=== PATIENT | female | born 1965 | race Caucasian/White ===

== ENCOUNTER 2016-11-21 15:10 | Inpatient (IN) | payer MEDICARE, OTHER ==
[2016-11-21] MEDS ORDERED: SODIUM CHLORIDE 0.9% 1,000 ML IV STA (15:35)
[2016-11-21] MEDS ORDERED: IPRATROPIUM-ALBUTEROL 3 ML NEB INHALATION STA (15:35)
[2016-11-21] MEDS ORDERED: methylPREDNISolone SOD SUCCI 125 MG/2 ML VIAL IV STA (15:35)
--- NOTE | 2016-11-21 15:48 | ED ---
SOB HPI - General Chief Complaint: Shortness of Breath Stated Complaint: SOB Time Seen by Provider: 11/21/16 15:20 Source: patient, RN notes reviewed Mode of arrival: wheelchair Limitations: no limitations - History of Present Illness Initial Comments: Is a 51-year-old female history of mental retardation who also has a history of asthma she presents with complaints of having pneumonia. She is short of breath fevers chills and sweats. She was seen by visiting physician 3 days ago x-ray was ordered which apparently did show evidence of pneumonia. Is no other complaints at this time no nausea vomiting diarrhea. Temperature got as high as 101. She is coughing but no phlegm was produced. MD Complaint: shortness of breath, cough - Related Data Home Medications Medication Instructions Recorded Confirmed Atenolol [Tenormin] 50 mg PO BID 07/23/15 11/21/16 Citalopram Hydrobromide [CeleXA] 20 mg PO QAM 07/23/15 11/21/16 Docusate Sodium [Dok] 100 mg PO HS 07/23/15 11/21/16 Hydrochlorothiazide [Hydrodiuril] 12.5 mg PO QAM 07/23/15 11/21/16 Lisinopril [Zestril] 10 mg PO W/SUPPER 07/23/15 11/21/16 Loratadine [Claritin] 10 mg PO W/SUPPER 07/23/15 11/21/16 Multivitamins, Thera [Multivitamin 1 tab PO DAILY 07/23/15 11/21/16 (formulary)] Omeprazole [PriLOSEC] 20 mg PO AC-BRKFST 07/23/15 11/21/16 Potassium Chloride [K-Tab ER] 10 meq PO QAM 07/23/15 11/21/16 Solifenacin Succinate [Vesicare] 5 mg PO W/SUPPER 07/23/15 11/21/16 Aspirin EC [Ecotrin Low Dose] 81 mg PO QAM 11/21/16 11/21/16 Cholecalciferol (Vitamin D3) 2,000 unit PO DAILY 11/21/16 11/21/16 [Vitamin D3] Fenofibrate Nanocrystallized 145 mg PO DAILY 11/21/16 11/21/16 [Fenofibrate] [place]-3 Acid Ethyl Esters [Lovaza] 2 gm PO BID 11/21/16 11/21/16 Simvastatin [Zocor] 20 mg PO HS 11/21/16 11/21/16 Sulfamethox-Tmp 800-160Mg [Bactrim 1 tab PO BID 11/21/16 11/21/16 DS 800-160 mg] cloZAPine [Clozaril] 200 mg PO HS 11/21/16 11/21/16 metFORMIN HCL ER [Glucophage Xr] 1,000 mg PO BID-W/MEALS 11/21/16 11/21/16 Previous Rx's Medication Instructions Recorded Insulin Glargine [Lantus] 30 unit SQ BID #1 vial 08/10/15 Allergies Allergy/AdvReac Type Severity Reaction Status Date / Time No Known Allergies Allergy Verified 11/21/16 15:52 Review of Systems ROS Statement: Those systems with pertinent positive or pertinent negative responses have been documented in the HPI. ROS Other: All systems not noted in ROS Statement are negative. Past Medical History Past Medical History: Diabetes Mellitus, GERD/Reflux, Hyperlipidemia, Hypertension Additional Past Medical History / Comment(s): HX ANEMIA. STRESS TEST AND ECHO DONE LAST WEEK AT [facility] - HAS SL MURMUR. MENTALLY DELAYED. URINARY URGENCY, INCONTINANCE IN SLEEP. HX ABN LFS. ABD PAIN, OCC NAUSEA/VOMITING. GALLSTONES. History of Any Multi-Drug Resistant Organisms: None Reported Past Surgical History: Orthopedic Surgery Additional Past Surgical History / Comment(s): PAST EYE SX LONG TIME AGO NOT SURE WHAT WAS DONE. RT KNEE SURG(ARTHROSCOPY).08-03-15 OPEN CHOLECYSTECTOMY Past Anesthesia/Blood Transfusion Reactions: Unable to Obtain Past Psychological History: Schizophrenia Smoking Status: Former smoker Past Alcohol Use History: None Reported Past Drug Use History: None Reported - Past Family History Mother Family Medical History: Unable to Obtain General Exam - General Exam Comments Initial Comments: This is a well up well-nourished awake alert female she is audibly wheezing Limitations: no limitations General appearance: alert, in no apparent distress Head exam: Present: atraumatic, normocephalic, normal inspection Eye exam: Present: normal appearance, PERRL, EOMI. Absent: scleral icterus, conjunctival injection, periorbital swelling ENT exam: Present: mucous membranes dry Neck exam: Present: normal inspection. Absent: tenderness, meningismus, lymphadenopathy Respiratory exam: Absent: respiratory distress, wheezes, rales, rhonchi, stridor Cardiovascular Exam: Present: regular rate, normal rhythm, normal heart sounds. Absent: systolic murmur, diastolic murmur, rubs, gallop, clicks GI/Abdominal exam: Present: soft, normal bowel sounds. Absent: distended, tenderness, guarding, rebound, rigid Extremities exam: Present: normal inspection, full ROM, normal capillary refill. Absent: tenderness, pedal edema, joint swelling, calf tenderness Back exam: Present: normal inspection Neurological exam: Present: alert, altered, CN II-XII intact Psychiatric exam: Present: normal affect, normal mood Skin exam: Present: warm, dry, intact, normal color. Absent: rash Course Vital Signs 11/21/16 11/21/16 11/21/16 15:19 16:09 16:10 Temperature 97.8 F 99.2 F Pulse Rate 81 79 80 Respiratory 20 20 Rate Blood Pressure 109/70 112/70 O2 Sat by Pulse 93 L 99 Oximetry 11/21/16 11/21/16 11/21/16 16:17 17:33 18:51 Temperature 98.4 F Pulse Rate 79 87 79 Respiratory 22 20 Rate Blood Pressure 122/71 124/67 O2 Sat by Pulse 95 94 L Oximetry 11/21/16 19:18 Temperature Pulse Rate 74 Respiratory 16 Rate Blood Pressure 122/68 O2 Sat by Pulse 95 Oximetry - Reevaluation(s) Reevaluation #1: 11/21/16 20:20 I did reevaluate this patient several occasions she still dyspneic her best pulse ox is about 93 on oxygen nasal cannula. She still demonstrated wheezing and shortness of breath. Medical Decision Making - Medical Decision Making The patient is wheezing she will be admitted. I did discuss the case Dr. Osei. Pulmonary medicine will be consulted - Lab Data Result diagrams: 11/21/16 16:20 11/21/16 16:20 Lab Results 11/21/16 11/21/16 11/21/16 Range/Units 16:20 16:20 16:20 WBC 6.3 (3.8-10.6) k/uL RBC 4.55 (3.80-5.40) m/uL Hgb 12.4 (11.4-16.0) gm/dL Hct 37.7 (34.0-46.0) % MCV 82.9 (80.0-100.0) fL MCH 27.3 (25.0-35.0) pg MCHC 32.9 (31.0-37.0) g/dL RDW 14.7 (11.5-15.5) % Plt Count 303 (150-450) k/uL Neutrophils % 45 % Lymphocytes % 40 % Monocytes % 5 % Eosinophils % 5 % Basophils % 1 % Neutrophils # 2.8 (1.3-7.7) k/uL Lymphocytes # 2.5 (1.0-4.8) k/uL Monocytes # 0.3 (0-1.0) k/uL Eosinophils # 0.3 (0-0.7) k/uL Basophils # 0.1 (0-0.2) k/uL PT (9.0-12.0) sec INR (<1.1) APTT (22.0-30.0) sec Sodium 143 (137-145) mmol/L Potassium 4.9 (3.5-5.1) mmol/L Chloride 103 (98-107) mmol/L Carbon Dioxide 25 (22-30) mmol/L Anion Gap 15 mmol/L BUN 22 H (7-17) mg/dL Creatinine 1.15 H (0.52-1.04) mg/dL Est GFR (MDRD) Af Amer 60 (>60 ml/min/1.73 sqM) Est GFR (MDRD) Non-Af 49 (>60 ml/min/1.73 sqM) Glucose 90 (74-99) mg/dL Calcium 10.2 (8.4-10.2) mg/dL Magnesium 1.7 (1.6-2.3) mg/dL Total Bilirubin 0.5 (0.2-1.3) mg/dL AST 31 (14-36) U/L ALT 155 H (9-52) U/L Alkaline Phosphatase 106 (38-126) U/L Total Creatine Kinase 54 (30-135) U/L CK-MB (CK-2) 0.7 (0.0-2.4) ng/mL CK-MB (CK-2) Rel Index 1.3 Troponin I <0.012 (0.000-0.034) ng/mL NT-Pro-B Natriuret Pep pg/mL Total Protein 7.0 (6.3-8.2) g/dL Albumin 4.1 (3.5-5.0) g/dL 11/21/16 11/21/16 Range/Units 16:20 16:26 WBC (3.8-10.6) k/uL RBC (3.80-5.40) m/uL Hgb (11.4-16.0) gm/dL Hct (34.0-46.0) % MCV (80.0-100.0) fL MCH (25.0-35.0) pg MCHC (31.0-37.0) g/dL RDW (11.5-15.5) % Plt Count (150-450) k/uL Neutrophils % % Lymphocytes % % Monocytes % % Eosinophils % % Basophils % % Neutrophils # (1.3-7.7) k/uL Lymphocytes # (1.0-4.8) k/uL Monocytes # (0-1.0) k/uL Eosinophils # (0-0.7) k/uL Basophils # (0-0.2) k/uL PT 10.8 (9.0-12.0) sec INR 1.1 (<1.1) APTT 23.2 (22.0-30.0) sec Sodium (137-145) mmol/L Potassium (3.5-5.1) mmol/L Chloride (98-107) mmol/L Carbon Dioxide (22-30) mmol/L Anion Gap mmol/L BUN (7-17) mg/dL Creatinine (0.52-1.04) mg/dL Est GFR (MDRD) Af Amer (>60 ml/min/1.73 sqM) Est GFR (MDRD) Non-Af (>60 ml/min/1.73 sqM) Glucose (74-99) mg/dL Calcium (8.4-10.2) mg/dL Magnesium (1.6-2.3) mg/dL Total Bilirubin (0.2-1.3) mg/dL AST (14-36) U/L ALT (9-52) U/L Alkaline Phosphatase (38-126) U/L Total Creatine Kinase (30-135) U/L CK-MB (CK-2) (0.0-2.4) ng/mL CK-MB (CK-2) Rel Index Troponin I (0.000-0.034) ng/mL NT-Pro-B Natriuret Pep 314 pg/mL Total Protein (6.3-8.2) g/dL Albumin (3.5-5.0) g/dL - EKG Data -: EKG Interpreted by Me EKG shows normal: sinus rhythm (Sinus rhythm rate of 79 VT interval 192 QRS duration 148 daily since QTC of 478/548 left exodeviation left bundle-branch block no acute ST-T wave changes.) - Radiology Data Radiology results: report reviewed (I did review the imaging there is some evidence of a left lower lobe pneumonia.), image reviewed Disposition Clinical Impression: Left lower lobe pneumonia, Asthma exacerbation, Adult respiratory distress syndrome Disposition: ADMITTED IP TO THIS HOSP Condition: Stable Referrals: All Ham MD [Primary Care Provider] - 1-2 days
[2016-11-21 16:26] LABS: Basophils # (A) 0.1 k/uL (0-0.2); Basophils % (A) 1 %; CH 26.9; CHCM 32.6; Eosinophils # (A) 0.3 k/uL (0-0.7); Eosinophils % (A) 5 %; HCT 37.7 % (34.0-46.0); HDW 2.98; HGB 12.4 gm/dL (11.4-16.0); Luc # (Auto) 0.25; Luc % (Auto) 4; Lymphocytes # (A) 2.5 k/uL (1.0-4.8); Lymphocytes % (A) 40 %; MCH 27.3 pg (25.0-35.0); MCHC 32.9 g/dL (31.0-37.0); MCV 82.9 fL (80.0-100.0); Mean Platelet Volume 7.6; Monocytes # (A) 0.3 k/uL (0-1.0); Monocytes % (A) 5 %; Neutrophils # (A) 2.8 k/uL (1.3-7.7); Neutrophils % (A) 45 %; RBC 4.55 m/uL (3.80-5.40); RDW 14.7 % (11.5-15.5); WBC 6.3 k/uL (3.8-10.6); WBC (Perox) 6.27
[2016-11-21 16:36] LABS: Calcium 10.2 mg/dL (8.4-10.2); Magnesium 1.7 mg/dL (1.6-2.3); Potassium 4.9 mmol/L (3.5-5.1); Total Bilirubin 0.5 mg/dL (0.2-1.3)
[2016-11-21 16:47] LABS: Creatine Kinase 54 U/L (30-135)
--- NOTE | 2016-11-21 16:55 | XR ---
EXAMINATION TYPE: XR chest 2V DATE OF EXAM: 11/21/2016 COMPARISON: 08/06/2015 HISTORY: Short of breath TECHNIQUE: Frontal and lateral views of the chest are obtained. FINDINGS: Heart and mediastinum are normal. Lungs are clear. Diaphragm is normal. Bony thorax is int act. IMPRESSION: Normal chest. There is clearing of left lower lobe pneumonia compared to old exam.
[2016-11-21 16:57] LABS: INR 1.1 (<1.1); Partial Thromboplastin Time 23.2 sec (22.0-30.0); Prothrombin Time 10.8 sec (9.0-12.0)
[2016-11-21 16:59] LABS: Creatine Kinase MB 0.7 ng/mL (0.0-2.4); Troponin I <0.012 ng/mL (0.000-0.034)
[2016-11-21] MEDS ORDERED: PNEUMONIA PROTOCOL UTILIZED 1 EACH MISC PO PRN (20:26)
[2016-11-21] MEDS ORDERED: AZITHROMYCIN 500 MG in SODIUM CHLORIDE 0.9% 250 ML IVPB STA (20:26)
[2016-11-21] MEDS ORDERED: NON-FORMULARY DRUG (Omega-3 Acid Ethyl Esters [Lovaza] 2 GM) PO SCH (21:00)
[2016-11-21] MEDS: cloZAPine 100 MG TAB PO SCH (22:27)
[2016-11-21] MEDS: ATORVASTATIN 10 MG TAB PO SCH (22:28)
[2016-11-21] MEDS: DOCUSATE 100 MG CAP PO SCH (22:28)
[2016-11-21] MEDS: ATENOLOL 50 MG TAB PO SCH (22:28)
[2016-11-21 22:46] LABS: Glucose,Whole Blood 128 mg/dL (75-99)
[2016-11-21] MEDS ORDERED: IPRATROPIUM-ALBUTEROL 3 ML NEB INHALATION PRN (23:10)
[2016-11-21] MEDS: INSULIN LISPRO (humaLOG) 300 UNIT/3 ML VIAL SQ SCH (23:29)
[2016-11-22] MEDS ORDERED: IPRATROPIUM-ALBUTEROL 3 ML NEB INHALATION SCH
[2016-11-22] MEDS: SODIUM CHLORIDE 0.9% 1,000 ML IV SCH ×3 (00:20→12:44)
[2016-11-22] MEDS: INSULIN GLARGINE 100 UNIT/ML 10 ML VIAL SQ SCH ×3 (00:27→21:09)
[2016-11-22 03:44] LABS: Hemoglobin A1C 6.2 % (4.2-6.1)
--- NOTE | 2016-11-22 07:24 | XR ---
EXAMINATION TYPE: XR chest 2V DATE OF EXAM: 11/22/2016 HISTORY: pneumonia. REFERENCE: Previous study dated 11/21/2016. FINDINGS: Tubing projects over the left hemithorax. Lungs remain clear. Pleural spaces are clear. Heart size is upper limits of normal. IMPRESSION: NO ACUTE INTRATHORACIC ABNORMALITY.
[2016-11-22 07:36] LABS: Glucose,Whole Blood 157 mg/dL (75-99)
[2016-11-22] MEDS: IPRATROPIUM-ALBUTEROL 3 ML NEB INHALATION SCH ×4 (07:45→20:04)
[2016-11-22 08:07] LABS: Basophils % (A) 0 %; CH 26.9; CHCM 32.2; Eosinophils % (A) 0 %; HDW 2.98; HGB 11.8 gm/dL (11.4-16.0); Luc # (Auto) 0.23; Luc % (Auto) 3; Lymphocytes # (A) 1.7 k/uL (1.0-4.8); Lymphocytes % (A) 19 %; MCH 26.8 pg (25.0-35.0); MCV 83.9 fL (80.0-100.0); Mean Platelet Volume 7.3; Monocytes # (A) 0.3 k/uL (0-1.0); Monocytes % (A) 3 %; Neutrophils # (A) 6.7 k/uL (1.3-7.7); Neutrophils % (A) 75 %; RBC 4.42 m/uL (3.80-5.40); RDW 14.5 % (11.5-15.5); WBC (Perox) 9.55
[2016-11-22 08:23] LABS: Anion Gap 14 mmol/L; Blood Urea Nitrogen 20 mg/dL (7-17); Carbon Dioxide 21 mmol/L (22-30); Chloride 108 mmol/L (98-107); Glucose 153 mg/dL (74-99); Non-African American GFR(MDRD) 57 (>60 ml/min/1.73 sqM); Sodium 143 mmol/L (137-145)
[2016-11-22] MEDS: HYDROCHLOROTHIAZIDE 12.5 MG CAP PO SCH (08:25)
[2016-11-22] MEDS: ATENOLOL 50 MG TAB PO SCH ×2 (08:25→20:14)
[2016-11-22] MEDS: POTASSIUM CHLORIDE ER 10 MEQ TAB.ER.PRT PO SCH (08:25)
[2016-11-22] MEDS: MULTIVITAMINS, THERA 1 EACH TAB PO SCH (08:25)
[2016-11-22] MEDS: CITALOPRAM HYDROBROMIDE 20 MG TAB PO SCH (08:25)
[2016-11-22] MEDS: ASPIRIN 81 MG CHEW PO SCH (08:26)
[2016-11-22] MEDS: AZITHROMYCIN 500 MG TAB PO SCH (08:26)
[2016-11-22] MEDS: INSULIN LISPRO (humaLOG) 300 UNIT/3 ML VIAL SQ SCH ×4 (08:26→21:11)
[2016-11-22] MEDS: metFORMIN 500 MG TAB PO SCH ×2 (08:26→17:10)
[2016-11-22] MEDS: FENOFIBRATE 160 MG TAB PO SCH (08:26)
[2016-11-22] MEDS: CHOLECALCIFEROL 1,000 UNIT TAB PO SCH (08:26)
[2016-11-22] MEDS: PANTOPRAZOLE 40 MG TABLET PO SCH (08:26)
[2016-11-22] MEDS: ENOXAPARIN 40 MG/0.4 ML SYRINGE SQ SCH (10:46)
[2016-11-22 12:10] LABS: Glucose,Whole Blood 238 mg/dL (75-99)
[2016-11-22] MEDS ORDERED: ONDANSETRON 4 MG/2 ML VIAL IVP PRN (14:39)
[2016-11-22] MEDS ORDERED: ONDANSETRON 4 MG/2 ML VIAL ONE (14:46)
[2016-11-22] MEDS: OXYBUTYNIN XL 5 MG TAB.ER.24 PO SCH (17:10)
[2016-11-22] MEDS: LORATADINE 10 MG TAB PO SCH (17:10)
[2016-11-22] MEDS: LISINOPRIL 10 MG TAB PO SCH (17:10)
[2016-11-22 17:21] LABS: Glucose,Whole Blood 158 mg/dL (75-99)
[2016-11-22] MEDS: methylPREDNISolone SOD SUCCI 40 MG/ML 1 ML VIAL IV SCH ×2 (17:37→23:48)
[2016-11-22] MEDS: ATORVASTATIN 10 MG TAB PO SCH (20:13)
[2016-11-22] MEDS: DOCUSATE 100 MG CAP PO SCH (20:14)
[2016-11-22] MEDS: cloZAPine 100 MG TAB PO SCH (20:14)
[2016-11-22 20:30] LABS: Glucose,Whole Blood 179 mg/dL (75-99)
--- NOTE | 2016-11-22 21:24 | HP ---
DATE OF ADMISSION: 11/21/2016 PRESENTING COMPLAINT: Cough, shortness of breath. HISTORY OF PRESENTING COMPLAINT: This is a 51-year-old patient of Visiting Physician Dr. Ham whose chronic stable medical conditions include diabetes, GERD, hyperlipidemia, hypertension, some mental delay, chronic urinary incontinence, schizophrenia. Patient has a congested cough but does not expectorate; going on for some time. Some shortness of breath. No fever. Has an appetite. Short of breath. Has had some loose stools off and on. Some abdominal discomfort for over 2 weeks. Patient [facility] a [facility]. Admitted for the same. Patient is able to carry on a simple conversation. REVIEW OF SYSTEMS: CONSTITUTIONAL: Tired. HEENT: None. RESPIRATORY: As above. CARDIOVASCULAR: None. GASTROINTESTINAL: As above. GENITOURINARY: Urinary incontinence. DERMATOLOGICAL: None. HEMATOLOGICAL: None. LYMPHATICS: None. PSYCHIATRY: None. NEUROLOGICAL: None. PAST HISTORY: 1. Diabetes. 2. GERD. 3. Hyperlipidemia. 4. Hypertension. 5. Mental delay. 6. Chronic urine incontinence. 7. Gallstones. 8. Schizophrenia. PAST SURGICAL HISTORY: 1. Right knee surgery with arthroscopy. 2. Open cholecystectomy. SOCIAL HISTORY: Patient is mentally challenged. Schizophrenia. Lives at a penitentiary. Does not smoke. May use a walker. FAMILY HISTORY: Patient does not remember. HOME MEDICATIONS: 1. Metformin (Glucophage XR) 1000 mg p.o. b.i.d. 2. Clozapine 200 mg at bedtime. 3. Bactrim DS 1 tablet b.i.d. 4. Vesicare 5 mg with supper. 5. Zocor 20 mg at bedtime. 6. Potassium 10 mEq a day. 7. Prilosec 20 mg with breakfast. 8. Lovaza 2 grams p.o. b.i.d. 9. Multivitamin 1 tablet p.o. daily. 10. Claritin 10 mg with supper. 11. Zestril 10 mg with supper. 12. Lantus 30 units subcutaneously b.i.d. 13. Hydrochlorothiazide 12.5 p.o. daily. 14. TriCor 145 mg p.o. daily. 15. Colace 100 mg at bedtime. 16. Celexa 20 mg p.o. daily. 17. Vitamin D3 2000 units p.o. daily. 18. Tenormin 50 mg p.o. b.i.d. 19. Aspirin 81 mg daily. ALLERGIES: NONE. On examination, temperature 97.7, pulse 73, respiration 16, blood pressure 123/64, pulse ox 99% on 2 L. GENERAL APPEARANCE: Average build. Lying in bed. Tired-appearing. EYES: Pupils equal. Conjunctivae normal. HEENT: Oral cavity normal. NECK: JVD not raised. Mass not palpable. RESPIRATORY: Effort increased. LUNGS: Decreased breath sounds from wheezing. Expiratory crackles. CARDIOVASCULAR: First and second sounds normal. No edema. ABDOMEN: Soft, nontender. Liver and spleen not palpable. LYMPHATIC: No lymph node palpable in neck or axillae. PSYCHIATRY: Able to answer questions. Mood and affect normal. NEUROLOGICAL: Pupils equal. Cranial nerves grossly intact. Power and sensation grossly intact. INVESTIGATIONS: White count 9, hemoglobin 11.8. BUN 22, creatinine 1.15. Troponin less than 0.12. ProBNP 314. Chest x-ray reviewed; shows diffuse pattern. ASSESSMENT: 1. This patient appears to have acute pneumonitis. This well could be a viral component, given no raging fever or white count, but patient sounds rather congested. A bacterial component cannot be ruled out, as this is also associated with some diarrhea. 2. Acute diarrhea; could be viral, too. 3. Diabetes mellitus, type 2, on oral hypoglycemics. 4. Gastroesophageal reflux disease. 5. Hyperlipidemia. 6. Hypertension. 7. Mental developmental delay. 8. Chronic urinary stress incontinence. 9. Gallstones, asymptomatic. 10. Schizophrenia. PLAN: Patient was put on bronchodilators, antibiotics. Home medications will be resumed. Accu-Cheks will be followed. Pulmonary is consulted. Patient may need a bronchoscopy with lavage if the symptoms persist. Care was discussed with the patient.
[2016-11-23] MEDS: SODIUM CHLORIDE 0.9% 1,000 ML IV SCH ×2 (05:23→11:19)
[2016-11-23] MEDS: methylPREDNISolone SOD SUCCI 40 MG/ML 1 ML VIAL IV SCH ×2 (07:15→17:09)
[2016-11-23] MEDS: metFORMIN 500 MG TAB PO SCH ×2 (07:15→17:10)
[2016-11-23] MEDS: PANTOPRAZOLE 40 MG TABLET PO SCH (07:15)
[2016-11-23] MEDS: POTASSIUM CHLORIDE ER 10 MEQ TAB.ER.PRT PO SCH (07:16)
[2016-11-23] MEDS: ENOXAPARIN 40 MG/0.4 ML SYRINGE SQ SCH (07:16)
[2016-11-23] MEDS: AZITHROMYCIN 500 MG TAB PO SCH (07:16)
[2016-11-23] MEDS: FENOFIBRATE 160 MG TAB PO SCH (07:16)
[2016-11-23] MEDS: CITALOPRAM HYDROBROMIDE 20 MG TAB PO SCH (07:16)
[2016-11-23] MEDS: HYDROCHLOROTHIAZIDE 12.5 MG CAP PO SCH (07:16)
[2016-11-23] MEDS: CHOLECALCIFEROL 1,000 UNIT TAB PO SCH (07:16)
[2016-11-23] MEDS: ATENOLOL 50 MG TAB PO SCH ×2 (07:17→20:48)
[2016-11-23] MEDS: ASPIRIN 81 MG CHEW PO SCH (07:17)
[2016-11-23 07:18] LABS: Glucose,Whole Blood 171 mg/dL (75-99)
[2016-11-23] MEDS: IPRATROPIUM-ALBUTEROL 3 ML NEB INHALATION SCH ×4 (07:38→19:27)
[2016-11-23] MEDS: INSULIN LISPRO (humaLOG) 300 UNIT/3 ML VIAL SQ SCH ×4 (07:39→20:43)
[2016-11-23] MEDS: INSULIN GLARGINE 100 UNIT/ML 10 ML VIAL SQ SCH ×2 (07:40→20:41)
[2016-11-23 07:43] LABS: Basophils % (A) 0 %; CH 26.9; CHCM 31.7; Eosinophils % (A) 0 %; HCT 34.5 % (34.0-46.0); HDW 2.87; HGB 10.9 gm/dL (11.4-16.0); Hypochromasia Slight; Luc # (Auto) 0.14; Luc % (Auto) 2; Lymphocytes # (A) 1.6 k/uL (1.0-4.8); Lymphocytes % (A) 17 %; MCHC 31.6 g/dL (31.0-37.0); MCV 85.3 fL (80.0-100.0); Mean Platelet Volume 7.4; Monocytes # (A) 0.3 k/uL (0-1.0); Monocytes % (A) 3 %; Neutrophils # (A) 7.3 k/uL (1.3-7.7); Neutrophils % (A) 78 %; RBC 4.05 m/uL (3.80-5.40); RDW 15.1 % (11.5-15.5); WBC 9.3 k/uL (3.8-10.6); WBC (Perox) 9.56
[2016-11-23 07:58] LABS: Anion Gap 10 mmol/L; Blood Urea Nitrogen 21 mg/dL (7-17); Calcium 9.4 mg/dL (8.4-10.2); Carbon Dioxide 22 mmol/L (22-30); Chloride 111 mmol/L (98-107); Glucose 170 mg/dL (74-99); Non-African American GFR(MDRD) >60 (>60 ml/min/1.73 sqM); Potassium 5.2 mmol/L (3.5-5.1); Sodium 143 mmol/L (137-145)
--- NOTE | 2016-11-23 10:24 | P.CNPUL ---
History of Present Illness Consult date: 11/23/16 Requesting physician: Ranjeet Osei Reason for consult: asthma, pneumonia Chief complaint: shortness of breath History of present illness: This is a 51-year-old female patient being seen, examined and evaluated on the fifth floor. This patient came into the emergency room yesterday with shortness of breath, fever max of 101, chills and sweats. Per the medical charts the patient was evaluated by a visiting physician 3 days ago which did show pneumonia. Patient does live in a senior living and does have a history of mental delays. The patient was found to be hypoxic in the emergency room and did require supplemental oxygen via nasal cannula. Patient also complained of some intermittent loose stools over the last week. Labs were reviewed patient' s WBC 6.3, hemoglobin 12.4, sodium 143, potassium 4.9, magnesium 1.7, BUN 22 and creatinine 1.15. EKG shows normal sinus rhythm. Chest x-ray was reviewed and did show evidence of a left lower lobe pneumonia. Patient was ultimately admitted with our services on consults. On examination patient is resting up in bed on 2 L of supplemental oxygen. Patient is in no acute distress at this time. Patient continues to complain of a cough that is congested however she is unable to bring up secretions due to tenacious secretions. Currently the patient is afebrile and tolerated diet well. Review of Systems 14 point review of systems was completed and is negative other than what is noted in the HPI. Past Medical History Past Medical History: Diabetes Mellitus, GERD/Reflux, Hyperlipidemia, Hypertension Additional Past Medical History / Comment(s): HX ANEMIA. STRESS TEST AND ECHO DONE LAST WEEK AT [facility] - HAS SL MURMUR. MENTALLY DELAYED. URINARY URGENCY, INCONTINANCE IN SLEEP. HX ABN LFS. ABD PAIN, OCC NAUSEA/VOMITING. GALLSTONES. History of Any Multi-Drug Resistant Organisms: None Reported Past Surgical History: Orthopedic Surgery Additional Past Surgical History / Comment(s): PAST EYE SX LONG TIME AGO NOT SURE WHAT WAS DONE. RT KNEE SURG(ARTHROSCOPY).08-03-15 OPEN CHOLECYSTECTOMY Past Anesthesia/Blood Transfusion Reactions: Unable to Obtain Past Psychological History: Schizophrenia Additional Psychological History / Comment(s): "MENTALLY CHALLENGED, WAS AN UNEXPECTED TWIN." MOOD DISORDER. Smoking Status: Unknown if ever smoked - Past Family History Mother Family Medical History: Unable to Obtain Medications and Allergies Home Medications Medication Instructions Recorded Confirmed Type Atenolol [Tenormin] 50 mg PO BID 07/23/15 11/21/16 History Citalopram Hydrobromide [CeleXA] 20 mg PO QAM 07/23/15 11/21/16 History Docusate Sodium [Dok] 100 mg PO HS 07/23/15 11/21/16 History Hydrochlorothiazide [Hydrodiuril] 12.5 mg PO QAM 07/23/15 11/21/16 History Lisinopril [Zestril] 10 mg PO W/SUPPER 07/23/15 11/21/16 History Loratadine [Claritin] 10 mg PO W/SUPPER 07/23/15 11/21/16 History Multivitamins, Thera [Multivitamin 1 tab PO DAILY 07/23/15 11/21/16 History (formulary)] Omeprazole [PriLOSEC] 20 mg PO AC-BRKFST 07/23/15 11/21/16 History Potassium Chloride [K-Tab ER] 10 meq PO QAM 07/23/15 11/21/16 History Solifenacin Succinate [Vesicare] 5 mg PO W/SUPPER 07/23/15 11/21/16 History Aspirin EC [Ecotrin Low Dose] 81 mg PO QAM 11/21/16 11/21/16 History Cholecalciferol (Vitamin D3) 2,000 unit PO DAILY 11/21/16 11/21/16 History [Vitamin D3] Fenofibrate Nanocrystallized 145 mg PO DAILY 11/21/16 11/21/16 History [Fenofibrate] [place]-3 Acid Ethyl Esters [Lovaza] 2 gm PO BID 11/21/16 11/21/16 History Simvastatin [Zocor] 20 mg PO HS 11/21/16 11/21/16 History Sulfamethox-Tmp 800-160Mg [Bactrim 1 tab PO BID 11/21/16 11/21/16 History DS 800-160 mg] cloZAPine [Clozaril] 200 mg PO HS 11/21/16 11/21/16 History metFORMIN HCL ER [Glucophage Xr] 1,000 mg PO BID-W/MEALS 11/21/16 11/21/16 History Allergies Allergy/AdvReac Type Severity Reaction Status Date / Time No Known Allergies Allergy Verified 11/21/16 15:52 Physical Exam Vitals: Vital Signs Temp Pulse Pulse Pulse Resp BP Pulse Ox 11/23/16 08:00 80 18 11/23/16 07:54 76 11/23/16 07:39 76 11/23/16 07:00 97.7 F 80 18 119/66 91 L 11/23/16 00:00 76 78 16 11/22/16 23:00 97.4 F L 83 16 109/62 92 L 11/22/16 20:30 84 11/22/16 20:04 84 11/22/16 15:46 73 83 16 11/22/16 15:43 84 11/22/16 15:32 83 94 L 11/22/16 15:00 97.6 F 83 16 115/65 97 11/22/16 13:30 78 11/22/16 13:23 74 Intake and Output 11/22/16 11/23/16 11/23/16 22:59 06:59 14:59 Intake Total 650 240 Balance 650 240 Intake: Intake, IV Titration 650 Amount Sodium Chloride 0.9% 1, 650 000 ml @ 100 mls/hr IV . Q10H JOSEP Rx#:[id number] Oral 240 Other: Voiding Method Toilet Toilet Toilet # Voids 2 2 1 Weight 61 kg 61 kg Patient Weight 11/24/16 06:59 Weight 61 kg GENERAL EXAM: Alert, comfortable in no apparent distress. HEAD: Normocephalic. EYES: Normal reaction of pupils, equal size. NOSE: Clear with pink turbinates. THROAT: No erythema or exudates. NECK: No masses, no JVD. CHEST: No chest wall deformity. LUNGS: Diminished air entry with expiratory wheezing noted throughout, bases diminished CVS: S1 and S2 normal with no audible mumurs, regular rhythm. ABDOMEN: No hepatosplenomegaly, normal bowel sounds, no guarding or rigidity. EXTREMITIES: No edema noted, pedal pulses palpable. SKIN: No rashes CENTRAL NERVOUS SYSTEM: No focal deficits, tone is normal in all 4 extremities. Results - Laboratory Findings CBC and BMP: 11/23/16 07:06 11/23/16 07:06 PT/INR, D-dimer PT 10.8 sec (9.0-12.0) 11/21/16 16:26 INR 1.1 (<1.1) 11/21/16 16:26 Abnormal lab findings: Abnormal Labs 11/21/16 11/21/16 11/21/16 16:20 16:20 22:34 Hgb Potassium Chloride Carbon Dioxide BUN 22 H Creatinine 1.15 H Glucose POC Glucose (mg/dL) 128 H Hemoglobin A1c 6.2 H ALT 155 H 11/22/16 11/22/16 11/22/16 07:20 07:22 11:53 Hgb Potassium Chloride 108 H Carbon Dioxide 21 L BUN 20 H Creatinine Glucose 153 H POC Glucose (mg/dL) 157 H 238 H Hemoglobin A1c ALT 11/22/16 11/22/16 11/23/16 17:10 20:28 07:06 Hgb 10.9 L Potassium Chloride Carbon Dioxide BUN Creatinine Glucose POC Glucose (mg/dL) 158 H 179 H Hemoglobin A1c ALT 11/23/16 11/23/16 07:06 07:12 Hgb Potassium 5.2 H Chloride 111 H Carbon Dioxide BUN 21 H Creatinine Glucose 170 H POC Glucose (mg/dL) 171 H Hemoglobin A1c ALT - Diagnostic Findings Chest x-ray: report reviewed, image reviewed Assessment and Plan Plan: Assessment Left lower lobe pneumonia, viral or bacterial cannot be excluded Acute hypoxic respiratory failure Acute diarrhea Diabetes mellitus type 2 Hypertension Mental/developmental delay Schizophrenia Hyperlipidemia GERD Plan Medications have been reviewed and will be continued as ordered. Continue antibiotics and steroids. We will add Mucinex to help with secretions as well as inhaled steroids. Initiate and encourage incentive spirometer. Continue with pulmonary hygiene, coughing and deep breathing exercises, and supportive care. Supplemental oxygen to maintain oxygen saturations of 92% or better. Continue nebulizer treatments. Obtain sputum culture. Bronchoscopy could be considered in the future depending on how patient responds to current treatment. GI and DVT prophylaxis. We will continue to monitor labs/results and adjust treatment as necessary. Further recommendations pending. I performed an examination of the patient and discussed their management with the nurse practitioner. I have reviewed the nurse practitioner's note and agree with the documented findings and plan of care.
[2016-11-23 11:13] LABS: Glucose,Whole Blood 226 mg/dL (75-99)
[2016-11-23] MEDS: guaiFENesin 600 MG TABLET.ER PO SCH ×2 (11:18→20:41)
[2016-11-23] MEDS: MULTIVITAMINS, THERA 1 EACH TAB PO SCH (12:58)
[2016-11-23] MEDS: OXYBUTYNIN XL 5 MG TAB.ER.24 PO SCH (17:09)
[2016-11-23] MEDS: LISINOPRIL 10 MG TAB PO SCH (17:10)
[2016-11-23] MEDS: LORATADINE 10 MG TAB PO SCH (17:10)
[2016-11-23 17:22] LABS: Glucose,Whole Blood 172 mg/dL (75-99)
[2016-11-23] MEDS: BUDESONIDE 0.5 MG/2 ML NEBU INHALATION SCH (19:27)
[2016-11-23 20:42] LABS: Glucose,Whole Blood 153 mg/dL (75-99)
[2016-11-23] MEDS: DOCUSATE 100 MG CAP PO SCH (20:43)
[2016-11-23] MEDS: ATORVASTATIN 10 MG TAB PO SCH (20:43)
[2016-11-23] MEDS: cloZAPine 100 MG TAB PO SCH (20:43)
[2016-11-24] MEDS: methylPREDNISolone SOD SUCCI 40 MG/ML 1 ML VIAL IV SCH ×3 (01:01→16:19)
[2016-11-24] MEDS: SODIUM CHLORIDE 0.9% 1,000 ML IV SCH ×3 (01:38→12:10)
[2016-11-24] MEDS: IPRATROPIUM-ALBUTEROL 3 ML NEB INHALATION SCH ×4 (06:52→19:02)
[2016-11-24] MEDS: BUDESONIDE 0.5 MG/2 ML NEBU INHALATION SCH ×2 (06:52→19:02)
[2016-11-24 07:05] LABS: Glucose,Whole Blood 91 mg/dL (75-99)
[2016-11-24] MEDS: INSULIN LISPRO (humaLOG) 300 UNIT/3 ML VIAL SQ SCH ×4 (07:07→21:16)
[2016-11-24] MEDS: PANTOPRAZOLE 40 MG TABLET PO SCH (07:29)
[2016-11-24] MEDS: metFORMIN 500 MG TAB PO SCH ×2 (07:29→17:43)
--- NOTE | 2016-11-24 08:38 | PN ---
This 51-year-old woman was admitted with acute left lower lobe pneumonia is being closely monitored. The patient has complaints of cough and sputum. The patient is on IV antibiotics. The patient also had acute hypoxic respiratory failure on presentation as well. The patient is being closely monitored. Past medical history reviewed. REVIEW OF SYSTEMS: CARDIOVASCULAR: No angina or palpitations. RESPIRATORY: As mentioned earlier. GI: As mentioned earlier. : No dysuria. CENTRAL NERVOUS SYSTEM: No focal deficits. MEDICATIONS: 1. DuoNeb q.i.d. and p.r.n. 2. Aspirin 81 mg daily. 3. Tenormin. 4. Lipitor 20 mg b.i.d. daily. 5. Zithromax 500 mg b.i.d. 6. Pulmicort 0.5 mg daily. 7. Rocephin 1 gram daily. 8. Vitamin D3. 9. Celexa. 10. Clozaril. 11. Colace. 12. Lovenox. 14. Mucinex. 16. Lantus. 18. Claritin. 19. Glucovance. 20. Solu-Medrol. 21. Multivitamins. 22. Zofran. 23. Ditropan. 24. Protonix. 25. K-Dur. PHYSICAL EXAMINATION: The patient is alert and oriented times two. Pulse is 76, blood pressure 109/69. Respiratory rate 18. Temperature 97.1. Pulse ox 92% on room air. HEENT: Conjunctivae normal. NECK: No jugular venous distention. CARDIOVASCULAR: S1, S2 muffled. RESPIRATORY: Breath sounds diminished at the bases. Bilateral scattered rhonchi and crackles. ABDOMEN: Soft, nontender. LEGS: No edema. No swelling. Nervous system: No focal deficits. LABS: Glucose 171. Influenza negative. ASSESSMENT: 1. Acute left lower lobe pneumonia with acute bronchial asthma, acute exacerbation. 2. Acute diarrhea, possibly viral. 3. Diabetes mellitus type 2. 4. History of gastroesophageal reflux disease. 5. Hypertension. 6. Hyperlipidemia. 7. Mental developmental delay. 8. Chronic urinary stress incontinence. 9. Schizophrenia. 10. History of cholecystectomy. 11. History of degenerative joint disease. 12. Remote history of nicotine dependence. 13. FULL CODE. RECOMMENDATIONS AND DISCUSSION: Recommend to continue current medications. Continue symptomatic treatment. Otherwise, continue to monitor. Continue the bronchodilators. Pulmonary consultation. Prognosis guarded. Further recommendations to follow. MTDD
[2016-11-24] MEDS: ASPIRIN 81 MG CHEW PO SCH (08:58)
[2016-11-24] MEDS: CHOLECALCIFEROL 1,000 UNIT TAB PO SCH (08:59)
[2016-11-24] MEDS: ATENOLOL 50 MG TAB PO SCH ×2 (08:59→20:33)
[2016-11-24] MEDS: AZITHROMYCIN 500 MG TAB PO SCH (08:59)
[2016-11-24] MEDS: ENOXAPARIN 40 MG/0.4 ML SYRINGE SQ SCH (09:00)
[2016-11-24] MEDS: CITALOPRAM HYDROBROMIDE 20 MG TAB PO SCH (09:00)
[2016-11-24] MEDS: guaiFENesin 600 MG TABLET.ER PO SCH ×2 (09:00→20:33)
[2016-11-24] MEDS: FENOFIBRATE 160 MG TAB PO SCH (09:00)
[2016-11-24] MEDS: POTASSIUM CHLORIDE ER 10 MEQ TAB.ER.PRT PO SCH (09:01)
[2016-11-24] MEDS: HYDROCHLOROTHIAZIDE 12.5 MG CAP PO SCH (09:01)
[2016-11-24] MEDS: INSULIN GLARGINE 100 UNIT/ML 10 ML VIAL SQ SCH ×2 (09:08→21:15)
--- NOTE | 2016-11-24 10:17 | P.PN ---
Subjective This is a 51-year-old female patient being seen, examined and evaluated on the fifth floor. This patient came into the emergency room yesterday with shortness of breath, fever max of 101, chills and sweats. Per the medical charts the patient was evaluated by a visiting physician 3 days ago which did show pneumonia. Patient does live in a snf and does have a history of mental delays. The patient was found to be hypoxic in the emergency room and did require supplemental oxygen via nasal cannula. Patient also complained of some intermittent loose stools over the last week. Labs were reviewed patient' s WBC 6.3, hemoglobin 12.4, sodium 143, potassium 4.9, magnesium 1.7, BUN 22 and creatinine 1.15. EKG shows normal sinus rhythm. Chest x-ray was reviewed and did show evidence of a left lower lobe pneumonia. Patient was ultimately admitted with our services on consults. On examination patient is resting up in bed on 2 L of supplemental oxygen. Patient is in no acute distress at this time. Patient continues to complain of a cough that is congested however she is unable to bring up secretions due to tenacious secretions. Currently the patient is afebrile and tolerated diet well. 11/24/16- upon examination the patient's resting up in bedside chair. She still is continuing supplemental oxygen 2 L via nasal cannula. Patient continues to have a congested cough and difficulty bringing up secretions. Influenza swab negative. Blood cultures pending. Patient has not been able to obtain a sputum culture by spontaneous expectorant. Patient has been scheduled for a bronchoscopy tomorrow. We will obtain consent from the legal guardian. Patient has been educated on the risk and benefits of the procedure, questions have been answered. Objective - Vital Signs Vital signs: Vital Signs Temp 97.3 F L 11/24/16 07:00 Pulse 76 11/24/16 07:34 Resp 16 11/24/16 07:34 BP 139/78 11/24/16 07:00 Pulse Ox 95 11/24/16 07:00 Intake & Output 11/23/16 11/24/16 11/24/16 18:59 06:59 18:59 Intake Total 1330 1200 Balance 1330 1200 Weight 61 kg 61 kg Intake: IV 800 Sodium Chloride 0.9% 1, 800 000 ml @ 100 mls/hr IV . Q10H [facility] Rx#:[id number] Intake, IV Titration 850 Amount Sodium Chloride 0.9% 1, 750 000 ml @ 100 mls/hr IV . Q10H [facility] Rx#:[id number] cefTRIAXone 1,000 mg In 100 Sodium Chloride 0.9% 50 ml @ 100 mls/hr IVPB Q24HR [facility] Rx#:[id number] Oral 480 400 Other: Voiding Method Toilet Toilet Toilet # Voids 6 1 - Exam GENERAL EXAM: Alert, comfortable in no apparent distress. HEAD: Normocephalic. EYES: Normal reaction of pupils, equal size. NOSE: Clear with pink turbinates. THROAT: No erythema or exudates. NECK: No masses, no JVD. CHEST: No chest wall deformity. LUNGS: Diminished air entry with expiratory wheezing noted throughout, bases diminished CVS: S1 and S2 normal with no audible mumurs, regular rhythm. ABDOMEN: No hepatosplenomegaly, normal bowel sounds, no guarding or rigidity. EXTREMITIES: No edema noted, pedal pulses palpable. SKIN: No rashes CENTRAL NERVOUS SYSTEM: No focal deficits, tone is normal in all 4 extremities. - Labs CBC & Chem 7: 11/23/16 07:06 11/23/16 07:06 Labs: Abnormal Lab Results - Last 24 Hours (Table) 11/23/16 11/23/16 11/23/16 Range/Units 11:12 17:10 20:40 POC Glucose (mg/dL) 226 H 172 H 153 H (75-99) mg/dL Microbiology - Last 24 Hours (Table) 11/21/16 16:20 Blood Culture - Preliminary Blood No Growth after 48 hours Assessment and Plan Plan: Assessment Left lower lobe pneumonia, viral or bacterial cannot be excluded Acute hypoxic respiratory failure Acute exacerbation of chronic persistent asthma Acute diarrhea Diabetes mellitus type 2 Hypertension Mental/developmental delay Schizophrenia Hyperlipidemia GERD Plan Medications have been reviewed and will be continued as ordered. Continue antibiotics and steroids. We will add Mucinex to help with secretions as well as inhaled steroids. Initiate and encourage incentive spirometer. Continue with pulmonary hygiene, coughing and deep breathing exercises, and supportive care. Supplemental oxygen to maintain oxygen saturations of 92% or better. Continue nebulizer treatments. Obtain sputum culture. Bronchoscopy note for tomorrow morning we will obtain consent. Procedure, risk and benefits have been discussed with the patient at length all questions have been answered. Nothing by mouth after midnight. GI and DVT prophylaxis. We will continue to monitor labs/results and adjust treatment as necessary. Further recommendations pending. I performed an examination of the patient and discussed their management with the nurse practitioner. I have reviewed the nurse practitioner's note and agree with the documented findings and plan of care.
[2016-11-24 11:28] LABS: Glucose,Whole Blood 227 mg/dL (75-99)
[2016-11-24] MEDS: MULTIVITAMINS, THERA 1 EACH TAB PO SCH (12:12)
[2016-11-24 17:24] LABS: Glucose,Whole Blood 194 mg/dL (75-99)
[2016-11-24] MEDS: LISINOPRIL 10 MG TAB PO SCH (17:43)
[2016-11-24] MEDS: LORATADINE 10 MG TAB PO SCH (17:43)
[2016-11-24] MEDS: OXYBUTYNIN XL 5 MG TAB.ER.24 PO SCH (17:44)
[2016-11-24] MEDS: cloZAPine 100 MG TAB PO SCH (20:33)
[2016-11-24] MEDS: DOCUSATE 100 MG CAP PO SCH (20:33)
[2016-11-24] MEDS: ATORVASTATIN 10 MG TAB PO SCH (20:33)
[2016-11-24] MEDS: predniSONE 10 MG TAB PO SCH (20:33)
[2016-11-24 21:16] LABS: Glucose,Whole Blood 185 mg/dL (75-99)
[2016-11-25 07:38] LABS: Glucose,Whole Blood 121 mg/dL (75-99)
[2016-11-25] MEDS: SODIUM CHLORIDE 0.9% 1,000 ML IV SCH ×2 (07:58→15:46)
[2016-11-25] MEDS: INSULIN LISPRO (humaLOG) 300 UNIT/3 ML VIAL SQ SCH ×4 (08:01→21:24)
[2016-11-25] MEDS: LACTATED RINGERS 1,000 ML IV SCH (08:01)
[2016-11-25] MEDS: metFORMIN 500 MG TAB PO SCH ×2 (08:02→17:41)
[2016-11-25] MEDS: PANTOPRAZOLE 40 MG TABLET PO SCH (08:03)
[2016-11-25] MEDS: ASPIRIN 81 MG CHEW PO SCH (08:03)
[2016-11-25] MEDS: ATENOLOL 50 MG TAB PO SCH ×2 (08:04→21:24)
[2016-11-25] MEDS: INSULIN GLARGINE 100 UNIT/ML 10 ML VIAL SQ SCH ×2 (08:05→21:24)
[2016-11-25] MEDS: predniSONE 10 MG TAB PO SCH (08:05)
[2016-11-25] MEDS: POTASSIUM CHLORIDE ER 10 MEQ TAB.ER.PRT PO SCH (08:05)
[2016-11-25] MEDS: HYDROCHLOROTHIAZIDE 12.5 MG CAP PO SCH (08:06)
[2016-11-25] MEDS: BUDESONIDE 0.5 MG/2 ML NEBU INHALATION SCH ×2 (08:20→19:00)
[2016-11-25] MEDS: IPRATROPIUM-ALBUTEROL 3 ML NEB INHALATION SCH ×4 (08:20→18:59)
--- NOTE | 2016-11-25 08:40 | PN ---
DATE OF SERVICE: 11/24/2016 This 51-year-old woman who was admitted with acute left lower lobe pneumonia, bronchial asthma, acute exacerbation closely monitored. The patient is feeling much better. Pulmonary is following the patient closely. No chest pain, no palpitations. No fever. On exam, alert, oriented x3. Pulse 75, blood pressure 128/72, respirations 18, temperature 98 degrees. Pulse ox 94% on 2-L. HEENT: Conjunctivae normal. NECK: No jugular venous distention. CARDIOVASCULAR: S1 and S2, muffled. RESPIRATORY: Breath sounds diminished at the bases. Bilateral scattered rhonchi and crackles. Expiratory wheeze. ABDOMEN: Soft, nontender. LEGS: No edema, no swelling. NERVOUS SYSTEM: No focal deficits. LABS: Hemoglobin 10.9, glucose 153. ASSESSMENT: 1. Acute left lower lobe pneumonia with possibly gram-negative. 2. Acute bronchial asthma, acute exacerbation. 3. Acute diarrhea, possibly viral. 4. Diabetes mellitus type 2. 5. History of gastroesophageal reflux disease. 6. Hypertension, essential. 7. Hyperlipidemia. 8. Developmental delay. 9. Chronic urinary incontinence. 10. Schizophrenia, history. 11. History of cholecystectomy. 12. History of degenerative joint disease. 13. Remote history of nicotine dependence. 14. FULL CODE. RECOMMENDATIONS AND DISCUSSION: I recommend to continue the current medications, continue monitoring and symptomatic treatment. Continue with bronchodilators, continue empiric antibiotics. Otherwise, continue to monitor. The patient notes the patient is feeling better. We will change the steroids to p.o. Once the patient is feeling better we will consider ECF rehab at that time. Otherwise, continue to monitor. Guarded prognosis. Further recommendations to follow.
[2016-11-25 08:44] LABS: Basophils % (A) 0 %; CH 26.5; CHCM 31.9; Eosinophils % (A) 0 %; HCT 32.8 % (34.0-46.0); HGB 10.7 gm/dL (11.4-16.0); Hypochromasia Slight; Luc # (Auto) 0.23; Luc % (Auto) 2; Lymphocytes # (A) 2.1 k/uL (1.0-4.8); Lymphocytes % (A) 17 %; MCH 27.5 pg (25.0-35.0); MCHC 32.8 g/dL (31.0-37.0); MCV 83.8 fL (80.0-100.0); Monocytes # (A) 0.3 k/uL (0-1.0); Monocytes % (A) 3 %; Neutrophils # (A) 9.1 k/uL (1.3-7.7); Neutrophils % (A) 78 %; RBC 3.91 m/uL (3.80-5.40); RDW 15.1 % (11.5-15.5); WBC 11.8 k/uL (3.8-10.6); WBC (Perox) 12.25
[2016-11-25 08:55] LABS: INR 1.1 (<1.1); Prothrombin Time 11.4 sec (9.0-12.0)
[2016-11-25 08:56] LABS: Partial Thromboplastin Time 22.3 sec (22.0-30.0)
[2016-11-25] MEDS: CHOLECALCIFEROL 1,000 UNIT TAB PO SCH (09:06)
[2016-11-25] MEDS: ENOXAPARIN 40 MG/0.4 ML SYRINGE SQ SCH (09:07)
[2016-11-25 09:26] LABS: ALT 66 U/L (9-52); AST 9 U/L (14-36); Alkaline Phosphatase 71 U/L (38-126); Anion Gap 10 mmol/L; Blood Urea Nitrogen 21 mg/dL (7-17); Calcium 9.5 mg/dL (8.4-10.2); Carbon Dioxide 25 mmol/L (22-30); Chloride 111 mmol/L (98-107); Glucose 131 mg/dL (74-99); Magnesium 1.6 mg/dL (1.6-2.3); Non-African American GFR(MDRD) >60 (>60 ml/min/1.73 sqM); Potassium 4.7 mmol/L (3.5-5.1); Sodium 146 mmol/L (137-145); Total Bilirubin 0.3 mg/dL (0.2-1.3); Total Protein 5.5 g/dL (6.3-8.2)
[2016-11-25] MEDS ORDERED: IV FLUID CONTINUATION 900 ML IV ONE (09:57)
[2016-11-25] MEDS ORDERED: PROPOFOL 10 MG/ML 20 ML VIAL IV ONE (10:13)
[2016-11-25] MEDS ORDERED: LIDOCAINE 2% INJ 20 MG/ML INTRATRACH ONE (10:18)
[2016-11-25] MEDS: FENOFIBRATE 160 MG TAB PO SCH (11:13)
[2016-11-25] MEDS: guaiFENesin 600 MG TABLET.ER PO SCH ×2 (11:13→21:24)
[2016-11-25] MEDS: AZITHROMYCIN 500 MG TAB PO SCH (11:13)
[2016-11-25] MEDS: CITALOPRAM HYDROBROMIDE 20 MG TAB PO SCH (11:13)
[2016-11-25 11:49] LABS: Glucose,Whole Blood 113 mg/dL (75-99)
[2016-11-25] MEDS: MULTIVITAMINS, THERA 1 EACH TAB PO SCH (13:01)
--- NOTE | 2016-11-25 13:41 | CDI ---
In responding to this query, please exercise your independent professional judgment. The [facility] Coding Staff and Clinical Documentation Specialists appreciate your assistance in clarifying documentation, maintaining compliance with coding guidelines, accurately documenting patients condition and capturing severity of illness. The fact that a question is asked does not imply that any particular answer is desired or expected. Communication forms are a method of clarifying documentation and are not made part of the Legal Health Record. Thank you in advance for your clarification. Last Revision, August 2015 Hilda Zhao [address] [place] [address] Documentation Clarification Form Date: 11/25/2016 1:33:00 PM From: Bhargavi Cash CCS, CCDS Admit Date: 11/21/2016 8:34:00 PM Patient Name: Naye Santos Visit Number: [id number] Discharge Date: Dr. Bj Stock: Asthma is documented in the H/P, the pulmonary consult and the subsequent progress notes. Also documented in the 11/24 pulmonary progress note as acute exacerbation of chronic persistent asthma. Patient history/risk factors: DM, GERD, Hyperlipidemia, Hypertension, mental delay. Clinical Indicators: Admission VS: R 20 (shallow), PO 93 ra Radiology: CXR: normal chest, clearing of left lower lobe pneumonia in comparison. Treatment: IV Steroids, Bronchodilator txs, O2, IV antibiotics Consults: Pulmonary In your professional opinion, can you please further specify the following, if known? Asthma Severity Mild intermittent Mild persistent Moderate persistent Severe persistent Other, please specify Unable to determine Please document in your progress notes and discharge summary in order to capture severity of illness and risk of mortality. Include clinical findings that support your diagnosis. FYI: Press F11 to launch patient chart. Place X here if this finding has no clinical significance, is not applicable or if you are not able to provide any additional documentation. Thank You. LANE
--- NOTE | 2016-11-25 14:50 | PN ---
DATE OF SERVICE: 11/25/2016 Patient seen, evaluated, examined. Clinically patient till has congestion and cough, shortness of breath, unable to produce significant amount of phlegm but does feel and appear congested. Her hemodynamic status is marginal, but stable. Last set of vitals shows blood pressure 140/70, respiratory rate 18, pulse 70, temperature 97, saturation 91% on 3 L oxygen. HEENT EXAMINATION: Otherwise atraumatic, normocephalic. Pharynx clear. Narrow pharyngeal opening is present. NECK: Supple. Neck veins are prominent. No bruits present. LUNGS: Bilateral coarse breath sounds with fine expiratory rhonchi. A few crackles at the left base. HEART: Regular rate and rhythm S1 and S2 audible. ABDOMEN: Soft, no rebound or rigidity. EXTREMITIES : +1 peripheral pulses. NEUROLOGICAL: Awake and alert, follows simple commands. Labs are reviewed. White cell count 11,800, hemoglobin 10, hematocrit 32, platelet count 432,000. PT, INR, and PTT within normal limits. Sodium 146, potassium 4.7. BUN 21 and creatinine 0.8. LFTs are within normal limits except the ALT 66. Her last chest x-ray performed reviewed and compared with the prior x-ray. IMPRESSION: 1. Left lower lobe pneumonia. 2. Purulent tracheobronchitis suspect mixed bacterial gram-negative pneumonia. 3. Component of chronic obstructive pulmonary disease, the patient has bronchospastic component. This is suggestive of chronic bronchitis ongoing; however, exact details are not available. 4. Hypoxic respiratory failure, acute. 5. Diabetes mellitus. 6. Morbid obesity. 7. Hypertension. 8. Schizophrenia. 9. Dyslipidemia. Plan is to continue antibiotics. Continue supportive care. Patient will undergo bronchoscopy for pulmonary toilet. Airway clearance. Further recommendations pending. Continue antibiotics for now along with breathing treatments.
--- NOTE | 2016-11-25 17:30 | PN ---
DATE OF SERVICE: 11/25/2016 This 51-year-old woman who was admitted with acute left lung pneumonia with possible sepsis has been closely monitored. No chest pain. No palpitation. No fever. Pulmonary is following the patient closely. On exam, alert and oriented x3. Pulse 70, blood pressure 140/77, respiration 20, temperature 98.4, pulse ox 94% on 2 L. HEENT: Conjunctivae normal. NECK: No jugular venous distention. CARDIOVASCULAR SYSTEM: S1, S2 muffled. RESPIRATORY SYSTEM: Breath sounds diminished at the bases. Bilateral scattered rhonchi and crackles. ABDOMEN: Soft, non-tender. LEGS: No edema. No swelling. NERVOUS SYSTEM: No focal deficit. LABS: WBC 11.3, hemoglobin 10.7. Sodium 146. ASSESSMENT: 1. Acute left lower lobe pneumonia, possibly Gram-negative. 2. Acute bronchial asthma, acute exacerbation. 3. Acute diarrhea, possibly viral, improving. 4. Diabetes mellitus, type 2. 5. History of gastroesophageal reflux disease. 6. Hypertension, essential. 7. Hyperlipidemia. 8. Developmental delay. 9. Chronic urinary incontinence. 10. Schizophrenia history. 11. History of cholecystectomy. 12. History of degenerative joint disease. 13. Remote history of nicotine dependence. 14. FULL CODE. RECOMMENDATIONS AND DISCUSSION: I recommend to continue with the current medications, continue with the monitoring, symptomatic treatment. Continue with the bronchodilators. Continue with antibiotics. Otherwise, closely follow with Pulmonary. Guarded prognosis. Further recommendations to follow. Oral steroids. We will cut down the IV fluids.
[2016-11-25 17:32] LABS: Glucose,Whole Blood 193 mg/dL (75-99)
[2016-11-25] MEDS: LORATADINE 10 MG TAB PO SCH (17:41)
[2016-11-25] MEDS: LISINOPRIL 10 MG TAB PO SCH (17:41)
[2016-11-25] MEDS: OXYBUTYNIN XL 5 MG TAB.ER.24 PO SCH (17:42)
--- NOTE | 2016-11-25 19:02 | PCN ---
DATE OF PROCEDURE: 11/25/2016 PROCEDURE: 1. Bronchoscopy. 2. Bronchoalveolar large. INDICATIONS: 1. Left lower lobe pneumonia. 2. Mucous impaction and mucous plugging. 3. Acute hypoxic respiratory failure. 4. Severe chronic obstructive pulmonary disease. OPERATIVE DETAIL: Patient was prepared and draped in the usual fashion. The bronchoscope could not be passed through the both nasal passages as they were narrow in size. Bite block was utilized and the scope was passed through the mouth. The vocal cords were normal in structure and function. Tip of the scope was passed from the vocal cords into the trachea. There is mucous impaction and purulent mucous plugs were present bilaterally, more so on the left side compared to right side. Pulmonary toilet and clearing suctions were performed. Tip of the scope was wedged in the left lower lobe. BAL was performed followed by BAL on the right lower lobe as well. The right upper lobe, middle lobe and lower lobe subsegment inspected. Followed by inspection of the left upper lobe, lingular lobe and left lower lobe subsegment. The significant finding was diffuse mucosal edema thickening and some erythema, bilaterally was present. Of note that the airways were very collapsible suggestive of bronchomalacia, even the major airways including the right and left main stem were also collapsible with partial collapsibility of the trachea as well. These findings are indicative of tracheomalacia and obviously be contributing to her respiratory issues as well. The patient otherwise tolerated the procedure very well, some intermittent desaturation was noted.
[2016-11-25 20:58] LABS: Glucose,Whole Blood 148 mg/dL (75-99)
[2016-11-25] MEDS: cloZAPine 100 MG TAB PO SCH (21:24)
[2016-11-25] MEDS: DOCUSATE 100 MG CAP PO SCH (21:24)
[2016-11-25] MEDS: ATORVASTATIN 10 MG TAB PO SCH (21:24)
[2016-11-26] MEDS: LACTATED RINGERS 1,000 ML IV SCH (06:51)
[2016-11-26 07:04] LABS: Glucose,Whole Blood 88 mg/dL (75-99)
[2016-11-26] MEDS: INSULIN LISPRO (humaLOG) 300 UNIT/3 ML VIAL SQ SCH (07:12)
[2016-11-26] MEDS: BUDESONIDE 0.5 MG/2 ML NEBU INHALATION SCH (07:34)
[2016-11-26] MEDS: IPRATROPIUM-ALBUTEROL 3 ML NEB INHALATION SCH ×2 (07:34→11:23)
[2016-11-26 07:54] VITALS: BP 149/70; RESP 18; TEMP 97.6
[2016-11-26] MEDS: ATENOLOL 50 MG TAB PO SCH (08:00)
[2016-11-26] MEDS: CHOLECALCIFEROL 1,000 UNIT TAB PO SCH (08:00)
[2016-11-26] MEDS: ASPIRIN 81 MG CHEW PO SCH (08:00)
[2016-11-26] MEDS: FENOFIBRATE 160 MG TAB PO SCH (08:00)
[2016-11-26] MEDS: AZITHROMYCIN 500 MG TAB PO SCH (08:00)
[2016-11-26] MEDS: PANTOPRAZOLE 40 MG TABLET PO SCH (08:00)
[2016-11-26] MEDS: predniSONE 10 MG TAB PO SCH (08:00)
[2016-11-26] MEDS: CITALOPRAM HYDROBROMIDE 20 MG TAB PO SCH (08:00)
[2016-11-26] MEDS: POTASSIUM CHLORIDE ER 10 MEQ TAB.ER.PRT PO SCH (08:00)
[2016-11-26] MEDS: HYDROCHLOROTHIAZIDE 12.5 MG CAP PO SCH (08:01)
[2016-11-26] MEDS: ENOXAPARIN 40 MG/0.4 ML SYRINGE SQ SCH (08:01)
[2016-11-26] MEDS: metFORMIN 500 MG TAB PO SCH (08:01)
[2016-11-26] MEDS: guaiFENesin 600 MG TABLET.ER PO SCH (08:01)
[2016-11-26 08:43] LABS: Basophils % (A) 0 %; CH 26.7; CHCM 31.3; Eosinophils # (A) 0.1 k/uL (0-0.7); Eosinophils % (A) 0 %; HCT 35.6 % (34.0-46.0); HDW 2.93; HGB 11.2 gm/dL (11.4-16.0); Hypochromasia Slight; Luc # (Auto) 0.29; Luc % (Auto) 2; Lymphocytes # (A) 4.4 k/uL (1.0-4.8); Lymphocytes % (A) 34 %; MCHC 31.4 g/dL (31.0-37.0); MCV 85.8 fL (80.0-100.0); Mean Platelet Volume 7.5; Monocytes # (A) 0.8 k/uL (0-1.0); Monocytes % (A) 6 %; Neutrophils # (A) 7.3 k/uL (1.3-7.7); Neutrophils % (A) 57 %; RBC 4.15 m/uL (3.80-5.40); RDW 15.3 % (11.5-15.5); WBC 12.8 k/uL (3.8-10.6); WBC (Perox) 12.84
[2016-11-26 08:50] LABS: ALT 56 U/L (9-52); AST 9 U/L (14-36); Alkaline Phosphatase 66 U/L (38-126); Anion Gap 10 mmol/L; Blood Urea Nitrogen 20 mg/dL (7-17); Calcium 9.8 mg/dL (8.4-10.2); Carbon Dioxide 30 mmol/L (22-30); Chloride 106 mmol/L (98-107); Glucose 73 mg/dL (74-99); Magnesium 1.7 mg/dL (1.6-2.3); Non-African American GFR(MDRD) >60 (>60 ml/min/1.73 sqM); Potassium 3.9 mmol/L (3.5-5.1); Sodium 146 mmol/L (137-145); Total Bilirubin 0.4 mg/dL (0.2-1.3); Total Protein 6.1 g/dL (6.3-8.2)
[2016-11-26] MEDS: MULTIVITAMINS, THERA 1 EACH TAB PO SCH (11:15)
[2016-11-26 11:21] LABS: Glucose,Whole Blood 156 mg/dL (75-99)
[2016-11-26] MEDS: INSULIN GLARGINE 100 UNIT/ML 10 ML VIAL SQ SCH (11:22)
[2016-11-26 11:26] VITALS: PULSE 84
[2016-11-26] MEDS ORDERED: DOCUSATE 100 MG CAP PO SCH (11:45)
--- NOTE | 2016-11-26 13:47 | PN ---
DATE OF SERVICE: 11/26/2016 This is a 51-year-old female who is seen, evaluated, examined on the fifth floor. Patient has left-sided pneumonia with significant purulent secretions which were cleared with bronchoscopy and pulmonary toilet. She is breathing relatively comfortably. Her hemodynamic status is stable. Last set of vitals include blood pressure is 150/70, 13, pulse 69, temperature 97, sating 96% on 2 liters oxygen. HEENT: Unremarkable. NECK: Supple. LUNGS: Good air entry with fine expiratory rhonchi. HEART: Regular rate and rhythm. S1 and S2 audible. ABDOMEN: Soft. No rebound or rigidity. EXTREMITIES: +1 peripheral pulses. NEUROLOGICAL EXAMINATION: Otherwise awake and alert. Gram stain is positive for 1 gram-positive cocci pair in chains on Gram stain, final culture results are pending. Current medications are reviewed and include unit dose DuoNeb 4 times a day, aspirin, Tenormin, Lipitor, Zithromax, Lovenox, Fenofibrate, hydrochlorothiazide, Zestril, Ditropan, Protonix and prednisone. IMPRESSION: 1. Left-sided pneumonia, clinically and radiographically improving. Patient appears to be responding with antibiotics. For now we will continue the ZPAK as well as oral prednisone. Monitor clinical course closely. 2. Bronchomalacia. 3. Mood disorder. 4. Chronic obstructive pulmonary disease. Plan and recommendation: As above. Continue supportive care. Continue antibiotics. Follow clinical course closely. Further recommendations pending. Plan of care as per clinical response of the patient. Recommend follow-up in outpatient setting.
--- NOTE | 2016-11-27 12:28 | DS ---
DATE OF ADMISSION: 11/21/2016 DATE OF DISCHARGE: 11/26/2016 FINAL DIAGNOSES: 1. Acute left lower lobe pneumonia, possibly gram-negative, present on admission. 2. Acute bronchial asthma, acute exacerbation. 3. Acute diarrhea, possibly viral, improving. 4. Diabetes mellitus type 2. 5. Change in mental status, metabolic encephalopathy present on admission. 6. History of gastroesophageal reflux disease. 7. Hypertension, essential. 8. Hyperlipidemia. 9. Developmental delay. 10. Chronic urinary incontinence history. 11. History of cholecystectomy. 12. History of degenerative joint disease. 13. Remote history of nicotine dependence. 14. FULL CODE. DISCHARGE DISPOSITION: The patient will be discharged in stable condition with guarded prognosis. Total time taken is 35 minutes. HISTORY OF PRESENT ILLNESS: This is a 51-year-old woman with a past medical history of multiple medical problems, followed by Dr. Goldsmith as an outpatient. The patient was admitted with left lower lobe pneumonia, possibly gram-negative. The patient was treated with antibiotics and bronchodilators. Dr. Stock saw the patient from pulmonary point of view. The patient improved significantly. PHYSICAL EXAMINATION: VITAL SIGNS: Stable. CARDIOVASCULAR SYSTEM: S1, S2 muffled. Few rhonchi. ABDOMEN: Soft, nontender. NERVOUS SYSTEM: No focal deficits. DISCHARGE INSTRUCTIONS: 1. Diet is cardiac. 2. Activity limited. 3. Follow-up with Dr. Goldsmith in 2 to 3 days. 4. Follow up with Dr. Stock in one week. MEDICATIONS: 1. Ecotrin 81 mg p.o. b.i.d. 2. Tenormin 50 mg p.o. b.i.d. 3. Zithromax 500 mg p.o. daily for 5 days. 4. Symbicort 4.5, 2 puffs b.i.d. 5. Ceftin 500 mg p.o. b.i.d. for 5 days. 6. Vitamin D3, 2000 daily. 7. Celexa 20 mg p.o. daily. 8. Clozaril 20 mg at bedtime. 10. Fenofibrate 145 mg p.o. daily. 11. HydroDIURIL 12.5 grams p.o. daily. 12. Lantus 30 units subcu b.i.d. 13. Albuterol and Atrovent updrafts q.i.d. and p.r.n. 14. Zestril 10 mg with supper. 15. Claritin 10 mg daily. 16. Glucophage XL 1000 mg p.o. b.i.d. with meals. 17. Multivitamin 1 p.o. daily. 18. Lovaza 2 grams p.o. b.i.d. 19. Prilosec 20 mg daily. 20. K-Dur 10 mg p.o. 21. Prednisone taper 30 mg for 3 days 20 for 3 days, 10 for 3 days and then discontinue. 22. Zocor 20 mg at bedtime. 23. Vessicare 5 mg daily. 24. Hold Lantus if her Accu-Cheks are less than 100 and. Accu-Cheks with meals and at bedtime. Continued follow-up in the outpatient setting. MTDD
[2016-11-28 09:57] LABS: Mis test requested (Non-blood) PNEJ
--- NOTE | 2016-11-28 15:03 | P.PN ---
Progress Note - Text Addendum to discharge summary for Dr. Gray. Patient will be discharged home with new nebulizer and supplies.
== END 2016-11-26 13:35 | disposition home health service (06) | DRG 166 ==
LOC: EC 15:10 → 5MS5E 20:34 → EEVIPCON 20:34
PROVIDERS: ADMIT Hospitalist; ATTEND Hospitalist
PROC: 0B9J8ZX Drainage of Left Lower Lung Lobe, Via Natural or Artificial Opening Endoscopic, Diagnostic (ICD-10-PCS; principal; 2016-11-25 10:05)
PROC: 0B9F8ZX Drainage of Right Lower Lung Lobe, Via Natural or Artificial Opening Endoscopic, Diagnostic (ICD-10-PCS; principal; 2016-11-25 10:05)
DX: J44.0 Chronic obstructive pulmonary disease with (acute) lower respiratory infection (principal); G93.41 Metabolic encephalopathy; J96.01 Acute respiratory failure with hypoxia; J12.9 Viral pneumonia, unspecified; E66.01 Morbid (severe) obesity due to excess calories; F20.9 Schizophrenia, unspecified; J45.41 Moderate persistent asthma with (acute) exacerbation; J98.09 Other diseases of bronchus, not elsewhere classified; E11.9 Type 2 diabetes mellitus without complications; E78.5 Hyperlipidemia, unspecified; F39 Unspecified mood [affective] disorder; I10 Essential (primary) hypertension; K21.9 Gastro-esophageal reflux disease without esophagitis; K80.20 Calculus of gallbladder without cholecystitis without obstruction; N39.3 Stress incontinence (female) (male); T17.990A Other foreign object in respiratory tract, part unspecified in causing asphyxiation, initial encounter; Z79.4 Long term (current) use of insulin; Z79.82 Long term (current) use of aspirin; Z79.84 Long term (current) use of oral hypoglycemic drugs; Z79.899 Other long term (current) drug therapy; Z87.891 Personal history of nicotine dependence; R19.7 Diarrhea, unspecified
CPT/HCPCS: 31624; 36415; 71020; 80048; 80053; 81025; 82550; 82553; 83036; 83735; 83880; 84484; 85025; 85610; 85730; 87040; 87070; 87102; 87116; 87205; 87206; 87252; 87299; 87496; 87498; 87502; 87529; 87541; 87798; 88108; 88305; 93005; 94640; 94760; 96361; 96365; 96375; 99285

== ENCOUNTER 2017-02-24 13:33 | Inpatient (IN) | payer MEDICARE, OTHER ==
[2017-02-24] MEDS ORDERED: methylPREDNISolone SOD SUCCI 125 MG/2 ML VIAL IV STA (14:16)
[2017-02-24] MEDS ORDERED: IPRATROPIUM-ALBUTEROL 3 ML NEB INHALATION STA ×2 (14:16→14:17)
[2017-02-24] MEDS ORDERED: ASPIRIN 81 MG PO STA (14:16)
[2017-02-24] MEDS ORDERED: ALBUTEROL NEBULIZED 2.5 MG/3 ML INHALATION STA ×2 (14:17→16:07)
--- NOTE | 2017-02-24 14:32 | ED ---
SOB HPI - General Chief Complaint: Shortness of Breath Stated Complaint: SOB Time Seen by Provider: 02/24/17 14:05 Source: patient Mode of arrival: wheelchair Limitations: no limitations - History of Present Illness Initial Comments: Patient is a 51-year-old female who presents with a chief complaint of shortness of breath and cough. this has been going on for a couple days, and she was recently seen by Dr. Montrell rod who sent her to the emergency department. In his office, she was found to have a low oxygen saturation, saturating 88% on room air on arrival to the emergency department. Patient has a known history of asthma, she states that she has recently been going to the [facility] to swim and feels that the chlorine is irritating her lungs. She describes pain with cough, states that she is bringing up some clear yellow sputum. There are no other aggravating or alleviating factors at this time. Patient does admit to being more out of breath when she exerts herself. Patient does not have nebulizer treatments at home and has been using a rescue inhaler patient was hospitalized in November for pneumonia and was discharged with home oxygen to use at night. MD Complaint: shortness of breath, cough Onset/Timin -: days(s) Quality: dull Consistency: intermittent Improves With: nothing Worsens With: coughing Known History Of: asthma Context: smoke/fume exposure Associated Symptoms: cough, sputum production Treatments Prior to Arrival: none - Related Data Home Oxygen Therapy: No Home Medications Medication Instructions Recorded Confirmed Atenolol [Tenormin] 50 mg PO BID 07/23/15 02/24/17 Citalopram Hydrobromide [CeleXA] 20 mg PO QAM 07/23/15 02/24/17 Docusate Sodium [Dok] 200 mg PO HS 07/23/15 02/24/17 Hydrochlorothiazide [Hydrodiuril] 12.5 mg PO QAM 07/23/15 02/24/17 Lisinopril [Zestril] 10 mg PO W/SUPPER 07/23/15 02/24/17 Loratadine [Claritin] 10 mg PO W/SUPPER 07/23/15 02/24/17 Multivitamins, Thera [Multivitamin 1 tab PO DAILY 07/23/15 02/24/17 (formulary)] Omeprazole [PriLOSEC] 20 mg PO AC-BRKFST 07/23/15 02/24/17 Potassium Chloride [K-Tab ER] 10 meq PO QAM 07/23/15 02/24/17 Solifenacin Succinate [Vesicare] 5 mg PO W/SUPPER 07/23/15 02/24/17 Aspirin EC [Ecotrin Low Dose] 81 mg PO QAM 11/21/16 02/24/17 Cholecalciferol (Vitamin D3) 2,000 unit PO DAILY 11/21/16 02/24/17 [Vitamin D3] Fenofibrate Nanocrystallized 145 mg PO DAILY 11/21/16 02/24/17 [Fenofibrate] Mathews-3 Acid Ethyl Esters [Lovaza] 2 gm PO BID 11/21/16 02/24/17 Simvastatin [Zocor] 20 mg PO HS 11/21/16 02/24/17 cloZAPine [Clozaril] 200 mg PO HS 11/21/16 02/24/17 metFORMIN HCL ER [Glucophage Xr] 1,000 mg PO BID-W/MEALS 11/21/16 02/24/17 Allergies Allergy/AdvReac Type Severity Reaction Status Date / Time No Known Allergies Allergy Verified 02/24/17 15:20 Review of Systems ROS Statement: Those systems with pertinent positive or pertinent negative responses have been documented in the HPI. ROS Other: All systems not noted in ROS Statement are negative. Constitutional: Denies: fever, chills, weakness Eyes: Denies: vision change ENT: Denies: ear pain, throat pain Respiratory: Reports: cough, dyspnea Cardiovascular: Reports: dyspnea on exertion. Denies: chest pain, palpitations Endocrine: Denies: fatigue Gastrointestinal: Denies: abdominal pain, nausea, vomiting Genitourinary: Denies: dysuria Musculoskeletal: Denies: back pain Skin: Denies: rash, lesions Neurological: Denies: headache Past Medical History Past Medical History: Diabetes Mellitus, GERD/Reflux, Hyperlipidemia, Hypertension Additional Past Medical History / Comment(s): HX ANEMIA. STRESS TEST AND E[facility] DONE [facility] - HAS SL MURMUR. MENTALLY DELAYED. URINARY URGENCY, INCONTINANCE IN SLEEP. HX ABN LFS. ABD PAIN, OCC NAUSEA/VOMITING. GALLSTONES. History of Any Multi-Drug Resistant Organisms: None Reported Past Surgical History: Orthopedic Surgery Additional Past Surgical History / Comment(s): PAST EYE SX LONG TIME AGO NOT SURE WHAT WAS DONE. RT KNEE SURG(ARTHROSCOPY).08-03-15 OPEN CHOLECYSTECTOMY Past Anesthesia/Blood Transfusion Reactions: Unable to Obtain Past Psychological History: Schizophrenia Smoking Status: Never smoker Past Alcohol Use History: None Reported Past Drug Use History: None Reported - Past Family History Mother Family Medical History: Unable to Obtain General Exam Limitations: no limitations General appearance: alert, in no apparent distress Head exam: Present: atraumatic, normocephalic Eye exam: Present: normal appearance, PERRL ENT exam: Present: mucous membranes moist Neck exam: Present: normal inspection Respiratory exam: Present: wheezes, decreased breath sounds Cardiovascular Exam: Present: regular rate, normal rhythm GI/Abdominal exam: Present: soft. Absent: distended, tenderness Rectal exam: Present: deferred Extremities exam: Present: normal inspection Back exam: Present: normal inspection Neurological exam: Present: alert, oriented X3 Psychiatric exam: Present: normal affect, normal mood Skin exam: Present: warm, dry, intact Course Vital Signs 02/24/17 02/24/17 02/24/17 13:58 14:34 15:05 Temperature 98.4 F Pulse Rate 100 98 94 Respiratory 20 18 Rate Blood Pressure 122/67 135/70 O2 Sat by Pulse 88 L 92 L Oximetry 02/24/17 02/24/17 02/24/17 15:27 15:47 16:46 Temperature Pulse Rate 90 107 H 100 Respiratory 24 20 Rate Blood Pressure 136/71 162/71 O2 Sat by Pulse 89 L 90 L Oximetry 02/24/17 02/24/17 02/24/17 16:52 17:01 17:06 Temperature Pulse Rate 88 90 Respiratory Rate Blood Pressure O2 Sat by Pulse 95 Oximetry 02/24/17 02/24/17 17:16 17:17 Temperature Pulse Rate 100 Respiratory 20 Rate Blood Pressure 118/75 O2 Sat by Pulse 88 L 96 Oximetry Medical Decision Making - Medical Decision Making Patient presents with a chief complaint of shortness of breath, she was sent in by Dr. Stock after being seen in the office. On arrival, patient is mildly tachycardic at 100 bpm with an oxygen saturation of 88% on room air. Patient was immediately ordered 3 breathing treatments, and Solu-Medrol. We'll send patient for chest x-ray, and obtain basic cardiac workup including chest x-ray. At this time, patient does not meet SIRS criteria though early sepsis is not excluded given the patient was recently discharged from the hospital 3 months ago. Patient is a well's score of 1.5, we'll send a d-dimer to rule out PE as etiology. EKG performed at 1535 shows sinus tachycardia with rate of 106 bpm with left axis deviation. Segments appear to be within normal limits. There are no ST segment elevations or depressions. 3:52 PM W evaluation of this patient shows a normal white count however d-dimer is elevated at 0.63. On reexamination, patient is still hypoxic and was placed on 4 L nasal cannula. She was satting 89% on 2 L. Currently tachycardic at 108, this is likely secondary to albuterol. Patient will be sent for CT angiogram of the chest to evaluate for PE. Patient will be admitted to the hospital for acute asthma exacerbation, pending CT chest. 5:[address] evaluation of the chest is negative for PE however does show evidence of bronchitis. On reevaluation, patient is still wheezing. She was satting around 90% on 4 L nasal cannula, she was transitioned to a nonrebreather mask as the patient is thought to be breathing through her mouth is that of her nose. Currently, I have a page out to Dr. Stock to discuss the need for continuous albuterol. Dr. Osei agrees to admit this patient for asthma exacerbation with consults to Dr. Stock. Patient is agreeable with the current care plan. She is stable for transfer to the floor. - Lab Data Result diagrams: 02/24/17 14:23 02/24/17 14:23 Lab Results 02/24/17 02/24/17 02/24/17 Range/Units 14:23 14:23 14:23 WBC 8.0 (3.8-10.6) k/uL RBC 4.50 (3.80-5.40) m/uL Hgb 12.5 (11.4-16.0) gm/dL Hct 38.5 (34.0-46.0) % MCV 85.6 (80.0-100.0) fL MCH 27.7 (25.0-35.0) pg MCHC 32.4 (31.0-37.0) g/dL RDW 16.2 H (11.5-15.5) % Plt Count 201 (150-450) k/uL Neutrophils % 57 % Lymphocytes % 29 % Monocytes % 7 % Eosinophils % 4 % Basophils % 0 % Neutrophils # 4.6 (1.3-7.7) k/uL Lymphocytes # 2.4 (1.0-4.8) k/uL Monocytes # 0.6 (0-1.0) k/uL Eosinophils # 0.3 (0-0.7) k/uL Basophils # 0.0 (0-0.2) k/uL Anisocytosis Slight D-Dimer 0.63 H (<0.60) mg/L FEU Sodium 140 (137-145) mmol/L Potassium 3.8 (3.5-5.1) mmol/L Chloride 103 (98-107) mmol/L Carbon Dioxide 26 (22-30) mmol/L Anion Gap 11 mmol/L BUN 15 (7-17) mg/dL Creatinine 0.77 (0.52-1.04) mg/dL Est GFR (MDRD) Af Amer >60 (>60 ml/min/1.73 sqM) Est GFR (MDRD) Non-Af >60 (>60 ml/min/1.73 sqM) Glucose 169 H (74-99) mg/dL Calcium 9.4 (8.4-10.2) mg/dL Troponin I (0.000-0.034) ng/mL NT-Pro-B Natriuret Pep pg/mL 02/24/02/24/17 Range/Units 14:23 14:23 WBC (3.8-10.6) k/uL RBC (3.80-5.40) m/uL Hgb (11.4-16.0) gm/dL Hct (34.0-46.0) % MCV (80.0-100.0) fL MCH (25.0-35.0) pg MCHC (31.0-37.0) g/dL RDW (11.5-15.5) % Plt Count (150-450) k/uL Neutrophils % % Lymphocytes % % Monocytes % % Eosinophils % % Basophils % % Neutrophils # (1.3-7.7) k/uL Lymphocytes # (1.0-4.8) k/uL Monocytes # (0-1.0) k/uL Eosinophils # (0-0.7) k/uL Basophils # (0-0.2) k/uL Anisocytosis D-Dimer (<0.60) mg/L FEU Sodium (137-145) mmol/L Potassium (3.5-5.1) mmol/L Chloride (98-107) mmol/L Carbon Dioxide (22-30) mmol/L Anion Gap mmol/L BUN (7-17) mg/dL Creatinine (0.52-1.04) mg/dL Est GFR (MDRD) Af Amer (>60 ml/min/1.73 sqM) Est GFR (MDRD) Non-Af (>60 ml/min/1.73 sqM) Glucose (74-99) mg/dL Calcium (8.4-10.2) mg/dL Troponin I <0.012 (0.000-0.034) ng/mL NT-Pro-B Natriuret Pep 233 pg/mL Disposition Clinical Impression: Shortness of breath, Status asthmaticus Disposition: ADMITTED IP TO THIS HOSP Condition: Fair Referrals: All Ham MD [Primary Care Provider] - 1-2 days Decision to Admit Reason: Admit from EC - Out of Hospital Transfer - Req. Specs Out of Hospital Transfer - Requested Specifics: Telemetry Unit
[2017-02-24 14:42] LABS: Anisocytosis Slight; Basophils % (A) 0 %; CH 28.1; CHCM 33.1; Eosinophils # (A) 0.3 k/uL (0-0.7); Eosinophils % (A) 4 %; HCT 38.5 % (34.0-46.0); HDW 3.05; HGB 12.5 gm/dL (11.4-16.0); Luc % (Auto) 3; Lymphocytes # (A) 2.4 k/uL (1.0-4.8); Lymphocytes % (A) 29 %; MCH 27.7 pg (25.0-35.0); MCHC 32.4 g/dL (31.0-37.0); MCV 85.6 fL (80.0-100.0); Mean Platelet Volume 7.3; Monocytes # (A) 0.6 k/uL (0-1.0); Monocytes % (A) 7 %; Neutrophils # (A) 4.6 k/uL (1.3-7.7); Neutrophils % (A) 57 %; RDW 16.2 % (11.5-15.5); WBC (Perox) 8.14
[2017-02-24 14:50] LABS: Anion Gap 11 mmol/L; Blood Urea Nitrogen 15 mg/dL (7-17); Calcium 9.4 mg/dL (8.4-10.2); Carbon Dioxide 26 mmol/L (22-30); Chloride 103 mmol/L (98-107); Glucose 169 mg/dL (74-99); Non-African American GFR(MDRD) >60 (>60 ml/min/1.73 sqM); Potassium 3.8 mmol/L (3.5-5.1); Sodium 140 mmol/L (137-145)
--- NOTE | 2017-02-24 15:00 | XR ---
EXAMINATION TYPE: XR chest 2V DATE OF EXAM: 02/24/2017 COMPARISON: Prior chest x-ray 11/22/2016 HISTORY: Fever, difficulty breathing, pain TECHNIQUE: Frontal and lateral views of the chest are obtained. FINDINGS: Exam is stable. Some prominence of the left pulmonary artery is unchanged. No evident airs pace disease, pneumothorax, or pleural effusion. Heart size is stable. IMPRESSION: No acute cardiopulmonary process.
[2017-02-24] MEDS ORDERED: RX INFO: IV CONTRAST WAS GIVEN 1 EACH MISC MISCELLANE PRN (15:48)
--- NOTE | 2017-02-24 16:37 | CT ---
EXAMINATION TYPE: CT angio chest DATE OF EXAM: 02/24/2017 4:22 PM COMPARISON: NONE HISTORY: Chest pain and congestion. CT DLP: 416.00 mGycm Automated exposure control for dose reduction was used. CONTRAST: CTA scan of the thorax is performed with IV Contrast, patient injected with 72 mL of Omnipaque 350, p ulmonary embolism protocol. . FINDINGS: LUNGS: The lungs are grossly clear, there is no concerning parenchymal mass or nodule identified. T here is no pleural effusion or pneumothorax seen. The tracheobronchial tree is patent. MEDIASTINUM: There is satisfactory enhancement of the pulmonary artery and its branches, there is no CT evidence for pulmonary embolism. There are no greater than 1 cm hilar or mediastinal lymph nodes. No pericardial effusion is seen. OTHER: Hypertrophic and degenerative change of the spine noted. Small hiatal hernia noted. IMPRESSION: 1. NO DIAGNOSTIC EVIDENCE OF PULMONARY EMBOLISM. 2. THERE IS PERIBRONCHIAL WALL THICKENING CORRELATE FOR BRONCHITIS. IF THERE SYMPTOMS PERSIST BRONCHO SCOPY COULD BE OBTAINED.
[2017-02-24] MEDS ORDERED: NALOXONE 0.4 MG/ML 1 ML VIAL IV PRN (17:25)
[2017-02-24] MEDS ORDERED: [UNRECOGNIZED DRUG - OTHER] INHALATION ONE ×3 (17:35)
[2017-02-24] MEDS ORDERED: POTASSIUM CHLORIDE ER 20 MEQ TAB.ER PO STA (17:37)
[2017-02-24] MEDS: MAGNESIUM SULFATE-D5W PMX 1 GM in DEXTROSE/WATER 1 100ML.BAG IVPB SCH ×2 (17:55→19:44)
[2017-02-24 20:52] LABS: Anion Gap 17 mmol/L; Blood Urea Nitrogen 16 mg/dL (7-17); Calcium 9.7 mg/dL (8.4-10.2); Carbon Dioxide 20 mmol/L (22-30); Chloride 102 mmol/L (98-107); Glucose 319 mg/dL (74-99); Non-African American GFR(MDRD) >60 (>60 ml/min/1.73 sqM); Potassium 3.9 mmol/L (3.5-5.1); Sodium 139 mmol/L (137-145)
[2017-02-24 21:13] LABS: Glucose,Whole Blood 342 mg/dL (75-99)
[2017-02-24] MEDS ORDERED: INSULIN LISPRO (humaLOG) 300 UNIT/3 ML VIAL SQ SCH (21:58)
[2017-02-24] MEDS ORDERED: INSULIN LISPRO (humaLOG) 300 UNIT/3 ML VIAL SQ ONE (22:07)
[2017-02-24] MEDS: INSULIN LISPRO (humaLOG) 300 UNIT/3 ML VIAL SQ SCH (22:33)
[2017-02-25 07:30] LABS: Glucose,Whole Blood 230 mg/dL (75-99)
[2017-02-25] MEDS: POTASSIUM CHLORIDE ER 10 MEQ TAB.ER.PRT PO SCH (08:04)
[2017-02-25] MEDS: ENOXAPARIN 40 MG/0.4 ML SYRINGE SQ SCH (08:04)
[2017-02-25] MEDS: FENOFIBRATE 160 MG TAB PO SCH (08:04)
[2017-02-25] MEDS: CHOLECALCIFEROL 1,000 UNIT TAB PO SCH (08:05)
[2017-02-25] MEDS: ASPIRIN 81 MG PO SCH (08:05)
[2017-02-25] MEDS: HYDROCHLOROTHIAZIDE 12.5 MG CAP PO SCH (08:05)
[2017-02-25] MEDS: MULTIVITAMINS, THERA 1 EACH TAB PO SCH (08:05)
[2017-02-25] MEDS: ATENOLOL 50 MG TAB PO SCH ×2 (08:05→20:08)
[2017-02-25] MEDS: PANTOPRAZOLE 40 MG TABLET PO SCH (08:05)
[2017-02-25] MEDS: CITALOPRAM HYDROBROMIDE 20 MG TAB PO SCH (08:05)
[2017-02-25] MEDS: INSULIN LISPRO (humaLOG) 300 UNIT/3 ML VIAL SQ SCH ×4 (08:05→21:50)
[2017-02-25 09:20] LABS: Basophils % (A) 0 %; CH 26.8; CHCM 31.2; Eosinophils % (A) 0 %; HCT 39.4 % (34.0-46.0); HGB 12.6 gm/dL (11.4-16.0); Hypochromasia Slight; Luc # (Auto) 0.13; Luc % (Auto) 1; Lymphocytes # (A) 1.7 k/uL (1.0-4.8); Lymphocytes % (A) 15 %; MCH 27.7 pg (25.0-35.0); MCV 86.5 fL (80.0-100.0); Mean Platelet Volume 7.7; Monocytes # (A) 0.5 k/uL (0-1.0); Monocytes % (A) 4 %; Neutrophils # (A) 8.9 k/uL (1.3-7.7); Neutrophils % (A) 80 %; RBC 4.56 m/uL (3.80-5.40); RDW 15.3 % (11.5-15.5); WBC 11.2 k/uL (3.8-10.6); WBC (Perox) 11.84
[2017-02-25 09:24] LABS: VBG PH 7.48 (7.31-7.41)
--- NOTE | 2017-02-25 11:01 | P.CNPUL ---
History of Present Illness Consult date: 02/25/17 Reason for consult: dyspnea, cough, chest pain, asthma, COPD, hypoxemia, pneumonia Chief complaint: Cough shortness of breath and wheezing and poor oxygen saturation started 2 History of present illness: 51-year-old female who was seen and evaluated examined and the hospital patient presented into the office with increasing cough congestion found to have a very low oxygen saturation was sent to the emergency department for further evaluation and possible IV therapy due to acute hypoxic respirator failure. Patient attributes her symptoms progression to exposure to 2 chlorine in the swimming pole left to ashen of shortness of breath about 3-4 days ago and the episode was progressive and eventually led to development of cough chest tightness and. Sputum production patient sats were into low mid to low 80s and eventually has been admitted into the hospital for therapy she had audible wheezing, now she is slightly feels better but still feels very tired and worn out Review of Systems ROS Statement: Those systems with pertinent positive or pertinent negative responses have been documented in the HPI. ROS Other: All systems not noted in ROS Statement are negative. Constitutional: Denies: fever, chills, weakness Eyes: Denies: vision change ENT: Denies: ear pain, throat pain Respiratory: Reports: cough, dyspnea Cardiovascular: Reports: dyspnea on exertion. Denies: chest pain, palpitations Endocrine: Denies: fatigue Gastrointestinal: Denies: abdominal pain, nausea, vomiting Genitourinary: Denies: dysuria Musculoskeletal: Denies: back pain Skin: Denies: rash, lesions Neurological: Denies: headache Past Medical History Past Medical History: Diabetes Mellitus, GERD/Reflux, Hyperlipidemia, Hypertension, Pneumonia Additional Past Medical History / Comment(s): HX ANEMIA. STRESS TEST AND ECHO - HAS SL MURMUR. MENTALLY DELAYED. URINARY URGENCY/WEARS BRIEF, INCONTINANCE IN SLEEP. HX ABN LFS. ABD PAIN, GALLSTONES. History of Any Multi-Drug Resistant Organisms: None Reported Past Surgical History: Orthopedic Surgery Additional Past Surgical History / Comment(s): PAST EYE SX LONG TIME AGO NOT SURE WHAT WAS DONE. RT KNEE SURG(ARTHROSCOPY).08-03-15 OPEN CHOLECYSTECTOMY Past Anesthesia/Blood Transfusion Reactions: Unable to Obtain Smoking Status: Never smoker - Past Family History Mother Family Medical History: Unable to Obtain Father Family Medical History: No Reported History Medications and Allergies Home Medications Medication Instructions Recorded Confirmed Type Atenolol [Tenormin] 50 mg PO BID 07/23/15 02/24/17 History Citalopram Hydrobromide [CeleXA] 20 mg PO QAM 07/23/15 02/24/17 History Docusate Sodium [Dok] 200 mg PO HS 07/23/15 02/24/17 History Hydrochlorothiazide [Hydrodiuril] 12.5 mg PO QAM 07/23/15 02/24/17 History Lisinopril [Zestril] 10 mg PO W/SUPPER 07/23/15 02/24/17 History Loratadine [Claritin] 10 mg PO W/SUPPER 07/23/15 02/24/17 History Multivitamins, Thera [Multivitamin 1 tab PO DAILY 07/23/15 02/24/17 History (formulary)] Omeprazole [PriLOSEC] 20 mg PO AC-BRKFST 07/23/15 02/24/17 History Potassium Chloride [K-Tab ER] 10 meq PO QAM 07/23/15 02/24/17 History Solifenacin Succinate [Vesicare] 5 mg PO W/SUPPER 07/23/15 02/24/17 History Aspirin EC [Ecotrin Low Dose] 81 mg PO QAM 11/21/16 02/24/17 History Cholecalciferol (Vitamin D3) 2,000 unit PO DAILY 11/21/16 02/24/17 History [Vitamin D3] Fenofibrate Nanocrystallized 145 mg PO DAILY 11/21/16 02/24/17 History [Fenofibrate] Tinnie-3 Acid Ethyl Esters [Lovaza] 2 gm PO BID 11/21/16 02/24/17 History Simvastatin [Zocor] 20 mg PO HS 11/21/16 02/24/17 History cloZAPine [Clozaril] 200 mg PO HS 11/21/16 02/24/17 History metFORMIN HCL ER [Glucophage Xr] 1,000 mg PO BID-W/MEALS 11/21/16 02/24/17 History Allergies Allergy/AdvReac Type Severity Reaction Status Date / Time No Known Allergies Allergy Verified 02/24/17 15:20 Physical Exam Vitals: Vital Signs Temp Pulse Pulse Resp BP BP Pulse Ox 02/25/17 08:16 92 L 02/25/17 08:00 84 18 09/23/17 07:00 97.3 F L 84 18 128/69 100 02/24/17 23:00 93 20 101/60 100 02/24/17 20:04 97 02/24/17 18:55 100 02/24/17 18:34 98.8 F 94 18 108/56 97 02/24/17 18:31 99 18 105/61 97 02/24/17 18:16 94 02/24/17 18:08 94 02/24/17 18:02 98.8 F 97 20 108/56 98 02/24/17 17:17 96 02/24/17 17:16 100 20 118/75 88 L 02/24/17 17:06 90 02/24/17 17:01 95 02/24/17 16:52 88 02/24/17 16:46 100 20 162/71 90 L 02/24/17 15:47 107 H 24 136/71 89 L 02/24/17 15:27 90 02/24/17 15:05 94 02/24/17 14:34 98 18 135/70 92 L 02/24/17 13:58 98.4 F 100 20 122/67 88 L Intake and Output 02/24/17 02/25/17 02/25/17 22:59 06:59 14:59 Intake Total 0 120 Balance 0 120 Intake: Oral 0 120 Other: Voiding Method Bedside Commode Bedside Commode Incontinent # Voids 1 1 Weight 57.5 kg Limitations: no limitations General appearance: alert, in no apparent distress Head exam: Present: atraumatic, normocephalic Eye exam: Present: normal appearance, PERRL ENT exam: Present: mucous membranes moist Neck exam: Present: normal inspection Respiratory exam: Present: wheezes, decreased breath sounds, patient went into coughing episodes while taking deep breath Cardiovascular Exam: Present: regular rate, normal rhythm GI/Abdominal exam: Present: soft. Absent: distended, tenderness Rectal exam: Present: deferred Extremities exam: Present: normal inspection Back exam: Present: normal inspection Neurological exam: Present: alert, oriented X3 Psychiatric exam: Present: normal affect, normal mood Skin exam: Present: warm, dry, intact Results - Laboratory Findings CBC and BMP: 02/25/17 08:33 02/24/17 19:54 PT/INR, D-dimer D-Dimer 0.63 mg/L FEU (<0.60) H 02/24/17 14:23 Abnormal lab findings: Abnormal Labs 02/24/17 02/24/17 02/24/17 14:23 14:23 14:23 WBC RDW 16.2 H Neutrophils # D-Dimer 0.63 H VBG pH VBG pCO2 VBG HCO3 Carbon Dioxide Glucose 169 H POC Glucose (mg/dL) 02/24/17 02/24/17 02/25/17 19:54 20:46 07:11 WBC RDW Neutrophils # D-Dimer VBG pH VBG pCO2 VBG HCO3 Carbon Dioxide 20 L Glucose 319 H POC Glucose (mg/dL) 342 H 230 H 02/25/17 02/25/17 08:33 08:33 WBC 11.2 H RDW Neutrophils # 8.9 H D-Dimer VBG pH 7.48 H VBG pCO2 31 L VBG HCO3 22 L Carbon Dioxide Glucose POC Glucose (mg/dL) - Diagnostic Findings Chest x-ray: report reviewed, image reviewed CT scan - chest: report reviewed, image reviewed (Peribronchial thickening was seen on the CAT scan along with a small hiatal hernia) Assessment and Plan Plan: Acute Hypoxic respiratory failure due to acute asthma exacerbation Acute bronchitis versus pneumonia 3 of her dyslipidemia hypertension hypertensive cardiovascular disease GERD Would recommend to maintain patient on broad-spectrum antibiotics breathing treatment and steroids continue to supplemental oxygen follow clinical course closely maintain patient on DVT and peptic ulcer disease prophylaxis will follow clinical course closely further recommendations pending would recommend repeating a chest x-ray next 24-48 hours to monitor observation pneumonia. Time with Patient: Greater than 30
[2017-02-25 11:18] LABS: Anion Gap 13 mmol/L; Blood Urea Nitrogen 17 mg/dL (7-17); Calcium 9.5 mg/dL (8.4-10.2); Carbon Dioxide 23 mmol/L (22-30); Chloride 104 mmol/L (98-107); Glucose 221 mg/dL (74-99); Non-African American GFR(MDRD) >60 (>60 ml/min/1.73 sqM); Sodium 140 mmol/L (137-145)
[2017-02-25 11:23] LABS: Potassium 5.2 mmol/L (3.5-5.1)
[2017-02-25 11:30] LABS: Hemoglobin A1C 6.4 % (4.2-6.1)
[2017-02-25 12:34] LABS: Glucose,Whole Blood 260 mg/dL (75-99)
[2017-02-25 17:27] LABS: Glucose,Whole Blood 173 mg/dL (75-99)
[2017-02-25] MEDS: LORATADINE 10 MG TAB PO SCH (17:47)
[2017-02-25] MEDS: LISINOPRIL 10 MG TAB PO SCH (17:47)
[2017-02-25] MEDS: OXYBUTYNIN 10 MG TAB.ER.24 PO SCH (17:47)
[2017-02-25] MEDS: methylPREDNISolone SOD SUCCI 40 MG/ML 1 ML VIAL IV SCH ×2 (18:21→21:50)
[2017-02-25] MEDS: ALBUTEROL NEBULIZED 2.5 MG/3 ML INHALATION SCH ×2 (19:55→20:00)
[2017-02-25] MEDS: BUDESONIDE 0.5 MG/2 ML NEBU INHALATION SCH (20:00)
[2017-02-25] MEDS: ATORVASTATIN 10 MG TAB PO SCH (20:08)
[2017-02-25] MEDS: cloZAPine 100 MG TAB PO SCH (20:08)
[2017-02-25 20:58] LABS: Glucose,Whole Blood 260 mg/dL (75-99)
--- NOTE | 2017-02-25 21:18 | HP ---
HISTORY AND PHYSICAL DATE OF ADMISSION: 02/24/2017. PRESENTING COMPLAINT: Short of breath, cough. HISTORY OF PRESENTING COMPLAINT: This is a 51-year-old patient of visiting physician Dr. Ham. Chronic stable medical conditions include diabetes, GERD, hyperlipidemia, hypertension, urinary incontinence, some schizophrenia. The patient is a resident of a fdc, [facility]. Apparently the patient was in a swimming pool and swallowed some chlorine and presented to Dr. Stock's office short of breath, cough, hypoxic. Patient was sent down to the ER. The patient was 88% on room air and had to be put on BiPAP earlier in the night. The patient has a rather harsh cough, maybe slightly yellow sputum, is able to tolerate her diet. Some wheezing is present. The patient is a nonsmoker. REVIEW OF SYSTEMS: CONSTITUTIONAL: Tired. HEENT: None. RESPIRATORY: As above. CARDIOVASCULAR: None. GASTROINTESTINAL: None. GENITOURINARY: Urinary incontinence. DERMATOLOGICAL: None. HEMATOLOGIC: None. LYMPHATIC: None. PSYCHIATRY: History schizophrenia, slightly slow at things. NEUROLOGICAL: None. PAST HISTORY: Diabetes, GERD, hypertension, hyperlipidemia, urinary incontinence, schizophrenia with mentally challenged per history. PAST SURGICAL HISTORY: Eye surgery, right knee surgery, open cholecystectomy. SOCIAL HISTORY: Lives at [facility] home, has a animal care technician, . No smoking. No alcohol. FAMILY HISTORY: Patient cannot tell. HOME MEDICATIONS: 1. Vitamin D3 2000 units p.o. daily. 2. Tenormin 50 mg p.o. b.i.d. 3. Aspirin 81 mg p.o. daily. 4. Hydrochlorothiazide 12.5 p.o. daily. 5. TriCor 145 mg p.o. daily. 6. Colace 200 mg q.h.s. 7. Celexa 20 mg p.o. daily. 8. VESIcare 5 mg p.o. with supper. 9. Zocor 20 mg q.h.s. 10.Potassium 10 mEq p.o. daily. 11.Prilosec 20 mg with breakfast. 12.Lovaza 2 g p.o. b.i.d. 13.Multivitamin 1 tablet p.o. daily. 14.Claritin 10 mg with supper. 15.Zestril 10 mg with supper. 16.Glucophage XR 1000 mg p.o. b.i.d. 17.Clozaril 200 mg q.h.s. ALLERGIES: None. PHYSICAL EXAMINATION: VITAL SIGNS: On presentation, temperature 98.4, pulse 100, respirations 20, blood pressure 122/67, pulse ox 88% room air. GENERAL APPEARANCE: Sitting up, coughing while talking. EYES: Pupils equal. Conjunctivae normal. HEENT: Oral cavity normal. NECK: JVD not raised. Mass not palpable. RESPIRATORY: Effort increased. LUNGS: Sounds a little bit congested with some crackles and some wheezing. CARDIOVASCULAR: 1st and 2nd sounds. No edema. ABDOMEN: Soft, nontender. Liver and spleen not palpable. LYMPHATIC: No lymph nodes palpable in neck or axillae. PSYCHIATRY: Awake, answering simple questions. Mood and affect normal. NEUROLOGICAL: Pupils, cranial nerves grossly intact. Power and sensation grossly intact. INVESTIGATIONS: White count 11.2, hemoglobin 12.6. Venous blood culture did show pH of 7.48. BUN creatinine are normal. Accu-Cheks are noted. Chest x-ray showed some fleeting infiltrates. CT scan of the chest shows some peribronchial wall thickening. ASSESSMENT: 1. Possible acute chemical pneumonitis from inhalation of chlorine in a swimming pool with reactive bronchospasm. 2. Diabetes mellitus type 2, on oral hypoglycemic. 3. Gastroesophageal reflux disease. 4. Acute hypoxic respiratory failure from above. 5. Hyperlipidemia. 6. Hypertension. 7. Chronic urinary stress incontinence. 8. Schizophrenia. PLAN: Patient is put on nebulized bronchodilators. Will include nebulized steroids, IV steroids. Home medications are resumed. Patient admitted from the office of Dr. Stock. Will have him follow the patient. MMODL / IJN: [id number] /
[2017-02-26] MEDS: ALBUTEROL NEBULIZED 2.5 MG/3 ML INHALATION SCH ×4 (07:20→19:49)
[2017-02-26] MEDS: BUDESONIDE 0.5 MG/2 ML NEBU INHALATION SCH ×2 (07:20→19:49)
[2017-02-26 07:41] LABS: Glucose,Whole Blood 224 mg/dL (75-99)
[2017-02-26] MEDS: INSULIN LISPRO (humaLOG) 300 UNIT/3 ML VIAL SQ SCH ×4 (07:50→21:12)
[2017-02-26] MEDS: ASPIRIN 81 MG PO SCH (07:52)
[2017-02-26] MEDS: ATENOLOL 50 MG TAB PO SCH ×2 (07:52→20:29)
[2017-02-26] MEDS: PANTOPRAZOLE 40 MG TABLET PO SCH (07:52)
[2017-02-26] MEDS: CHOLECALCIFEROL 1,000 UNIT TAB PO SCH (07:53)
[2017-02-26] MEDS: CITALOPRAM HYDROBROMIDE 20 MG TAB PO SCH (07:53)
[2017-02-26] MEDS: FENOFIBRATE 160 MG TAB PO SCH (07:54)
[2017-02-26] MEDS: POTASSIUM CHLORIDE ER 10 MEQ TAB.ER.PRT PO SCH (07:55)
[2017-02-26] MEDS: MULTIVITAMINS, THERA 1 EACH TAB PO SCH (07:55)
[2017-02-26] MEDS: HYDROCHLOROTHIAZIDE 12.5 MG CAP PO SCH (07:55)
[2017-02-26] MEDS: methylPREDNISolone SOD SUCCI 40 MG/ML 1 ML VIAL IV SCH ×2 (07:55→20:30)
[2017-02-26] MEDS: ENOXAPARIN 40 MG/0.4 ML SYRINGE SQ SCH (07:59)
--- NOTE | 2017-02-26 09:58 | P.PN ---
Subjective Principal diagnosis: Pneumonia inhalation related to chlorine fumes, acute asthma exacerbation Acute hypoxic respiratory failure, hypertension and hypertensive cardiovascular disease, obstructive sleep apnea Tumor 2016, patient seen and evaluated examined during the round she still feel congested Stalevo for a cough she has shortness of breath or activity and exertion however it rests fairly stable, computed tomography scan of the chest finding has been reviewed a developing pneumonia likely peribronchial related to inhalational injury cannot be excluded noted patient has not been on antibiotics we will initiate patient on IV Rocephin and oral Zithromax and repeat follow-up chest x-ray tomorrow, we'll continue continue breathing treatments and steroids and follow clinical course closely, note is made of the need for bronchoscopy however monitor observe with further recommendations pending as per clinical response finding on tomorrow's chest x-ray 51-year-old female who was seen and evaluated examined and the hospital patient presented into the office with increasing cough congestion found to have a very low oxygen saturation was sent to the emergency department for further evaluation and possible IV therapy due to acute hypoxic respirator failure. Patient attributes her symptoms progression to exposure to 2 chlorine in the swimming pole left to ashen of shortness of breath about 3-4 days ago and the episode was progressive and eventually led to development of cough chest tightness and. Sputum production patient sats were into low mid to low 80s and eventually has been admitted into the hospital for therapy she had audible wheezing, now she is slightly feels better but still feels very tired and worn out Objective - Vital Signs Vital signs: Vital Signs Temp 97.2 F L 02/26/17 07:00 Pulse 88 02/26/17 07:30 Resp 20 02/26/17 07:00 BP 121/79 02/26/17 07:00 Pulse Ox 92 L 02/26/17 07:20 Intake & Output 02/25/17 02/26/17 02/26/17 18:59 06:59 18:59 Intake Total 990 240 Balance 990 240 Weight 57.5 kg Intake: Oral 990 240 Other: Voiding Method Bedside Commode Incontinent # Voids 3 2 - Exam Limitations: no limitations General appearance: alert, in no apparent distress Head exam: Present: atraumatic, normocephalic Eye exam: Present: normal appearance, PERRL ENT exam: Present: mucous membranes moist Neck exam: Present: normal inspection Respiratory exam: Present: wheezes, decreased breath sounds, patient went into coughing episodes while taking deep breath, overall however appears slightly better than Cardiovascular Exam: Present: regular rate, normal rhythm GI/Abdominal exam: Present: soft. Absent: distended, tenderness Rectal exam: Present: deferred Extremities exam: Present: normal inspection Back exam: Present: normal inspection Neurological exam: Present: alert, oriented X3 Psychiatric exam: Present: normal affect, normal mood Skin exam: Present: warm, dry, intact - Labs CBC & Chem 7: 02/25/17 08:33 02/25/17 08:33 Labs: Abnormal Lab Results - Last 24 Hours (Table) 02/24/17 02/25/17 02/25/17 Range/Units 14:23 08:33 12:09 Potassium 5.2 H (3.5-5.1) mmol/L Glucose 221 H (74-99) mg/dL POC Glucose (mg/dL) 260 H (75-99) mg/dL Hemoglobin A1c 6.4 H (4.2-6.1) % 02/25/17 02/25/17 02/26/17 Range/Units 17:06 20:52 07:36 Potassium (3.5-5.1) mmol/L Glucose (74-99) mg/dL POC Glucose (mg/dL) 173 H 260 H 224 H (75-99) mg/dL Hemoglobin A1c (4.2-6.1) % Assessment and Plan Plan: Acute Hypoxic respiratory failure due to acute asthma exacerbation Acute bronchitis versus pneumonia, inhalational injury related 3 of her dyslipidemia hypertension hypertensive cardiovascular disease GERD Would recommend to maintain patient on broad-spectrum antibiotics breathing treatment and steroids continue to supplemental oxygen follow clinical course closely maintain patient on DVT and peptic ulcer disease prophylaxis will follow clinical course closely further recommendations pending would recommend repeating a chest x-ray next 24-48 hours to monitor observation pneumonia. We will start antibiotics and repeat x-ray as dictated above Time with Patient: Greater than 30
[2017-02-26 12:19] LABS: Glucose,Whole Blood 251 mg/dL (75-99)
[2017-02-26 17:31] LABS: Glucose,Whole Blood 251 mg/dL (75-99)
[2017-02-26] MEDS: LISINOPRIL 10 MG TAB PO SCH (17:31)
[2017-02-26] MEDS: LORATADINE 10 MG TAB PO SCH (17:31)
[2017-02-26] MEDS: OXYBUTYNIN 10 MG TAB.ER.24 PO SCH (17:31)
--- NOTE | 2017-02-26 17:51 | P.PN ---
Progress Note - Text DATE OF SERVICE: 02/26/2017 PRESENTING COMPLAINT: Short of breath with cough HISTORY OF PRESENT ILLNESS: 51-year-old female resident at a assisted, was swimming in a swimming pool accidentally swallowed some chlorine and presented to Dr. Stock office short of breath with a cough and hypoxic. Was subsequently sent to the emergency room for further evaluation. Oxygen saturation was 88% on room air and required BiPAP. INTERVAL HISTORY: 02/26/2017: Lying in bed completely covered with the blankets, sweaty on exam, patient says she feels fine, likely due to just being covered, afebrile. Breathing is better , continues to have some coarse breath sounds, coarse cough noted. No sputum production. Tolerating her diet eating 100% of her meals, ambulatory with some assistance. Last BM prior to admission. REVIEW OF SYSTEMS: Done for constitutional ,cardiovascular, GI, pulmonary with relevant findings as above. CURRENT MEDICATIONS Solu-Medrol IV, aspirin, Lipitor, Celexa 20 mg by mouth every morning, Clozaril 200 mg by mouth at bedtime, Lovenox, low fiber, Zestril, Claritin PHYSICAL EXAM VITAL SIGNS: Temperature 97.5, pulse 75, respiratory rate 20, blood pressure 111/70, oxygen saturation 92% on 5 L GENERAL APPEARANCE: Lying in bed, not in distress. EYES: Pupils equal. Conjunctiva normal. NECK: JVD not raised. Mass not palpable. RESPIRATORY: Respiratory effort increased. Lungs coarse to auscultation. CARDIOVASCULAR: First and second sounds normal. No edema. ABDOMEN: Soft. Liver and spleen not palpable. No tenderness. No mass palpable. PSYCHIATRY: Alert and able to answer simple questions . Mood and affect normal. INVESTIGATIONS: White blood cell count 11.2, potassium 5.2, Accu-Cheks noted. ASSESSMENT: -Acute chemical pneumonitis from inhalation of chlorine in a swimming pool with reactive bronchospasm, slow to respond. -Diabetes mellitus type 2 on oral hypoglycemics. -Gastroesophageal reflux disease. -Acute hypoxic respiratory failure from above. -Hyperlipidemia. -Essential Hypertension. -Chronic urine or stress incontinence. -Schizophrenia. PLAN: Continue nebulized bronchodilators and steroids per pulmonology. We will continue to monitor patient closely plan of care discussed at the bedside. HOUSEKEEPER AND LAUNDRY ASSISTANT statement: Patient was seen and examined by nurse practitioner Diana Saleh and all elements of the case discussed with attending Dr. Osei
[2017-02-26] MEDS: cloZAPine 100 MG TAB PO SCH (20:29)
[2017-02-26] MEDS: ATORVASTATIN 10 MG TAB PO SCH (20:29)
[2017-02-26 20:58] LABS: Glucose,Whole Blood 233 mg/dL (75-99)
[2017-02-26 22:03] LABS: Anion Gap 10 mmol/L; Blood Urea Nitrogen 21 mg/dL (7-17); Calcium 9.4 mg/dL (8.4-10.2); Carbon Dioxide 27 mmol/L (22-30); Chloride 101 mmol/L (98-107); Glucose 260 mg/dL (74-99); Non-African American GFR(MDRD) >60 (>60 ml/min/1.73 sqM); Potassium 3.9 mmol/L (3.5-5.1); Sodium 138 mmol/L (137-145)
--- NOTE | 2017-02-26 22:17 | PN ---
PROGRESS NOTE DATE OF SERVICE: 02/26/2017. ATTENDING NOTE: This patient was seen and examined by me. I discussed with my nurse practitioner, Ms. Saleh. Patient's breathing is slightly better. Slight cough. Tolerating some diet. PHYSICAL EXAMINATION: LUNGS: Decreased breath sounds. Some wheezing, slightly improved from before. PSYCH: Awake, answering questions. INVESTIGATIONS: Accu-Cheks are noted. Accu-Cheks are noted. A ASSESSMENT: 1. Acute chemical pneumonitis from inhalation of chlorine with bronchospasm. 2. Diabetes mellitus type 2, uncontrolled from steroids. 3. Acute hypoxic respiratory failure from chemical pneumonitis. PLAN: The patient remains on about 5 L of oxygen. At this point, continue with Solu-Medrol. The patient is already on inhaled steroids. Will increase the dose of the same. MMODL / IJN: [id number] /
[2017-02-27] MEDS: ALBUTEROL NEBULIZED 2.5 MG/3 ML INHALATION SCH ×4 (06:51→20:52)
[2017-02-27] MEDS: BUDESONIDE 1 MG/2 ML NEBU INHALATION SCH ×3 (06:51→20:52)
[2017-02-27 07:23] LABS: Glucose,Whole Blood 227 mg/dL (75-99)
[2017-02-27] MEDS: INSULIN LISPRO (humaLOG) 300 UNIT/3 ML VIAL SQ SCH ×4 (08:06→21:19)
[2017-02-27] MEDS: ASPIRIN 81 MG PO SCH (08:06)
[2017-02-27] MEDS: ATENOLOL 50 MG TAB PO SCH ×2 (08:06→21:19)
[2017-02-27] MEDS: PANTOPRAZOLE 40 MG TABLET PO SCH (08:06)
[2017-02-27] MEDS: MULTIVITAMINS, THERA 1 EACH TAB PO SCH (08:06)
[2017-02-27] MEDS: CITALOPRAM HYDROBROMIDE 20 MG TAB PO SCH (08:06)
[2017-02-27] MEDS: CHOLECALCIFEROL 1,000 UNIT TAB PO SCH (08:06)
[2017-02-27] MEDS: POTASSIUM CHLORIDE ER 10 MEQ TAB.ER.PRT PO SCH (08:06)
[2017-02-27] MEDS: HYDROCHLOROTHIAZIDE 12.5 MG CAP PO SCH (08:06)
[2017-02-27] MEDS: FENOFIBRATE 160 MG TAB PO SCH (08:06)
[2017-02-27] MEDS: ENOXAPARIN 40 MG/0.4 ML SYRINGE SQ SCH (08:07)
[2017-02-27] MEDS: methylPREDNISolone SOD SUCCI 40 MG/ML 1 ML VIAL IV SCH ×2 (08:07→21:19)
--- NOTE | 2017-02-27 08:17 | XR ---
EXAMINATION TYPE: XR chest 2V DATE OF EXAM: 02/27/2017 COMPARISON: 02/24/2017 HISTORY: 51-year-old female follow-up pneumonia TECHNIQUE: Frontal and lateral views FINDINGS: Somewhat low lung volumes with crowded vascular markings. Heart is upper limits of normal in size. Ao rta and pulmonary vasculature within normal limits. Minimal patchy posterior basilar opacity on the l ateral view. Mild peribronchial cuffing is also noted. IMPRESSION: 1. Hypoventilatory changes. Patchy posterior basilar opacity could represent atelectasis or minimal i nfiltrate. 2. Peribronchial cuffing could represent bronchitis or chronic asthma.
[2017-02-27 08:51] LABS: Basophils % (A) 0 %; CH 27.7; CHCM 32.2; Eosinophils % (A) 0 %; HCT 39.2 % (34.0-46.0); HGB 12.2 gm/dL (11.4-16.0); Luc # (Auto) 0.15; Luc % (Auto) 1; Lymphocytes % (A) 19 %; MCHC 31.2 g/dL (31.0-37.0); MCV 86.6 fL (80.0-100.0); Mean Platelet Volume 7.7; Monocytes # (A) 0.4 k/uL (0-1.0); Monocytes % (A) 4 %; Neutrophils # (A) 8.1 k/uL (1.3-7.7); Neutrophils % (A) 76 %; RBC 4.53 m/uL (3.80-5.40); RDW 15.8 % (11.5-15.5); WBC 10.8 k/uL (3.8-10.6); WBC (Perox) 11.43
[2017-02-27 09:14] LABS: Anion Gap 9 mmol/L; Blood Urea Nitrogen 24 mg/dL (7-17); Calcium 9.7 mg/dL (8.4-10.2); Carbon Dioxide 29 mmol/L (22-30); Chloride 103 mmol/L (98-107); Glucose 239 mg/dL (74-99); Non-African American GFR(MDRD) >60 (>60 ml/min/1.73 sqM); Potassium 4.6 mmol/L (3.5-5.1); Sodium 141 mmol/L (137-145)
[2017-02-27 11:46] LABS: Hemoglobin A1C 6.3 % (4.2-6.1)
--- NOTE | 2017-02-27 11:48 | P.PN ---
Subjective 02/27/17-patient is being seen, examined and evaluated today on rounds. Patient has continued to feel short of breath with exertion and/or activity. She has a dry cough. The patient still continues on 5 L of supplemental oxygen via nasal cannula. Patient does not use oxygen during the day at home. She does utilize supplemental oxygen 2 L at night at home. She is afebrile, no overnight events no further complaints. All labs are been reviewed. 02/26/17-Acute hypoxic respiratory failure, hypertension and hypertensive cardiovascular disease, obstructive sleep apnea Tumor 2016, patient seen and evaluated examined during the round she still feel congested Stalevo for a cough she has shortness of breath or activity and exertion however it rests fairly stable, computed tomography scan of the chest finding has been reviewed a developing pneumonia likely peribronchial related to inhalational injury cannot be excluded noted patient has not been on antibiotics we will initiate patient on IV Rocephin and oral Zithromax and repeat follow-up chest x-ray tomorrow, we'll continue continue breathing treatments and steroids and follow clinical course closely, note is made of the need for bronchoscopy however monitor observe with further recommendations pending as per clinical response finding on tomorrow's chest x-ray 02/25/17- 51-year-old female who was seen and evaluated examined and the hospital patient presented into the office with increasing cough congestion found to have a very low oxygen saturation was sent to the emergency department for further evaluation and possible IV therapy due to acute hypoxic respirator failure. Patient attributes her symptoms progression to exposure to 2 chlorine in the swimming pole left to ashen of shortness of breath about 3-4 days ago and the episode was progressive and eventually led to development of cough chest tightness and. Sputum production patient sats were into low mid to low 80s and eventually has been admitted into the hospital for therapy she had audible wheezing, now she is slightly feels better but still feels very tired and worn out Objective - Vital Signs Vital signs: Vital Signs Temp 97.8 F 02/27/17 07:00 Pulse 80 02/27/17 11:16 Resp 18 02/27/17 07:00 BP 124/70 02/27/17 07:00 Pulse Ox 90 L 02/27/17 07:00 Intake & Output 02/26/17 02/27/17 02/27/17 18:59 06:59 18:59 Intake Total 720 240 Balance 720 240 Weight 57.5 kg Intake: Oral 720 240 Other: Voiding Method Bedside Commode Incontinent # Voids 2 2 # Bowel Movements 0 0 - Exam GENERAL EXAM: Alert, active, comfortable in no apparent distress. HEAD: Normocephalic. EYES: Normal reaction of pupils, equal size. NOSE: Clear with pink turbinates. THROAT: No erythema or exudates. NECK: No masses, no JVD. CHEST: No chest wall deformity. LUNGS: Lungs noted to be decreased bilaterally with some expiratory wheezes scattered. Bases diminished. CVS: S1 and S2 normal with no audible mumurs, regular rhythm. ABDOMEN: No hepatosplenomegaly, normal bowel sounds, no guarding or rigidity. EXTREMITIES: No edema noted, pedal pulses palpable. SKIN: No rashes CENTRAL NERVOUS SYSTEM: No focal deficits, tone is normal in all 4 extremities. - Labs CBC & Chem 7: 02/27/17 08:30 02/27/17 08:30 Labs: Abnormal Lab Results - Last 24 Hours (Table) 02/26/17 02/26/17 02/26/17 Range/Units 11:52 17:03 20:50 WBC (3.8-10.6) k/uL RDW (11.5-15.5) % Neutrophils # (1.3-7.7) k/uL BUN (7-17) mg/dL Glucose (74-99) mg/dL POC Glucose (mg/dL) 251 H 251 H 233 H (75-99) mg/dL 02/26/17 02/27/17 02/27/17 Range/Units 21:35 07:18 08:30 WBC 10.8 H (3.8-10.6) k/uL RDW 15.8 H (11.5-15.5) % Neutrophils # 8.1 H (1.3-7.7) k/uL BUN 21 H (7-17) mg/dL Glucose 260 H (74-99) mg/dL POC Glucose (mg/dL) 227 H (75-99) mg/dL 02/27/17 Range/Units 08:30 WBC (3.8-10.6) k/uL RDW (11.5-15.5) % Neutrophils # (1.3-7.7) k/uL BUN 24 H (7-17) mg/dL Glucose 239 H (74-99) mg/dL POC Glucose (mg/dL) (75-99) mg/dL Assessment and Plan Plan: Assessment Acute hypoxic respiratory failure Acute exacerbation of chronic persistent asthma Acute bronchitis versus pneumonia, inhalation injury related Dyslipidemia Hypertension GERD Plan Medications have been reviewed and will be continued as ordered. Continue with pulmonary hygiene, coughing and deep breathing exercises, and supportive care. Supplemental oxygen to maintain oxygen saturations of 92% or better. We will try to wean down oxygen as tolerated. Increase activity as tolerated. Continue nebulizer treatments. GI and DVT prophylaxis. We will continue to monitor labs/results and adjust treatment as necessary. Further recommendations pending. I performed an examination of the patient and discussed their management with the nurse practitioner. I have reviewed the nurse practitioner's note and agree with the documented findings and plan of care.
[2017-02-27 12:25] LABS: Glucose,Whole Blood 259 mg/dL (75-99)
--- NOTE | 2017-02-27 15:09 | P.PN ---
Progress Note - Text DATE OF SERVICE: 02/27/2017 PRESENTING COMPLAINT: Short of breath with cough HISTORY OF PRESENT ILLNESS: 51-year-old female resident at a residential, was swimming in a swimming pool accidentally swallowed some chlorine and presented to Dr. Stock office short of breath with a cough and hypoxic. Was subsequently sent to the emergency room for further evaluation. Oxygen saturation was 88% on room air and required BiPAP. INTERVAL HISTORY: 02/27/2017: Lying in bed appears comfortable, cough with no sputum production, breathing better some coarse breath sounds noted. Remains on 5 L. Does use oxygen at the residential. He 100% of her meals, ambulatory with some assistance, last BM today. 02/26/2017: Lying in bed completely covered with the blankets, sweaty on exam, patient says she feels fine, likely due to just being covered, afebrile. Breathing is better , continues to have some coarse breath sounds, coarse cough noted. No sputum production. Tolerating her diet eating 100% of her meals, ambulatory with some assistance. Last BM prior to admission. REVIEW OF SYSTEMS: Done for constitutional ,cardiovascular, GI, pulmonary with relevant findings as above. CURRENT MEDICATIONS Solu-Medrol IV, aspirin, Lipitor, Celexa 20 mg by mouth every morning, Clozaril 200 mg by mouth at bedtime, Lovenox, low fiber, Zestril, Claritin PHYSICAL EXAM VITAL SIGNS: Temperature 97.8, pulse 74, respiratory rate 18, blood pressure 06/28/1971, oxygen saturation 90% on 5 L. GENERAL APPEARANCE: Lying in bed, not in distress. EYES: Pupils equal. Conjunctiva normal. NECK: JVD not raised. Mass not palpable. RESPIRATORY: Respiratory effort increased. Lungs coarse breath sounds to auscultation. CARDIOVASCULAR: First and second sounds normal. No edema. ABDOMEN: Soft. Liver and spleen not palpable. No tenderness. No mass palpable. PSYCHIATRY: Alert and able to answer simple questions . Mood and affect normal. INVESTIGATIONS: White blood cell count 11.2, potassium 5.2, Accu-Cheks noted. ASSESSMENT: -Acute chemical pneumonitis from inhalation of chlorine in a swimming pool with reactive bronchospasm, slow to respond. -Diabetes mellitus type 2 on oral hypoglycemics. -Gastroesophageal reflux disease. -Acute hypoxic respiratory failure from above. -Hyperlipidemia. -Essential Hypertension. -Chronic urine or stress incontinence. -Schizophrenia. PLAN: Continue nebulized bronchodilators steroids and broad-spectrum antibiotics per pulmonology. We'll take a chest x-ray in the next 24-48 hours to monitor progress. We will continue to monitor patient closely plan of care discussed at the bedside. STORES ASSISTANT statement: Patient was seen and examined by nurse practitioner Diana Saleh and all elements of the case discussed with attending Dr. Osei
[2017-02-27 17:11] LABS: Glucose,Whole Blood 268 mg/dL (75-99)
[2017-02-27] MEDS: OXYBUTYNIN 10 MG TAB.ER.24 PO SCH (17:27)
[2017-02-27] MEDS: LORATADINE 10 MG TAB PO SCH (17:27)
[2017-02-27] MEDS: LISINOPRIL 10 MG TAB PO SCH (17:27)
--- NOTE | 2017-02-27 20:13 | PN ---
PROGRESS NOTE DATE OF SERVICE: February 27, 2017. ATTENDING NOTE: This patient seen and examined by me. I discussed with my nurse practitioner, Ms. Saleh. The patient tolerating a diet, up and about. Remains on 5 L of oxygen. The nurse did confirm through the assisted that the patient does wear 2 L of oxygen at the assisted. EXAM: Lungs decreased breath sounds, expiratory wheezing. ASSESSMENT: 1. Acute chemical pneumonitis causing acute hypoxic respiratory failure. 2. Chronic hypoxic respiratory failure from probably underlying pulmonary disorder. PLAN: Continue current medication and treatment plan. Inhaled steroids was added yesterday. Follow. MMODL / IJN: [id number] /
[2017-02-27 20:58] LABS: Glucose,Whole Blood 292 mg/dL (75-99)
[2017-02-27] MEDS: ATORVASTATIN 10 MG TAB PO SCH (21:19)
[2017-02-27] MEDS: cloZAPine 100 MG TAB PO SCH (21:19)
[2017-02-27 23:15] VITALS: RESP 16
[2017-02-28] MEDS: BUDESONIDE 1 MG/2 ML NEBU INHALATION SCH ×2 (07:19→20:19)
[2017-02-28] MEDS: ALBUTEROL NEBULIZED 2.5 MG/3 ML INHALATION SCH ×4 (07:19→20:19)
[2017-02-28 07:32] LABS: Glucose,Whole Blood 240 mg/dL (75-99)
[2017-02-28] MEDS: ENOXAPARIN 40 MG/0.4 ML SYRINGE SQ SCH (07:45)
[2017-02-28] MEDS: methylPREDNISolone SOD SUCCI 40 MG/ML 1 ML VIAL IV SCH ×2 (07:45→21:27)
[2017-02-28] MEDS: INSULIN LISPRO (humaLOG) 300 UNIT/3 ML VIAL SQ SCH ×4 (07:45→21:26)
[2017-02-28] MEDS: CITALOPRAM HYDROBROMIDE 20 MG TAB PO SCH (07:46)
[2017-02-28] MEDS: ASPIRIN 81 MG PO SCH (07:46)
[2017-02-28] MEDS: POTASSIUM CHLORIDE ER 10 MEQ TAB.ER.PRT PO SCH (07:46)
[2017-02-28] MEDS: ATENOLOL 50 MG TAB PO SCH ×2 (07:46→21:26)
[2017-02-28] MEDS: PANTOPRAZOLE 40 MG TABLET PO SCH (07:46)
[2017-02-28] MEDS: MULTIVITAMINS, THERA 1 EACH TAB PO SCH (07:46)
[2017-02-28] MEDS: FENOFIBRATE 160 MG TAB PO SCH (07:46)
[2017-02-28] MEDS: HYDROCHLOROTHIAZIDE 12.5 MG CAP PO SCH (07:46)
[2017-02-28] MEDS: CHOLECALCIFEROL 1,000 UNIT TAB PO SCH (07:47)
--- NOTE | 2017-02-28 11:55 | P.PN ---
Subjective 02/28/17- patient has been seen and examined and evaluated today. She does continue to be short of breath with exertion and/or activity. She continues to have a dry cough. Patient is on 2 L of supplemental oxygen via nasal cannula. At home the patient utilizes 2 L of oxygen at night time only. If the patient goes home on oxygen during the day a new prescription will need to be provided, to have the oxygen administered at all times including daytime hours. Patient is afebrile, no overnight events. All labs are reports have been reviewed. 02/27/17-patient is being seen, examined and evaluated today on rounds. Patient has continued to feel short of breath with exertion and/or activity. She has a dry cough. The patient still continues on 5 L of supplemental oxygen via nasal cannula. Patient does not use oxygen during the day at home. She does utilize supplemental oxygen 2 L at night at home. She is afebrile, no overnight events no further complaints. All labs are been reviewed. 02/26/17-Acute hypoxic respiratory failure, hypertension and hypertensive cardiovascular disease, obstructive sleep apnea Tumor 2016, patient seen and evaluated examined during the round she still feel congested Stalevo for a cough she has shortness of breath or activity and exertion however it rests fairly stable, computed tomography scan of the chest finding has been reviewed a developing pneumonia likely peribronchial related to inhalational injury cannot be excluded noted patient has not been on antibiotics we will initiate patient on IV Rocephin and oral Zithromax and repeat follow-up chest x-ray tomorrow, we'll continue continue breathing treatments and steroids and follow clinical course closely, note is made of the need for bronchoscopy however monitor observe with further recommendations pending as per clinical response finding on tomorrow's chest x-ray 02/25/17- 51-year-old female who was seen and evaluated examined and the hospital patient presented into the office with increasing cough congestion found to have a very low oxygen saturation was sent to the emergency department for further evaluation and possible IV therapy due to acute hypoxic respirator failure. Patient attributes her symptoms progression to exposure to 2 chlorine in the swimming pole left to ashen of shortness of breath about 3-4 days ago and the episode was progressive and eventually led to development of cough chest tightness and. Sputum production patient sats were into low mid to low 80s and eventually has been admitted into the hospital for therapy she had audible wheezing, now she is slightly feels better but still feels very tired and worn out Objective - Vital Signs Vital signs: Vital Signs Temp 97.2 F L 02/28/17 07:00 Pulse 76 02/28/17 11:13 Resp 16 02/28/17 07:00 BP 126/78 02/28/17 07:00 Pulse Ox 98 02/28/17 07:00 Intake & Output 02/27/17 02/28/17 02/28/17 18:59 06:59 18:59 Intake Total 480 480 Balance 480 480 Intake: Oral 480 480 Other: # Voids 3 1 # Bowel Movements 0 - Exam GENERAL EXAM: Alert, active, comfortable in no apparent distress. HEAD: Normocephalic. EYES: Normal reaction of pupils, equal size. NOSE: Clear with pink turbinates. THROAT: No erythema or exudates. NECK: No masses, no JVD. CHEST: No chest wall deformity. LUNGS: Lungs noted to be decreased bilaterally with some expiratory wheezes scattered. Bases diminished. CVS: S1 and S2 normal with no audible mumurs, regular rhythm. ABDOMEN: No hepatosplenomegaly, normal bowel sounds, no guarding or rigidity. EXTREMITIES: No edema noted, pedal pulses palpable. SKIN: No rashes CENTRAL NERVOUS SYSTEM: No focal deficits, tone is normal in all 4 extremities. - Labs CBC & Chem 7: 02/27/17 08:30 02/27/17 08:30 Labs: Abnormal Lab Results - Last 24 Hours (Table) 02/25/17 02/27/17 02/27/17 Range/Units 08:33 12:22 17:05 POC Glucose (mg/dL) 259 H 268 H (75-99) mg/dL Hemoglobin A1c 6.3 H (4.2-6.1) % 02/27/17 02/28/17 Range/Units 20:32 07:19 POC Glucose (mg/dL) 292 H 240 H (75-99) mg/dL Hemoglobin A1c (4.2-6.1) % Assessment and Plan Plan: Assessment Acute hypoxic respiratory failure Acute exacerbation of chronic persistent asthma Acute bronchitis versus pneumonia, inhalation injury related Dyslipidemia Hypertension GERD Plan Medications have been reviewed and will be continued as ordered. Continue with pulmonary hygiene, coughing and deep breathing exercises, and supportive care. Supplemental oxygen to maintain oxygen saturations of 92% or better. A prescription for supplemental oxygen 2 L at all times has been provided and is on the paper chart. We will try to wean down oxygen as tolerated. Increase activity as tolerated. Continue nebulizer treatments. GI and DVT prophylaxis. We will continue to monitor labs/results and adjust treatment as necessary. Further recommendations pending. I performed an examination of the patient and discussed their management with the nurse practitioner. I have reviewed the nurse practitioner's note and agree with the documented findings and plan of care.
[2017-02-28 12:26] LABS: Glucose,Whole Blood 315 mg/dL (75-99)
--- NOTE | 2017-02-28 15:45 | P.PN ---
Progress Note - Text DATE OF SERVICE: 02/28/2017 PRESENTING COMPLAINT: Short of breath with cough HISTORY OF PRESENT ILLNESS: 51-year-old [facility] a [facility], was swimming in a swimming pool accidentally swallowed some chlorine and presented to Dr. Stock office short of breath with a cough and hypoxic. Was subsequently sent to the emergency room for further evaluation. Oxygen saturation was 88% on room air and required BiPAP. INTERVAL HISTORY: 02/28/2017: Lying in bed appears comfortable, cough no sputum production, breathing better, coarse breath sounds. On 3 L nasal cannula. Uses oxygen at nighttime at the [facility]. Eating 100% of her meals, last BM prior to admission up with assistance. 02/27/2017: Lying in bed appears comfortable, cough with no sputum production, breathing better some coarse breath sounds noted. Remains on 5 L. Does use oxygen at the [facility]. He 100% of her meals, ambulatory with some assistance, last BM prior to admission 02/26/2017: Lying in bed completely covered with the blankets, sweaty on exam, patient says she feels fine, likely due to just being covered, afebrile. Breathing is better , continues to have some coarse breath sounds, coarse cough noted. No sputum production. Tolerating her diet eating 100% of her meals, ambulatory with some assistance. Last BM prior to admission. REVIEW OF SYSTEMS: Done for constitutional ,cardiovascular, GI, pulmonary with relevant findings as above. CURRENT MEDICATIONS Solu-Medrol IV, aspirin, Lipitor, Celexa 20 mg by mouth every morning, Clozaril 200 mg by mouth at bedtime, Lovenox, low fiber, Zestril, Claritin PHYSICAL EXAM VITAL SIGNS: Temperature 97.2, pulse 73, respiratory rate 16, blood pressure 126/78, oxygen saturation 90% on room air GENERAL APPEARANCE: Lying in bed, appears comfortable. EYES: Pupils equal. Conjunctiva normal. NECK: JVD not raised. Mass not palpable. RESPIRATORY: Respiratory effort increased. Lungs coarse breath sounds to auscultation. CARDIOVASCULAR: First and second sounds normal. No edema. ABDOMEN: Soft. Liver and spleen not palpable. No tenderness. No mass palpable. PSYCHIATRY: Alert and able to answer simple questions . Mood and affect normal. INVESTIGATIONS: White blood cell count 10.8, Accu-Cheks noted ASSESSMENT: -Acute chemical pneumonitis from inhalation of chlorine in a swimming pool with reactive bronchospasm, slow to respond. -Acute hypoxic respiratory failure from above. -Acute exacerbation of chronic persistent asthma -Diabetes mellitus type 2 on oral hypoglycemics. -Gastroesophageal reflux disease. -Hyperlipidemia. -Essential Hypertension. -Chronic urine or stress incontinence. -Schizophrenia. PLAN: Continue nebulized bronchodilators steroids and broad-spectrum antibiotics per pulmonology. We'll take a chest x-ray in the next 24-48 hours to monitor progress. We will continue to monitor patient closely plan of care discussed at the bedside. GYM INSTRUCTOR statement: Patient was seen and examined by nurse practitioner Diana Saleh and all elements of the case discussed with attending Dr. Osei
[2017-02-28 17:13] LABS: Glucose,Whole Blood 341 mg/dL (75-99)
[2017-02-28] MEDS: OXYBUTYNIN 10 MG TAB.ER.24 PO SCH (17:39)
[2017-02-28] MEDS: LISINOPRIL 10 MG TAB PO SCH (17:39)
[2017-02-28] MEDS: LORATADINE 10 MG TAB PO SCH (17:39)
[2017-02-28 21:10] LABS: Glucose,Whole Blood 203 mg/dL (75-99)
[2017-02-28] MEDS: cloZAPine 100 MG TAB PO SCH (21:26)
[2017-02-28] MEDS: ATORVASTATIN 10 MG TAB PO SCH (21:26)
[2017-02-28] MEDS: SENNOSIDES 8.6 MG TAB PO SCH (21:27)
[2017-02-28] MEDS: LACTULOSE 20 GM/30 ML CUP PO SCH (21:27)
--- NOTE | 2017-03-01 02:42 | PN ---
PROGRESS NOTE DATE OF SERVICE: February 28, 2017 ATTENDING NOTE: This patient seen examined by me. I discussed with my nurse practitioner, Ms. Saleh. Patient admitted with a chemical pneumonitis, acute on chronic hypoxic respiratory failure. The patient now down to 3 L. EXAMINATION: Some wheezing is still present. Prolonged expiration. ASSESSMENT: 1. Acute chemical pneumonitis. 2. Acute hypoxic respiratory failure, improving. Continue current medication and treatment plan and follow with Pulmonary. MMODL / IJN: [id number] /
[2017-03-01 07:23] LABS: Glucose,Whole Blood 247 mg/dL (75-99)
[2017-03-01] MEDS: BUDESONIDE 1 MG/2 ML NEBU INHALATION SCH (07:23)
[2017-03-01] MEDS: ALBUTEROL NEBULIZED 2.5 MG/3 ML INHALATION SCH ×3 (07:24→16:28)
[2017-03-01] MEDS: HYDROCHLOROTHIAZIDE 12.5 MG CAP PO SCH (07:55)
[2017-03-01] MEDS: MULTIVITAMINS, THERA 1 EACH TAB PO SCH (07:55)
[2017-03-01] MEDS: ATENOLOL 50 MG TAB PO SCH (07:55)
[2017-03-01] MEDS: SENNOSIDES 8.6 MG TAB PO SCH (07:55)
[2017-03-01] MEDS: CHOLECALCIFEROL 1,000 UNIT TAB PO SCH (07:55)
[2017-03-01] MEDS: ENOXAPARIN 40 MG/0.4 ML SYRINGE SQ SCH (07:55)
[2017-03-01] MEDS: FENOFIBRATE 160 MG TAB PO SCH (07:56)
[2017-03-01] MEDS: LACTULOSE 20 GM/30 ML CUP PO SCH (07:56)
[2017-03-01] MEDS: methylPREDNISolone SOD SUCCI 40 MG/ML 1 ML VIAL IV SCH (07:56)
[2017-03-01] MEDS: ASPIRIN 81 MG PO SCH (07:56)
[2017-03-01] MEDS: PANTOPRAZOLE 40 MG TABLET PO SCH (07:56)
[2017-03-01] MEDS: INSULIN LISPRO (humaLOG) 300 UNIT/3 ML VIAL SQ SCH ×3 (07:57→17:57)
[2017-03-01] MEDS: CITALOPRAM HYDROBROMIDE 20 MG TAB PO SCH (07:57)
[2017-03-01] MEDS: POTASSIUM CHLORIDE ER 10 MEQ TAB.ER.PRT PO SCH (07:57)
[2017-03-01 08:01] VITALS: BP 122/79; TEMP 97.1
[2017-03-01] MEDS ORDERED: POLYETHYLENE GLYCOL 3350 17 GM POWD.PACK PO SCH (09:00)
[2017-03-01 09:28] LABS: Basophils % (A) 0 %; CH 27.8; CHCM 32.4; Eosinophils % (A) 0 %; HCT 41.9 % (34.0-46.0); HDW 2.81; Luc # (Auto) 0.11; Luc % (Auto) 1; Lymphocytes # (A) 2.7 k/uL (1.0-4.8); Lymphocytes % (A) 22 %; MCH 26.8 pg (25.0-35.0); MCV 86.3 fL (80.0-100.0); Mean Platelet Volume 7.8; Monocytes # (A) 0.5 k/uL (0-1.0); Monocytes % (A) 4 %; Neutrophils # (A) 8.8 k/uL (1.3-7.7); Neutrophils % (A) 73 %; RBC 4.86 m/uL (3.80-5.40); RDW 15.4 % (11.5-15.5); WBC 12.1 k/uL (3.8-10.6)
[2017-03-01 10:11] LABS: Anion Gap 14 mmol/L; Blood Urea Nitrogen 26 mg/dL (7-17); Calcium 9.8 mg/dL (8.4-10.2); Carbon Dioxide 25 mmol/L (22-30); Chloride 97 mmol/L (98-107); Glucose 262 mg/dL (74-99); Non-African American GFR(MDRD) >60 (>60 ml/min/1.73 sqM); Potassium 4.8 mmol/L (3.5-5.1); Sodium 136 mmol/L (137-145)
--- NOTE | 2017-03-01 10:33 | P.PN ---
Subjective 03/01/17- patient has been seen examined and evaluated today on the medical surgical unit. Patient continues to utilize 2 L of supplemental oxygen. Her previous prescription for supplemental oxygen was for nighttime only. A new prescription has been provided for the patient to wear 2 L of supplemental oxygen at all times in the [facility]. She continues to have intermittent shortness of breath with it exertion and/or activity. Dry cough. She is afebrile, no overnight events. The patient is being prepared for discharge possibly today back to the [facility]. 02/28/17- patient has been seen and examined and evaluated today. She does continue to be short of breath with exertion and/or activity. She continues to have a dry cough. Patient is on 2 L of supplemental oxygen via nasal cannula. At home the patient utilizes 2 L of oxygen at night time only. If the patient goes home on oxygen during the day a new prescription will need to be provided, to have the oxygen administered at all times including daytime hours. Patient is afebrile, no overnight events. All labs are reports have been reviewed. 02/27/17-patient is being seen, examined and evaluated today on rounds. Patient has continued to feel short of breath with exertion and/or activity. She has a dry cough. The patient still continues on 5 L of supplemental oxygen via nasal cannula. Patient does not use oxygen during the day at home. She does utilize supplemental oxygen 2 L at night at home. She is afebrile, no overnight events no further complaints. All labs are been reviewed. 02/26/17-Acute hypoxic respiratory failure, hypertension and hypertensive cardiovascular disease, obstructive sleep apnea Tumor 2016, patient seen and evaluated examined during the round she still feel congested Stalevo for a cough she has shortness of breath or activity and exertion however it rests fairly stable, computed tomography scan of the chest finding has been reviewed a developing pneumonia likely peribronchial related to inhalational injury cannot be excluded noted patient has not been on antibiotics we will initiate patient on IV Rocephin and oral Zithromax and repeat follow-up chest x-ray tomorrow, we'll continue continue breathing treatments and steroids and follow clinical course closely, note is made of the need for bronchoscopy however monitor observe with further recommendations pending as per clinical response finding on tomorrow's chest x-ray 02/25/17- 51-year-old female who was seen and evaluated examined and the hospital patient presented into the office with increasing cough congestion found to have a very low oxygen saturation was sent to the emergency department for further evaluation and possible IV therapy due to acute hypoxic respirator failure. Patient attributes her symptoms progression to exposure to 2 chlorine in the swimming pole left to ashen of shortness of breath about 3-4 days ago and the episode was progressive and eventually led to development of cough chest tightness and. Sputum production patient sats were into low mid to low 80s and eventually has been admitted into the hospital for therapy she had audible wheezing, now she is slightly feels better but still feels very tired and worn out Objective - Vital Signs Vital signs: Vital Signs Temp 97.1 F L 03/01/17 07:00 Pulse 72 03/01/17 07:40 Resp 16 03/01/17 07:26 BP 122/79 03/01/17 07:00 Pulse Ox 94 L 03/01/17 07:00 Intake & Output 02/28/17 03/01/17 03/01/17 18:59 06:59 18:59 Other: # Voids 3 1 # Bowel Movements 1 - Exam GENERAL EXAM: Alert, active, comfortable in no apparent distress. HEAD: Normocephalic. EYES: Normal reaction of pupils, equal size. NOSE: Clear with pink turbinates. THROAT: No erythema or exudates. NECK: No masses, no JVD. CHEST: No chest wall deformity. LUNGS: Lungs noted to be decreased bilaterally with some expiratory wheezes scattered. Bases diminished. CVS: S1 and S2 normal with no audible mumurs, regular rhythm. ABDOMEN: No hepatosplenomegaly, normal bowel sounds, no guarding or rigidity. EXTREMITIES: No edema noted, pedal pulses palpable. SKIN: No rashes CENTRAL NERVOUS SYSTEM: No focal deficits, tone is normal in all 4 extremities. - Labs CBC & Chem 7: 03/01/17 08:38 03/01/17 08:38 Labs: Abnormal Lab Results - Last 24 Hours (Table) 02/28/17 02/28/17 02/28/17 Range/Units 12:22 17:05 21:03 WBC (3.8-10.6) k/uL Neutrophils # (1.3-7.7) k/uL Sodium (137-145) mmol/L Chloride (98-107) mmol/L BUN (7-17) mg/dL Glucose (74-99) mg/dL POC Glucose (mg/dL) 315 H 341 H 203 H (75-99) mg/dL 03/01/17 03/01/17 03/01/17 Range/Units 07:22 08:38 08:38 WBC 12.1 H (3.8-10.6) k/uL Neutrophils # 8.8 H (1.3-7.7) k/uL Sodium 136 L (137-145) mmol/L Chloride 97 L (98-107) mmol/L BUN 26 H (7-17) mg/dL Glucose 262 H (74-99) mg/dL POC Glucose (mg/dL) 247 H (75-99) mg/dL Assessment and Plan Plan: Assessment Acute hypoxic respiratory failure Acute exacerbation of chronic persistent asthma Acute bronchitis versus pneumonia, inhalation injury related Dyslipidemia Hypertension GERD Plan Patient can be cleared for discharge from a pulmonary standpoint with 2 L of supplemental oxygen to be worn at all times. Steroid taper upon discharge. Medications have been reviewed and will be continued as ordered. Continue with pulmonary hygiene, coughing and deep breathing exercises, and supportive care. Supplemental oxygen to maintain oxygen saturations of 92% or better. A prescription for supplemental oxygen 2 L at all times has been provided and is on the paper chart. We will try to wean down oxygen as tolerated. Increase activity as tolerated. Continue nebulizer treatments. GI and DVT prophylaxis. We will continue to monitor labs/results and adjust treatment as necessary. Further recommendations pending. I performed an examination of the patient and discussed their management with the nurse practitioner. I have reviewed the nurse practitioner's note and agree with the documented findings and plan of care.
[2017-03-01 12:16] LABS: Glucose,Whole Blood 300 mg/dL (75-99)
[2017-03-01 16:35] VITALS: PULSE 76
[2017-03-01 17:05] LABS: Glucose,Whole Blood 314 mg/dL (75-99)
[2017-03-01] MEDS: LISINOPRIL 10 MG TAB PO SCH (17:57)
[2017-03-01] MEDS: OXYBUTYNIN 10 MG TAB.ER.24 PO SCH (17:57)
[2017-03-01] MEDS: LORATADINE 10 MG TAB PO SCH (17:58)
--- NOTE | 2017-03-01 19:34 | P.DS ---
Providers Date of admission: 02/24/17 17:25 Expected date of discharge: 03/01/17 Attending physician: Ranjeet Osei Consults: 02/24/17 17:38 Consult Physician Stat Consulting Provider: Bj Stock Consult Reason/Comments: status asthmaticus Do you want consulting provider notified?: Already Contacted [facility]: FINAL DIAGNOSES: -Acute chemical pneumonitis from inhalation of chlorine in a swimming pool with reactive bronchospasm, slow to respond. -Acute hypoxic respiratory failure from above. -Acute exacerbation of chronic persistent asthma -Diabetes mellitus type 2 on oral hypoglycemics. -Gastroesophageal reflux disease. -Hyperlipidemia. -Essential Hypertension. -Chronic urine or stress incontinence. -Schizophrenia. HOSPTIAL COURSE: 51 year-old female resident of [facility] unable to extend was swallowed some chlorinated water presented to Dr. Stock in the office with shortness of breath and a cough and was hypoxic. Subsequently sent to the emergency department for further evaluation, oxygen saturation was 88% on room air required BiPAP therapy. Was admitted for the same. Home medications reordered, Pulmonology consulted, antibiotics ordered, IV steroids initiated BiPAP continued. Breathing improved, however prior to admission she did not have the need for oxygen during the day only at nighttime and currently is requiring 2 L of oxygen during the day as she desaturates into the 80s without it. Patient provided a steroid taper. Remained afebrile throughout her stay, continued to have a cough which is improved. Ambulatory with some standby assistance, tolerating her diet eating 100% of her meals, last BM 02/28/2017. Overall condition is stabilized consult with cleared the patient and is appropriate for [facility]. PHYSICAL EXAM: CARDIOVASCULAR: First and second sounds noted no edema RESPIRATORY: Respiratory effort normal, lung sounds prolonged expiration and wheezing noted, dry cough PSYCHIATRY: Alert and oriented 2-3 able to answer simple straightforward questions, mood and affect appropriate for the situation. Patient was seen and examined by nurse practitioner Diana Saleh in all elements of the case discussed with attending Dr. Osei DISPOSITION: Discharge home with oxygen to the [facility]. Plan - Discharge Summary New Discharge Prescriptions: New predniSONE 10 mg PO DIRECTED #30 tab Albuterol Nebulized [Ventolin Nebulized] 2.5 mg INHALATION TID #60 neb Polyethylene Glycol 3350 [Miralax] 17 gm PO MOWEFR pack Continue Omeprazole [PriLOSEC] 20 mg PO AC-BRKFST Multivitamins, Thera [Multivitamin (formulary)] 1 tab PO DAILY Lisinopril [Zestril] 10 mg PO W/SUPPER Solifenacin Succinate [Vesicare] 5 mg PO W/SUPPER Loratadine [Claritin] 10 mg PO W/SUPPER Potassium Chloride [K-Tab ER] 10 meq PO QAM Hydrochlorothiazide [Hydrodiuril] 12.5 mg PO QAM Atenolol [Tenormin] 50 mg PO BID Citalopram Hydrobromide [CeleXA] 20 mg PO QAM Aspirin EC [Ecotrin Low Dose] 81 mg PO QAM Cholecalciferol (Vitamin D3) [Vitamin D3] 2,000 unit PO DAILY cloZAPine [Clozaril] 200 mg PO HS Fenofibrate Nanocrystallized [Fenofibrate] 145 mg PO DAILY metFORMIN HCL ER [Glucophage Xr] 1,000 mg PO BID-W/MEALS [place]-3 Acid Ethyl Esters [Lovaza] 2 gm PO BID Simvastatin [Zocor] 20 mg PO HS Discontinued Docusate Sodium [Dok] 200 mg PO HS Discharge Medication List Atenolol [Tenormin] 50 mg PO BID 07/23/15 [History] Citalopram Hydrobromide [CeleXA] 20 mg PO QAM 07/23/15 [History] Hydrochlorothiazide [Hydrodiuril] 12.5 mg PO QAM 07/23/15 [History] Lisinopril [Zestril] 10 mg PO W/SUPPER 07/23/15 [History] Loratadine [Claritin] 10 mg PO W/SUPPER 07/23/15 [History] Multivitamins, Thera [Multivitamin (formulary)] 1 tab PO DAILY 07/23/15 [History ] Omeprazole [PriLOSEC] 20 mg PO AC-BRKFST 07/23/15 [History] Potassium Chloride [K-Tab ER] 10 meq PO QAM 07/23/15 [History] Solifenacin Succinate [Vesicare] 5 mg PO W/SUPPER 07/23/15 [History] Aspirin EC [Ecotrin Low Dose] 81 mg PO QAM 11/21/16 [History] Cholecalciferol (Vitamin D3) [Vitamin D3] 2,000 unit PO DAILY 11/21/16 [History] Fenofibrate Nanocrystallized [Fenofibrate] 145 mg PO DAILY 11/21/16 [History] [place]-3 Acid Ethyl Esters [Lovaza] 2 gm PO BID 11/21/16 [History] Simvastatin [Zocor] 20 mg PO HS 11/21/16 [History] cloZAPine [Clozaril] 200 mg PO HS 11/21/16 [History] metFORMIN HCL ER [Glucophage Xr] 1,000 mg PO BID-W/MEALS 11/21/16 [History] Albuterol Nebulized [Ventolin Nebulized] 2.5 mg INHALATION TID #60 neb 03/01/17 [Rx] Polyethylene Glycol 3350 [Miralax] 17 gm PO MOWEFR pack 03/01/17 [Rx] predniSONE 10 mg PO DIRECTED #30 tab 03/01/17 [Rx] Follow up Appointment(s)/Referral(s): All Ham MD [Primary Care Provider] - 1-2 days (af to schedule ) Bj Stock MD [STAFF PHYSICIAN] - 1 Week (af to schedule ) [facility] Visiting Nurse, [NON-STAFF] - Patient Instructions/Handouts: Asthma (DC), Type 2 Diabetes in Adults (DC) Activity/Diet/Wound Care/Special Instructions: DC to [facility]- Public guardian notified. Cardiac diabetic diet. Discharge Disposition: HOME SELF-CARE
--- NOTE | 2017-03-01 23:35 | DS ---
DISCHARGE SUMMARY DATE OF SERVICE: 03/01/2017. ATTENDING NOTE: This patient was seen and examined by me. I discussed with my nurse practitioner, Ms. Saleh. The patient is doing much better, tolerating a diet. Oxygen requirements have come down to where she is normal at home. This is about 3L. EXAMINATION: LUNGS: Improved air entry. Minimal wheezing. Patient will be sent home on tapering dose of steroids. Antibiotics will be discontinued. Followup is arranged. RADHAL / RUPERTN: [id number] /
[2017-03-02] MEDS ORDERED: predniSONE 20 MG TAB PO SCH (09:00)
[2017-03-02] MEDS ORDERED: cloZAPine 100 MG TAB PO SCH (21:00)
== END 2017-03-01 18:51 | disposition home health service (06) | DRG 917 ==
LOC: EC 13:33 → 4MS4W 17:25
PROVIDERS: ADMIT Hospitalist; ATTEND Hospitalist
DX: T54.3X1A Toxic effect of corrosive alkalis and alkali-like substances, accidental (unintentional), initial encounter (principal); J96.21 Acute and chronic respiratory failure with hypoxia; J45.32 Mild persistent asthma with status asthmaticus; J68.0 Bronchitis and pneumonitis due to chemicals, gases, fumes and vapors; I11.9 Hypertensive heart disease without heart failure; E11.65 Type 2 diabetes mellitus with hyperglycemia; F20.9 Schizophrenia, unspecified; J44.9 Chronic obstructive pulmonary disease, unspecified; E78.5 Hyperlipidemia, unspecified; G47.33 Obstructive sleep apnea (adult) (pediatric); K21.9 Gastro-esophageal reflux disease without esophagitis; N39.3 Stress incontinence (female) (male); R39.15 Urgency of urination; R01.1 Cardiac murmur, unspecified; T38.0X5A Adverse effect of glucocorticoids and synthetic analogues, initial encounter; Y92.9 Unspecified place or not applicable; Z79.82 Long term (current) use of aspirin; Z79.84 Long term (current) use of oral hypoglycemic drugs; Z79.899 Other long term (current) drug therapy; Y92.239 Unspecified place in hospital as the place of occurrence of the external cause
CPT/HCPCS: 36415; 71020; 71275; 80048; 82803; 83036; 83880; 84484; 85025; 85379; 93005; 94640; 94644; 94760; 96365; 96375; 99285

== ENCOUNTER → 2017-10-25 | Outpatient (CLI) | payer MEDICARE, OTHER ==
[2017-10-25 17:21] LABS: Blood Urea Nitrogen 17 mg/dL (7-17)
--- NOTE | 2017-10-26 08:04 | CT ---
EXAMINATION TYPE: CT abdomen wo/w con DATE OF EXAM: 10/25/2017 COMPARISON: 08/07/2015 INDICATION: Abd pain. DLP: 956.9 mGycm, Automated exposure control for dose reduction was used. CONTRAST: 100ml mL of Isovue M300. Study performed with Oral Contrast TECHNIQUE: Axial images were obtained from above the diaphragm to the pubic rami in the axial plane a t 5 mm thick sections. Reconstructed images are reviewed on the computer in the coronal plane. FINDINGS: Limited CT sections are obtained the lung bases. The lung bases are clear. Small hiatal hernia is p resent. CT ABDOMEN: Liver: There is mild fatty infiltration within the liver. No discrete masses or cysts are evident. Spleen: Normal on precontrast imaging. There is a hypodensity at the superior spleen on postcontrast imaging which appears to have homogenous enhancement isodense with the spleen on delayed images sugge sting a hemangioma. Pancreas: Normal Adrenal glands: The adrenal glands are normal. Gallbladder: Surgically absent Kidneys: No masses are evident. No hydronephrosis is present. No cysts are present. No renal stone s are identified. Postcontrast imaging is performed. Kidneys appear normal on post contrast images. Aorta: Normal Inferior vena cava: Normal. Bowel: There is some mild prominence of small bowel loops. No obstruction is evident. Fecal debris is within the colon. There are loops of bowel which are incompletely distended or lack oral contrast li miting their evaluation. IMPRESSIONS: 1. No suspicious changes within the kidneys.
== END | disposition home or self-care (01) ==
LOC: RADCTMAIN 16:47
PROVIDERS: ATTEND General Practice
DX: N28.89 Other specified disorders of kidney and ureter (principal)
CPT/HCPCS: 82565; 84520; 74170; 36415; Q9967

== ENCOUNTER 2017-12-31 14:17 | Inpatient (IN) | payer MEDICARE, OTHER ==
[2017-12-31] MEDS ORDERED: methylPREDNISolone SOD SUCCI 125 MG/2 ML VIAL IV STA (14:29)
[2017-12-31] MEDS ORDERED: SODIUM CHLORIDE 0.9% 500 ML IV STA (14:29)
[2017-12-31] MEDS ORDERED: IPRATROPIUM-ALBUTEROL 3 ML NEB INHALATION STA ×2 (14:30→15:29)
--- NOTE | 2017-12-31 14:35 | ED ---
SOB HPI - General Source: patient, family Mode of arrival: ambulatory Limitations: no limitations <Blank Oswald - Last Filed: 12/31/17 15:38> <Franko Jaquez - Last Filed: 12/31/17 15:46> - General Chief Complaint: Shortness of Breath Stated Complaint: chest congestion Time Seen by Provider: 12/31/17 14:25 - History of Present Illness Initial Comments: 52-year-old female patient with past medical history significant for diabetes mellitus, hypertension, and COPD presents to the emergency department today for complaints of shortness of breath and headache. Patient does wear oxygen at bedtime. Patient states that she has been having symptoms since . States that her breathing is worse. States she is coughing but denies any sputum production. States that she is very wheezy. States she has been doing breathing treatments at home without much relief of her symptoms. Patient states that she does have some tightness in her chest. She is also complaining of headache, she denies any blurred or double vision, nausea, vomiting, dizziness, or weakness. States that she feels that her abdomen is bloated and tight. Denies any constipation or diarrhea. States that she has felt chilled but denies any known fevers. Patient denies any recent rash, back pain, numbness , tingling, hematuria, dysuria, urinary urgency, urinary frequency, or any other complaints. States that she no longer smokes or drinks. (Blank Oswald) - Related Data Home Medications Medication Instructions Recorded Confirmed Atenolol [Tenormin] 50 mg PO BID 07/23/15 02/24/17 Citalopram Hydrobromide [CeleXA] 20 mg PO QAM 07/23/15 02/24/17 Hydrochlorothiazide [Hydrodiuril] 12.5 mg PO QAM 07/23/15 02/24/17 Lisinopril [Zestril] 10 mg PO W/SUPPER 07/23/15 02/24/17 Loratadine [Claritin] 10 mg PO W/SUPPER 07/23/15 02/24/17 Multivitamins, Thera [Multivitamin 1 tab PO DAILY 07/23/15 02/24/17 (formulary)] Omeprazole [PriLOSEC] 20 mg PO AC-BRKFST 07/23/15 02/24/17 Potassium Chloride [K-Tab ER] 10 meq PO QAM 07/23/15 02/24/17 Solifenacin Succinate [Vesicare] 5 mg PO W/SUPPER 07/23/15 02/24/17 Aspirin EC [Ecotrin Low Dose] 81 mg PO QAM 11/21/16 02/24/17 Cholecalciferol (Vitamin D3) 2,000 unit PO DAILY 11/21/16 02/24/17 [Vitamin D3] Fenofibrate Nanocrystallized 145 mg PO DAILY 11/21/16 02/24/17 [Fenofibrate] [place]-3 Acid Ethyl Esters [Lovaza] 2 gm PO BID 11/21/16 02/24/17 Simvastatin [Zocor] 20 mg PO HS 11/21/16 02/24/17 cloZAPine [Clozaril] 200 mg PO HS 11/21/16 02/24/17 metFORMIN HCL ER [Glucophage Xr] 1,000 mg PO BID-W/MEALS 11/21/16 02/24/17 Previous Rx's Medication Instructions Recorded Albuterol Nebulized [Ventolin 2.5 mg INHALATION TID #60 neb 03/01/17 Nebulized] Polyethylene Glycol 3350 [Miralax] 17 gm PO MOWEFR pack 03/01/17 predniSONE 10 mg PO DIRECTED #30 tab 03/01/17 Allergies Allergy/AdvReac Type Severity Reaction Status Date / Time No Known Allergies Allergy Verified 12/31/17 14:19 Review of Systems ROS Other: All systems not noted in ROS Statement are negative. <Blank Oswald - Last Filed: 12/31/17 15:38> ROS Other: All systems not noted in ROS Statement are negative. <Franko Jaquez - Last Filed: 12/31/17 15:46> ROS Statement: Those systems with pertinent positive or pertinent negative responses have been documented in the HPI. Past Medical History Past Medical History: Diabetes Mellitus, GERD/Reflux, Hyperlipidemia, Hypertension, Pneumonia Additional Past Medical History / Comment(s): HX ANEMIA. STRESS TEST AND ECHO - HAS SL MURMUR. MENTALLY DELAYED. URINARY URGENCY/WEARS BRIEF, INCONTINANCE IN SLEEP. HX ABN LFS. ABD PAIN, GALLSTONES. History of Any Multi-Drug Resistant Organisms: None Reported Past Surgical History: Orthopedic Surgery Additional Past Surgical History / Comment(s): PAST EYE SX LONG TIME AGO NOT SURE WHAT WAS DONE. RT KNEE SURG(ARTHROSCOPY).08-03-15 OPEN CHOLECYSTECTOMY Past Anesthesia/Blood Transfusion Reactions: Unable to Obtain Past Psychological History: Schizophrenia Smoking Status: Never smoker Past Alcohol Use History: None Reported Past Drug Use History: None Reported - Past Family History Mother Family Medical History: Unable to Obtain Father Family Medical History: No Reported History <Blank Oswald - Last Filed: 12/31/17 15:38> General Exam Limitations: no limitations General appearance: alert, in no apparent distress, other (Well-developed, well- nourished adult female patient in no acute distress. Vital signs upon presentation are temperature 99.3F, pulse 92, respirations 18, blood pressure 113/73, pulse ox 91% on room air.) Eye exam: Present: normal appearance, PERRL, EOMI. Absent: scleral icterus, conjunctival injection, periorbital swelling ENT exam: Present: normal exam, normal oropharynx, mucous membranes moist Neck exam: Present: normal inspection. Absent: tenderness, meningismus, lymphadenopathy Respiratory exam: Present: wheezes (Diffuse expiratory wheezing throughout all posterior lung jimenez). Absent: normal lung sounds bilaterally, respiratory distress, rales, rhonchi, stridor Cardiovascular Exam: Present: regular rate, normal rhythm, normal heart sounds. Absent: systolic murmur, diastolic murmur, rubs, gallop, clicks GI/Abdominal exam: Present: soft, distended, normal bowel sounds. Absent: tenderness, guarding, rebound, rigid Neurological exam: Present: alert, oriented X3, CN II-XII intact Psychiatric exam: Present: normal affect, normal mood Skin exam: Present: warm, dry, intact, normal color. Absent: rash <Blank Oswald - Last Filed: 12/31/17 15:38> Course <Blank Oswald - Last Filed: 12/31/17 15:38> <Franko Jaquez - Last Filed: 12/31/17 15:46> Vital Signs 12/31/17 12/31/17 12/31/17 14:19 14:53 15:12 Temperature 99.3 F Pulse Rate 92 90 Respiratory 18 18 Rate Blood Pressure 113/73 O2 Sat by Pulse 91 L Oximetry 12/31/17 15:23 Temperature Pulse Rate 90 Respiratory Rate Blood Pressure O2 Sat by Pulse Oximetry - Reevaluation(s) Reevaluation #1: 12/31/17 15:46 NT/PA supervision: I personally saw and examined the patient I reviewed and agree with the findings including all diagnostic interpretation treatment plan is written unless otherwise stated. I did personally examine the patient she has diminished breath sounds with wheezing I did discuss case with Dr. Osei. Patient will be admitted with pulmonary consultation. (Franko Jaquez) Medical Decision Making - Lab Data Result diagrams: 12/31/17 14:43 12/31/17 14:43 - EKG Data -: EKG Interpreted by Me - Radiology Data Radiology results: report reviewed, image reviewed <Blank Oswald - Last Filed: 12/31/17 15:38> - Lab Data Result diagrams: 12/31/17 14:43 12/31/17 14:43 <Franko Jaquez - Last Filed: 12/31/17 15:46> - Medical Decision Making 52-year-old female patient presents emergency department today for complaints of cough, shortness of breath, and wheezing. Physical examination does reveal diffuse expiratory wheezing to all posterior lung jimenez. Chest x-ray showed possible early developing pneumonia in the right lower and right middle lobes. Patient is have a history of COPD, she did receive 2 breathing treatments here in the emergency department, still continues to exhibit hypoxia and diffuse expiratory wheezing. She'll be admitted with a azithromycin, Rocephin, breathing treatments, and site Medrol. NovoLog sliding scale was ordered. Dr. Osei is accepting. Pulmonology has been consulted. (Blank Oswald) - Lab Data Lab Results 12/31/17 12/31/17 12/31/17 Range/Units 14:43 14:43 14:43 WBC 8.4 (3.8-10.6) k/uL RBC 4.10 (3.80-5.40) m/uL Hgb 11.3 L (11.4-16.0) gm/dL Hct 34.9 (34.0-46.0) % MCV 85.2 (80.0-100.0) fL MCH 27.7 (25.0-35.0) pg MCHC 32.5 (31.0-37.0) g/dL RDW 13.9 (11.5-15.5) % Plt Count 209 (150-450) k/uL Neutrophils % 58 % Lymphocytes % 30 % Monocytes % 6 % Eosinophils % 2 % Basophils % 1 % Neutrophils # 4.8 (1.3-7.7) k/uL Lymphocytes # 2.5 (1.0-4.8) k/uL Monocytes # 0.5 (0-1.0) k/uL Eosinophils # 0.2 (0-0.7) k/uL Basophils # 0.0 (0-0.2) k/uL PT (9.0-12.0) sec INR (<1.2) APTT (22.0-30.0) sec Sodium 138 (137-145) mmol/L Potassium 3.9 (3.5-5.1) mmol/L Chloride 100 (98-107) mmol/L Carbon Dioxide 29 (22-30) mmol/L Anion Gap 9 mmol/L BUN 20 H (7-17) mg/dL Creatinine 0.70 (0.52-1.04) mg/dL Est GFR (CKD-EPI)AfAm >90 (>60 ml/min/1.73 sqM) Est GFR (CKD-EPI)NonAf >90 (>60 ml/min/1.73 sqM) Glucose 230 H (74-99) mg/dL Calcium 9.6 (8.4-10.2) mg/dL Total Bilirubin 0.4 (0.2-1.3) mg/dL AST 17 (14-36) U/L ALT 42 (9-52) U/L Alkaline Phosphatase 126 (38-126) U/L Total Creatine Kinase 43 (30-135) U/L CK-MB (CK-2) 0.4 (0.0-2.4) ng/mL CK-MB (CK-2) Rel Index 0.9 Troponin I 0.025 (0.000-0.034) ng/mL Total Protein 6.4 (6.3-8.2) g/dL Albumin 4.1 (3.5-5.0) g/dL 12/31/17 Range/Units 14:43 WBC (3.8-10.6) k/uL RBC (3.80-5.40) m/uL Hgb (11.4-16.0) gm/dL Hct (34.0-46.0) % MCV (80.0-100.0) fL MCH (25.0-35.0) pg MCHC (31.0-37.0) g/dL RDW (11.5-15.5) % Plt Count (150-450) k/uL Neutrophils % % Lymphocytes % % Monocytes % % Eosinophils % % Basophils % % Neutrophils # (1.3-7.7) k/uL Lymphocytes # (1.0-4.8) k/uL Monocytes # (0-1.0) k/uL Eosinophils # (0-0.7) k/uL Basophils # (0-0.2) k/uL PT 10.1 (9.0-12.0) sec INR 1.0 (<1.2) APTT 23.2 (22.0-30.0) sec Sodium (137-145) mmol/L Potassium (3.5-5.1) mmol/L Chloride (98-107) mmol/L Carbon Dioxide (22-30) mmol/L Anion Gap mmol/L BUN (7-17) mg/dL Creatinine (0.52-1.04) mg/dL Est GFR (CKD-EPI)AfAm (>60 ml/min/1.73 sqM) Est GFR (CKD-EPI)NonAf (>60 ml/min/1.73 sqM) Glucose (74-99) mg/dL Calcium (8.4-10.2) mg/dL Total Bilirubin (0.2-1.3) mg/dL AST (14-36) U/L ALT (9-52) U/L Alkaline Phosphatase (38-126) U/L Total Creatine Kinase (30-135) U/L CK-MB (CK-2) (0.0-2.4) ng/mL CK-MB (CK-2) Rel Index Troponin I (0.000-0.034) ng/mL Total Protein (6.3-8.2) g/dL Albumin (3.5-5.0) g/dL - EKG Data EKG Comments: EKG obtained at 1448 shows normal sinus rhythm with a left axis deviation and intraventricular block. Ventricular rate is 87, NV interval 192, QR zoroastrianism 154, QTC 450, QTC 541. No evidence of ST elevation or depression. Did review EKG from February 2017, changes appear chronic. (Blank Oswald) - Radiology Data Two-view x-ray of the chest is obtained, there are strand-like opacities at the lung bases. There is no pulmonary vascular congestion, pleural effusion, or pneumothorax. The cardiac silhouette size is within normal limits. The osseous structures are intact. Mild multilevel 200 changes of thoracic spine are noted. Impression by Dr. Quiñones shows bibasilar linear opacities are favored represent atelectasis although early developing pneumonia within the right lower lobe and middle lobe as possible and a purpuric clinical setting (Blank Oswald) Disposition Decision to Admit Reason: Admit from EC Decision Date: 12/31/17 Decision Time: 15:42 <Blank Oswald - Last Filed: 12/31/17 15:38> <Franko Jaquez - Last Filed: 12/31/17 15:46> Clinical Impression: COPD exacerbation, Right lower lobe pneumonia Disposition: ADMITTED IP TO THIS HOSP Condition: Serious Referrals: All Ham MD [Primary Care Provider] - 1-2 days
[2017-12-31 14:57] LABS: Basophils % (A) 1 %; Eosinophils # (A) 0.2 k/uL (0-0.7); Eosinophils % (A) 2 %; HCT 34.9 % (34.0-46.0); HGB 11.3 gm/dL (11.4-16.0); Lymphocytes # (A) 2.5 k/uL (1.0-4.8); Lymphocytes % (A) 30 %; MCH 27.7 pg (25.0-35.0); MCHC 32.5 g/dL (31.0-37.0); MCV 85.2 fL (80.0-100.0); Mean Platelet Volume 7.2; Monocytes # (A) 0.5 k/uL (0-1.0); Monocytes % (A) 6 %; Neutrophils # (A) 4.8 k/uL (1.3-7.7); Neutrophils % (A) 58 %; Platelet Count 209 k/uL (150-450); RDW 13.9 % (11.5-15.5); WBC 8.4 k/uL (3.8-10.6)
[2017-12-31 15:04] LABS: ALT 42 U/L (9-52); AST 17 U/L (14-36); Albumin 4.1 g/dL (3.5-5.0); Alkaline Phosphatase 126 U/L (38-126); Anion Gap 9 mmol/L; Blood Urea Nitrogen 20 mg/dL (7-17); Calcium 9.6 mg/dL (8.4-10.2); Carbon Dioxide 29 mmol/L (22-30); Chloride 100 mmol/L (98-107); Glucose 230 mg/dL (74-99); Potassium 3.9 mmol/L (3.5-5.1); Sodium 138 mmol/L (137-145); Total Bilirubin 0.4 mg/dL (0.2-1.3); Total Protein 6.4 g/dL (6.3-8.2)
[2017-12-31 15:05] LABS: Partial Thromboplastin Time 23.2 sec (22.0-30.0); Prothrombin Time 10.1 sec (9.0-12.0)
--- NOTE | 2017-12-31 15:17 | XR ---
EXAMINATION TYPE: XR chest 2V DATE OF EXAM: 12/31/2017 COMPARISON: 02/27/2017 HISTORY: Difficult breathing TECHNIQUE: Frontal and lateral views of the chest are obtained. FINDINGS: There are strand-like opacities at the lung bases. There is no pulmonary vascular congesti on, pleural effusion, or pneumothorax seen. The cardiac silhouette size is within normal limits. T he osseous structures are intact. Mild multilevel degenerative changes of the thoracic spine are note d. IMPRESSION: Bibasilar linear opacities are favored to represent atelectasis although early developing pneumonia within the right lower lobe and middle lobe is possible in the appropriate clinical settin g.
[2017-12-31 15:27] LABS: Creatine Kinase MB 0.4 ng/mL (0.0-2.4); Troponin I 0.025 ng/mL (0.000-0.034)
[2017-12-31] MEDS ORDERED: ACETAMINOPHEN TAB 325 MG TAB PO PRN (15:31)
[2017-12-31] MEDS ORDERED: NALOXONE 0.4 MG/ML 1 ML VIAL IV PRN (15:31)
[2017-12-31] MEDS ORDERED: IPRATROPIUM-ALBUTEROL 3 ML NEB INHALATION PRN (15:37)
[2017-12-31] MEDS ORDERED: SODIUM CHLORIDE 0.9% 1,000 ML IV SCH (15:45)
[2017-12-31] MEDS ORDERED: cefTRIAXone IN SWFI 1,000 MG/10 ML SYRINGE IVP STA (16:02)
[2017-12-31] MEDS ORDERED: AZITHROMYCIN 500 MG in DEXTROSE 5% IN WATER 250 ML IVPB ONE ×2 (16:30)
[2017-12-31 17:05] LABS: Glucose,Whole Blood 263 mg/dL (75-99)
[2017-12-31] MEDS ORDERED: BUDESONIDE 1 MG/2 ML NEBU INHALATION SCH (17:42)
[2017-12-31] MEDS: INSULIN ASPART 100 UNIT/ML 1 ML 10 ML VIAL SQ SCH ×2 (17:46→20:46)
[2017-12-31] MEDS: TROSPIUM CHLORIDE 20 MG TABLET PO SCH (17:49)
[2017-12-31] MEDS: LISINOPRIL 10 MG TAB PO SCH (17:49)
[2017-12-31] MEDS: LORATADINE 10 MG TAB PO SCH (17:49)
[2017-12-31] MEDS: metFORMIN 500 MG TAB PO SCH (17:49)
[2017-12-31] MEDS: IPRATROPIUM-ALBUTEROL 3 ML NEB INHALATION SCH ×2 (19:49→20:31)
[2017-12-31] MEDS: BUDESONIDE 1 MG/2 ML NEBU INHALATION SCH ×2 (19:50→20:31)
[2017-12-31] MEDS: cloZAPine 100 MG TAB PO SCH (20:46)
[2017-12-31] MEDS: methylPREDNISolone SOD SUCCI 125 MG/2 ML VIAL IV SCH (20:47)
[2017-12-31] MEDS: ATENOLOL 50 MG TAB PO SCH (20:48)
[2017-12-31] MEDS: ALLOPURINOL 100 MG TAB PO SCH (20:48)
[2017-12-31] MEDS: SENNOSIDES 8.6 MG TAB PO SCH (20:48)
[2017-12-31] MEDS: ATORVASTATIN 20 MG TAB PO SCH (20:48)
[2017-12-31] MEDS ORDERED: INSULIN DETEMIR 100 UNIT/ML 10 ML VIAL SQ SCH (21:00)
[2017-12-31 21:08] LABS: Glucose,Whole Blood 376 mg/dL (75-99)
[2017-12-31] MEDS: SODIUM CHLORIDE 0.9% 1,000 ML IV SCH (21:50)
[2017-12-31] MEDS: LOVAZA PO SCH (21:51)
[2017-12-31 23:08] LABS: Glucose,Whole Blood 344 mg/dL (75-99)
[2017-12-31] MEDS ORDERED: INSULIN REGULAR BOLUS (FROM DRIP BAG) IV ONE (23:16)
[2018-01-01] MEDS: IPRATROPIUM-ALBUTEROL 3 ML NEB INHALATION SCH ×5 (00:01→19:47)
[2018-01-01] MEDS: methylPREDNISolone SOD SUCCI 125 MG/2 ML VIAL IV SCH ×2 (00:27→07:35)
[2018-01-01] MEDS ORDERED: INSULIN REGULAR 100 UNIT/ML VIAL IV ONE (00:46)
[2018-01-01] MEDS ORDERED: INSULIN REGULAR 100 UNIT/ML VIAL IV STA (01:01)
[2018-01-01] MEDS ORDERED: INSULIN REGULAR BOLUS (FROM DRIP BAG) IV ONE (01:26)
[2018-01-01] MEDS ORDERED: INSULIN REGULAR 100 UNIT in SODIUM CHLORIDE 0.9% 100 ML IV SCH (01:30)
[2018-01-01 02:04] LABS: Glucose,Whole Blood 338 mg/dL (75-99)
[2018-01-01 02:43] LABS: Glucose,Whole Blood 321 mg/dL (75-99)
[2018-01-01 03:12] LABS: Glucose,Whole Blood 291 mg/dL (75-99)
[2018-01-01] MEDS: SODIUM CHLORIDE 0.9% 500 ML IV SCH ×5 (03:31→05:24)
[2018-01-01 03:56] LABS: Glucose,Whole Blood 268 mg/dL (75-99)
[2018-01-01 04:16] LABS: Basophils % (A) 0 %; Eosinophils % (A) 0 %; HCT 33.8 % (34.0-46.0); HGB 10.6 gm/dL (11.4-16.0); Lymphocytes # (A) 1.3 k/uL (1.0-4.8); Lymphocytes % (A) 19 %; MCH 27.1 pg (25.0-35.0); MCHC 31.2 g/dL (31.0-37.0); MCV 86.8 fL (80.0-100.0); Mean Platelet Volume 7.2; Monocytes # (A) 0.1 k/uL (0-1.0); Monocytes % (A) 2 %; Neutrophils # (A) 5.3 k/uL (1.3-7.7); Neutrophils % (A) 79 %; Platelet Count 221 k/uL (150-450); RDW 13.8 % (11.5-15.5); WBC 6.8 k/uL (3.8-10.6)
[2018-01-01 04:25] LABS: Anion Gap 9 mmol/L; Blood Urea Nitrogen 18 mg/dL (7-17); Calcium 8.9 mg/dL (8.4-10.2); Carbon Dioxide 26 mmol/L (22-30); Chloride 107 mmol/L (98-107); Glucose 251 mg/dL (74-99); Glucose,Whole Blood 233 mg/dL (75-99); Potassium 3.6 mmol/L (3.5-5.1); Sodium 142 mmol/L (137-145)
[2018-01-01 04:44] LABS: Glucose,Whole Blood 251 mg/dL (75-99)
[2018-01-01 04:44] LABS: Appearance,Urine Clear (Clear); Bilirubin,Urine Negative (Negative); Blood,Urine Negative (Negative); Color,Urine Yellow; Glucose,Urine (UA) 4+ (Negative); Ketones,Urine Negative (Negative); Leukocyte Esterase,Urine Negative (Negative); Nitrite,Urine Negative (Negative); Protein,Urine Negative (Negative); Specific Gravity,Urine 1.016 (1.001-1.035); Urobilinogen,Urine <2.0 mg/dL (<2.0)
[2018-01-01 05:42] LABS: Glucose,Whole Blood 194 mg/dL (75-99)
[2018-01-01 05:42] LABS: Glucose,Whole Blood 198 mg/dL (75-99)
[2018-01-01] MEDS: BUDESONIDE 1 MG/2 ML NEBU INHALATION SCH ×2 (07:09→19:47)
[2018-01-01 07:20] LABS: Glucose,Whole Blood 194 mg/dL (75-99)
[2018-01-01] MEDS ORDERED: INSULIN ASPART 100 UNIT/ML 1 ML 10 ML VIAL SQ SCH ×3 (07:30→12:30)
[2018-01-01] MEDS: SODIUM CHLORIDE 0.9% 1,000 ML IV SCH ×2 (07:34→16:23)
[2018-01-01] MEDS ORDERED: FUROSEMIDE 10 MG/ML 4 ML VIAL IV STA (09:50)
[2018-01-01] MEDS: PANTOPRAZOLE 40 MG TABLET PO SCH (09:58)
[2018-01-01] MEDS: POTASSIUM CHLORIDE ER 10 MEQ TAB.ER.PRT PO SCH (09:58)
[2018-01-01] MEDS: metFORMIN 500 MG TAB PO SCH ×2 (09:58→17:42)
[2018-01-01] MEDS: ASPIRIN 81 MG PO SCH (09:58)
[2018-01-01] MEDS: CITALOPRAM HYDROBROMIDE 20 MG TAB PO SCH (09:58)
[2018-01-01] MEDS: cefTRIAXone IN SWFI 1,000 MG/10 ML SYRINGE IVP SCH (09:59)
[2018-01-01] MEDS: ATENOLOL 50 MG TAB PO SCH ×2 (09:59→20:42)
[2018-01-01] MEDS: HYDROCHLOROTHIAZIDE 12.5 MG CAP PO SCH (09:59)
[2018-01-01] MEDS: ALLOPURINOL 100 MG TAB PO SCH ×2 (09:59→21:37)
[2018-01-01] MEDS: CHOLECALCIFEROL 1,000 UNIT TAB PO SCH (10:00)
[2018-01-01] MEDS: LOVAZA PO SCH ×2 (10:01→20:47)
[2018-01-01] MEDS: FENOFIBRATE 160 MG TAB PO SCH (10:02)
[2018-01-01] MEDS: cloZAPine 25 MG TAB PO SCH (10:02)
--- NOTE | 2018-01-01 10:14 | XR ---
EXAMINATION TYPE: XR chest 1V portable DATE OF EXAM: 01/01/2018 COMPARISON: 12/31/2017 HISTORY: COPD exacerbation. Shortness of breath and cough. TECHNIQUE: Single frontal view of the chest is obtained. FINDINGS: There is new diffuse interstitial prominence in comparison to the prior with accentuation of the pulmonary markings diffusely. These radiate from the hilar regions and are therefore likely re lated to fluid overload. Cardia silhouette is mildly enlarged. Slight eventration of the right hemidi aphragm is unchanged from the prior. Osseous structures are grossly intact. No sizable pneumothorax o r pleural effusion. IMPRESSION: Interval development of moderate interstitial edema and may be on the basis of cardiogen ic or noncardiogenic fluid overload. Atypical pneumonitis is considered less likely.
[2018-01-01 10:24] LABS: Glucose,Whole Blood 304 mg/dL (75-99)
[2018-01-01] MEDS ORDERED: NA PHOS,M-B/NA PHOS,DI-BA 133 ML ENEMA RECTAL ONE (10:39)
[2018-01-01] MEDS ORDERED: MAGNESIUM HYDROXIDE 2,400 MG/10 ML CUP PO PRN (10:39)
--- NOTE | 2018-01-01 10:58 | XR ---
EXAMINATION TYPE: XR abdomen 2V DATE OF EXAM: 01/01/2018 CLINICAL HISTORY: Abdominal distention and generalized pain TECHNIQUE: Supine and upright views of the abdomen are obtained. COMPARISON: CT abdomen October 25, 2017. FINDINGS: Scattered gas is seen in slightly prominent small bowel loops scattered throughout the aracelis tral abdomen. Gas and fecal material is seen in slightly prominent colon. Amount of fecal material is somewhat prominent near hepatic flexure. There is no visceromegaly, pneumoperitoneum, or abnormal calcification appreciated. The lung bases are clear and the osseous structures are intact. IMPRESSION: Overall nonspecific but favor nonobstructive bowel gas pattern. Possible diffuse ileus. Fairly moderate proximal to mid colonic fecal stasis felt present.
[2018-01-01 11:10] LABS: Glucose,Whole Blood 333 mg/dL (75-99)
[2018-01-01] MEDS: INSULIN REGULAR 100 UNIT in SODIUM CHLORIDE 0.9% 100 ML IV SCH ×2 (11:41→15:13)
[2018-01-01 12:14] LABS: Glucose,Whole Blood 351 mg/dL (75-99)
--- NOTE | 2018-01-01 13:04 | HP ---
HISTORY AND PHYSICAL DATE OF SERVICE: 12/31/2017. PRESENTING COMPLAINT: Short of breath. HISTORY OF PRESENTING COMPLAINT: This is a patient I saw yesterday on the 4th floor. Patient follows with visiting physician Dr. Ham. The patient's chronic stable medical conditions include GERD, hyperlipidemia, hypertension, urinary incontinence, and patient has some mental impairment. The patient presents with 2 days of increasing short of breath, has got a cough, not able to expectorate, maybe low-grade fever, short of breath some wheezing, tired and run down. Chest x-ray in the ER was reported with possible infiltrates. The patient is also wheezing a bit. The patient was able to tolerate a diet, which has in the last 2 days. Does have a bowel movement every day. The patient had some abdominal discomfort, though she says this has been present for at least 2 to 3 weeks. Like I stated patient has been having a bowel movement every day or every other day. The patient was started on bronchodilators and steroids in the ER and later the sugars started running high and I ordered insulin drip. The patient was also started on IV antibiotics in the ER. REVIEW OF SYSTEMS: CONSTITUTIONAL: Weak, tired, low-grade fever. HEENT: None. RESPIRATORY: As above. CARDIOVASCULAR: None. GASTROINTESTINAL: As above. GENITOURINARY: Urinary incontinence. DERMATOLOGICAL: None. HEMATOLOGIC: None. LYMPHATIC: None. PSYCHIATRY: None. NEUROLOGICAL: None. PAST MEDICAL HISTORY: Diabetes mellitus type 2, GERD, hypertension, hyperlipidemia, mentally delayed, urinary urgency and incontinence. The patient has got hearing aids, glasses, home oxygen at night. PAST SURGICAL HISTORY: Cholecystectomy, eye surgery long time ago, right knee surgery. PAST PSYCH HISTORY: Past psych history of schizophrenia. SOCIAL HISTORY: The patient did smoke in the past. The patient does not know when. Lives at [facility]. Caregiver is Vicki Fajardo. FAMILY HISTORY: Patient cannot tell. HOME MEDICATIONS: 1. Glucophage XR 1000 mg p.o. with supper. 2. Clozaril 25 mg p.o. daily. 3. Clozaril 200 mg at bedtime. 4. VESIcare 5 mg with supper. 5. Senna 8.6 mg at bedtime. 6. Potassium 10 mEq p.o. daily. 7. Prilosec 20 mg with breakfast. 8. Lovaza 1 capsule p.o. b.i.d. 9. Claritin 10 mg with supper. 10.Zestril 10 mg with supper. 11.DuoNeb q.i.d. 12.Levemir 65 units subcutaneous at bedtime. 13.Hydrochlorothiazide 12.5 p.o. daily. 14.Lofibra 160 mg p.o. daily. 15.Celexa 40 mg p.o. daily. 16.Vitamin D3, 2000 units p.o. daily. 17.Pulmicort 0.25 mg p.o. b.i.d. 18.Lipitor 20 mg p.o. at bedtime. 19.Tenormin 50 mg p.o. b.i.d. 20.Aspirin 81 mg p.o. daily. 21.Allopurinol 100 mg p.o. b.i.d. ALLERGIES: Allergies to LIPITOR and ERYTHROMYCIN. PHYSICAL EXAMINATION: On examination, vital signs on presentation, temperature 100.4, pulse 93, respirations 22, blood pressure 143/79, pulse ox 91% on 4 L. GENERAL APPEARANCE: Sitting up, tired appearing, BMI 28.9. EYES: Pupils equal. Conjunctivae normal. HENT: External appearance of nose and ears normal. Oral cavity normal. NECK: JVD not raised. Mass not palpable. RESPIRATORY: Effort increased. LUNGS: Slightly decreased breath sounds. Prolonged expiration. Some crackles and wheezing. CARDIOVASCULAR: First and second sounds normal. No edema. ABDOMEN: Minimally distended, minimal tenderness. liver and spleen palpable. Bowel sounds are present. LYMPHATIC: No lymph node palpable in the neck and axillae. PSYCHIATRY: Alert and oriented x3. Mood and affect normal. NEUROLOGICAL: Pupils equal. Cranial nerves grossly intact. Power and sensation grossly intact. The patient is able to answer most questions but not very good with details. INVESTIGATIONS: White count 8.4, hemoglobin 11.3. Potassium 3.9. BUN 20, creatinine 0.70. Glucose was 230, 263, then 376. Lactic acid was 4.4. Chest x-ray film was interpreted by me shows possible infiltrate on the right lower side. EKG film was interpreted by me is nonspecific intraventricular block, sinus rhythm. ASSESSMENT: 1. Possible right lower lobe pneumonia suspect gram-negative organism. The patient has got respiratory symptoms. Chest x-ray showing infiltrates. 2. Acute bronchospasm versus chronic obstructive pulmonary disease exacerbation in an ex-smoker. The patient will require IV Solu-Medrol. 3. Diabetes mellitus type 2 on oral hypoglycemic, uncontrolled with hyperglycemia. 4. Gastroesophageal reflux disease. 5. Hyperlipidemia. 6. Essential hypertension. 7. Chronic urinary stress incontinence. 8. Chronic mental mild impairment. PLAN: The patient is started on insulin drip, antibiotics in the form of ceftriaxone and Zithromax. Also given IV fluids. Lactic acid will be followed. Care was discussed with the nurse. MARIBELL / LAM: [id number] /
[2018-01-01 13:05] LABS: Glucose,Whole Blood 351 mg/dL (75-99)
[2018-01-01 14:09] LABS: Glucose,Whole Blood 290 mg/dL (75-99)
[2018-01-01 15:13] LABS: Glucose,Whole Blood 243 mg/dL (75-99)
--- NOTE | 2018-01-01 15:22 | P.GSCN ---
History of Present Illness Consult date: 01/01/18 Reason for Consult: Abdominal pain History of present illness: Patient presented to the hospital with exacerbation of COPD with shortness of breath. The patient also has had some abdominal bloating and discomfort over the last 2-3 weeks. Today she states her pain is not present. Patient has had ongoing bowel movements intermittently. No vomiting. She is hungry. She is tolerating her diet currently. Abdominal x-rays show evidence of constipation. Denies rectal bleeding or melena. Patient is not a reliable historian. Unsure if she has had a previous colonoscopy. Review of Systems The patient denies any acute changes in vision or hearing, no dysphagia or odynophagia, no chest pain or shortness of breath, no dysuria or hematuria, no headache, no runny nose, no rectal bleeding or melena, no unexplained weight loss Past Medical History Past Medical History: Diabetes Mellitus, GERD/Reflux, Hyperlipidemia, Hypertension, Pneumonia Additional Past Medical History / Comment(s): Anemia, Stress test and echo, murmur. Mentally delayed. Urinary urgency and incontinence, history of abnormal LFTs, abdominal pain, gallstones, hearing aides/glasses, home O2 @ night. History of Any Multi-Drug Resistant Organisms: None Reported Past Surgical History: Cholecystectomy, Orthopedic Surgery Additional Past Surgical History / Comment(s): Eye surgery a long time ago, right knee surgery, 08-03-15 open cholecystectomy. Past Anesthesia/Blood Transfusion Reactions: No Reported Reaction Past Psychological History: Schizophrenia Additional Psychological History / Comment(s): "Mentally challenged. Was an unexpected twin. Mood disorder. Pt[facility] Smoking Status: Former smoker Past Alcohol Use History: None Reported Past Drug Use History: None Reported - Past Family History Mother Family Medical History: Unable to Obtain Father Family Medical History: No Reported History Medications and Allergies Home Medications Medication Instructions Recorded Confirmed Type Atenolol [Tenormin] 50 mg PO BID 07/23/15 12/31/17 History Hydrochlorothiazide [Hydrodiuril] 12.5 mg PO QAM 07/23/15 12/31/17 History Lisinopril [Zestril] 10 mg PO W/SUPPER 07/23/15 12/31/17 History Loratadine [Claritin] 10 mg PO W/SUPPER 07/23/15 12/31/17 History Omeprazole [PriLOSEC] 20 mg PO AC-BRKFST 07/23/15 12/31/17 History Potassium Chloride [K-Tab ER] 10 meq PO QAM 07/23/15 12/31/17 History Solifenacin Succinate [Vesicare] 5 mg PO W/SUPPER 07/23/15 12/31/17 History Aspirin EC [Ecotrin Low Dose] 81 mg PO QAM 11/21/16 12/31/17 History Cholecalciferol (Vitamin D3) 2,000 unit PO DAILY 11/21/16 12/31/17 History [Vitamin D3] [place]-3 Acid Ethyl Esters [Lovaza] 1 cap PO BID 11/21/16 12/31/17 History metFORMIN HCL ER [Glucophage Xr] 1,000 mg PO W/SUPPER 11/21/16 12/31/17 History Allopurinol [Zyloprim] 100 mg PO BID 12/31/17 12/31/17 History Atorvastatin [Lipitor] 20 mg PO 12/31/17 12/31/17 History Budesonide [Pulmicort] 0.25 mg INHALATION RT-BID 12/31/17 12/31/17 History Citalopram Hydrobromide [CeleXA] 40 mg PO DAILY 12/31/17 12/31/17 History Fenofibrate [Lofibra] 160 mg PO DAILY 12/31/17 12/31/17 History Insulin Detemir [Levemir] 65 unit SQ 12/31/17 12/31/17 History Ipratropium-Albuterol Nebulize 3 ml INHALATION RT-QID 12/31/17 12/31/17 History [Duoneb 0.5 mg-3 mg/3 ml Soln] Sennosides [Senna] 8.6 mg PO HS 12/31/17 12/31/17 History cloZAPine [Clozaril] 25 mg PO DAILY 12/31/17 12/31/17 History cloZAPine [Clozaril] 200 mg PO HS 12/31/17 12/31/17 History Allergies Allergy/AdvReac Type Severity Reaction Status Date / Time atorvastatin [From Lipitor] AdvReac Vomiting Verified 12/31/17 16:13 erythromycin base AdvReac Vomiting Verified 12/31/17 16:13 Surgical - Exam Vital Signs Temp Pulse Resp BP Pulse Ox 99.3 F 92 18 113/73 91 L 12/31/17 14:19 12/31/17 14:19 12/31/17 14:19 12/31/17 14:19 12/31/17 14:19 Physical exam: General: Well-developed, well-nourished HEENT: Normocephalic, sclerae nonicteric Abdomen: Mild distention, mild diffuse tenderness Extremities: No edema Neuro: Alert and oriented Results - Labs 01/01/18 04:02 01/01/18 04:02 Abnormal Lab Results - Last 24 Hours (Table) 12/31/17 12/31/17 12/31/17 Range/Units 17:04 18:44 20:33 Hgb (11.4-16.0) gm/dL Hct (34.0-46.0) % BUN (7-17) mg/dL Glucose (74-99) mg/dL POC Glucose (mg/dL) 263 H 376 H (75-99) mg/dL Plasma Lactic Acid Dion 4.4 H* (0.7-2.0) mmol/L Urine Glucose (UA) (Negative) 12/31/17 12/31/17 01/01/18 Range/Units 22:32 22:57 00:19 Hgb (11.4-16.0) gm/dL Hct (34.0-46.0) % BUN (7-17) mg/dL Glucose (74-99) mg/dL POC Glucose (mg/dL) 344 H (75-99) mg/dL Plasma Lactic Acid Dion 3.4 H* 4.2 H* (0.7-2.0) mmol/L Urine Glucose (UA) (Negative) 01/01/18 01/01/18 01/01/18 Range/Units 01:42 02:30 03:00 Hgb (11.4-16.0) gm/dL Hct (34.0-46.0) % BUN (7-17) mg/dL Glucose (74-99) mg/dL POC Glucose (mg/dL) 338 H 321 H 291 H (75-99) mg/dL Plasma Lactic Acid Dion (0.7-2.0) mmol/L Urine Glucose (UA) (Negative) 01/01/18 01/01/18 01/01/18 Range/Units 03:31 04:02 04:02 Hgb 10.6 L (11.4-16.0) gm/dL Hct 33.8 L (34.0-46.0) % BUN 18 H (7-17) mg/dL Glucose 251 H (74-99) mg/dL POC Glucose (mg/dL) 268 H (75-99) mg/dL Plasma Lactic Acid Dion (0.7-2.0) mmol/L Urine Glucose (UA) (Negative) 01/01/18 01/01/18 01/01/18 Range/Units 04:02 04:02 04:20 Hgb (11.4-16.0) gm/dL Hct (34.0-46.0) % BUN (7-17) mg/dL Glucose (74-99) mg/dL POC Glucose (mg/dL) 233 H (75-99) mg/dL Plasma Lactic Acid Dion 3.0 H* (0.7-2.0) mmol/L Urine Glucose (UA) 4+ H (Negative) 01/01/18 01/01/18 01/01/18 Range/Units 04:30 05:00 05:31 Hgb (11.4-16.0) gm/dL Hct (34.0-46.0) % BUN (7-17) mg/dL Glucose (74-99) mg/dL POC Glucose (mg/dL) 251 H 194 H 198 H (75-99) mg/dL Plasma Lactic Acid Dion (0.7-2.0) mmol/L Urine Glucose (UA) (Negative) 01/01/18 01/01/18 01/01/18 Range/Units 07:19 09:33 11:08 Hgb (11.4-16.0) gm/dL Hct (34.0-46.0) % BUN (7-17) mg/dL Glucose (74-99) mg/dL POC Glucose (mg/dL) 194 H 304 H 333 H (75-99) mg/dL Plasma Lactic Acid Dion (0.7-2.0) mmol/L Urine Glucose (UA) (Negative) 01/01/18 01/01/18 01/01/18 Range/Units 12:12 13:02 13:58 Hgb (11.4-16.0) gm/dL Hct (34.0-46.0) % BUN (7-17) mg/dL Glucose (74-99) mg/dL POC Glucose (mg/dL) 351 H 351 H 290 H (75-99) mg/dL Plasma Lactic Acid Dion (0.7-2.0) mmol/L Urine Glucose (UA) (Negative) 01/01/18 Range/Units 15:11 Hgb (11.4-16.0) gm/dL Hct (34.0-46.0) % BUN (7-17) mg/dL Glucose (74-99) mg/dL POC Glucose (mg/dL) 243 H (75-99) mg/dL Plasma Lactic Acid Dion (0.7-2.0) mmol/L Urine Glucose (UA) (Negative) Microbiology - Last 24 Hours (Table) 01/01/18 04:20 Urine Culture - Preliminary Urine,Clean Catch Diabetes panel 01/01/18 Range/Units 04:02 Sodium 142 (137-145) mmol/L Potassium 3.6 (3.5-5.1) mmol/L Chloride 107 (98-107) mmol/L Carbon Dioxide 26 (22-30) mmol/L BUN 18 H (7-17) mg/dL Creatinine 0.70 (0.52-1.04) mg/dL Glucose 251 H (74-99) mg/dL Calcium 8.9 (8.4-10.2) mg/dL Calcium panel 01/01/18 Range/Units 04:02 Calcium 8.9 (8.4-10.2) mg/dL Pituitary panel 01/01/18 Range/Units 04:02 Sodium 142 (137-145) mmol/L Potassium 3.6 (3.5-5.1) mmol/L Chloride 107 (98-107) mmol/L Carbon Dioxide 26 (22-30) mmol/L BUN 18 H (7-17) mg/dL Creatinine 0.70 (0.52-1.04) mg/dL Glucose 251 H (74-99) mg/dL Calcium 8.9 (8.4-10.2) mg/dL Adrenal panel 01/01/18 Range/Units 04:02 Sodium 142 (137-145) mmol/L Potassium 3.6 (3.5-5.1) mmol/L Chloride 107 (98-107) mmol/L Carbon Dioxide 26 (22-30) mmol/L BUN 18 H (7-17) mg/dL Creatinine 0.70 (0.52-1.04) mg/dL Glucose 251 H (74-99) mg/dL Calcium 8.9 (8.4-10.2) mg/dL Assessment and Plan (1) Constipation Narrative/Plan: Will give one bottle of magnesium citrate at this time. We'll follow closely with you. If symptoms increase we'll plan CT abdomen and pelvis. Current Visit: Yes Status: Acute Code(s): K59.00 - CONSTIPATION, UNSPECIFIED SNOMED Code(s): 97220405
[2018-01-01] MEDS ORDERED: MAGNESIUM CITRATE 296 ML BOTTLE PO ONE (16:00)
--- NOTE | 2018-01-01 16:01 | P.CNPUL ---
History of Present Illness Consult date: 01/01/18 Reason for consult: dyspnea History of present illness: This is a 52-year-old female patient, a poor historian with known history of COPD and addition to diabetes mellitus type 2, hypertension and hyperlipidemia and schizophrenia, who came into the hospital because of shortness of breath. The patient has been followed up by visiting physicians. She is mentally impaired and she is a poor historian. Her shortness of breath dates back to around 2 days ago and she was having these cough without any significant sputum production. There was also reported increased bronchospasm and wheezing and she was getting more short of breath and tired. She was also having some increased constipation and abdominal distention. On admission, chest x-ray was done and showed bilaterally no opacities most consistent with atelectasis although early developing pneumonia in the right lower lobe and the right middle lobe could not be excluded. The patient was started on antibiotics. The patient was started on IV Solu-Medrol. The patient was also started on IV fluids knowing that she had a component of lactic acidosis with initial lactic acid level of 4.4. Note that her lactic acid level dropped down to 1.8. Nevertheless earlier this point the patient became progressively more short of breath and a chest x-ray was done and it showed interval development of moderate degree of interstitial edema which is probably related to fluid overload as the patient was receiving IV fluids in regards to her lactic acidosis. Flat film of the abdomen was also done that showed nonobstructive bowel gas pattern and there was fairly moderate amount of colonic fecal stasis. I saw this patient on the medical floor. She was in 100 % nonrebreather facemask. I decide to move this patient to the intensive care unit for more monitoring. She was given a dose of Lasix following which she had adequate urine output and she was getting less short of breath. She denied having any chest pain. Her white cell count is not elevated at 6.8. Hemoccult was stable at 10.6. Rest of the electrodes are all within normal including her renal function tests. She had developed some steroid-induced hyperglycemia related to systemic steroids and the patient was started on insulin drip for blood sugar control. In terms of antibiotic coverage, the patient is on a combination of Rocephin and Zithromax. The patient was also seen by Dr. strange. She was given milk of magnesia regarding her constipation. She'll be monitored clinically. We'll consider CAT scan of the abdomen and pelvis if she continues to have abdominal distention. Review of Systems Constitutional: Reports fatigue, Reports poor appetite, Reports weakness Eyes: denies blurred vision, denies bulging eye, denies decreased vision Ears: deny: decreased hearing, ear discharge, earache, tinnitus Ears, nose, mouth and throat: Denies headache, Denies sore throat Cardiovascular: Reports decreased exercise tolerance, Reports dyspnea on exertion, Reports shortness of breath Respiratory: Reports dyspnea Gastrointestinal: Reports abdominal pain, Reports change in bowel habits, Reports constipation Genitourinary: Denies dysuria, Denies hematuria Menstruation: Reports as per HPI Musculoskeletal: Denies myalgias Musculoskeletal: absent: ankle pain, ankle stiffness, ankle swelling Integumentary: Denies pruritus, Denies rash Neurological: Denies numbness, Denies weakness Psychiatric: Reports as per HPI Endocrine: Denies fatigue, Denies weight change Hematologic/Lymphatic: Reports as per HPI Allergic/Immunologic: Reports as per HPI Past Medical History Past Medical History: Diabetes Mellitus, GERD/Reflux, Hyperlipidemia, Hypertension, Pneumonia Additional Past Medical History / Comment(s): COPD, diabetes mellitus, hypertension, hyperlipidemia, chronic anemia, schizophrenia, urinary urgency incontinence, schizophrenia, history of chronic cholecystitis with a previous cholecystectomy, acid reflux, hypertension, hearing and vision impairment, osteoarthritis History of Any Multi-Drug Resistant Organisms: None Reported Past Surgical History: Cholecystectomy, Orthopedic Surgery Additional Past Surgical History / Comment(s): Eye surgery a long time ago, right knee surgery, 08-03-15 open cholecystectomy. Past Anesthesia/Blood Transfusion Reactions: No Reported Reaction Past Psychological History: Schizophrenia Additional Psychological History / Comment(s): "Mentally challenged. Was an unexpected twin. Mood disorder. Pt. lives at [facility]. [facility] is [facility]". Smoking Status: Former smoker Past Alcohol Use History: None Reported Past Drug Use History: None Reported - Past Family History Mother Family Medical History: Unable to Obtain Father Family Medical History: No Reported History Medications and Allergies Home Medications Medication Instructions Recorded Confirmed Type Atenolol [Tenormin] 50 mg PO BID 07/23/15 12/31/17 History Hydrochlorothiazide [Hydrodiuril] 12.5 mg PO QAM 07/23/15 12/31/17 History Lisinopril [Zestril] 10 mg PO W/SUPPER 07/23/15 12/31/17 History Loratadine [Claritin] 10 mg PO W/SUPPER 07/23/15 12/31/17 History Omeprazole [PriLOSEC] 20 mg PO AC-BRKFST 07/23/15 12/31/17 History Potassium Chloride [K-Tab ER] 10 meq PO QAM 07/23/15 12/31/17 History Solifenacin Succinate [Vesicare] 5 mg PO W/SUPPER 07/23/15 12/31/17 History Aspirin EC [Ecotrin Low Dose] 81 mg PO QAM 11/21/16 12/31/17 History Cholecalciferol (Vitamin D3) 2,000 unit PO DAILY 11/21/16 12/31/17 History [Vitamin D3] [place]-3 Acid Ethyl Esters [Lovaza] 1 cap PO BID 11/21/16 12/31/17 History metFORMIN HCL ER [Glucophage Xr] 1,000 mg PO W/SUPPER 11/21/16 12/31/17 History Allopurinol [Zyloprim] 100 mg PO BID 12/31/17 12/31/17 History Atorvastatin [Lipitor] 20 mg PO 12/31/17 12/31/17 History Budesonide [Pulmicort] 0.25 mg INHALATION RT-BID 12/31/17 12/31/17 History Citalopram Hydrobromide [CeleXA] 40 mg PO DAILY 12/31/17 12/31/17 History Fenofibrate [Lofibra] 160 mg PO DAILY 12/31/17 12/31/17 History Insulin Detemir [Levemir] 65 unit SQ 12/31/17 12/31/17 History Ipratropium-Albuterol Nebulize 3 ml INHALATION RT-QID 12/31/17 12/31/17 History [Duoneb 0.5 mg-3 mg/3 ml Soln] Sennosides [Senna] 8.6 mg PO 12/31/17 12/31/17 History cloZAPine [Clozaril] 25 mg PO DAILY 12/31/17 12/31/17 History cloZAPine [Clozaril] 200 mg PO 12/31/17 12/31/17 History Allergies Allergy/AdvReac Type Severity Reaction Status Date / Time atorvastatin [From Lipitor] AdvReac Vomiting Verified 12/31/17 16:13 erythromycin base AdvReac Vomiting Verified 12/31/17 16:13 Physical Exam Vitals: Vital Signs Temp Pulse Pulse Resp BP BP Pulse Ox 01/01/18 15:42 93 93 L 01/01/18 14:00 97 24 133/71 93 L 01/01/18 13:00 100 25 H 141/79 93 L 01/01/18 12:50 102 H 25 H 141/79 93 L 01/01/18 12:30 22 01/01/18 12:17 100 24 01/01/18 12:10 102 H 22 01/01/18 12:00 97.1 F L 103 H 86 24 150/75 99 01/01/18 11:20 104 H 24 150/75 99 01/01/18 11:10 97.1 F L 107 H 25 H 150/75 99 01/01/18 09:45 28 H 01/01/18 07:19 100 01/01/18 07:10 96 92 L 01/01/18 06:27 97.0 F L 86 20 121/67 91 L 12/31/17 23:00 97.1 F L 87 18 98/53 94 L 12/31/17 20:44 100 12/31/17 20:31 100 12/31/17 16:32 100.4 F H 93 22 143/79 91 L 12/31/17 16:07 94 12/31/17 15:53 93 Intake and Output 01/01/18 01/01/18 01/01/18 06:59 14:59 22:59 Intake Total 49.465 371.629 22.422 Output Total 3725 Balance 49.465 -3353.371 22.422 Intake: IV 24 Insulin Regular 100 unit 24 In Sodium Chloride 0.9% 100 ml @ Titrate IV .Q0M JOSEP Rx#:[id number] Intake, IV Titration 49.465 107.629 22.422 Amount Insulin Regular 100 unit 75.827 22.422 In Sodium Chloride 0.9% 100 ml @ Per Protocol IV .Q0M JOSEP Rx#:[id number] Insulin Regular 100 unit 49.465 11.802 In Sodium Chloride 0.9% 100 ml @ Titrate IV .Q0M [facility]SEP Rx#:[id number] Sodium Chloride 0.9% 1, 20 000 ml @ 20 mls/hr IV . Q24H JOSEP Rx#:[id number] Oral 240 Output: Urine 3525 Stool 200 Other: Voiding Method Bedpan Indwelling Catheter Diaper Incontinent # Voids 2 2 Weight 65 kg Gen. appearance the patient is a [id number] degree of respiratory distress currently on a 100 percent percent nonrebreather facemask. Not using excessive muscle breathing. Head exam was generally normal. There was no scleral icterus or corneal arcus. Mucous membranes were moist. Neck was supple and without jugular venous distension, thyromegaly, or carotid bruits. Carotids were easily palpable bilaterally. There was no adenopathy. Lungs sounds are diminished and there is diffuse expiratory wheezes throughout the lung jimenez bilaterally and prolongation of expiratory phase of breathing Cardiac exam revealed the PMI to be normally situated and sized. The rhythm was regular and no extrasystoles were noted during several minutes of auscultation. The first and second heart sounds were normal and physiologic splitting of the second heart sound was noted. There were no murmurs, rubs, clicks, or gallops. Abdomen is distended. There is no direct tenderness rebound tensile guarding at this point. Bowel sounds are hypoactive. Organs cannot be accurately palpated. Examination of the extremities revealed easily palpable radial, femoral and pedal pulses. There was no cyanosis, clubbing or edema. Examination of the skin revealed no evidence of significant rashes, suspicious appearing nevi or other concerning lesions. - Constitutional General appearance: mild distress, obese Results - Laboratory Findings CBC and BMP: 01/01/18 04:02 01/01/18 04:02 PT/INR, D-dimer PT 10.1 sec (9.0-12.0) 12/31/17 14:43 INR 1.0 (<1.2) 12/31/17 14:43 Abnormal lab findings: Abnormal Labs 12/31/17 12/31/17 12/31/17 14:43 14:43 17:04 Hgb 11.3 L Hct BUN 20 H Glucose 230 H POC Glucose (mg/dL) 263 H Plasma Lactic Acid Dion Urine Glucose (UA) 12/31/17 12/31/17 12/31/17 18:44 20:33 22:32 Hgb Hct BUN Glucose POC Glucose (mg/dL) 376 H Plasma Lactic Acid Dion 4.4 H* 3.4 H* Urine Glucose (UA) 12/31/17 01/01/18 01/01/18 22:57 00:19 01:42 Hgb Hct BUN Glucose POC Glucose (mg/dL) 344 H 338 H Plasma Lactic Acid Dion 4.2 H* Urine Glucose (UA) 01/01/18 01/01/18 01/01/18 02:30 03:00 03:31 Hgb Hct BUN Glucose POC Glucose (mg/dL) 321 H 291 H 268 H Plasma Lactic Acid Dion Urine Glucose (UA) 01/01/18 01/01/18 01/01/18 04:02 04:02 04:02 Hgb 10.6 L Hct 33.8 L BUN 18 H Glucose 251 H POC Glucose (mg/dL) Plasma Lactic Acid Dion 3.0 H* Urine Glucose (UA) 01/01/18 01/01/18 01/01/18 04:02 04:20 04:30 Hgb Hct BUN Glucose POC Glucose (mg/dL) 233 H 251 H Plasma Lactic Acid Dion Urine Glucose (UA) 4+ H 01/01/18 01/01/18 01/01/18 05:00 05:31 07:19 Hgb Hct BUN Glucose POC Glucose (mg/dL) 194 H 198 H 194 H Plasma Lactic Acid Dion Urine Glucose (UA) 01/01/18 01/01/18 01/01/18 09:33 11:08 12:12 Hgb Hct BUN Glucose POC Glucose (mg/dL) 304 H 333 H 351 H Plasma Lactic Acid Dion Urine Glucose (UA) 01/01/18 01/01/18 01/01/18 13:02 13:58 15:11 Hgb Hct BUN Glucose POC Glucose (mg/dL) 351 H 290 H 243 H Plasma Lactic Acid Dion Urine Glucose (UA) - Diagnostic Findings Chest x-ray: image reviewed Assessment and Plan Plan: Assessment 1 acute COPD exacerbation with suspected right lower lobe/middle lobe pneumonia. 2 acute shortness of breath secondary to above. Furthermore the patient may have an underlying component of CHF/fluid overload as the patient was being resuscitated IV fluids regarding mild degree of lactic acidosis 3 lactic acidosis, improving 4 abdominal distention, possibly related to fecal stasis/constipation, awaiting a surgical evaluation 5 diabetes mellitus type 2 with steroid-induced hyperglycemia currently on insulin drip for blood sugar control 6 hypertension 7 hyperlipidemia 8 acid reflux [address] [facility] home resident Plan We'll transfer this patient to the intensive care unit. Lasix was given. We' ll obtain echocardiogram. Continue Rocephin and Zithromax. Continue bronchodilators. Continue systemic steroids. Continue insulin drip for blood sugar control. manic will be given for constipation in addition to a Fleet enema. General surgical consultation. This patient is known to Dr. Stock. I'm covering for him during this current hospitalization. The patient be chest and back to his care once Dr. Stock is available. We'll continue to follow.
[2018-01-01 16:19] LABS: Glucose,Whole Blood 223 mg/dL (75-99)
[2018-01-01] MEDS: methylPREDNISolone SOD SUCCI 40 MG/ML 1 ML VIAL IV SCH (16:23)
[2018-01-01] MEDS: AZITHROMYCIN 500 MG in DEXTROSE 5% IN WATER 250 ML IVPB SCH ×2 (16:47)
[2018-01-01 17:26] LABS: Glucose,Whole Blood 206 mg/dL (75-99)
[2018-01-01] MEDS: LORATADINE 10 MG TAB PO SCH (17:42)
[2018-01-01] MEDS: TROSPIUM CHLORIDE 20 MG TABLET PO SCH (17:43)
[2018-01-01] MEDS: LISINOPRIL 10 MG TAB PO SCH (17:43)
--- NOTE | 2018-01-01 18:07 | PN ---
PROGRESS NOTE CRITICAL CARE NOTE: DATE OF SERVICE: 01/01/2018 PRESENT COMPLAINT: Short of breath. INTERVAL HISTORY: I was called early hours this morning that the patient has become more and more short of breath. Pulse ox had dropped down to 70% percent. The patient also had abdomen distended. Earlier the patient had been given IV fluid bolus because of increased lactic acid. The patient was on high-flow oxygen. Patient still got a cough, short of breath, and a Ventimask. I ordered a stat IV Lasix 40 mg. Asked the fluids to be stopped. Also ordered a chest x-ray. As abdomen was distended, we will also order an abdominal x-ray. Told the nurse to transfer the patient to the intensive care unit and consult duplicate maker. REVIEW OF SYSTEMS: Done for constitutional, cardiovascular, GI, pulmonary; relevant findings as above. CURRENT MEDICATIONS: Reviewed that include DuoNeb, IV Solu-Medrol, IV Lasix, IV ceftriaxone, Zithromax, and insulin drip. PHYSICAL EXAMINATION: VITAL SIGNS: Temperature 97, pulse 96, respiration 28-30, blood pressure 120/67, pulse ox 91% on 2 L. GENERAL APPEARANCE: Propped up in bed with a Venti mask. Short of breath at rest. EYES: Pupils equal. Conjunctivae normal. HEENT: External appearance of nose and ears normal. Oral cavity normal. NECK: JVD unable to assess. Mass not palpable. RESPIRATORY effort increased. LUNGS decreased breath sounds some crackles. CARDIOVASCULAR: 1st and 2nd sounds normal. Minimal edema. ABDOMEN: Distended. Bowel sounds present. Minimal tenderness. Liver and spleen not palpable. PSYCHIATRY: Alert and oriented x3. Mood and affect anxious-appearing. INVESTIGATIONS: White count 6.8, hemoglobin 10.6, potassium 3.6, BUN 18, creatinine 0.70, lactic acid was 3. Stat chest x-ray film was reviewed by me, showed pulmonary edema. Abdominal x- ray film interpreted by me showed a lot of fecal stasis and some dilated bowel loops. ASSESSMENT: 1. Acute pulmonary edema probably from IV fluids causing acute hypoxic respiratory failure requiring Ventimask. 2. Right lobe pneumonia suspect gram-negative organism on IV antibiotics. 3. Diabetes mellitus type 2 on oral hypoglycemics, uncontrolled with hypoglycemia on insulin drip. 4. Gastroesophageal reflux disease. 5. Hyperlipidemia. 6. Essential hypertension. 7. Chronic urinary stress incontinence. 8. Chronic mental impairment. 9. Acute severe constipation with possible ileus. PLAN: Patient given IV Lasix stat. Fluids were held. Consultation also made to surgery. The patient will be transferred to the intensive care unit. I talked to the patient about what is going on. Did talk to the nurses in 18 that was present and arrangements will be made for patient to be transferred. Total time spent for critical care was 40 minutes. MARIBELL / RUPERTN: [id number] /
[2018-01-01 18:24] LABS: Glucose,Whole Blood 218 mg/dL (75-99)
[2018-01-01 18:58] LABS: Glucose,Whole Blood 223 mg/dL (75-99)
[2018-01-01 19:33] LABS: Hemoglobin A1C 8.2 % (4.0-6.0)
[2018-01-01 20:10] LABS: Glucose,Whole Blood 167 mg/dL (75-99)
[2018-01-01] MEDS: ATORVASTATIN 20 MG TAB PO SCH ×2 (20:43→20:47)
[2018-01-01] MEDS: cloZAPine 100 MG TAB PO SCH (20:46)
[2018-01-01] MEDS: SENNOSIDES 8.6 MG TAB PO SCH (20:47)
[2018-01-01] MEDS ORDERED: Potassium Replacement Protocol 1 EACH MISC MISCELLANE PRN (20:49)
[2018-01-01 21:15] LABS: Glucose,Whole Blood 144 mg/dL (75-99)
[2018-01-01] MEDS: POTASSIUM CHLORIDE ER 20 MEQ TAB.ER PO SCH ×2 (21:37→22:39)
[2018-01-01 22:15] LABS: Glucose,Whole Blood 133 mg/dL (75-99)
[2018-01-01 23:00] LABS: Glucose,Whole Blood 157 mg/dL (75-99)
[2018-01-02] MEDS: methylPREDNISolone SOD SUCCI 40 MG/ML 1 ML VIAL IV SCH ×4 (00:15→23:36)
[2018-01-02] MEDS: INSULIN REGULAR 100 UNIT in SODIUM CHLORIDE 0.9% 100 ML IV SCH ×3 (00:15→23:35)
[2018-01-02 00:30] LABS: Glucose,Whole Blood 133 mg/dL (75-99)
[2018-01-02 00:41] LABS: Glucose,Whole Blood 137 mg/dL (75-99)
[2018-01-02 02:16] LABS: Glucose,Whole Blood 209 mg/dL (75-99)
[2018-01-02 02:33] LABS: ALT 50 U/L (9-52); AST 31 U/L (14-36); Albumin 3.4 g/dL (3.5-5.0); Alkaline Phosphatase 76 U/L (38-126); Anion Gap 7 mmol/L; Blood Urea Nitrogen 19 mg/dL (7-17); Calcium 8.6 mg/dL (8.4-10.2); Carbon Dioxide 31 mmol/L (22-30); Chloride 96 mmol/L (98-107); Glucose 185 mg/dL (74-99); Magnesium 1.9 mg/dL (1.6-2.3); Phosphorus 3.5 mg/dL (2.5-4.5); Potassium 4.5 mmol/L (3.5-5.1); Sodium 134 mmol/L (137-145); Total Bilirubin 0.2 mg/dL (0.2-1.3); Total Protein 5.5 g/dL (6.3-8.2)
[2018-01-02 02:47] LABS: Glucose,Whole Blood 179 mg/dL (75-99)
[2018-01-02] MEDS ORDERED: Magnesium Replacement Protocol 1 EACH MISC MISCELLANE PRN (02:47)
[2018-01-02] MEDS: SODIUM CHLORIDE 0.9% 1,000 ML IV SCH ×2 (03:00→12:14)
[2018-01-02 03:12] LABS: HCT 30.9 % (34.0-46.0); HGB 10.2 gm/dL (11.4-16.0); MCH 28.3 pg (25.0-35.0); MCHC 32.9 g/dL (31.0-37.0); MCV 86.1 fL (80.0-100.0); Platelet Count 185 k/uL (150-450); RBC 3.59 m/uL (3.80-5.40); RDW 13.9 % (11.5-15.5); WBC 12.5 k/uL (3.8-10.6)
[2018-01-02] MEDS: MAGNESIUM SULFATE-D5W PMX 1 GM in DEXTROSE/WATER 1 100ML.BAG IVPB SCH ×2 (03:59→05:21)
[2018-01-02 04:09] LABS: Glucose,Whole Blood 165 mg/dL (75-99)
[2018-01-02 04:59] LABS: Glucose,Whole Blood 183 mg/dL (75-99)
[2018-01-02 06:18] LABS: Glucose,Whole Blood 161 mg/dL (75-99)
[2018-01-02 07:01] LABS: Glucose,Whole Blood 138 mg/dL (75-99)
[2018-01-02] MEDS: IPRATROPIUM-ALBUTEROL 3 ML NEB INHALATION SCH ×4 (07:28→19:43)
[2018-01-02] MEDS ORDERED: FUROSEMIDE 10 MG/ML 4 ML VIAL IV STA (08:12)
--- NOTE | 2018-01-02 08:15 | P.PN ---
Subjective Progress Note Date: 01/02/18 This is a 52-year-old female patient, a poor historian with known history of COPD and addition to diabetes mellitus type 2, hypertension and hyperlipidemia and schizophrenia, who came into the hospital because of shortness of breath. The patient has been followed up by visiting physicians. She is mentally impaired and she is a poor historian. Her shortness of breath dates back to around 2 days ago and she was having these cough without any significant sputum production. There was also reported increased bronchospasm and wheezing and she was getting more short of breath and tired. She was also having some increased constipation and abdominal distention. On admission, chest x-ray was done and showed bilaterally no opacities most consistent with atelectasis although early developing pneumonia in the right lower lobe and the right middle lobe could not be excluded. The patient was started on antibiotics. The patient was started on IV Solu-Medrol. The patient was also started on IV fluids knowing that she had a component of lactic acidosis with initial lactic acid level of 4.4. Note that her lactic acid level dropped down to 1.8. Nevertheless earlier this point the patient became progressively more short of breath and a chest x-ray was done and it showed interval development of moderate degree of interstitial edema which is probably related to fluid overload as the patient was receiving IV fluids in regards to her lactic acidosis. Flat film of the abdomen was also done that showed nonobstructive bowel gas pattern and there was fairly moderate amount of colonic fecal stasis. I saw this patient on the medical floor. She was in 100 % nonrebreather facemask. I decide to move this patient to the intensive care unit for more monitoring. She was given a dose of Lasix following which she had adequate urine output and she was getting less short of breath. She denied having any chest pain. Her white cell count is not elevated at 6.8. Hemoccult was stable at 10.6. Rest of the electrodes are all within normal including her renal function tests. She had developed some steroid-induced hyperglycemia related to systemic steroids and the patient was started on insulin drip for blood sugar control. In terms of antibiotic coverage, the patient is on a combination of Rocephin and Zithromax. The patient was also seen by Dr. strange. She was given milk of magnesia regarding her constipation. She'll be monitored clinically. We'll consider CAT scan of the abdomen and pelvis if she continues to have abdominal distention. On 01/02/2018 the patient is less short of breath compared to yesterday. She was weaned down to 5 L of oxygen by nasal cannula. She made excellent urine output with diuretics yesterday and the patient shows improvement in the volume status on today's chest x-ray. The patient is a negative fluid balance. The patient is not having any chest pain. She is still congested and she has a cough and some limited wheezing. Abdomen is still distended. The patient undertook a Fleet enema yesterday and the patient also received milk of magnesia without success in terms of her bowel activity. No abdominal pain. Abdomen is slightly distended still. No fever. No chills. No hypotension. No other complaints otherwise for now. White cell count is at 12.5. The patient has a normal renal function. Objective - Vital Signs Vital signs: Vital Signs Temp 98 F 01/02/18 04:00 Pulse 78 01/02/18 07:41 Resp 27 H 01/02/18 07:00 BP 96/48 01/02/18 07:00 Pulse Ox 93 L 01/02/18 07:00 Intake & Output 01/01/18 01/02/18 01/02/18 18:59 06:59 18:59 Intake Total 2030.905 1390.582 5.067 Output Total 5360 2510 Balance -3329.095 -1119.418 5.067 Weight 65 kg 69.853 kg Intake: IV 90 320 .9 @ 10 ml/hr 120 Insulin Regular 100 unit 90 In Sodium Chloride 0.9% 100 ml @ Titrate IV .Q0M [facility] Rx#:[id number] Magnesium Sulfate-D5w Pmx 200 1 gm In Dextrose/Water 1 100ml.bag @ 100 mls/hr IVPB Q1H [facility] Rx#: [id number] Intake, IV Titration 300.905 70.582 5.067 Amount Azithromycin 500 mg In 125 Dextrose 5% in Water 250 ml @ 125 mls/hr IVPB DAILY@1600 [facility] Rx#: [id number] Insulin Regular 100 unit 144.103 70.582 5.067 In Sodium Chloride 0.9% 100 ml @ Per Protocol IV .Q0M [facility] Rx#:[id number] Insulin Regular 100 unit 11.802 In Sodium Chloride 0.9% 100 ml @ Titrate IV .Q0M [facility] Rx#:[id number] Sodium Chloride 0.9% 1, 20 000 ml @ 20 mls/hr IV . Q24H [facility] Rx#:[id number] Oral 1640 1000 Output: Urine 4960 2310 Stool 400 200 Other: Voiding Method Indwelling Catheter Indwelling Catheter # Voids 2 - Exam Gen. appearance the patient is a [id number] degree of respiratory distress currently on a 100 percent percent nonrebreather facemask. Not using excessive muscle breathing. Head exam was generally normal. There was no scleral icterus or corneal arcus. Mucous membranes were moist. Neck was supple and without jugular venous distension, thyromegaly, or carotid bruits. Carotids were easily palpable bilaterally. There was no adenopathy. Lungs sounds are diminished and there is diffuse expiratory wheezes throughout the lung jimenez bilaterally and prolongation of expiratory phase of breathing Cardiac exam revealed the PMI to be normally situated and sized. The rhythm was regular and no extrasystoles were noted during several minutes of auscultation. The first and second heart sounds were normal and physiologic splitting of the second heart sound was noted. There were no murmurs, rubs, clicks, or gallops. Abdomen is distended. There is no direct tenderness rebound tensile guarding at this point. Bowel sounds are hypoactive. Organs cannot be accurately palpated. Examination of the extremities revealed easily palpable radial, femoral and pedal pulses. There was no cyanosis, clubbing or edema. Examination of the skin revealed no evidence of significant rashes, suspicious appearing nevi or other concerning lesions. - Labs CBC & Chem 7: 01/02/18 02:10 01/02/18 02:10 Labs: Abnormal Lab Results - Last 24 Hours (Table) 01/01/18 01/01/18 01/01/18 Range/Units 04:02 09:33 11:08 WBC (3.8-10.6) k/uL RBC (3.80-5.40) m/uL Hgb (11.4-16.0) gm/dL Hct (34.0-46.0) % Sodium (137-145) mmol/L Potassium (3.5-5.1) mmol/L Chloride (98-107) mmol/L Carbon Dioxide (22-30) mmol/L BUN (7-17) mg/dL Glucose (74-99) mg/dL POC Glucose (mg/dL) 304 H 333 H (75-99) mg/dL Hemoglobin A1c 8.2 H (4.0-6.0) % Total Protein (6.3-8.2) g/dL Albumin (3.5-5.0) g/dL 01/01/18 01/01/18 01/01/18 Range/Units 12:12 13:02 13:58 WBC (3.8-10.6) k/uL RBC (3.80-5.40) m/uL Hgb (11.4-16.0) gm/dL Hct (34.0-46.0) % Sodium (137-145) mmol/L Potassium (3.5-5.1) mmol/L Chloride (98-107) mmol/L Carbon Dioxide (22-30) mmol/L BUN (7-17) mg/dL Glucose (74-99) mg/dL POC Glucose (mg/dL) 351 H 351 H 290 H (75-99) mg/dL Hemoglobin A1c (4.0-6.0) % Total Protein (6.3-8.2) g/dL Albumin (3.5-5.0) g/dL 01/01/18 01/01/18 01/01/18 Range/Units 15:11 16:17 17:24 WBC (3.8-10.6) k/uL RBC (3.80-5.40) m/uL Hgb (11.4-16.0) gm/dL Hct (34.0-46.0) % Sodium (137-145) mmol/L Potassium (3.5-5.1) mmol/L Chloride (98-107) mmol/L Carbon Dioxide (22-30) mmol/L BUN (7-17) mg/dL Glucose (74-99) mg/dL POC Glucose (mg/dL) 243 H 223 H 206 H (75-99) mg/dL Hemoglobin A1c (4.0-6.0) % Total Protein (6.3-8.2) g/dL Albumin (3.5-5.0) g/dL 01/01/18 01/01/18 01/01/18 Range/Units 18:23 18:56 20:08 WBC (3.8-10.6) k/uL RBC (3.80-5.40) m/uL Hgb (11.4-16.0) gm/dL Hct (34.0-46.0) % Sodium (137-145) mmol/L Potassium (3.5-5.1) mmol/L Chloride (98-107) mmol/L Carbon Dioxide (22-30) mmol/L BUN (7-17) mg/dL Glucose (74-99) mg/dL POC Glucose (mg/dL) 218 H 223 H 167 H (75-99) mg/dL Hemoglobin A1c (4.0-6.0) % Total Protein (6.3-8.2) g/dL Albumin (3.5-5.0) g/dL 01/01/18 01/01/18 01/01/18 Range/Units 20:09 21:14 22:09 WBC (3.8-10.6) k/uL RBC (3.80-5.40) m/uL Hgb (11.4-16.0) gm/dL Hct (34.0-46.0) % Sodium (137-145) mmol/L Potassium 3.2 L (3.5-5.1) mmol/L Chloride (98-107) mmol/L Carbon Dioxide (22-30) mmol/L BUN (7-17) mg/dL Glucose (74-99) mg/dL POC Glucose (mg/dL) 144 H 133 H (75-99) mg/dL Hemoglobin A1c (4.0-6.0) % Total Protein (6.3-8.2) g/dL Albumin (3.5-5.0) g/dL 01/01/18 01/02/18 01/02/18 Range/Units 22:58 00:28 00:39 WBC (3.8-10.6) k/uL RBC (3.80-5.40) m/uL Hgb (11.4-16.0) gm/dL Hct (34.0-46.0) % Sodium (137-145) mmol/L Potassium (3.5-5.1) mmol/L Chloride (98-107) mmol/L Carbon Dioxide (22-30) mmol/L BUN (7-17) mg/dL Glucose (74-99) mg/dL POC Glucose (mg/dL) 157 H 133 H 137 H (75-99) mg/dL Hemoglobin A1c (4.0-6.0) % Total Protein (6.3-8.2) g/dL Albumin (3.5-5.0) g/dL 01/02/18 01/02/18 01/02/18 Range/Units 02:10 02:10 02:12 WBC 12.5 H (3.8-10.6) k/uL RBC 3.59 L (3.80-5.40) m/uL Hgb 10.2 L (11.4-16.0) gm/dL Hct 30.9 L (34.0-46.0) % Sodium 134 L (137-145) mmol/L Potassium (3.5-5.1) mmol/L Chloride 96 L (98-107) mmol/L Carbon Dioxide 31 H (22-30) mmol/L BUN 19 H (7-17) mg/dL Glucose 185 H (74-99) mg/dL POC Glucose (mg/dL) 209 H (75-99) mg/dL Hemoglobin A1c (4.0-6.0) % Total Protein 5.5 L (6.3-8.2) g/dL Albumin 3.4 L (3.5-5.0) g/dL 01/02/18 01/02/18 01/02/18 Range/Units 02:45 04:07 04:57 WBC (3.8-10.6) k/uL RBC (3.80-5.40) m/uL Hgb (11.4-16.0) gm/dL Hct (34.0-46.0) % Sodium (137-145) mmol/L Potassium (3.5-5.1) mmol/L Chloride (98-107) mmol/L Carbon Dioxide (22-30) mmol/L BUN (7-17) mg/dL Glucose (74-99) mg/dL POC Glucose (mg/dL) 179 H 165 H 183 H (75-99) mg/dL Hemoglobin A1c (4.0-6.0) % Total Protein (6.3-8.2) g/dL Albumin (3.5-5.0) g/dL 01/02/18 01/02/18 Range/Units 06:16 07:00 WBC (3.8-10.6) k/uL RBC (3.80-5.40) m/uL Hgb (11.4-16.0) gm/dL Hct (34.0-46.0) % Sodium (137-145) mmol/L Potassium (3.5-5.1) mmol/L Chloride (98-107) mmol/L Carbon Dioxide (22-30) mmol/L BUN (7-17) mg/dL Glucose (74-99) mg/dL POC Glucose (mg/dL) 161 H 138 H (75-99) mg/dL Hemoglobin A1c (4.0-6.0) % Total Protein (6.3-8.2) g/dL Albumin (3.5-5.0) g/dL Microbiology - Last 24 Hours (Table) 12/31/17 14:43 Blood Culture - Preliminary Blood No Growth after 24 hours 01/01/18 04:20 Urine Culture - Preliminary Urine,Clean Catch Assessment and Plan Plan: Assessment 1 acute COPD exacerbation with suspected right lower lobe/middle lobe pneumonia. Clinically the patient is improving on today's evaluation. Chest x- ray shows significant clearing of the interstitial edema and the right lower lobe pulmonary infiltration and the patient is less short of breath compared to yesterday. 2 acute shortness of breath secondary to above. Furthermore the patient may have an underlying component of CHF/fluid overload as the patient was being resuscitated IV fluids regarding mild degree of lactic acidosis. The patient is improving and the patient is less short of breath on today's evaluation. Echocardiogram is pending. 3 lactic acidosis, improving 4 abdominal distention, possibly related to fecal stasis/constipation, surgical evaluation was done and the patient was started on laxatives. 5 diabetes mellitus type 2 with steroid-induced hyperglycemia currently on insulin drip for blood sugar control 6 hypertension 7 hyperlipidemia 8 acid reflux 9 schizophrenia 10 [facility] home resident Plan Give additional 40 g of IV Lasix. Start the patient on lactulose 10 ML's twice a day. General surgeries on the case regarding her constipation. Continue bronchodilators. Continue systemic steroids. Continue antibiotics. Provide the patient incentive spirometer. We'll continue to follow.
[2018-01-02 08:23] LABS: Glucose,Whole Blood 166 mg/dL (75-99)
[2018-01-02] MEDS: PANTOPRAZOLE 40 MG TABLET PO SCH (08:26)
[2018-01-02] MEDS: metFORMIN 500 MG TAB PO SCH ×2 (08:26→17:32)
--- NOTE | 2018-01-02 08:40 | XR ---
EXAMINATION TYPE: XR chest 1V portable DATE OF EXAM: 01/02/2018 COMPARISON: 01/01/2018 INDICATION: CHF, shortness of breath TECHNIQUE: Single frontal view of the chest is obtained. FINDINGS: The heart size is normal. The pulmonary vasculature is normal. Previous prominence has resolved. The lungs are clear. IMPRESSION: 1. No acute pulmonary process. 2. Previous volume overload has resolved.
[2018-01-02 09:43] LABS: Glucose,Whole Blood 251 mg/dL (75-99)
--- NOTE | 2018-01-02 10:00 | ECHOF ---
Referral Reason:pulmonary edema/CHF MEASUREMENTS -------- HEIGHT: 132.1 cm WEIGHT: 69.9 kg BP: 100/55 IVSd: 1.2 cm (0.6 - 1.1) LVIDd: 4.4 cm (3.9 - 5.3) LVPWd: 1.1 cm (0.6 - 1.1) IVSs: 1.3 cm LVIDs: 3.8 cm LVPWs: 1.1 cm Ao Diam: 2.7 cm (2.0 - 3.7) AV Cusp: 1.5 cm (1.5 - 2.6) LA Diam: 2.9 cm (2.7 - 3.8) MV EXCURSION: 17.007 mm (> 18.000) MV EF SLOPE: 45 mm/s (70 - 150) EPSS: 1.8 cm MV E Jens: 0.78 m/s MV DecT: 177 ms MV A Jens: 0.91 m/s MV E/A Ratio: 0.86 RAP: 5.00 mmHg RVSP: 15.28 mmHg FINDINGS -------- Sinus rhythm. This was a technically difficult study with suboptimal views. Left ventricular wall thickness is normal. Overall left ventricular systolic function is moderate-s everely impaired with, an EF between 30 - 35 %. Apical septum LV wall motion is hypokinetic. Sep raymond Hypokinesis The right ventricle is normal in size and function. The left atrium is normal in size. The right atrium is normal in size. Lumason used Aortic valve is trileaflet and is mildly thickened. There is trace mitral regurgitation. Trace tricuspid regurgitation present. The right ventricular systolic pressure, as measured by Dopp ler, is 15.28mmHg. Pulmonic valve appears structurally normal. The aortic root size is normal. The pericardium is normal. CONCLUSIONS -------- 1. Sinus rhythm. 2. This was a technically difficult study with suboptimal views. 3. Left ventricular wall thickness is normal. 4. Overall left ventricular systolic function is moderate-severely impaired with, an EF between 30 - 35 %. 5. Apical septum LV wall motion is hypokinetic. 6. Septal Hypokinesis 7. The right ventricle is normal in size and function. 8. The left atrium is normal in size. 9. The right atrium is normal in size. 10. Lumason used 11. Aortic valve is trileaflet and is mildly thickened. 12. There is trace mitral regurgitation. 13. Trace tricuspid regurgitation present. 14. The right ventricular systolic pressure, as measured by Doppler, is 15.28mmHg. 15. Pulmonic valve appears structurally normal. 16. The aortic root size is normal. 17. The pericardium is normal. [employer]INK[employer] FITTER: Inés Kaur RDCS
[2018-01-02 10:39] LABS: Glucose,Whole Blood 283 mg/dL (75-99)
[2018-01-02] MEDS: ATENOLOL 50 MG TAB PO SCH (10:54)
[2018-01-02] MEDS: ASPIRIN 81 MG PO SCH (10:54)
[2018-01-02] MEDS: cefTRIAXone IN SWFI 1,000 MG/10 ML SYRINGE IVP SCH (10:55)
[2018-01-02] MEDS: ALLOPURINOL 100 MG TAB PO SCH ×2 (10:55→20:19)
[2018-01-02] MEDS: CHOLECALCIFEROL 1,000 UNIT TAB PO SCH (10:56)
[2018-01-02] MEDS: CITALOPRAM HYDROBROMIDE 20 MG TAB PO SCH (10:56)
[2018-01-02] MEDS: FENOFIBRATE 160 MG TAB PO SCH (10:57)
[2018-01-02] MEDS: cloZAPine 25 MG TAB PO SCH (10:57)
[2018-01-02] MEDS: HYDROCHLOROTHIAZIDE 12.5 MG CAP PO SCH (10:58)
[2018-01-02] MEDS: LACTULOSE 20 GM/30 ML CUP PO SCH ×2 (10:58→20:20)
[2018-01-02] MEDS: POTASSIUM CHLORIDE ER 10 MEQ TAB.ER.PRT PO SCH (11:00)
[2018-01-02 11:50] LABS: Glucose,Whole Blood 192 mg/dL (75-99)
[2018-01-02] MEDS: LOVAZA PO SCH ×2 (12:13→20:21)
[2018-01-02] MEDS ORDERED: MAGNESIUM CITRATE 296 ML BOTTLE PO ONE (12:45)
[2018-01-02] MEDS ORDERED: MAGNESIUM CITRATE 296 ML BOTTLE PEG/G-TUBE ONE (12:45)
--- NOTE | 2018-01-02 12:47 | P.PN ---
Subjective Progress Note Date: 01/02/18 Principal diagnosis: Abdominal pain Patient denies abdominal pain. She is passing flatus but no bowel movement despite magnesium citrate yesterday. No nausea or vomiting. Tolerating clear liquids. Objective - Vital Signs Vital signs: Vital Signs Temp 98.3 F 01/02/18 12:00 Pulse 87 01/02/18 12:00 Resp 21 01/02/18 12:00 BP 133/74 01/02/18 12:00 Pulse Ox 92 L 01/02/18 12:00 Intake & Output 01/01/18 01/02/18 01/02/18 18:59 06:59 18:59 Intake Total 2030.905 1390.582 847.447 Output Total 5360 2510 2200 Balance -3329.095 -1119.418 -1352.553 Weight 65 kg 69.853 kg Intake: IV 90 320 80 .9 @ 10 ml/hr 120 80 Insulin Regular 100 unit 90 In Sodium Chloride 0.9% 100 ml @ Titrate IV .Q0M [facility] Rx#:[id number] Magnesium Sulfate-D5w Pmx 200 1 gm In Dextrose/Water 1 100ml.bag @ 100 mls/hr IVPB Q1H [facility] Rx#: [id number] Intake, IV Titration 300.905 70.582 47.447 Amount Azithromycin 500 mg In 125 Dextrose 5% in Water 250 ml @ 125 mls/hr IVPB DAILY@1600 [facility] Rx#: [id number] Insulin Regular 100 unit 144.103 70.582 47.447 In Sodium Chloride 0.9% 100 ml @ Per Protocol IV .Q0M [facility] Rx#:[id number] Insulin Regular 100 unit 11.802 In Sodium Chloride 0.9% 100 ml @ Titrate IV .Q0M [facility] Rx#:[id number] Sodium Chloride 0.9% 1, 20 000 ml @ 20 mls/hr IV . Q24H [facility] Rx#:[id number] Oral 1640 1000 720 Output: Urine 4960 2310 2000 Stool 400 200 200 Other: Voiding Method Indwelling Catheter Indwelling Catheter Indwelling Catheter # Voids 2 - Exam Abdomen: Soft, distended, minimal diffuse tenderness - Labs CBC & Chem 7: 01/02/18 02:10 01/02/18 02:10 Labs: Abnormal Lab Results - Last 24 Hours (Table) 01/01/18 01/01/18 01/01/18 Range/Units 04:02 13:02 13:58 WBC (3.8-10.6) k/uL RBC (3.80-5.40) m/uL Hgb (11.4-16.0) gm/dL Hct (34.0-46.0) % Sodium (137-145) mmol/L Potassium (3.5-5.1) mmol/L Chloride (98-107) mmol/L Carbon Dioxide (22-30) mmol/L BUN (7-17) mg/dL Glucose (74-99) mg/dL POC Glucose (mg/dL) 351 H 290 H (75-99) mg/dL Hemoglobin A1c 8.2 H (4.0-6.0) % Total Protein (6.3-8.2) g/dL Albumin (3.5-5.0) g/dL 01/01/18 01/01/18 01/01/18 Range/Units 15:11 16:17 17:24 WBC (3.8-10.6) k/uL RBC (3.80-5.40) m/uL Hgb (11.4-16.0) gm/dL Hct (34.0-46.0) % Sodium (137-145) mmol/L Potassium (3.5-5.1) mmol/L Chloride (98-107) mmol/L Carbon Dioxide (22-30) mmol/L BUN (7-17) mg/dL Glucose (74-99) mg/dL POC Glucose (mg/dL) 243 H 223 H 206 H (75-99) mg/dL Hemoglobin A1c (4.0-6.0) % Total Protein (6.3-8.2) g/dL Albumin (3.5-5.0) g/dL 01/01/18 01/01/18 01/01/18 Range/Units 18:23 18:56 20:08 WBC (3.8-10.6) k/uL RBC (3.80-5.40) m/uL Hgb (11.4-16.0) gm/dL Hct (34.0-46.0) % Sodium (137-145) mmol/L Potassium (3.5-5.1) mmol/L Chloride (98-107) mmol/L Carbon Dioxide (22-30) mmol/L BUN (7-17) mg/dL Glucose (74-99) mg/dL POC Glucose (mg/dL) 218 H 223 H 167 H (75-99) mg/dL Hemoglobin A1c (4.0-6.0) % Total Protein (6.3-8.2) g/dL Albumin (3.5-5.0) g/dL 01/01/18 01/01/18 01/01/18 Range/Units 20:09 21:14 22:09 WBC (3.8-10.6) k/uL RBC (3.80-5.40) m/uL Hgb (11.4-16.0) gm/dL Hct (34.0-46.0) % Sodium (137-145) mmol/L Potassium 3.2 L (3.5-5.1) mmol/L Chloride (98-107) mmol/L Carbon Dioxide (22-30) mmol/L BUN (7-17) mg/dL Glucose (74-99) mg/dL POC Glucose (mg/dL) 144 H 133 H (75-99) mg/dL Hemoglobin A1c (4.0-6.0) % Total Protein (6.3-8.2) g/dL Albumin (3.5-5.0) g/dL 01/01/18 01/02/18 01/02/18 Range/Units 22:58 00:28 00:39 WBC (3.8-10.6) k/uL RBC (3.80-5.40) m/uL Hgb (11.4-16.0) gm/dL Hct (34.0-46.0) % Sodium (137-145) mmol/L Potassium (3.5-5.1) mmol/L Chloride (98-107) mmol/L Carbon Dioxide (22-30) mmol/L BUN (7-17) mg/dL Glucose (74-99) mg/dL POC Glucose (mg/dL) 157 H 133 H 137 H (75-99) mg/dL Hemoglobin A1c (4.0-6.0) % Total Protein (6.3-8.2) g/dL Albumin (3.5-5.0) g/dL 01/02/18 01/02/18 01/02/18 Range/Units 02:10 02:10 02:12 WBC 12.5 H (3.8-10.6) k/uL RBC 3.59 L (3.80-5.40) m/uL Hgb 10.2 L (11.4-16.0) gm/dL Hct 30.9 L (34.0-46.0) % Sodium 134 L (137-145) mmol/L Potassium (3.5-5.1) mmol/L Chloride 96 L (98-107) mmol/L Carbon Dioxide 31 H (22-30) mmol/L BUN 19 H (7-17) mg/dL Glucose 185 H (74-99) mg/dL POC Glucose (mg/dL) 209 H (75-99) mg/dL Hemoglobin A1c (4.0-6.0) % Total Protein 5.5 L (6.3-8.2) g/dL Albumin 3.4 L (3.5-5.0) g/dL 01/02/18 01/02/18 01/02/18 Range/Units 02:45 04:07 04:57 WBC (3.8-10.6) k/uL RBC (3.80-5.40) m/uL Hgb (11.4-16.0) gm/dL Hct (34.0-46.0) % Sodium (137-145) mmol/L Potassium (3.5-5.1) mmol/L Chloride (98-107) mmol/L Carbon Dioxide (22-30) mmol/L BUN (7-17) mg/dL Glucose (74-99) mg/dL POC Glucose (mg/dL) 179 H 165 H 183 H (75-99) mg/dL Hemoglobin A1c (4.0-6.0) % Total Protein (6.3-8.2) g/dL Albumin (3.5-5.0) g/dL 01/02/18 01/02/18 01/02/18 Range/Units 06:16 07:00 08:20 WBC (3.8-10.6) k/uL RBC (3.80-5.40) m/uL Hgb (11.4-16.0) gm/dL Hct (34.0-46.0) % Sodium (137-145) mmol/L Potassium (3.5-5.1) mmol/L Chloride (98-107) mmol/L Carbon Dioxide (22-30) mmol/L BUN (7-17) mg/dL Glucose (74-99) mg/dL POC Glucose (mg/dL) 161 H 138 H 166 H (75-99) mg/dL Hemoglobin A1c (4.0-6.0) % Total Protein (6.3-8.2) g/dL Albumin (3.5-5.0) g/dL 01/02/18 01/02/18 01/02/18 Range/Units 09:40 10:38 11:48 WBC (3.8-10.6) k/uL RBC (3.80-5.40) m/uL Hgb (11.4-16.0) gm/dL Hct (34.0-46.0) % Sodium (137-145) mmol/L Potassium (3.5-5.1) mmol/L Chloride (98-107) mmol/L Carbon Dioxide (22-30) mmol/L BUN (7-17) mg/dL Glucose (74-99) mg/dL POC Glucose (mg/dL) 251 H 283 H 192 H (75-99) mg/dL Hemoglobin A1c (4.0-6.0) % Total Protein (6.3-8.2) g/dL Albumin (3.5-5.0) g/dL Microbiology - Last 24 Hours (Table) 01/01/18 04:20 Urine Culture - Final Urine,Clean Catch 12/31/17 14:43 Blood Culture - Preliminary Blood No Growth after 24 hours Assessment and Plan (1) Constipation Narrative/Plan: We'll give an additional dose of magnesium citrate today. Continue lactulose as well. Continue clear liquids. Not convinced enemas will be very helpful given the right-sided stool seen on x-ray. We'll repeat abdominal x-rays tomorrow. Current Visit: Yes Status: Acute Code(s): K59.00 - CONSTIPATION, UNSPECIFIED SNOMED Code(s): 53819454
[2018-01-02 13:42] LABS: Glucose,Whole Blood 165 mg/dL (75-99)
[2018-01-02] MEDS: BUDESONIDE 1 MG/2 ML NEBU INHALATION SCH ×2 (13:47→19:43)
[2018-01-02 14:58] LABS: Glucose,Whole Blood 176 mg/dL (75-99)
--- NOTE | 2018-01-02 15:20 | CONS ---
CONSULTATION Ms. Santos is a 52-year-old female who is followed by her visiting physician, who presented with exacerbation of her asthma, dyspnea and symptoms of heart failure. The patient has a known history of diabetes, hypertension, hyperlipidemia. An echocardiogram that was performed revealed evidence of cardiomyopathy. The patient is unaware of any history of cardiac disease. She is mentally challenged, but cannot recall any cardiac history. She has dyspnea on exertion. She has a cough, wheezing. She has no clear PND or orthopnea. She has no dizziness. No palpitation. She denies any peripheral edema. When she came in, she had findings consistent with pneumonia and elevated lactic acid. She has been having abdominal pain and inability to move her bowel with constipation, has been seen by Dr. Boykin in that regard. Her coronary risk factors are remarkable for the history of diabetes, hypertension, and hyperlipidemia. She is a past smoker. MEDICATION: At home include: 1. Metformin 1 g daily. 2. Clozapine. 3. VESIcare. 4. Prilosec. 5. Lovaza. 6. Claritin. 7. Zestril 10 mg daily. 8. Insulin. 9. HydroDIURIL 12.5 mg daily. 10.Fenofibrate. 11.Celexa. 12.Pulmicort. 13.Lipitor 20 mg daily. 14.Atenolol 50 mg twice a day. 15.Aspirin. 16.Zyloprim. REVIEW OF SYSTEMS: RESPIRATORY system: She had dyspnea on exertion and a cough and history of bronchial asthma. GI system: She had constipation. No recent nausea and vomiting. system: No dysuria or hematuria. Nervous system: No history of stroke or seizure. PHYSICAL EXAMINATION: She is a 52-year-old female, alert, oriented, in no apparent distress. Blood pressure 108/60 with a heart rate in the 90s. HEAD: Normocephalic. Eyes: Sclerae anicteric. Neck good upstroke. No bruit. Lungs with decreased air exchange. A few scattered crackles. HEART: Regular rate and rhythm S1, S2. No S3 with systolic ejection murmur at the base. No diastolic murmur. ABDOMEN: Soft. Mild tenderness. Positive bowel sounds. No organomegaly. EXTREMITIES: No edema. Intact distal pulses. LAB DATA: On presentation, BUN and creatinine 20 and 0.7. Her white blood cell of 8.4. Today her white blood cell of 12.5, and her creatinine has not changed. Her troponin on admission 0.025. Plasma lactic acid on admission was 4.4. She is down to 1.8. Her chest x-ray done on presentation showed possible pneumonia and there was evidence of fluid overload. Of note, the patient received a large amount of fluid on presentation. Her echocardiogram reported showing ejection fraction of 30-35% with apical septal hypokinesis. Her EKG revealed sinus mechanism with a left bundle branch block. Reviewing her old EKG, similar findings were noted. IMPRESSION: 1. Pneumonia with exacerbation of asthma. 2. Cardiomyopathy with an element of congestive heart failure, exacerbated by the fluid overload, improved at this time. 3. Left bundle branch block, chronic. 4. Hypertension. 5. Hyperlipidemia. 6. Diabetes mellitus. RECOMMENDATIONS: The etiology of her cardiomyopathy is unclear but it could be nonischemic cardiomyopathy in view of the long-term left bundle branch block. At this time, the patient has received diuretics and she has diuresed quite nicely. I will switch her atenolol to carvedilol in view of the cardiomyopathy, add Aldactone to her regimen. Continue the rest of medical regimen and depending on her progress, further recommendations will be made. The patient may benefit from further cardiac workup down the road when she is stabilized from the pulmonary standpoint. Thank you for this consult. We will follow with you. MARIBELL / LAM: [id number] /
[2018-01-02 16:03] LABS: Glucose,Whole Blood 166 mg/dL (75-99)
[2018-01-02 17:30] LABS: Glucose,Whole Blood 137 mg/dL (75-99)
[2018-01-02] MEDS: LORATADINE 10 MG TAB PO SCH (17:31)
[2018-01-02] MEDS: AZITHROMYCIN 500 MG in DEXTROSE 5% IN WATER 250 ML IVPB SCH ×2 (17:31)
[2018-01-02] MEDS: TROSPIUM CHLORIDE 20 MG TABLET PO SCH (17:32)
[2018-01-02 18:33] LABS: Glucose,Whole Blood 250 mg/dL (75-99)
[2018-01-02] MEDS: CARVEDILOL 12.5 MG TAB PO SCH (18:36)
[2018-01-02] MEDS: LISINOPRIL 10 MG TAB PO SCH (19:18)
[2018-01-02 19:27] LABS: Glucose,Whole Blood 346 mg/dL (75-99)
[2018-01-02 20:17] LABS: Glucose,Whole Blood 362 mg/dL (75-99)
[2018-01-02] MEDS: cloZAPine 100 MG TAB PO SCH (20:19)
[2018-01-02] MEDS: SENNOSIDES 8.6 MG TAB PO SCH (20:20)
[2018-01-02] MEDS: ATORVASTATIN 20 MG TAB PO SCH (20:21)
[2018-01-02 20:28] LABS: Glucose,Whole Blood 252 mg/dL (75-99)
[2018-01-02 21:30] LABS: Glucose,Whole Blood 204 mg/dL (75-99)
[2018-01-02 23:03] LABS: Glucose,Whole Blood 149 mg/dL (75-99)
[2018-01-03 00:52] LABS: Glucose,Whole Blood 140 mg/dL (75-99)
[2018-01-03 03:03] LABS: Glucose,Whole Blood 183 mg/dL (75-99)
--- NOTE | 2018-01-03 04:50 | PN ---
PROGRESS NOTE DATE OF SERVICE: 01/02/2018. PRESENTING COMPLAINT: Short of breath. INTERVAL HISTORY: The patient admitted with pneumonia and went into fluid overload, transferred to the ICU. Responded well to the Lasix. This morning on 5 L oxygen. Did actually tolerate a diet. Patient also having severe constipation. Laxative was ordered by Surgery. Sitting up on the bed. REVIEW OF SYSTEMS: Review of systems done for constitutional, cardiovascular, GI, pulmonary; relevant findings as above. CURRENT MEDICATIONS: Current medications are reviewed that include DuoNeb, azithromycin, Coreg, IV ceftriaxone, insulin drip mcg, IV Solu-Medrol. PHYSICAL EXAMINATION: On examination, temperature 98.3, pulse 87, respirations 21, blood pressure 133/74, pulse ox 92% on 5 L. GENERAL APPEARANCE: Sitting up, less short of breath today. EYES: Pupils equal. Conjunctivae normal. HEENT: External appearance of nose and ears normal. Oral cavity normal. NECK: JVD possibly raised. Mass not palpable. RESPIRATORY: Effort increased. LUNGS: Decreased breath sounds. CARDIOVASCULAR: First and second sounds normal. Minimal edema. ABDOMEN: Distended, soft. Liver and spleen not palpable. PSYCHIATRY: Awake, answering questions. INVESTIGATIONS: White count 12.5, hemoglobin 10.2. Potassium 4.4. BUN 19, creatinine 0.70. Accu-Cheks 179, 165 on insulin drip. Chest x-ray film interpreted by ca portable upright still showing some venous prominence and possible infiltrate. ASSESSMENT: 1. Right lower lobe pneumonia suspect gram-negative organism, present on admission. 2. Acute congestive heart failure exacerbation from systolic dysfunction ejection fraction 30% to 35% causing acute hypoxic respiratory failure, currently on 5 L of oxygen, slow to respond. 3. Diabetes mellitus type 2 on oral hypoglycemic uncontrolled with hyperglycemia on insulin drip. 4. Gastroesophageal reflux disease. 5. Hyperlipidemia. 6. Essential hypertension. 7. Chronic urinary stress incontinence. 8. Chronic mental impairment. 9. Acute severe constipation, possible ileus. PLAN: We will keep the patient currently on insulin drip. The patient is getting IV Lasix. Laxatives as per Surgery. Care was discussed with the patient. Will follow. MMODL / IJN: [id number] /
[2018-01-03 04:57] LABS: Glucose,Whole Blood 162 mg/dL (75-99)
[2018-01-03 07:16] LABS: Glucose,Whole Blood 130 mg/dL (75-99)
[2018-01-03] MEDS: SODIUM CHLORIDE 0.9% 1,000 ML IV SCH ×2 (07:41→21:33)
[2018-01-03] MEDS: metFORMIN 500 MG TAB PO SCH ×2 (07:49→17:28)
[2018-01-03] MEDS: CARVEDILOL 12.5 MG TAB PO SCH ×2 (07:49→17:28)
[2018-01-03] MEDS: methylPREDNISolone SOD SUCCI 40 MG/ML 1 ML VIAL IV SCH ×2 (07:49→21:33)
[2018-01-03] MEDS: PANTOPRAZOLE 40 MG TABLET PO SCH (07:49)
[2018-01-03] MEDS: cefTRIAXone IN SWFI 1,000 MG/10 ML SYRINGE IVP SCH (07:50)
[2018-01-03] MEDS: ASPIRIN 81 MG PO SCH (07:50)
[2018-01-03] MEDS: CHOLECALCIFEROL 1,000 UNIT TAB PO SCH (07:50)
[2018-01-03] MEDS: ALLOPURINOL 100 MG TAB PO SCH ×2 (07:50→21:18)
[2018-01-03] MEDS: CITALOPRAM HYDROBROMIDE 20 MG TAB PO SCH (07:51)
[2018-01-03] MEDS: HYDROCHLOROTHIAZIDE 12.5 MG CAP PO SCH (07:52)
[2018-01-03] MEDS: cloZAPine 25 MG TAB PO SCH (07:52)
[2018-01-03] MEDS: FENOFIBRATE 160 MG TAB PO SCH (07:52)
[2018-01-03] MEDS: POTASSIUM CHLORIDE ER 10 MEQ TAB.ER.PRT PO SCH (07:52)
[2018-01-03] MEDS: SPIRONOLACTONE 25 MG TAB PO SCH (07:52)
[2018-01-03] MEDS: LACTULOSE 20 GM/30 ML CUP PO SCH ×2 (07:53→21:32)
[2018-01-03] MEDS: INSULIN ASPART 100 UNIT/ML 1 ML 10 ML VIAL SQ SCH ×3 (07:59→17:27)
[2018-01-03] MEDS: LOVAZA PO SCH ×2 (07:59→21:33)
[2018-01-03 08:10] LABS: HCT 32.6 % (34.0-46.0); HGB 10.6 gm/dL (11.4-16.0); MCH 28.7 pg (25.0-35.0); MCHC 32.7 g/dL (31.0-37.0); MCV 87.8 fL (80.0-100.0); Mean Platelet Volume 6.8; Platelet Count 207 k/uL (150-450); RBC 3.71 m/uL (3.80-5.40); RDW 14.3 % (11.5-15.5); WBC 13.3 k/uL (3.8-10.6)
[2018-01-03] MEDS: BUDESONIDE 1 MG/2 ML NEBU INHALATION SCH ×2 (08:34→21:14)
[2018-01-03 08:35] LABS: ALT 95 U/L (9-52); AST 44 U/L (14-36); Albumin 3.4 g/dL (3.5-5.0); Alkaline Phosphatase 73 U/L (38-126); Anion Gap 3 mmol/L; Blood Urea Nitrogen 18 mg/dL (7-17); Calcium 8.6 mg/dL (8.4-10.2); Carbon Dioxide 38 mmol/L (22-30); Chloride 98 mmol/L (98-107); Glucose 124 mg/dL (74-99); Phosphorus 3.3 mg/dL (2.5-4.5); Potassium 4.7 mmol/L (3.5-5.1); Sodium 139 mmol/L (137-145); Total Bilirubin 0.3 mg/dL (0.2-1.3); Total Protein 5.4 g/dL (6.3-8.2)
[2018-01-03] MEDS: IPRATROPIUM-ALBUTEROL 3 ML NEB INHALATION SCH ×4 (08:35→21:14)
[2018-01-03 09:22] LABS: Glucose,Whole Blood 201 mg/dL (75-99)
[2018-01-03 11:19] LABS: Glucose,Whole Blood 292 mg/dL (75-99)
--- NOTE | 2018-01-03 11:27 | P.PN ---
Subjective Progress Note Date: 01/03/18 This is a 52-year-old female patient, a poor historian with known history of COPD and addition to diabetes mellitus type 2, hypertension and hyperlipidemia and schizophrenia, who came into the hospital because of shortness of breath. The patient has been followed up by visiting physicians. She is mentally impaired and she is a poor historian. Her shortness of breath dates back to around 2 days ago and she was having these cough without any significant sputum production. There was also reported increased bronchospasm and wheezing and she was getting more short of breath and tired. She was also having some increased constipation and abdominal distention. On admission, chest x-ray was done and showed bilaterally no opacities most consistent with atelectasis although early developing pneumonia in the right lower lobe and the right middle lobe could not be excluded. The patient was started on antibiotics. The patient was started on IV Solu-Medrol. The patient was also started on IV fluids knowing that she had a component of lactic acidosis with initial lactic acid level of 4.4. Note that her lactic acid level dropped down to 1.8. Nevertheless earlier this point the patient became progressively more short of breath and a chest x-ray was done and it showed interval development of moderate degree of interstitial edema which is probably related to fluid overload as the patient was receiving IV fluids in regards to her lactic acidosis. Flat film of the abdomen was also done that showed nonobstructive bowel gas pattern and there was fairly moderate amount of colonic fecal stasis. I saw this patient on the medical floor. She was in 100 % nonrebreather facemask. I decide to move this patient to the intensive care unit for more monitoring. She was given a dose of Lasix following which she had adequate urine output and she was getting less short of breath. She denied having any chest pain. Her white cell count is not elevated at 6.8. Hemoccult was stable at 10.6. Rest of the electrodes are all within normal including her renal function tests. She had developed some steroid-induced hyperglycemia related to systemic steroids and the patient was started on insulin drip for blood sugar control. In terms of antibiotic coverage, the patient is on a combination of Rocephin and Zithromax. The patient was also seen by Dr. strange. She was given milk of magnesia regarding her constipation. She'll be monitored clinically. We'll consider CAT scan of the abdomen and pelvis if she continues to have abdominal distention. On 01/02/2018 the patient is less short of breath compared to yesterday. She was weaned down to 5 L of oxygen by nasal cannula. She made excellent urine output with diuretics yesterday and the patient shows improvement in the volume status on today's chest x-ray. The patient is a negative fluid balance. The patient is not having any chest pain. She is still congested and she has a cough and some limited wheezing. Abdomen is still distended. The patient undertook a Fleet enema yesterday and the patient also received milk of magnesia without success in terms of her bowel activity. No abdominal pain. Abdomen is slightly distended still. No fever. No chills. No hypotension. No other complaints otherwise for now. White cell count is at 12.5. The patient has a normal renal function. On today's evaluation of 01/03/2018 the patient is seeming to have less shortness of breath. She is on 5 L of oxygen by nasal cannula. She is bronchospastic. She has a congested cough. No significant sputum production. Abdomen is less distended. The patient was placed on a combination of the test and the patient was able to produce a bowel movement. No fever or chills. She is on a combination of albuterol and Atrovent about treatments around the clock in addition to IV Solu-Medrol that was Down to 40 mg every 12 hours. The patient is on insulin drip for blood sugar control for now. She has normal blood work. No significant leukocytosis. Renal function remains stable. She is producing adequate amount of urine output. Objective - Vital Signs Vital signs: Vital Signs Temp 97.6 F 01/03/18 05:00 Pulse 100 01/03/18 08:51 Resp 18 01/03/18 05:00 BP 125/62 01/03/18 05:00 Pulse Ox 96 01/03/18 05:00 Intake & Output 01/02/18 01/03/18 01/03/18 18:59 06:59 18:59 Intake Total 2369.503 66.225 8.275 Output Total 4050 350 1000 Balance -1680.497 -283.775 -991.725 Intake: IV 150 10 .9 @ 10 ml/hr 150 10 Intake, IV Titration 219.503 56.225 8.275 Amount Azithromycin 500 mg In 125 Dextrose 5% in Water 250 ml @ 125 mls/hr IVPB DAILY@1600 [facility] Rx#: [id number] Insulin Regular 100 unit 94.503 46.333 In Sodium Chloride 0.9% 100 ml @ Per Protocol IV .Q0M [facility] Rx#:[id number] Insulin Regular 100 unit 9.892 8.275 In Sodium Chloride 0.9% 100 ml @ Per Protocol IV .Q0M [facility] Rx#:[id number] Oral 2000 Output: Urine 3850 350 800 Uretheral (Cross) 800 Stool 200 200 Other: Voiding Method Indwelling Catheter Indwelling Catheter Indwelling Catheter # Voids 2 # Bowel Movements 1 - Exam Gen. appearance the patient is a [id number] degree of respiratory distress , currently on 4 L of oxygen by nasal cannula Head exam was generally normal. There was no scleral icterus or corneal arcus. Mucous membranes were moist. Neck was supple and without jugular venous distension, thyromegaly, or carotid bruits. Carotids were easily palpable bilaterally. There was no adenopathy. Lungs sounds are diminished and there is diffuse expiratory wheezes throughout the lung jimenez bilaterally and prolongation of expiratory phase of breathing, overall bronchospasm wheezing has improved compared to yesterday Cardiac exam revealed the PMI to be normally situated and sized. The rhythm was regular and no extrasystoles were noted during several minutes of auscultation. The first and second heart sounds were normal and physiologic splitting of the second heart sound was noted. There were no murmurs, rubs, clicks, or gallops. Abdomen is less distended. There is no direct tenderness rebound tensile guarding at this point. Bowel sounds are hypoactive. Organs cannot be accurately palpated. Examination of the extremities revealed easily palpable radial, femoral and pedal pulses. There was no cyanosis, clubbing or edema. Examination of the skin revealed no evidence of significant rashes, suspicious appearing nevi or other concerning lesions. - Labs CBC & Chem 7: 01/03/18 07:27 01/03/18 07:27 Labs: Abnormal Lab Results - Last 24 Hours (Table) 01/02/18 01/02/18 01/02/18 Range/Units 11:48 13:40 14:55 WBC (3.8-10.6) k/uL RBC (3.80-5.40) m/uL Hgb (11.4-16.0) gm/dL Hct (34.0-46.0) % Carbon Dioxide (22-30) mmol/L BUN (7-17) mg/dL Glucose (74-99) mg/dL POC Glucose (mg/dL) 192 H 165 H 176 H (75-99) mg/dL Magnesium (1.6-2.3) mg/dL AST (14-36) U/L ALT (9-52) U/L Total Protein (6.3-8.2) g/dL Albumin (3.5-5.0) g/dL 01/02/18 01/02/18 01/02/18 Range/Units 16:00 17:28 18:31 WBC (3.8-10.6) k/uL RBC (3.80-5.40) m/uL Hgb (11.4-16.0) gm/dL Hct (34.0-46.0) % Carbon Dioxide (22-30) mmol/L BUN (7-17) mg/dL Glucose (74-99) mg/dL POC Glucose (mg/dL) 166 H 137 H 250 H (75-99) mg/dL Magnesium (1.6-2.3) mg/dL AST (14-36) U/L ALT (9-52) U/L Total Protein (6.3-8.2) g/dL Albumin (3.5-5.0) g/dL 01/02/18 01/02/18 01/02/18 Range/Units 19:13 19:52 20:26 WBC (3.8-10.6) k/uL RBC (3.80-5.40) m/uL Hgb (11.4-16.0) gm/dL Hct (34.0-46.0) % Carbon Dioxide (22-30) mmol/L BUN (7-17) mg/dL Glucose (74-99) mg/dL POC Glucose (mg/dL) 346 H 362 H 252 H (75-99) mg/dL Magnesium (1.6-2.3) mg/dL AST (14-36) U/L ALT (9-52) U/L Total Protein (6.3-8.2) g/dL Albumin (3.5-5.0) g/dL 01/02/18 01/02/18 01/03/18 Range/Units 21:29 23:01 00:50 WBC (3.8-10.6) k/uL RBC (3.80-5.40) m/uL Hgb (11.4-16.0) gm/dL Hct (34.0-46.0) % Carbon Dioxide (22-30) mmol/L BUN (7-17) mg/dL Glucose (74-99) mg/dL POC Glucose (mg/dL) 204 H 149 H 140 H (75-99) mg/dL Magnesium (1.6-2.3) mg/dL AST (14-36) U/L ALT (9-52) U/L Total Protein (6.3-8.2) g/dL Albumin (3.5-5.0) g/dL 01/03/18 01/03/18 01/03/18 Range/Units 03:00 04:54 07:10 WBC (3.8-10.6) k/uL RBC (3.80-5.40) m/uL Hgb (11.4-16.0) gm/dL Hct (34.0-46.0) % Carbon Dioxide (22-30) mmol/L BUN (7-17) mg/dL Glucose (74-99) mg/dL POC Glucose (mg/dL) 183 H 162 H 130 H (75-99) mg/dL Magnesium (1.6-2.3) mg/dL AST (14-36) U/L ALT (9-52) U/L Total Protein (6.3-8.2) g/dL Albumin (3.5-5.0) g/dL 01/03/18 01/03/18 01/03/18 Range/Units 07:27 07:27 09:20 WBC 13.3 H (3.8-10.6) k/uL RBC 3.71 L (3.80-5.40) m/uL Hgb 10.6 L (11.4-16.0) gm/dL Hct 32.6 L (34.0-46.0) % Carbon Dioxide 38 H (22-30) mmol/L BUN 18 H (7-17) mg/dL Glucose 124 H (74-99) mg/dL POC Glucose (mg/dL) 201 H (75-99) mg/dL Magnesium 3.0 H (1.6-2.3) mg/dL AST 44 H (14-36) U/L ALT 95 H (9-52) U/L Total Protein 5.4 L (6.3-8.2) g/dL Albumin 3.4 L (3.5-5.0) g/dL 01/03/18 Range/Units 10:58 WBC (3.8-10.6) k/uL RBC (3.80-5.40) m/uL Hgb (11.4-16.0) gm/dL Hct (34.0-46.0) % Carbon Dioxide (22-30) mmol/L BUN (7-17) mg/dL Glucose (74-99) mg/dL POC Glucose (mg/dL) 292 H (75-99) mg/dL Magnesium (1.6-2.3) mg/dL AST (14-36) U/L ALT (9-52) U/L Total Protein (6.3-8.2) g/dL Albumin (3.5-5.0) g/dL Microbiology - Last 24 Hours (Table) 12/31/17 14:43 Blood Culture - Preliminary Blood No Growth after 48 hours 01/01/18 04:20 Urine Culture - Final Urine,Clean Catch Assessment and Plan Plan: Assessment 1 acute COPD exacerbation with suspected right lower lobe/middle lobe pneumonia. The patient was being treated for an acute COPD exacerbation and she is on a combination of DuoNeb nebulized treatments and IV Solu-Medrol which is being gradually tapered off. The patient also wants to acute pulmonary edema and she was diagnosed having underlying CHF and she was diuresed and she is producing adequate amount of urine output. She is currently on 5 L of oxygen by nasal cannula. 2 acute shortness of breath secondary to above. The shortness of breath is improving. 3 CHF with an ejection fraction of 30-35% with underlying segmental wall motion abnormality rule out underlying coronary artery disease. 4 abdominal distention, possibly related to fecal stasis/constipation, surgical evaluation was done and the patient was started on laxatives. The patient underwent laxatives treatment and she had 2 bowel movements in her abdomen is less distended on today's evaluation 5 diabetes mellitus type 2 with steroid-induced hyperglycemia currently on insulin drip for blood sugar control 6 hypertension 7 hyperlipidemia 8 acid reflux 9 schizophrenia 10 [facility] home resident Plan Continue breathing treatments. Continue the IV Solu-Medrol which was tapered down to 40 mg every 12 hours. Wean down the FiO2 as tolerated to maintain a saturation above 90%. Continue laxatives. Insulin drip for blood sugar control. Cardiology is aware that the patient and Aldactone was added. We'll continue to follow. Patient was also placed on Coreg and metoprolol was discontinued
--- NOTE | 2018-01-03 12:55 | P.PN ---
Subjective Mrs. Santos is seen and examined resting comfortably in bed. She is mentally challenged and a poor historian. She initially came to the hospital for shortness of breath, abdominal pain/distension and constipation. She was found to have lactic acidosis and was given IV fluid bolus's and went into fluid overload requiring high flow oxygen, IV lasix and ICU monitoring. Echocardiogram obtain revealed moderately impaired left ventricular systolic function with ejection fraction 30-35% with apical septal hypokinesia noted. Medication adjustments were made yesterday to include the addition of Aldactone and changing from atenolol to coreg. She denies symptoms of chest pain, shortness of breath, dizziness or palpitations. She states she is feeling overall better since admission. Blood pressure 112/70 heart rate 81 afebrile maintaining oxygen saturation on nasal cannula. Laboratory data reviewed, WBC 13.3, hemoglobin 10.6, platelets 207, sodium 139, potassium 4.7, creatinine 0.77 , magnesium 3.0. She received magnesium supplementation as well as make suturing for constipation yesterday. Objective - Vital Signs Vital signs: Vital Signs Temp 97.6 F 01/03/18 05:00 Pulse 92 01/03/18 12:25 Resp 18 01/03/18 05:00 BP 125/62 01/03/18 05:00 Pulse Ox 96 01/03/18 05:00 Intake & Output 01/02/18 01/03/18 01/03/18 18:59 06:59 18:59 Intake Total 2369.503 66.225 15.075 Output Total 4050 350 1000 Balance -1680.497 -283.775 -984.925 Intake: IV 150 10 .9 @ 10 ml/hr 150 10 Intake, IV Titration 219.503 56.225 15.075 Amount Azithromycin 500 mg In 125 Dextrose 5% in Water 250 ml @ 125 mls/hr IVPB DAILY@1600 [facility] Rx#: [id number] Insulin Regular 100 unit 94.503 46.333 In Sodium Chloride 0.9% 100 ml @ Per Protocol IV .Q0M [facility] Rx#:[id number] Insulin Regular 100 unit 9.892 15.075 In Sodium Chloride 0.9% 100 ml @ Per Protocol IV .Q0M [facility] Rx#:[id number] Oral 2000 Output: Urine 3850 350 800 Uretheral (Cross) 800 Stool 200 200 Other: Voiding Method Indwelling Catheter Indwelling Catheter Indwelling Catheter # Voids 2 # Bowel Movements 1 - Exam GENERAL: Well-appearing, well-nourished and in no acute distress. NECK: Supple without JVD or thyromegaly. LUNGS: Expiratory wheezes noted. Respiration equal and unlabored. No rales or rhonchi. HEART: Regular rate and rhythm with systolic ejection murmur, no rubs or gallops. S1 and S2 heard. EXTREMITIES: Normal range of motion, trace bilateral lower extremity nonpitting edema. No clubbing or cyanosis. Peripheral pulses intact. - Labs CBC & Chem 7: 01/03/18 07:27 01/03/18 07:27 Labs: Abnormal Lab Results - Last 24 Hours (Table) 01/02/18 01/02/18 01/02/18 Range/Units 13:40 14:55 16:00 WBC (3.8-10.6) k/uL RBC (3.80-5.40) m/uL Hgb (11.4-16.0) gm/dL Hct (34.0-46.0) % Carbon Dioxide (22-30) mmol/L BUN (7-17) mg/dL Glucose (74-99) mg/dL POC Glucose (mg/dL) 165 H 176 H 166 H (75-99) mg/dL Magnesium (1.6-2.3) mg/dL AST (14-36) U/L ALT (9-52) U/L Total Protein (6.3-8.2) g/dL Albumin (3.5-5.0) g/dL 01/02/18 01/02/18 01/02/18 Range/Units 17:28 18:31 19:13 WBC (3.8-10.6) k/uL RBC (3.80-5.40) m/uL Hgb (11.4-16.0) gm/dL Hct (34.0-46.0) % Carbon Dioxide (22-30) mmol/L BUN (7-17) mg/dL Glucose (74-99) mg/dL POC Glucose (mg/dL) 137 H 250 H 346 H (75-99) mg/dL Magnesium (1.6-2.3) mg/dL AST (14-36) U/L ALT (9-52) U/L Total Protein (6.3-8.2) g/dL Albumin (3.5-5.0) g/dL 01/02/18 01/02/18 01/02/18 Range/Units 19:52 20:26 21:29 WBC (3.8-10.6) k/uL RBC (3.80-5.40) m/uL Hgb (11.4-16.0) gm/dL Hct (34.0-46.0) % Carbon Dioxide (22-30) mmol/L BUN (7-17) mg/dL Glucose (74-99) mg/dL POC Glucose (mg/dL) 362 H 252 H 204 H (75-99) mg/dL Magnesium (1.6-2.3) mg/dL AST (14-36) U/L ALT (9-52) U/L Total Protein (6.3-8.2) g/dL Albumin (3.5-5.0) g/dL 01/02/18 01/03/18 01/03/18 Range/Units 23:01 00:50 03:00 WBC (3.8-10.6) k/uL RBC (3.80-5.40) m/uL Hgb (11.4-16.0) gm/dL Hct (34.0-46.0) % Carbon Dioxide (22-30) mmol/L BUN (7-17) mg/dL Glucose (74-99) mg/dL POC Glucose (mg/dL) 149 H 140 H 183 H (75-99) mg/dL Magnesium (1.6-2.3) mg/dL AST (14-36) U/L ALT (9-52) U/L Total Protein (6.3-8.2) g/dL Albumin (3.5-5.0) g/dL 01/03/18 01/03/18 01/03/18 Range/Units 04:54 07:10 07:27 WBC 13.3 H (3.8-10.6) k/uL RBC 3.71 L (3.80-5.40) m/uL Hgb 10.6 L (11.4-16.0) gm/dL Hct 32.6 L (34.0-46.0) % Carbon Dioxide (22-30) mmol/L BUN (7-17) mg/dL Glucose (74-99) mg/dL POC Glucose (mg/dL) 162 H 130 H (75-99) mg/dL Magnesium (1.6-2.3) mg/dL AST (14-36) U/L ALT (9-52) U/L Total Protein (6.3-8.2) g/dL Albumin (3.5-5.0) g/dL 01/03/18 01/03/18 01/03/18 Range/Units 07:27 09:20 10:58 WBC (3.8-10.6) k/uL RBC (3.80-5.40) m/uL Hgb (11.4-16.0) gm/dL Hct (34.0-46.0) % Carbon Dioxide 38 H (22-30) mmol/L BUN 18 H (7-17) mg/dL Glucose 124 H (74-99) mg/dL POC Glucose (mg/dL) 201 H 292 H (75-99) mg/dL Magnesium 3.0 H (1.6-2.3) mg/dL AST 44 H (14-36) U/L ALT 95 H (9-52) U/L Total Protein 5.4 L (6.3-8.2) g/dL Albumin 3.4 L (3.5-5.0) g/dL Microbiology - Last 24 Hours (Table) 12/31/17 14:43 Blood Culture - Preliminary Blood No Growth after 48 hours 01/01/18 04:20 Urine Culture - Final Urine,Clean Catch Assessment and Plan Assessment: ASSESSMENT Pneumonia with exacerbation of asthma Cardiomyopathy with element of congestive heart failure, acute systolic. Currently euvolemic. Left bundle branch block, chronic Hypertension Dyslipidemia Diabetes mellitus PLAN The patient is currently euvolemic. Continue with current medical regimen. Further cardiac workup to be done as an outpatient when stable from the pulmonary standpoint. We will continue to follow as needed, please feel free to call if further questions or concerns. The above impression and plan of care have been discussed and directed by the signing physician. Mely Cannon, nurse practitioner, acting as scribe for signing physician.
--- NOTE | 2018-01-03 13:02 | P.PN ---
Subjective Progress Note Date: 01/03/18 Principal diagnosis: Abdominal pain Patient doing well today. She did have bowel movements yesterday. Denies pain. Tolerating liquids. Today's x-rays are pending. Objective - Vital Signs Vital signs: Vital Signs Temp 98.2 F 01/03/18 12:35 Pulse 81 01/03/18 12:35 Resp 18 01/03/18 12:35 BP 112/70 01/03/18 12:35 Pulse Ox 92 L 01/03/18 12:35 Intake & Output 01/02/18 01/03/18 01/03/18 18:59 06:59 18:59 Intake Total 2369.503 66.225 15.075 Output Total 4050 350 2200 Balance -1680.497 -283.775 -2184.925 Intake: IV 150 10 .9 @ 10 ml/hr 150 10 Intake, IV Titration 219.503 56.225 15.075 Amount Azithromycin 500 mg In 125 Dextrose 5% in Water 250 ml @ 125 mls/hr IVPB DAILY@1600 [facility] Rx#: [id number] Insulin Regular 100 unit 94.503 46.333 In Sodium Chloride 0.9% 100 ml @ Per Protocol IV .Q0M [facility] Rx#:[id number] Insulin Regular 100 unit 9.892 15.075 In Sodium Chloride 0.9% 100 ml @ Per Protocol IV .Q0M [facility] Rx#:[id number] Oral 2000 Output: Urine 3850 350 2000 Uretheral (Cross) 2000 Stool 200 200 Other: Voiding Method Indwelling Catheter Indwelling Catheter Indwelling Catheter # Voids 2 # Bowel Movements 1 - Exam Abdomen: Soft, nondistended, nontender - Labs CBC & Chem 7: 01/03/18 07:27 01/03/18 07:27 Labs: Abnormal Lab Results - Last 24 Hours (Table) 01/02/18 01/02/18 01/02/18 Range/Units 13:40 14:55 16:00 WBC (3.8-10.6) k/uL RBC (3.80-5.40) m/uL Hgb (11.4-16.0) gm/dL Hct (34.0-46.0) % Carbon Dioxide (22-30) mmol/L BUN (7-17) mg/dL Glucose (74-99) mg/dL POC Glucose (mg/dL) 165 H 176 H 166 H (75-99) mg/dL Magnesium (1.6-2.3) mg/dL AST (14-36) U/L ALT (9-52) U/L Total Protein (6.3-8.2) g/dL Albumin (3.5-5.0) g/dL 01/02/18 01/02/18 01/02/18 Range/Units 17:28 18:31 19:13 WBC (3.8-10.6) k/uL RBC (3.80-5.40) m/uL Hgb (11.4-16.0) gm/dL Hct (34.0-46.0) % Carbon Dioxide (22-30) mmol/L BUN (7-17) mg/dL Glucose (74-99) mg/dL POC Glucose (mg/dL) 137 H 250 H 346 H (75-99) mg/dL Magnesium (1.6-2.3) mg/dL AST (14-36) U/L ALT (9-52) U/L Total Protein (6.3-8.2) g/dL Albumin (3.5-5.0) g/dL 01/02/18 01/02/18 01/02/18 Range/Units 19:52 20:26 21:29 WBC (3.8-10.6) k/uL RBC (3.80-5.40) m/uL Hgb (11.4-16.0) gm/dL Hct (34.0-46.0) % Carbon Dioxide (22-30) mmol/L BUN (7-17) mg/dL Glucose (74-99) mg/dL POC Glucose (mg/dL) 362 H 252 H 204 H (75-99) mg/dL Magnesium (1.6-2.3) mg/dL AST (14-36) U/L ALT (9-52) U/L Total Protein (6.3-8.2) g/dL Albumin (3.5-5.0) g/dL 01/02/18 01/03/18 01/03/18 Range/Units 23:01 00:50 03:00 WBC (3.8-10.6) k/uL RBC (3.80-5.40) m/uL Hgb (11.4-16.0) gm/dL Hct (34.0-46.0) % Carbon Dioxide (22-30) mmol/L BUN (7-17) mg/dL Glucose (74-99) mg/dL POC Glucose (mg/dL) 149 H 140 H 183 H (75-99) mg/dL Magnesium (1.6-2.3) mg/dL AST (14-36) U/L ALT (9-52) U/L Total Protein (6.3-8.2) g/dL Albumin (3.5-5.0) g/dL 01/03/18 01/03/18 01/03/18 Range/Units 04:54 07:10 07:27 WBC 13.3 H (3.8-10.6) k/uL RBC 3.71 L (3.80-5.40) m/uL Hgb 10.6 L (11.4-16.0) gm/dL Hct 32.6 L (34.0-46.0) % Carbon Dioxide (22-30) mmol/L BUN (7-17) mg/dL Glucose (74-99) mg/dL POC Glucose (mg/dL) 162 H 130 H (75-99) mg/dL Magnesium (1.6-2.3) mg/dL AST (14-36) U/L ALT (9-52) U/L Total Protein (6.3-8.2) g/dL Albumin (3.5-5.0) g/dL 01/03/18 01/03/18 01/03/18 Range/Units 07:27 09:20 10:58 WBC (3.8-10.6) k/uL RBC (3.80-5.40) m/uL Hgb (11.4-16.0) gm/dL Hct (34.0-46.0) % Carbon Dioxide 38 H (22-30) mmol/L BUN 18 H (7-17) mg/dL Glucose 124 H (74-99) mg/dL POC Glucose (mg/dL) 201 H 292 H (75-99) mg/dL Magnesium 3.0 H (1.6-2.3) mg/dL AST 44 H (14-36) U/L ALT 95 H (9-52) U/L Total Protein 5.4 L (6.3-8.2) g/dL Albumin 3.4 L (3.5-5.0) g/dL Microbiology - Last 24 Hours (Table) 12/31/17 14:43 Blood Culture - Preliminary Blood No Growth after 48 hours 01/01/18 04:20 Urine Culture - Final Urine,Clean Catch Assessment and Plan (1) Constipation Narrative/Plan: Increase diet. Will check today's x-rays. Continue stool softeners. Current Visit: Yes Status: Acute Code(s): K59.00 - CONSTIPATION, UNSPECIFIED SNOMED Code(s): 17143022
[2018-01-03 13:04] LABS: Glucose,Whole Blood 249 mg/dL (75-99)
[2018-01-03 15:26] LABS: Glucose,Whole Blood 351 mg/dL (75-99)
[2018-01-03] MEDS: AZITHROMYCIN 500 MG in DEXTROSE 5% IN WATER 250 ML IVPB SCH ×2 (15:43)
[2018-01-03 16:53] LABS: Glucose,Whole Blood 209 mg/dL (75-99)
[2018-01-03] MEDS: TROSPIUM CHLORIDE 20 MG TABLET PO SCH (17:28)
[2018-01-03] MEDS: LISINOPRIL 10 MG TAB PO SCH (17:28)
[2018-01-03] MEDS: LORATADINE 10 MG TAB PO SCH (17:28)
--- NOTE | 2018-01-03 17:45 | PN ---
PROGRESS NOTE DATE OF SERVICE: 01/03/2018 PRESENTING COMPLAINT: Short of breath. INTERVAL HISTORY: Patient admitted with pneumonia and also had fluid overload, was in the ICU. This morning, the patient had an episode of shortness of breath, felt to be more bronchospastic. Responded well to breathing treatment. The patient has had 2 good moderate-sized bowel movements. Did tolerate some diet. On nasal cannula. Sitting up on the bed. REVIEW OF SYSTEMS: Done for constitutional, cardiovascular, GI, pulmonary; relevant findings as above. CURRENT MEDICATIONS: Reviewed that include: 1. DuoNeb. 2. Azithromycin. 3. IV ceftriaxone. 4. Insulin drip. 5. IV Solu-Medrol 40 q.12. EXAMINATION: Temperature 98.2, pulse 80, respirations 18, blood pressure 112/70, pulse ox 92% on 4L. GENERAL APPEARANCE: Sitting on the bed, tired, awake. EYES: Pupils equal. Conjunctivae normal. HEENT: External nose and ears normal. Oral cavity normal. NECK: JVD not raised. Mass not palpable. RESPIRATORY: Effort increased. LUNGS: Decreased breath sounds, minimal wheezing. CARDIOVASCULAR: First and second sounds normal. Minimal edema. ABDOMEN: Distended, soft. Liver and spleen not palpable. PSYCHIATRY: Awake, answering questions appropriately. INVESTIGATIONS: Accu-Cheks noted. White count 13.3, hemoglobin 10.6. Potassium is 4.7, BUN 18, creatinine 0.77. ASSESSMENT: 1. Right lower lobe pneumonia, suspect gram-negative organism, present on admission. 2. Acute congestive heart failure exacerbation from systolic dysfunction, ejection fraction 30%-35%, causing acute hypoxic respiratory failure, currently on 5L of oxygen. 3. Diabetes mellitus type 2 on oral hypoglycemic, uncontrolled with hyperglycemia, currently on insulin, remains on insulin drip. 4. Gastroesophageal reflux disease. 5. Hyperlipidemia. 6. Essential hypertension. 7. Chronic urinary stress incontinence. 8. Chronic mental impairment. 9. Severe constipation, possible ileus, has responded to laxatives. 10.Acute chronic obstructive pulmonary disease exacerbation in a nonsmoker. PLAN: The patient remains on insulin drip presently, remains on IV Lasix, antibiotics and bronchodilators. Patient remains also on IV steroids, insulin drip. Sugars have been still running high in the 200s up to 300s. Follow. MMODL / IJN: [id number] /
[2018-01-03 19:52] LABS: Glucose,Whole Blood 197 mg/dL (75-99)
[2018-01-03 20:55] LABS: Glucose,Whole Blood 194 mg/dL (75-99)
[2018-01-03] MEDS: ATORVASTATIN 20 MG TAB PO SCH (21:18)
[2018-01-03] MEDS: SENNOSIDES 8.6 MG TAB PO SCH (21:32)
[2018-01-03] MEDS: cloZAPine 100 MG TAB PO SCH (21:32)
--- NOTE | 2018-01-03 22:32 | XR ---
EXAMINATION TYPE: XR abdomen 2V DATE OF EXAM: 01/03/2018 COMPARISON: 01/01/2018 HISTORY: Constipation TECHNIQUE: 2 views FINDINGS: Supine and upright abdomen show significant retained fecal material throughout the colon. T here is no sign of free air. Lung bases are clear. There are no pathologic calcifications over the ki dneys. IMPRESSION: Constipation similar to last exam. No free air.
[2018-01-03 22:50] LABS: Glucose,Whole Blood 209 mg/dL (75-99)
[2018-01-04 00:56] LABS: Glucose,Whole Blood 186 mg/dL (75-99)
[2018-01-04 02:55] LABS: Glucose,Whole Blood 195 mg/dL (75-99)
[2018-01-04 04:42] LABS: Glucose,Whole Blood 223 mg/dL (75-99)
[2018-01-04 07:02] LABS: Glucose,Whole Blood 210 mg/dL (75-99)
[2018-01-04 07:14] LABS: HCT 34.1 % (34.0-46.0); HGB 11.1 gm/dL (11.4-16.0); MCH 28.6 pg (25.0-35.0); MCHC 32.7 g/dL (31.0-37.0); MCV 87.6 fL (80.0-100.0); Mean Platelet Volume 6.8; Platelet Count 215 k/uL (150-450); RBC 3.89 m/uL (3.80-5.40); RDW 13.7 % (11.5-15.5); WBC 10.7 k/uL (3.8-10.6)
[2018-01-04] MEDS: INSULIN REGULAR 100 UNIT in SODIUM CHLORIDE 0.9% 100 ML IV SCH (07:14)
[2018-01-04 07:23] LABS: ALT 78 U/L (9-52); AST 21 U/L (14-36); Albumin 3.4 g/dL (3.5-5.0); Alkaline Phosphatase 75 U/L (38-126); Anion Gap 5 mmol/L; Blood Urea Nitrogen 22 mg/dL (7-17); Calcium 9.2 mg/dL (8.4-10.2); Carbon Dioxide 38 mmol/L (22-30); Chloride 99 mmol/L (98-107); Glucose 195 mg/dL (74-99); Magnesium 2.3 mg/dL (1.6-2.3); Potassium 4.8 mmol/L (3.5-5.1); Sodium 142 mmol/L (137-145); Total Bilirubin 0.3 mg/dL (0.2-1.3); Total Protein 5.5 g/dL (6.3-8.2)
[2018-01-04] MEDS: CARVEDILOL 12.5 MG TAB PO SCH ×2 (07:30→17:40)
[2018-01-04] MEDS: INSULIN ASPART 100 UNIT/ML 1 ML 10 ML VIAL SQ SCH ×3 (08:00→17:38)
[2018-01-04] MEDS: BUDESONIDE 1 MG/2 ML NEBU INHALATION SCH ×2 (08:35→20:23)
[2018-01-04] MEDS: IPRATROPIUM-ALBUTEROL 3 ML NEB INHALATION SCH ×4 (08:35→20:02)
[2018-01-04] MEDS: cefTRIAXone IN SWFI 1,000 MG/10 ML SYRINGE IVP SCH (09:18)
[2018-01-04] MEDS: metFORMIN 500 MG TAB PO SCH ×2 (09:19→17:40)
[2018-01-04] MEDS: PANTOPRAZOLE 40 MG TABLET PO SCH (09:19)
[2018-01-04] MEDS: ALLOPURINOL 100 MG TAB PO SCH ×2 (09:19→22:35)
[2018-01-04] MEDS: LACTULOSE 20 GM/30 ML CUP PO SCH ×2 (09:19→22:35)
[2018-01-04] MEDS: CHOLECALCIFEROL 1,000 UNIT TAB PO SCH (09:19)
[2018-01-04] MEDS: CITALOPRAM HYDROBROMIDE 20 MG TAB PO SCH (09:20)
[2018-01-04] MEDS: ASPIRIN 81 MG PO SCH (09:20)
[2018-01-04] MEDS: HYDROCHLOROTHIAZIDE 12.5 MG CAP PO SCH (09:20)
[2018-01-04] MEDS: FENOFIBRATE 160 MG TAB PO SCH (09:20)
[2018-01-04] MEDS: POTASSIUM CHLORIDE ER 10 MEQ TAB.ER.PRT PO SCH (09:21)
[2018-01-04] MEDS: methylPREDNISolone SOD SUCCI 40 MG/ML 1 ML VIAL IV SCH ×2 (09:21→22:34)
[2018-01-04] MEDS: LOVAZA PO SCH ×2 (09:22→22:33)
[2018-01-04] MEDS: SPIRONOLACTONE 25 MG TAB PO SCH ×2 (09:22→19:55)
[2018-01-04] MEDS: cloZAPine 25 MG TAB PO SCH (09:25)
[2018-01-04 09:26] LABS: Glucose,Whole Blood 261 mg/dL (75-99)
--- NOTE | 2018-01-04 10:10 | XR ---
EXAMINATION TYPE: XR chest 1V portable DATE OF EXAM: 01/04/2018 Comparison: 01/02/2018 Clinical History: 52 year-old female shortness of breath, follow up Findings: Heart upper limits of normal in size. Aorta within normal limits. Mild diffuse interstitial prominenc e is similar and has a chronic appearance. No consolidation or pleural effusion. Impression: Chronic changes, possible bronchitis or asthma. No acute change seen.
[2018-01-04 10:54] LABS: Glucose,Whole Blood 258 mg/dL (75-99)
--- NOTE | 2018-01-04 12:05 | P.PN ---
Subjective Progress Note Date: 01/04/18 This is a 52-year-old female patient, a poor historian with known history of COPD and addition to diabetes mellitus type 2, hypertension and hyperlipidemia and schizophrenia, who came into the hospital because of shortness of breath. The patient has been followed up by visiting physicians. She is mentally impaired and she is a poor historian. Her shortness of breath dates back to around 2 days ago and she was having these cough without any significant sputum production. There was also reported increased bronchospasm and wheezing and she was getting more short of breath and tired. She was also having some increased constipation and abdominal distention. On admission, chest x-ray was done and showed bilaterally no opacities most consistent with atelectasis although early developing pneumonia in the right lower lobe and the right middle lobe could not be excluded. The patient was started on antibiotics. The patient was started on IV Solu-Medrol. The patient was also started on IV fluids knowing that she had a component of lactic acidosis with initial lactic acid level of 4.4. Note that her lactic acid level dropped down to 1.8. Nevertheless earlier this point the patient became progressively more short of breath and a chest x-ray was done and it showed interval development of moderate degree of interstitial edema which is probably related to fluid overload as the patient was receiving IV fluids in regards to her lactic acidosis. Flat film of the abdomen was also done that showed nonobstructive bowel gas pattern and there was fairly moderate amount of colonic fecal stasis. I saw this patient on the medical floor. She was in 100 % nonrebreather facemask. I decide to move this patient to the intensive care unit for more monitoring. She was given a dose of Lasix following which she had adequate urine output and she was getting less short of breath. She denied having any chest pain. Her white cell count is not elevated at 6.8. Hemoccult was stable at 10.6. Rest of the electrodes are all within normal including her renal function tests. She had developed some steroid-induced hyperglycemia related to systemic steroids and the patient was started on insulin drip for blood sugar control. In terms of antibiotic coverage, the patient is on a combination of Rocephin and Zithromax. The patient was also seen by Dr. strange. She was given milk of magnesia regarding her constipation. She'll be monitored clinically. We'll consider CAT scan of the abdomen and pelvis if she continues to have abdominal distention. On 01/02/2018 the patient is less short of breath compared to yesterday. She was weaned down to 5 L of oxygen by nasal cannula. She made excellent urine output with diuretics yesterday and the patient shows improvement in the volume status on today's chest x-ray. The patient is a negative fluid balance. The patient is not having any chest pain. She is still congested and she has a cough and some limited wheezing. Abdomen is still distended. The patient undertook a Fleet enema yesterday and the patient also received milk of magnesia without success in terms of her bowel activity. No abdominal pain. Abdomen is slightly distended still. No fever. No chills. No hypotension. No other complaints otherwise for now. White cell count is at 12.5. The patient has a normal renal function. On today's evaluation of 01/03/2018 the patient is seeming to have less shortness of breath. She is on 5 L of oxygen by nasal cannula. She is bronchospastic. She has a congested cough. No significant sputum production. Abdomen is less distended. The patient was placed on a combination of the test and the patient was able to produce a bowel movement. No fever or chills. She is on a combination of albuterol and Atrovent about treatments around the clock in addition to IV Solu-Medrol that was Down to 40 mg every 12 hours. The patient is on insulin drip for blood sugar control for now. She has normal blood work. No significant leukocytosis. Renal function remains stable. She is producing adequate amount of urine output. On 2017, the patient is doing slow progress and improvement in her acute COPD exacerbation. She has bronchus spastic and wheezy however she still in need of IV Solu-Medrol and for that reason this will be continued and the patient will be kept also on IV heparin for blood sugar control. No chest pain. Most of the sputum production. No pleurisy or hemoptysis. Abdomen is again less distended. On today's evaluation, her white count is at 10.7. Rest of the electrodes are all within normal limits. The patient is on the one of the breast units [id number]. The patient is on empiric antibiotic coverage with a combination of Rocephin and Zithromax. The patient is on Solu-Medrol 40 mg every 12 hours. The patient is also being managed for CHF with a combination of woo inhibitors, diuretics including Aldactone. She is also on beta blockers in the form of Coreg. Objective - Vital Signs Vital signs: Vital Signs Temp 98.4 F 01/04/18 05:22 Pulse 84 01/04/18 08:59 Resp 18 01/04/18 08:00 BP 123/81 01/04/18 05:22 Pulse Ox 99 01/04/18 05:22 Intake & Output 01/03/18 01/04/18 01/04/18 18:59 06:59 18:59 Intake Total 262.908 31.750 15.45 Output Total 4225 1900 Balance -3962.092 -1868.250 15.45 Intake: IV 80 .9 @ 10 ml/hr 80 Intake, IV Titration 182.908 31.750 15.45 Amount Azithromycin 500 mg In 125 Dextrose 5% in Water 250 ml @ 125 mls/hr IVPB DAILY@1600 [facility] Rx#: [id number] Insulin Regular 100 unit 57.908 31.750 15.45 In Sodium Chloride 0.9% 100 ml @ Per Protocol IV .Q0M [facility] Rx#:[id number] Output: Urine 3825 1900 Uretheral (Cross) 2000 1900 Stool 400 Other: Voiding Method Indwelling Catheter Indwelling Catheter Indwelling Catheter # Voids 3 0 # Bowel Movements 2 - Exam Gen. appearance the patient is a [id number] degree of respiratory distress , currently on 4 L of oxygen by nasal cannula Head exam was generally normal. There was no scleral icterus or corneal arcus. Mucous membranes were moist. Neck was supple and without jugular venous distension, thyromegaly, or carotid bruits. Carotids were easily palpable bilaterally. There was no adenopathy. Lungs sounds are diminished and there is diffuse expiratory wheezes throughout the lung jimenez bilaterally and prolongation of expiratory phase of breathing, overall bronchospasm wheezing has improved compared to yesterday Cardiac exam revealed the PMI to be normally situated and sized. The rhythm was regular and no extrasystoles were noted during several minutes of auscultation. The first and second heart sounds were normal and physiologic splitting of the second heart sound was noted. There were no murmurs, rubs, clicks, or gallops. Abdomen is less distended. There is no direct tenderness rebound tensile guarding at this point. Bowel sounds are hypoactive. Organs cannot be accurately palpated. Examination of the extremities revealed easily palpable radial, femoral and pedal pulses. There was no cyanosis, clubbing or edema. Examination of the skin revealed no evidence of significant rashes, suspicious appearing nevi or other concerning lesions. - Labs CBC & Chem 7: 01/04/18 06:57 01/04/18 06:57 Labs: Abnormal Lab Results - Last 24 Hours (Table) 01/03/18 01/03/18 01/03/18 Range/Units 12:35 13:01 15:24 WBC (3.8-10.6) k/uL Hgb (11.4-16.0) gm/dL Carbon Dioxide (22-30) mmol/L BUN (7-17) mg/dL Glucose (74-99) mg/dL POC Glucose (mg/dL) 249 H 351 H (75-99) mg/dL Plasma Lactic Acid Dion 2.1 H* (0.7-2.0) mmol/L ALT (9-52) U/L Total Protein (6.3-8.2) g/dL Albumin (3.5-5.0) g/dL 01/03/18 01/03/18 01/03/18 Range/Units 16:53 19:44 20:53 WBC (3.8-10.6) k/uL Hgb (11.4-16.0) gm/dL Carbon Dioxide (22-30) mmol/L BUN (7-17) mg/dL Glucose (74-99) mg/dL POC Glucose (mg/dL) 209 H 197 H 194 H (75-99) mg/dL Plasma Lactic Acid Dion (0.7-2.0) mmol/L ALT (9-52) U/L Total Protein (6.3-8.2) g/dL Albumin (3.5-5.0) g/dL 01/03/18 01/04/18 01/04/18 Range/Units 22:48 00:55 02:52 WBC (3.8-10.6) k/uL Hgb (11.4-16.0) gm/dL Carbon Dioxide (22-30) mmol/L BUN (7-17) mg/dL Glucose (74-99) mg/dL POC Glucose (mg/dL) 209 H 186 H 195 H (75-99) mg/dL Plasma Lactic Acid Dion (0.7-2.0) mmol/L ALT (9-52) U/L Total Protein (6.3-8.2) g/dL Albumin (3.5-5.0) g/dL 01/04/18 01/04/18 01/04/18 Range/Units 04:39 06:57 06:57 WBC 10.7 H (3.8-10.6) k/uL Hgb 11.1 L (11.4-16.0) gm/dL Carbon Dioxide 38 H (22-30) mmol/L BUN 22 H (7-17) mg/dL Glucose 195 H (74-99) mg/dL POC Glucose (mg/dL) 223 H (75-99) mg/dL Plasma Lactic Acid Dion (0.7-2.0) mmol/L ALT 78 H (9-52) U/L Total Protein 5.5 L (6.3-8.2) g/dL Albumin 3.4 L (3.5-5.0) g/dL 01/04/18 01/04/18 01/04/18 Range/Units 07:01 09:25 10:51 WBC (3.8-10.6) k/uL Hgb (11.4-16.0) gm/dL Carbon Dioxide (22-30) mmol/L BUN (7-17) mg/dL Glucose (74-99) mg/dL POC Glucose (mg/dL) 210 H 261 H 258 H (75-99) mg/dL Plasma Lactic Acid Dion (0.7-2.0) mmol/L ALT (9-52) U/L Total Protein (6.3-8.2) g/dL Albumin (3.5-5.0) g/dL Microbiology - Last 24 Hours (Table) 12/31/17 14:43 Blood Culture - Preliminary Blood No Growth after 72 hours Assessment and Plan Plan: Assessment 1 acute COPD exacerbation with suspected right lower lobe/middle lobe pneumonia. The patient was being treated for an acute COPD exacerbation and she is on a combination of DuoNeb nebulized treatments and IV Solu-Medrol which is being gradually tapered off. The patient also wants to acute pulmonary edema and she was diagnosed having underlying CHF and she was diuresed and she is producing adequate amount of urine output. She is currently on 5 L of oxygen by nasal cannula. Patient is clinically improving. A repeat chest x- ray from today shows mild diffuse interstitial prominence without any consolidation or airspace disease. Patient is clinically improving. The patient is on bronchodilators and IV Solu-Medrol 40 every 12 hours, in addition to a combination of Rocephin and Zithromax. 2 acute shortness of breath secondary to above. The shortness of breath is improving. 3 CHF with an ejection fraction of 30-35% with underlying segmental wall motion abnormality rule out underlying coronary artery disease. The patient is currently on a combination of Coreg, lisinopril and Aldactone 4 abdominal distention, possibly related to fecal stasis/constipation, the patient received laxative and she is improving 5 diabetes mellitus type 2 with steroid-induced hyperglycemia currently on insulin drip for blood sugar control 6 hypertension 7 hyperlipidemia 8 acid reflux 9 schizophrenia 10 [facility] home resident Plan Continue breathing treatments. Continue the IV Solu-Medrol which was tapered down to 40 mg every 12 hours. Keep insulin for blood sugar control. Optimize CHF. Optimize COPD. Ablate in the hallway. We'll continue to follow.
[2018-01-04 13:46] LABS: Glucose,Whole Blood 292 mg/dL (75-99)
--- NOTE | 2018-01-04 14:52 | P.PN ---
Subjective Progress Note Date: 01/04/18 Principal diagnosis: Abdominal pain Patient having some mild abdominal pain today. She did have bowel movement yesterday. Stools were still solid per the nursing staff. She is passing flatus. She is tolerating diet. Objective - Vital Signs Vital signs: Vital Signs Temp 98.4 F 01/04/18 05:22 Pulse 80 01/04/18 12:52 Resp 18 01/04/18 08:00 BP 123/81 01/04/18 05:22 Pulse Ox 99 01/04/18 05:22 Intake & Output 01/03/18 01/04/18 01/04/18 18:59 06:59 18:59 Intake Total 262.908 31.750 767.867 Output Total 4225 1900 500 Balance -3962.092 -1868.250 267.867 Intake: IV 80 38 .9 @ 10 ml/hr 80 38 Intake, IV Titration 182.908 31.750 109.867 Amount Azithromycin 500 mg In 125 Dextrose 5% in Water 250 ml @ 125 mls/hr IVPB DAILY@1600 [facility] Rx#: [id number] Insulin Regular 100 unit 57.908 31.750 29.867 In Sodium Chloride 0.9% 100 ml @ Per Protocol IV .Q0M [facility] Rx#:[id number] Sodium Chloride 0.9% 1, 80 000 ml @ 10 mls/hr IV . Q24H [facility] Rx#:[id number] Oral 620 Output: Urine 3825 1900 500 Uretheral (Cross) 2000 1900 Stool 400 Other: Voiding Method Indwelling Catheter Indwelling Catheter Indwelling Catheter # Voids 3 0 # Bowel Movements 2 - Exam Abdomen: Soft, mild distention, mild lower abdominal tenderness - Labs CBC & Chem 7: 01/04/18 06:57 01/04/18 06:57 Labs: Abnormal Lab Results - Last 24 Hours (Table) 01/03/18 01/03/18 01/03/18 Range/Units 15:24 16:53 19:44 WBC (3.8-10.6) k/uL Hgb (11.4-16.0) gm/dL Carbon Dioxide (22-30) mmol/L BUN (7-17) mg/dL Glucose (74-99) mg/dL POC Glucose (mg/dL) 351 H 209 H 197 H (75-99) mg/dL ALT (9-52) U/L Total Protein (6.3-8.2) g/dL Albumin (3.5-5.0) g/dL 01/03/18 01/03/18 01/04/18 Range/Units 20:53 22:48 00:55 WBC (3.8-10.6) k/uL Hgb (11.4-16.0) gm/dL Carbon Dioxide (22-30) mmol/L BUN (7-17) mg/dL Glucose (74-99) mg/dL POC Glucose (mg/dL) 194 H 209 H 186 H (75-99) mg/dL ALT (9-52) U/L Total Protein (6.3-8.2) g/dL Albumin (3.5-5.0) g/dL 01/04/18 01/04/18 01/04/18 Range/Units 02:52 04:39 06:57 WBC 10.7 H (3.8-10.6) k/uL Hgb 11.1 L (11.4-16.0) gm/dL Carbon Dioxide (22-30) mmol/L BUN (7-17) mg/dL Glucose (74-99) mg/dL POC Glucose (mg/dL) 195 H 223 H (75-99) mg/dL ALT (9-52) U/L Total Protein (6.3-8.2) g/dL Albumin (3.5-5.0) g/dL 01/04/18 01/04/18 01/04/18 Range/Units 06:57 07:01 09:25 WBC (3.8-10.6) k/uL Hgb (11.4-16.0) gm/dL Carbon Dioxide 38 H (22-30) mmol/L BUN 22 H (7-17) mg/dL Glucose 195 H (74-99) mg/dL POC Glucose (mg/dL) 210 H 261 H (75-99) mg/dL ALT 78 H (9-52) U/L Total Protein 5.5 L (6.3-8.2) g/dL Albumin 3.4 L (3.5-5.0) g/dL 01/04/18 01/04/18 Range/Units 10:51 13:44 WBC (3.8-10.6) k/uL Hgb (11.4-16.0) gm/dL Carbon Dioxide (22-30) mmol/L BUN (7-17) mg/dL Glucose (74-99) mg/dL POC Glucose (mg/dL) 258 H 292 H (75-99) mg/dL ALT (9-52) U/L Total Protein (6.3-8.2) g/dL Albumin (3.5-5.0) g/dL Microbiology - Last 24 Hours (Table) 12/31/17 14:43 Blood Culture - Preliminary Blood No Growth after 72 hours Assessment and Plan (1) Constipation Narrative/Plan: Will try soapsuds enemas this evening. Continue stool softeners as ordered. Repeat abdominal x-rays tomorrow. Continue diet as ordered. Increase activity as tolerated. Current Visit: Yes Status: Acute Code(s): K59.00 - CONSTIPATION, UNSPECIFIED SNOMED Code(s): 64010531
[2018-01-04 15:05] LABS: Glucose,Whole Blood 279 mg/dL (75-99)
[2018-01-04 17:34] LABS: Glucose,Whole Blood 235 mg/dL (75-99)
[2018-01-04] MEDS: AZITHROMYCIN 500 MG in DEXTROSE 5% IN WATER 250 ML IVPB SCH ×2 (17:39)
[2018-01-04] MEDS: TROSPIUM CHLORIDE 20 MG TABLET PO SCH (17:40)
[2018-01-04] MEDS: LISINOPRIL 10 MG TAB PO SCH (17:41)
[2018-01-04] MEDS: LORATADINE 10 MG TAB PO SCH (17:41)
[2018-01-04 19:25] LABS: Glucose,Whole Blood 258 mg/dL (75-99)
--- NOTE | 2018-01-04 20:04 | PN ---
PROGRESS NOTE DATE OF SERVICE: 01/04/2018 PRESENTING COMPLAINT: Short of breath. INTERVAL HISTORY: This patient was admitted with pneumonia and fluid overload, the latter of which is now euvolemic. The patient is on 4 L of oxygen. Tolerating some diet. Had a bowel movement. Still short of breath, some bronchospasm still present. Overall feeling a bit better, though tired. REVIEW OF SYSTEMS: Done for constitutional, cardiovascular, GI, pulmonary; relevant findings as above. CURRENT MEDICATIONS: Reviewed. They include bronchodilators, IV ceftriaxone, Zithromax, and IV Solu-Medrol 40 q.12. PHYSICAL EXAMINATION: Temperature 97.7, pulse 59, respiration 16, blood pressure 127/58, pulse ox 94%. GENERAL APPEARANCE: Propped up in bed, awake. Minimally short of breath. EYES: Pupils equal. Conjunctivae normal. HEENT: External appearance of nose and ears normal. Oral cavity normal. NECK: JVD not raised. Mass not palpable. RESPIRATORY: Effort increased. LUNGS: Decreased breath sounds. Some wheezing. CARDIOVASCULAR: First and second sounds normal. No edema. ABDOMEN: Distended, soft. Liver and spleen not palpable. PSYCHIATRY: Awake, answering questions. INVESTIGATIONS: Accu-Cheks are noted; 292, 279, 235, 258. ASSESSMENT: 1. Right lower lobe pneumonia; suspect gram-negative organism; present on admission. 2. Acute congestive heart failure exacerbation from systolic dysfunction, ejection fraction 30% to 35%, euvolemic. 3. Acute hypoxic respiratory failure. Remains on 4-5 L of oxygen. 4. Diabetes mellitus, type 2, on oral hypoglycemic, uncontrolled with hyperglycemia from steroids. Remains on insulin drip. 5. Gastroesophageal reflux disease. 6. Hyperlipidemia. 7. Essential hypertension. 8. Chronic urinary stress incontinence. 9. Chronic mental impairment. 10.Severe constipation; responded to laxative. 11.Acute chronic obstructive pulmonary disease exacerbation in a non-smoker, slow to respond. PLAN: Will keep the patient on IV steroids. Lasix has been switched over. Instead of hydrochlorothiazide, will use Aldactone. Patient is also on Coreg. Will follow. MMODL / IJN: [id number] /
[2018-01-04 20:59] LABS: Glucose,Whole Blood 297 mg/dL (75-99)
[2018-01-04 21:13] LABS: Glucose,Whole Blood 333 mg/dL (75-99)
[2018-01-04] MEDS: cloZAPine 100 MG TAB PO SCH (22:35)
[2018-01-04] MEDS: ATORVASTATIN 20 MG TAB PO SCH (22:35)
[2018-01-04] MEDS: SENNOSIDES 8.6 MG TAB PO SCH (22:35)
[2018-01-04] MEDS: SODIUM CHLORIDE 0.9% 1,000 ML IV SCH (22:36)
[2018-01-04 22:46] LABS: Glucose,Whole Blood 181 mg/dL (75-99)
[2018-01-05 00:51] LABS: Glucose,Whole Blood 119 mg/dL (75-99)
[2018-01-05 02:52] LABS: Glucose,Whole Blood 208 mg/dL (75-99)
[2018-01-05 04:49] LABS: Glucose,Whole Blood 196 mg/dL (75-99)
[2018-01-05 07:05] LABS: Glucose,Whole Blood 225 mg/dL (75-99)
[2018-01-05] MEDS: BUDESONIDE 1 MG/2 ML NEBU INHALATION SCH ×2 (07:08→19:31)
[2018-01-05] MEDS: IPRATROPIUM-ALBUTEROL 3 ML NEB INHALATION SCH ×4 (07:08→19:31)
[2018-01-05 07:23] LABS: HCT 35.8 % (34.0-46.0); HGB 11.4 gm/dL (11.4-16.0); MCH 27.8 pg (25.0-35.0); MCHC 31.7 g/dL (31.0-37.0); MCV 87.7 fL (80.0-100.0); Mean Platelet Volume 6.9; Platelet Count 263 k/uL (150-450); RBC 4.09 m/uL (3.80-5.40); RDW 13.5 % (11.5-15.5); WBC 9.9 k/uL (3.8-10.6)
[2018-01-05 07:55] LABS: Albumin 3.5 g/dL (3.5-5.0); Calcium 9.5 mg/dL (8.4-10.2); Phosphorus 4.9 mg/dL (2.5-4.5); Potassium 4.7 mmol/L (3.5-5.1); Total Bilirubin 0.3 mg/dL (0.2-1.3); Total Protein 5.5 g/dL (6.3-8.2)
[2018-01-05] MEDS: methylPREDNISolone SOD SUCCI 40 MG/ML 1 ML VIAL IV SCH ×2 (07:58→21:19)
[2018-01-05] MEDS: INSULIN ASPART 100 UNIT/ML 1 ML 10 ML VIAL SQ SCH ×3 (07:58→17:20)
[2018-01-05] MEDS: LACTULOSE 20 GM/30 ML CUP PO SCH ×2 (07:58→21:19)
[2018-01-05] MEDS: PANTOPRAZOLE 40 MG TABLET PO SCH (07:59)
[2018-01-05] MEDS: ALLOPURINOL 100 MG TAB PO SCH ×2 (07:59→21:19)
[2018-01-05] MEDS: cefTRIAXone IN SWFI 1,000 MG/10 ML SYRINGE IVP SCH (07:59)
[2018-01-05] MEDS: SPIRONOLACTONE 25 MG TAB PO SCH (07:59)
[2018-01-05] MEDS: CHOLECALCIFEROL 1,000 UNIT TAB PO SCH (07:59)
[2018-01-05] MEDS: CARVEDILOL 12.5 MG TAB PO SCH ×2 (07:59→17:18)
[2018-01-05] MEDS: cloZAPine 25 MG TAB PO SCH (07:59)
[2018-01-05] MEDS: POTASSIUM CHLORIDE ER 10 MEQ TAB.ER.PRT PO SCH (07:59)
[2018-01-05] MEDS: CITALOPRAM HYDROBROMIDE 20 MG TAB PO SCH (07:59)
[2018-01-05] MEDS: FENOFIBRATE 160 MG TAB PO SCH (07:59)
[2018-01-05] MEDS: metFORMIN 500 MG TAB PO SCH ×2 (07:59→17:18)
[2018-01-05] MEDS: ASPIRIN 81 MG PO SCH (08:00)
[2018-01-05] MEDS: LOVAZA PO SCH ×2 (08:04→21:23)
[2018-01-05 09:00] LABS: Glucose,Whole Blood 291 mg/dL (75-99)
[2018-01-05 10:56] VITALS: BMI 31.1
[2018-01-05 11:24] LABS: Glucose,Whole Blood 278 mg/dL (75-99)
[2018-01-05] MEDS: INSULIN REGULAR 100 UNIT in SODIUM CHLORIDE 0.9% 100 ML IV SCH (11:25)
--- NOTE | 2018-01-05 12:26 | P.PN ---
Subjective Progress Note Date: 01/05/18 This is a 52-year-old female patient, a poor historian with known history of COPD and addition to diabetes mellitus type 2, hypertension and hyperlipidemia and schizophrenia, who came into the hospital because of shortness of breath. The patient has been followed up by visiting physicians. She is mentally impaired and she is a poor historian. Her shortness of breath dates back to around 2 days ago and she was having these cough without any significant sputum production. There was also reported increased bronchospasm and wheezing and she was getting more short of breath and tired. She was also having some increased constipation and abdominal distention. On admission, chest x-ray was done and showed bilaterally no opacities most consistent with atelectasis although early developing pneumonia in the right lower lobe and the right middle lobe could not be excluded. The patient was started on antibiotics. The patient was started on IV Solu-Medrol. The patient was also started on IV fluids knowing that she had a component of lactic acidosis with initial lactic acid level of 4.4. Note that her lactic acid level dropped down to 1.8. Nevertheless earlier this point the patient became progressively more short of breath and a chest x-ray was done and it showed interval development of moderate degree of interstitial edema which is probably related to fluid overload as the patient was receiving IV fluids in regards to her lactic acidosis. Flat film of the abdomen was also done that showed nonobstructive bowel gas pattern and there was fairly moderate amount of colonic fecal stasis. I saw this patient on the medical floor. She was in 100 % nonrebreather facemask. I decide to move this patient to the intensive care unit for more monitoring. She was given a dose of Lasix following which she had adequate urine output and she was getting less short of breath. She denied having any chest pain. Her white cell count is not elevated at 6.8. Hemoccult was stable at 10.6. Rest of the electrodes are all within normal including her renal function tests. She had developed some steroid-induced hyperglycemia related to systemic steroids and the patient was started on insulin drip for blood sugar control. In terms of antibiotic coverage, the patient is on a combination of Rocephin and Zithromax. The patient was also seen by Dr. strange. She was given milk of magnesia regarding her constipation. She'll be monitored clinically. We'll consider CAT scan of the abdomen and pelvis if she continues to have abdominal distention. On 01/02/2018 the patient is less short of breath compared to yesterday. She was weaned down to 5 L of oxygen by nasal cannula. She made excellent urine output with diuretics yesterday and the patient shows improvement in the volume status on today's chest x-ray. The patient is a negative fluid balance. The patient is not having any chest pain. She is still congested and she has a cough and some limited wheezing. Abdomen is still distended. The patient undertook a Fleet enema yesterday and the patient also received milk of magnesia without success in terms of her bowel activity. No abdominal pain. Abdomen is slightly distended still. No fever. No chills. No hypotension. No other complaints otherwise for now. White cell count is at 12.5. The patient has a normal renal function. On today's evaluation of 01/03/2018 the patient is seeming to have less shortness of breath. She is on 5 L of oxygen by nasal cannula. She is bronchospastic. She has a congested cough. No significant sputum production. Abdomen is less distended. The patient was placed on a combination of the test and the patient was able to produce a bowel movement. No fever or chills. She is on a combination of albuterol and Atrovent about treatments around the clock in addition to IV Solu-Medrol that was Down to 40 mg every 12 hours. The patient is on insulin drip for blood sugar control for now. She has normal blood work. No significant leukocytosis. Renal function remains stable. She is producing adequate amount of urine output. On 01/04/2018, the patient is doing slow progress and improvement in her acute COPD exacerbation. She has bronchus spastic and wheezy however she still in need of IV Solu-Medrol and for that reason this will be continued and the patient will be kept also on IV heparin for blood sugar control. No chest pain. Most of the sputum production. No pleurisy or hemoptysis. Abdomen is again less distended. On today's evaluation, her white count is at 10.7. Rest of the electrodes are all within normal limits. The patient is on the one of the breast units [id number]. The patient is on empiric antibiotic coverage with a combination of Rocephin and Zithromax. The patient is on Solu- Medrol 40 mg every 12 hours. The patient is also being managed for CHF with a combination of woo inhibitors, diuretics including Aldactone. She is also on beta blockers in the form of Coreg. On 01/05/2018, the patient is resting comfortably in bed. She remains on IV Solu-Medrol. She remains on nitroglycerin drip for blood sugar control. Recovery is slow. She has a congested cough. Overall shortness of breath is improved and the patient is not having any chest pain. No nausea or vomiting. No abdominal pain. No abdominal distention. CHF is well optimized for now. No altered mentation. She is tolerating her diet. No other significant events overnight. Objective - Vital Signs Vital signs: Vital Signs Temp 98.0 F 01/05/18 05:00 Pulse 92 01/05/18 11:19 Resp 16 01/05/18 05:00 BP 156/90 01/05/18 05:00 Pulse Ox 92 L 01/05/18 05:00 Intake & Output 01/04/18 01/05/18 01/05/18 18:59 06:59 18:59 Intake Total 574.787 9771.607 9.776 Output Total 1400 2700 850 Balance -608.933 -1120.393 -840.224 Weight 69.853 kg Intake: IV 38 120 .9 @ 10 ml/hr 38 120 Intake, IV Titration 133.067 159.607 9.776 Amount Insulin Regular 100 unit 53.067 39.607 9.776 In Sodium Chloride 0.9% 100 ml @ Per Protocol IV .Q0M [facility] Rx#:[id number] Sodium Chloride 0.9% 1, 80 120 000 ml @ 10 mls/hr IV . Q24H [facility] Rx#:[id number] Oral 620 1300 Output: Urine 1400 2500 850 Uretheral (Cross) 850 Stool 200 Other: Voiding Method Indwelling Catheter Indwelling Catheter - Exam Gen. appearance the patient is a [id number] degree of respiratory distress , currently on 4 L of oxygen by nasal cannula Head exam was generally normal. There was no scleral icterus or corneal arcus. Mucous membranes were moist. Neck was supple and without jugular venous distension, thyromegaly, or carotid bruits. Carotids were easily palpable bilaterally. There was no adenopathy. Lungs sounds are diminished and there is diffuse expiratory wheezes throughout the lung jimenez bilaterally and prolongation of expiratory phase of breathing, overall bronchospasm wheezing has improved compared to yesterday Cardiac exam revealed the PMI to be normally situated and sized. The rhythm was regular and no extrasystoles were noted during several minutes of auscultation. The first and second heart sounds were normal and physiologic splitting of the second heart sound was noted. There were no murmurs, rubs, clicks, or gallops. Abdomen is less distended. There is no direct tenderness rebound tensile guarding at this point. Bowel sounds are hypoactive. Organs cannot be accurately palpated. Examination of the extremities revealed easily palpable radial, femoral and pedal pulses. There was no cyanosis, clubbing or edema. Examination of the skin revealed no evidence of significant rashes, suspicious appearing nevi or other concerning lesions. - Labs CBC & Chem 7: 01/05/18 06:36 01/05/18 06:36 Labs: Abnormal Lab Results - Last 24 Hours (Table) 01/04/18 01/04/18 01/04/18 Range/Units 13:44 15:04 17:33 Chloride (98-107) mmol/L Carbon Dioxide (22-30) mmol/L BUN (7-17) mg/dL Glucose (74-99) mg/dL POC Glucose (mg/dL) 292 H 279 H 235 H (75-99) mg/dL Phosphorus (2.5-4.5) mg/dL ALT (9-52) U/L Total Protein (6.3-8.2) g/dL 01/04/18 01/04/18 01/04/18 Range/Units 19:22 20:33 21:12 Chloride (98-107) mmol/L Carbon Dioxide (22-30) mmol/L BUN (7-17) mg/dL Glucose (74-99) mg/dL POC Glucose (mg/dL) 258 H 297 H 333 H (75-99) mg/dL Phosphorus (2.5-4.5) mg/dL ALT (9-52) U/L Total Protein (6.3-8.2) g/dL 01/04/18 01/05/18 01/05/18 Range/Units 22:44 00:49 02:49 Chloride (98-107) mmol/L Carbon Dioxide (22-30) mmol/L BUN (7-17) mg/dL Glucose (74-99) mg/dL POC Glucose (mg/dL) 181 H 119 H 208 H (75-99) mg/dL Phosphorus (2.5-4.5) mg/dL ALT (9-52) U/L Total Protein (6.3-8.2) g/dL 01/05/18 01/05/18 01/05/18 Range/Units 04:46 06:36 07:03 Chloride 97 L (98-107) mmol/L Carbon Dioxide 38 H (22-30) mmol/L BUN 23 H (7-17) mg/dL Glucose 210 H (74-99) mg/dL POC Glucose (mg/dL) 196 H 225 H (75-99) mg/dL Phosphorus 4.9 H (2.5-4.5) mg/dL ALT 67 H (9-52) U/L Total Protein 5.5 L (6.3-8.2) g/dL 01/05/18 01/05/18 Range/Units 08:57 11:22 Chloride (98-107) mmol/L Carbon Dioxide (22-30) mmol/L BUN (7-17) mg/dL Glucose (74-99) mg/dL POC Glucose (mg/dL) 291 H 278 H (75-99) mg/dL Phosphorus (2.5-4.5) mg/dL ALT (9-52) U/L Total Protein (6.3-8.2) g/dL Microbiology - Last 24 Hours (Table) 12/31/17 14:43 Blood Culture - Preliminary Blood No Growth after 96 hours Assessment and Plan Plan: Assessment 1 acute COPD exacerbation with suspected right lower lobe/middle lobe pneumonia. The patient was being treated for an acute COPD exacerbation and she is on a combination of DuoNeb nebulized treatments and IV Solu-Medrol which is being gradually tapered off. Follow-up chest x-ray showed improvement in the volume status. The patient COPD exacerbations improving. 2 acute shortness of breath secondary to above. The shortness of breath is improving. 3 CHF with an ejection fraction of 30-35% with underlying segmental wall motion abnormality rule out underlying coronary artery disease. The patient is currently on a combination of Coreg, lisinopril and Aldactone 4 abdominal distention, possibly related to fecal stasis/constipation, the patient received laxative and she is improving 5 diabetes mellitus type 2 with steroid-induced hyperglycemia currently on insulin drip for blood sugar control 6 hypertension 7 hyperlipidemia 8 acid reflux 9 schizophrenia 10 [facility] home resident Plan Continue breathing treatments. We'll continue to follow.
[2018-01-05 13:37] LABS: Glucose,Whole Blood 331 mg/dL (75-99)
--- NOTE | 2018-01-05 14:19 | P.PN ---
Subjective Progress Note Date: 01/05/18 Principal diagnosis: Abdominal pain Patient had x-rays today. Ongoing constipation noted. The stool that was heavy on the right side of the colon does look like it shifted to the left side. She feels mild abdominal pain. No vomiting. No bowel movement. Enema is ordered yesterday were not given. Objective - Vital Signs Vital signs: Vital Signs Temp 98.0 F 01/05/18 05:00 Pulse 92 01/05/18 11:19 Resp 16 01/05/18 08:00 BP 156/90 01/05/18 05:00 Pulse Ox 92 L 01/05/18 05:00 Intake & Output 01/04/18 01/05/18 01/05/18 18:59 06:59 18:59 Intake Total 128.171 7281.607 2092.976 Output Total 1400 2700 1700 Balance -608.933 -1120.393 392.976 Weight 69.853 kg Intake: IV 38 120 210 .9 @ 10 ml/hr 38 120 210 Intake, IV Titration 133.067 159.607 22.976 Amount Insulin Regular 100 unit 53.067 39.607 22.976 In Sodium Chloride 0.9% 100 ml @ Per Protocol IV .Q0M [facility] Rx#:[id number] Sodium Chloride 0.9% 1, 80 120 000 ml @ 10 mls/hr IV . Q24H [facility] Rx#:[id number] Oral 620 1300 1860 Output: Urine 1400 2500 1700 Uretheral (Cross) 850 Stool 200 Other: Voiding Method Indwelling Catheter Indwelling Catheter Indwelling Catheter - Exam Abdomen: Soft, mild distention, mild diffuse tenderness - Labs CBC & Chem 7: 01/05/18 06:36 01/05/18 06:36 Labs: Abnormal Lab Results - Last 24 Hours (Table) 01/04/18 01/04/18 01/04/18 Range/Units 15:04 17:33 19:22 Chloride (98-107) mmol/L Carbon Dioxide (22-30) mmol/L BUN (7-17) mg/dL Glucose (74-99) mg/dL POC Glucose (mg/dL) 279 H 235 H 258 H (75-99) mg/dL Phosphorus (2.5-4.5) mg/dL ALT (9-52) U/L Total Protein (6.3-8.2) g/dL 01/04/18 01/04/18 01/04/18 Range/Units 20:33 21:12 22:44 Chloride (98-107) mmol/L Carbon Dioxide (22-30) mmol/L BUN (7-17) mg/dL Glucose (74-99) mg/dL POC Glucose (mg/dL) 297 H 333 H 181 H (75-99) mg/dL Phosphorus (2.5-4.5) mg/dL ALT (9-52) U/L Total Protein (6.3-8.2) g/dL 01/05/18 01/05/18 01/05/18 Range/Units 00:49 02:49 04:46 Chloride (98-107) mmol/L Carbon Dioxide (22-30) mmol/L BUN (7-17) mg/dL Glucose (74-99) mg/dL POC Glucose (mg/dL) 119 H 208 H 196 H (75-99) mg/dL Phosphorus (2.5-4.5) mg/dL ALT (9-52) U/L Total Protein (6.3-8.2) g/dL 01/05/18 01/05/18 01/05/18 Range/Units 06:36 07:03 08:57 Chloride 97 L (98-107) mmol/L Carbon Dioxide 38 H (22-30) mmol/L BUN 23 H (7-17) mg/dL Glucose 210 H (74-99) mg/dL POC Glucose (mg/dL) 225 H 291 H (75-99) mg/dL Phosphorus 4.9 H (2.5-4.5) mg/dL ALT 67 H (9-52) U/L Total Protein 5.5 L (6.3-8.2) g/dL 01/05/18 01/05/18 Range/Units 11:22 13:36 Chloride (98-107) mmol/L Carbon Dioxide (22-30) mmol/L BUN (7-17) mg/dL Glucose (74-99) mg/dL POC Glucose (mg/dL) 278 H 331 H (75-99) mg/dL Phosphorus (2.5-4.5) mg/dL ALT (9-52) U/L Total Protein (6.3-8.2) g/dL Microbiology - Last 24 Hours (Table) 12/31/17 14:43 Blood Culture - Preliminary Blood No Growth after 96 hours Assessment and Plan (1) Constipation Narrative/Plan: Continue liquids. Soapsuds enemas today. If symptoms persist will plan Gastrografin enema. Current Visit: Yes Status: Acute Code(s): K59.00 - CONSTIPATION, UNSPECIFIED SNOMED Code(s): 53504932
[2018-01-05] MEDS ORDERED: NA PHOS,M-B/NA PHOS,DI-BA 133 ML ENEMA RECTAL ONE (14:36)
--- NOTE | 2018-01-05 14:40 | XR ---
EXAMINATION TYPE: XR abdomen 2V DATE OF EXAM: 01/05/2018 1:53 PM CLINICAL HISTORY: Constipation TECHNIQUE: Upright and portable views of the abdomen were obtained. COMPARISON: 01/03/2018. FINDINGS: Scattered gas is seen in nondilated small bowel loops. There is a moderate amount retained colonic stool. Large bowel measures up to 5.2 cm and fecal material is seen in nondilated colon. Ther e is no visceromegaly, pneumoperitoneum, or abnormal calcification appreciated. The lung bases are cl ear and the osseous structures are intact. IMPRESSION: Moderate amount retained colonic stool in an overall nonobstructive bowel gas pattern.
[2018-01-05 15:59] LABS: Glucose,Whole Blood 295 mg/dL (75-99)
[2018-01-05] MEDS: AZITHROMYCIN 500 MG in DEXTROSE 5% IN WATER 250 ML IVPB SCH ×2 (16:06)
[2018-01-05 17:01] LABS: Glucose,Whole Blood 273 mg/dL (75-99)
[2018-01-05] MEDS: TROSPIUM CHLORIDE 20 MG TABLET PO SCH (17:18)
[2018-01-05] MEDS: LORATADINE 10 MG TAB PO SCH (17:18)
[2018-01-05] MEDS: LISINOPRIL 10 MG TAB PO SCH (17:18)
--- NOTE | 2018-01-05 18:29 | PN ---
PROGRESS NOTE DATE OF SERVICE: 01/05/2018 PRESENTING COMPLAINT: Short of breath. INTERVAL HISTORY: The patient admitted with pneumonia and fluid overload. Still has bouts of coughing, minimal sputum, did tolerate some diet, had a bowel movement yesterday. On nasal cannula, still gets bronchospastic and short of breath. Propped up in bed, feeling tired, run down. No fever. No chills. REVIEW OF SYSTEMS: Done for constitutional, cardiovascular, GI, pulmonary; relevant findings as above. CURRENT MEDICATIONS: Reviewed that include: 1. IV Zithromax. 2. IV ceftriaxone. 3. Insulin drip. EXAMINATION: Temperature 98.1, pulse 56, respirations 20, blood pressure 1160/70, pulse ox 93% on 4L. GENERAL APPEARANCE: Sitting up in bed, bouts of coughing while talking. EYES: Pupils equal. Conjunctivae normal. HEENT: External nose and ears normal. Oral cavity normal. NECK: JVD not raised. Mass not palpable. RESPIRATORY: Effort increased. LUNGS: Decreased breath sounds. Prolonged expiration. Some wheezing. CARDIOVASCULAR: First and second sounds normal. No edema. ABDOMEN: Soft, nontender. Liver and spleen not palpable. PSYCHIATRY: Awake, answering simple questions. INVESTIGATIONS: Accu-Cheks noted: 291, 278, 331. White count 9.9. Potassium 4.7, BUN 23, creatinine 0.89. ASSESSMENT: 1. Right lower lobe pneumonia, suspect gram-negative organism, present on admission. 2. Acute congestive heart failure exacerbation from systolic dysfunction, ejection fraction 30%-35%, now euvolemic. 3. Acute hypoxic respiratory failure, patient on 4L-5L of oxygen. 4. Diabetes mellitus type 2 on oral hypoglycemic uncontrolled with hyperglycemia from steroids. Remains on insulin drip. 5. Gastroesophageal reflux disease. 6. Hyperlipidemia. 7. Essential hypertension. 8. Chronic urinary stress incontinence. 9. Chronic mental impairment. 10.Severe constipation, responded to laxative. 11.Acute chronic obstructive pulmonary disease exacerbation in a nonsmoker, slow to respond. PLAN: We will keep the patient on IV steroids. The patient started on Aldactone last night. Antibiotics are to be maintained. Since the patient has been afebrile, will switch the patient over to p.o. Ceftin. MMODL / IJN: [id number] /
[2018-01-05 18:39] LABS: Glucose,Whole Blood 242 mg/dL (75-99)
[2018-01-05 21:07] LABS: Glucose,Whole Blood 237 mg/dL (75-99)
[2018-01-05] MEDS: cloZAPine 100 MG TAB PO SCH (21:18)
[2018-01-05] MEDS: ATORVASTATIN 20 MG TAB PO SCH (21:19)
[2018-01-05] MEDS: SENNOSIDES 8.6 MG TAB PO SCH (21:20)
[2018-01-05] MEDS: CEFDINIR 300 MG CAP PO SCH (21:23)
[2018-01-05 23:02] LABS: Glucose,Whole Blood 221 mg/dL (75-99)
[2018-01-06 01:02] LABS: Glucose,Whole Blood 185 mg/dL (75-99)
[2018-01-06 02:57] LABS: Glucose,Whole Blood 240 mg/dL (75-99)
[2018-01-06 07:13] LABS: Glucose,Whole Blood 194 mg/dL (75-99)
[2018-01-06 07:13] LABS: Glucose,Whole Blood 192 mg/dL (75-99)
[2018-01-06] MEDS: SODIUM CHLORIDE 0.9% 1,000 ML IV SCH (07:22)
[2018-01-06] MEDS: CARVEDILOL 12.5 MG TAB PO SCH ×2 (07:30→17:20)
[2018-01-06] MEDS: BUDESONIDE 1 MG/2 ML NEBU INHALATION SCH ×2 (08:09→18:54)
[2018-01-06] MEDS: IPRATROPIUM-ALBUTEROL 3 ML NEB INHALATION SCH ×4 (08:10→18:54)
[2018-01-06] MEDS: INSULIN ASPART 100 UNIT/ML 1 ML 10 ML VIAL SQ SCH ×3 (09:13→17:25)
[2018-01-06 09:17] LABS: Glucose,Whole Blood 268 mg/dL (75-99)
[2018-01-06] MEDS: CEFDINIR 300 MG CAP PO SCH ×2 (09:17→19:51)
[2018-01-06] MEDS: metFORMIN 500 MG TAB PO SCH ×2 (09:17→17:20)
[2018-01-06] MEDS: SPIRONOLACTONE 25 MG TAB PO SCH (09:17)
[2018-01-06] MEDS: FENOFIBRATE 160 MG TAB PO SCH (09:17)
[2018-01-06] MEDS: PANTOPRAZOLE 40 MG TABLET PO SCH (09:17)
[2018-01-06] MEDS: LACTULOSE 20 GM/30 ML CUP PO SCH ×2 (09:18→19:50)
[2018-01-06] MEDS: ALLOPURINOL 100 MG TAB PO SCH ×2 (09:18→19:51)
[2018-01-06] MEDS: cloZAPine 25 MG TAB PO SCH (09:18)
[2018-01-06] MEDS: CHOLECALCIFEROL 1,000 UNIT TAB PO SCH (09:18)
[2018-01-06] MEDS: ASPIRIN 81 MG PO SCH (09:18)
[2018-01-06] MEDS: POTASSIUM CHLORIDE ER 10 MEQ TAB.ER.PRT PO SCH (09:18)
[2018-01-06] MEDS: CITALOPRAM HYDROBROMIDE 20 MG TAB PO SCH (09:18)
[2018-01-06] MEDS: LOVAZA PO SCH ×2 (09:20→19:55)
--- NOTE | 2018-01-06 10:06 | P.PN ---
Subjective Progress Note Date: 01/06/18 Principal diagnosis: Abdominal pain Patient did have a bowel movement yesterday with the enema administration. This was approximately 8-10 ounces in volume. No vomiting. Denies pain currently. Objective - Vital Signs Vital signs: Vital Signs Temp 97.6 F 01/06/18 05:15 Pulse 96 01/06/18 08:24 Resp 17 01/06/18 05:15 BP 160/85 01/06/18 05:15 Pulse Ox 92 L 01/06/18 08:11 Intake & Output 01/05/18 01/06/18 01/06/18 18:59 06:59 18:59 Intake Total 2720.426 48.476 9.667 Output Total 3600 850 Balance -879.574 -801.524 9.667 Weight 69.853 kg 69.853 kg Intake: IV 210 .9 @ 10 ml/hr 210 Intake, IV Titration 50.426 48.476 9.667 Amount Insulin Regular 100 unit 50.426 48.476 9.667 In Sodium Chloride 0.9% 100 ml @ Per Protocol IV .Q0M [facility] Rx#:[id number] Oral 2460 Output: Urine 3400 850 Uretheral (Cross) 1700 Stool 200 Other: Voiding Method Indwelling Catheter Indwelling Catheter # Voids 0 1 - Exam Abdomen: Soft, mild diffuse tenderness, mild distention - Labs CBC & Chem 7: 01/05/18 06:36 01/05/18 06:36 Labs: Abnormal Lab Results - Last 24 Hours (Table) 01/05/18 01/05/18 01/05/18 Range/Units 11:22 13:36 15:57 POC Glucose (mg/dL) 278 H 331 H 295 H (75-99) mg/dL 01/05/18 01/05/18 01/05/18 Range/Units 16:59 18:37 20:57 POC Glucose (mg/dL) 273 H 242 H 237 H (75-99) mg/dL 01/05/18 01/06/18 01/06/18 Range/Units 22:54 00:55 02:55 POC Glucose (mg/dL) 221 H 185 H 240 H (75-99) mg/dL 01/06/18 01/06/18 01/06/18 Range/Units 05:05 06:53 09:11 POC Glucose (mg/dL) 194 H 192 H 268 H (75-99) mg/dL Microbiology - Last 24 Hours (Table) 12/31/17 14:43 Blood Culture - Preliminary Blood No Growth after 120 hours Assessment and Plan (1) Constipation Narrative/Plan: Patient having some success with enema cleansing of the significant constipation seen on recent x-rays. Underlying colonic obstruction not completely excluded although seems less likely given the output with enemas. We 'll try enemas once again today. If symptoms persist we'll plan unprepped contrast enema Current Visit: Yes Status: Acute Code(s): K59.00 - CONSTIPATION, UNSPECIFIED SNOMED Code(s): 79986808
[2018-01-06] MEDS: methylPREDNISolone SOD SUCCI 40 MG/ML 1 ML VIAL IV SCH ×2 (10:52→19:48)
[2018-01-06] MEDS: INSULIN REGULAR 100 UNIT in SODIUM CHLORIDE 0.9% 100 ML IV SCH (11:38)
[2018-01-06 11:40] LABS: Glucose,Whole Blood 218 mg/dL (75-99)
[2018-01-06] MEDS ORDERED: NA PHOS,M-B/NA PHOS,DI-BA 133 ML ENEMA RECTAL ONE (11:43)
--- NOTE | 2018-01-06 13:12 | P.PN ---
Subjective Progress Note Date: 01/06/18 This is a 52-year-old female patient, a poor historian with known history of COPD and addition to diabetes mellitus type 2, hypertension and hyperlipidemia and schizophrenia, who came into the hospital because of shortness of breath. The patient has been followed up by visiting physicians. She is mentally impaired and she is a poor historian. Her shortness of breath dates back to around 2 days ago and she was having these cough without any significant sputum production. There was also reported increased bronchospasm and wheezing and she was getting more short of breath and tired. She was also having some increased constipation and abdominal distention. On admission, chest x-ray was done and showed bilaterally no opacities most consistent with atelectasis although early developing pneumonia in the right lower lobe and the right middle lobe could not be excluded. The patient was started on antibiotics. The patient was started on IV Solu-Medrol. The patient was also started on IV fluids knowing that she had a component of lactic acidosis with initial lactic acid level of 4.4. Note that her lactic acid level dropped down to 1.8. Nevertheless earlier this point the patient became progressively more short of breath and a chest x-ray was done and it showed interval development of moderate degree of interstitial edema which is probably related to fluid overload as the patient was receiving IV fluids in regards to her lactic acidosis. Flat film of the abdomen was also done that showed nonobstructive bowel gas pattern and there was fairly moderate amount of colonic fecal stasis. I saw this patient on the medical floor. She was in 100 % nonrebreather facemask. I decide to move this patient to the intensive care unit for more monitoring. She was given a dose of Lasix following which she had adequate urine output and she was getting less short of breath. She denied having any chest pain. Her white cell count is not elevated at 6.8. Hemoccult was stable at 10.6. Rest of the electrodes are all within normal including her renal function tests. She had developed some steroid-induced hyperglycemia related to systemic steroids and the patient was started on insulin drip for blood sugar control. In terms of antibiotic coverage, the patient is on a combination of Rocephin and Zithromax. The patient was also seen by Dr. strange. She was given milk of magnesia regarding her constipation. She'll be monitored clinically. We'll consider CAT scan of the abdomen and pelvis if she continues to have abdominal distention. On 01/02/2018 the patient is less short of breath compared to yesterday. She was weaned down to 5 L of oxygen by nasal cannula. She made excellent urine output with diuretics yesterday and the patient shows improvement in the volume status on today's chest x-ray. The patient is a negative fluid balance. The patient is not having any chest pain. She is still congested and she has a cough and some limited wheezing. Abdomen is still distended. The patient undertook a Fleet enema yesterday and the patient also received milk of magnesia without success in terms of her bowel activity. No abdominal pain. Abdomen is slightly distended still. No fever. No chills. No hypotension. No other complaints otherwise for now. White cell count is at 12.5. The patient has a normal renal function. On today's evaluation of 01/03/2018 the patient is seeming to have less shortness of breath. She is on 5 L of oxygen by nasal cannula. She is bronchospastic. She has a congested cough. No significant sputum production. Abdomen is less distended. The patient was placed on a combination of the test and the patient was able to produce a bowel movement. No fever or chills. She is on a combination of albuterol and Atrovent about treatments around the clock in addition to IV Solu-Medrol that was Down to 40 mg every 12 hours. The patient is on insulin drip for blood sugar control for now. She has normal blood work. No significant leukocytosis. Renal function remains stable. She is producing adequate amount of urine output. On 01/04/2018, the patient is doing slow progress and improvement in her acute COPD exacerbation. She has bronchus spastic and wheezy however she still in need of IV Solu-Medrol and for that reason this will be continued and the patient will be kept also on IV heparin for blood sugar control. No chest pain. Most of the sputum production. No pleurisy or hemoptysis. Abdomen is again less distended. On today's evaluation, her white count is at 10.7. Rest of the electrodes are all within normal limits. The patient is on the one of the breast units [id number]. The patient is on empiric antibiotic coverage with a combination of Rocephin and Zithromax. The patient is on Solu- Medrol 40 mg every 12 hours. The patient is also being managed for CHF with a combination of woo inhibitors, diuretics including Aldactone. She is also on beta blockers in the form of Coreg. On 01/05/2018, the patient is resting comfortably in bed. She remains on IV Solu-Medrol. She remains on nitroglycerin drip for blood sugar control. Recovery is slow. She has a congested cough. Overall shortness of breath is improved and the patient is not having any chest pain. No nausea or vomiting. No abdominal pain. No abdominal distention. CHF is well optimized for now. No altered mentation. She is tolerating her diet. No other significant events overnight. On 01/06/2018, seeing this patient for a follow-up. She is resting comfortably in bed. Her pulmonary status improved even and the patient last bronchus spastic and wheezy compared to yesterday. Her speech is improved and the patient has less interruption in her speech by coughing or any other pulmonary symptoms. He remains on IV Solu Medrol 43 g every 12 hours. She remains on bronchodilators including DuoNeb neb last treatment [id number]. She is also on Pulmicort Respules. No other complaints otherwise for now. Objective - Vital Signs Vital signs: Vital Signs Temp 97.6 F 01/06/18 05:15 Pulse 92 01/06/18 11:31 Resp 17 01/06/18 05:15 BP 160/85 01/06/18 05:15 Pulse Ox 92 L 01/06/18 08:11 Intake & Output 01/05/18 01/06/18 01/06/18 18:59 06:59 18:59 Intake Total 2720.426 48.476 11.874 Output Total 3600 850 Balance -879.574 -801.524 11.874 Weight 69.853 kg 69.853 kg Intake: IV 210 .9 @ 10 ml/hr 210 Intake, IV Titration 50.426 48.476 11.874 Amount Insulin Regular 100 unit 50.426 48.476 11.874 In Sodium Chloride 0.9% 100 ml @ Per Protocol IV .Q0M [facility] Rx#:[id number] Oral 2460 Output: Urine 3400 850 Uretheral (Cross) 1700 Stool 200 Other: Voiding Method Indwelling Catheter Indwelling Catheter # Voids 0 1 - Exam Gen. appearance the patient is a [id number] degree of respiratory distress , currently on 4 L of oxygen by nasal cannula Head exam was generally normal. There was no scleral icterus or corneal arcus. Mucous membranes were moist. Neck was supple and without jugular venous distension, thyromegaly, or carotid bruits. Carotids were easily palpable bilaterally. There was no adenopathy. Lungs sounds are diminished and there is diffuse expiratory wheezes throughout the lung jimenez bilaterally and prolongation of expiratory phase of breathing, overall bronchospasm wheezing has improved compared to yesterday Cardiac exam revealed the PMI to be normally situated and sized. The rhythm was regular and no extrasystoles were noted during several minutes of auscultation. The first and second heart sounds were normal and physiologic splitting of the second heart sound was noted. There were no murmurs, rubs, clicks, or gallops. Abdomen is less distended. There is no direct tenderness rebound tensile guarding at this point. Bowel sounds are hypoactive. Organs cannot be accurately palpated. Examination of the extremities revealed easily palpable radial, femoral and pedal pulses. There was no cyanosis, clubbing or edema. Examination of the skin revealed no evidence of significant rashes, suspicious appearing nevi or other concerning lesions. - Labs CBC & Chem 7: 01/05/18 06:36 01/05/18 06:36 Labs: Abnormal Lab Results - Last 24 Hours (Table) 01/05/18 01/05/18 01/05/18 Range/Units 13:36 15:57 16:59 POC Glucose (mg/dL) 331 H 295 H 273 H (75-99) mg/dL 01/05/18 01/05/18 01/05/18 Range/Units 18:37 20:57 22:54 POC Glucose (mg/dL) 242 H 237 H 221 H (75-99) mg/dL 01/06/18 01/06/18 01/06/18 Range/Units 00:55 02:55 05:05 POC Glucose (mg/dL) 185 H 240 H 194 H (75-99) mg/dL 01/06/18 01/06/18 01/06/18 Range/Units 06:53 09:11 11:33 POC Glucose (mg/dL) 192 H 268 H 218 H (75-99) mg/dL Microbiology - Last 24 Hours (Table) 12/31/17 14:43 Blood Culture - Preliminary Blood No Growth after 120 hours Assessment and Plan Plan: Assessment 1 acute COPD exacerbation with suspected right lower lobe/middle lobe pneumonia. The patient's COPD is improving and the chest x-ray from 01/04/2018 showed improvement in the right lung pulmonary infiltrates and there are some diffuse interstitial markings without evidence of any acute consolidation or pneumonia. 2 acute shortness of breath secondary to above. The shortness of breath is improving. 3 CHF with an ejection fraction of 30-35% with underlying segmental wall motion abnormality rule out underlying coronary artery disease. The patient is currently on a combination of Coreg, lisinopril and Aldactone 4 abdominal distention, possibly related to fecal stasis/constipation, the patient received laxative and she is improving 5 diabetes mellitus type 2 with steroid-induced hyperglycemia currently on insulin drip for blood sugar control 6 hypertension 7 hyperlipidemia 8 acid reflux 9 schizophrenia 10 [facility] home resident Plan Continue breathing treatments. Continued IV Solu Medrol for 24 hours and will the patient to a prednisone burst taper with the next 24 hours. Patient's CHF is well optimized. X-ray of the abdomen was done yesterday showed other to amount of retained colonic stool with an obstructive gas pattern. Patient is still taking laxatives in the form of lactulose 30 g twice a day and Senokot every night. We'll follow.
[2018-01-06 13:21] LABS: Glucose,Whole Blood 208 mg/dL (75-99)
[2018-01-06 17:14] LABS: Glucose,Whole Blood 231 mg/dL (75-99)
[2018-01-06] MEDS: LORATADINE 10 MG TAB PO SCH (17:20)
[2018-01-06] MEDS: TROSPIUM CHLORIDE 20 MG TABLET PO SCH (17:20)
[2018-01-06] MEDS: LISINOPRIL 10 MG TAB PO SCH (17:20)
--- NOTE | 2018-01-06 17:45 | PN ---
PROGRESS NOTE DATE OF SERVICE: 01/06/2018 PRESENTING COMPLAINT: Short of breath. INTERVAL HISTORY: Patient admitted with pneumonia and fluid overload. Cough is getting better. No sputum. Tolerating a diet. Did not have a bowel movement today. Earlier, laxative was ordered by Dr. Boykin. X-ray from yesterday did show some significant constipation. REVIEW OF SYSTEMS: Done for constitutional, cardiovascular, GI, pulmonary; relevant findings as above. CURRENT MEDICATIONS: Reviewed that include: 1. IV Solu-Medrol. 2. Insulin drip. PHYSICAL EXAMINATION: Temperature 97.5, pulse 86, respirations 18, blood pressure 140/71, pulse ox 93% on 5L. GENERAL APPEARANCE: Sitting up, tired-appearing. EYES: Pupils equal. Conjunctivae normal. HEENT: External appearance of nose and ears normal. Oral cavity normal. NECK: JVD not raised. Mass not palpable. RESPIRATORY: Effort increased. LUNGS: Decreased breath sounds. CARDIOVASCULAR: First and second sounds normal. No edema. ABDOMEN: Soft, nontender. Liver and spleen not palpable. PSYCHIATRY: Awake, answering questions. INVESTIGATIONS: Accu-Cheks are noted. ASSESSMENT: 1. Right lower lobe pneumonia, suspect gram-negative organism, present on admission. 2. Acute congestive heart failure exacerbation from systolic dysfunction, ejection fraction 30%-35%, now euvolemic. 3. Acute hypoxic respiratory failure. Patient on nasal cannula. 4. Diabetes mellitus type 2 on oral hypoglycemic, uncontrolled with hyperglycemia from steroids. She remains on insulin drip. 5. Gastroesophageal reflux disease. 6. Hyperlipidemia. 7. Essential hypertension. 8. Chronic urinary stress incontinence. 9. Chronic mental impairment. 10.Severe constipation, responded to laxative, though still constipation showing up on the x-ray. 11.Acute chronic obstructive pulmonary disease exacerbation in a nonsmoker, slow to respond. PLAN: Continue medication and treatment plan. Keep the patient on IV steroids. Further laxatives to be given. The patient be switched over to Omnicef yesterday. MMODL / IJN: [id number] /
[2018-01-06 18:37] LABS: Glucose,Whole Blood 231 mg/dL (75-99)
[2018-01-06] MEDS: SENNOSIDES 8.6 MG TAB PO SCH (19:50)
[2018-01-06] MEDS: ATORVASTATIN 20 MG TAB PO SCH (19:51)
[2018-01-06] MEDS: cloZAPine 100 MG TAB PO SCH (19:51)
[2018-01-06 21:26] LABS: Glucose,Whole Blood 292 mg/dL (75-99)
[2018-01-06 23:24] LABS: Glucose,Whole Blood 168 mg/dL (75-99)
[2018-01-07 01:29] LABS: Glucose,Whole Blood 208 mg/dL (75-99)
[2018-01-07 04:01] LABS: Glucose,Whole Blood 255 mg/dL (75-99)
[2018-01-07 05:01] LABS: Glucose,Whole Blood 170 mg/dL (75-99)
[2018-01-07] MEDS: SODIUM CHLORIDE 0.9% 1,000 ML IV SCH ×2 (06:13→23:00)
[2018-01-07 07:12] LABS: Glucose,Whole Blood 184 mg/dL (75-99)
[2018-01-07] MEDS: INSULIN ASPART 100 UNIT/ML 1 ML 10 ML VIAL SQ SCH ×3 (07:29→17:44)
[2018-01-07] MEDS: metFORMIN 500 MG TAB PO SCH ×2 (07:38→17:44)
[2018-01-07] MEDS: CARVEDILOL 12.5 MG TAB PO SCH ×2 (07:38→17:44)
[2018-01-07] MEDS: PANTOPRAZOLE 40 MG TABLET PO SCH (07:39)
[2018-01-07] MEDS: BUDESONIDE 1 MG/2 ML NEBU INHALATION SCH ×2 (08:58→19:38)
[2018-01-07] MEDS: IPRATROPIUM-ALBUTEROL 3 ML NEB INHALATION SCH ×4 (08:58→19:38)
[2018-01-07 09:05] LABS: Glucose,Whole Blood 217 mg/dL (75-99)
[2018-01-07] MEDS: ALLOPURINOL 100 MG TAB PO SCH ×2 (09:30→21:32)
[2018-01-07] MEDS: CEFDINIR 300 MG CAP PO SCH ×2 (09:31→21:32)
[2018-01-07] MEDS: CITALOPRAM HYDROBROMIDE 20 MG TAB PO SCH (09:31)
[2018-01-07] MEDS: CHOLECALCIFEROL 1,000 UNIT TAB PO SCH (09:31)
[2018-01-07] MEDS: ASPIRIN 81 MG PO SCH (09:31)
[2018-01-07] MEDS: cloZAPine 25 MG TAB PO SCH (09:32)
[2018-01-07] MEDS: methylPREDNISolone SOD SUCCI 40 MG/ML 1 ML VIAL IV SCH ×2 (09:32→21:33)
[2018-01-07] MEDS: FENOFIBRATE 160 MG TAB PO SCH (09:32)
[2018-01-07] MEDS: LACTULOSE 20 GM/30 ML CUP PO SCH ×2 (09:32→21:33)
[2018-01-07] MEDS: LOVAZA PO SCH ×2 (09:33→21:33)
[2018-01-07] MEDS: SPIRONOLACTONE 25 MG TAB PO SCH (09:33)
[2018-01-07] MEDS: POTASSIUM CHLORIDE ER 10 MEQ TAB.ER.PRT PO SCH (09:33)
[2018-01-07] MEDS ORDERED: PEG 3350-NA SULF,BICARB,CL/KCL 4,000 ML BOTTLE PO ONE (09:53)
--- NOTE | 2018-01-07 09:54 | P.PN ---
Subjective Progress Note Date: 01/07/18 Principal diagnosis: Abdominal pain Patient did move her bowels multiple times yesterday with the enema administration. Denies pain. Slept well last night. Objective - Vital Signs Vital signs: Vital Signs Temp 97.3 F L 01/07/18 05:34 Pulse 84 01/07/18 09:12 Resp 16 01/07/18 05:34 BP 106/69 01/07/18 05:34 Pulse Ox 92 L 01/07/18 05:34 Intake & Output 01/06/18 01/07/18 01/07/18 18:59 06:59 18:59 Intake Total 29.024 524.899 8.833 Output Total 1250 850 Balance -1220.976 -325.101 8.833 Weight 69.853 kg 69.853 kg Intake: Intake, IV Titration 29.024 44.899 8.833 Amount Insulin Regular 100 unit 29.024 44.899 8.833 In Sodium Chloride 0.9% 100 ml @ Per Protocol IV .Q0M [facility] Rx#:[id number] Oral 480 Output: Urine 850 850 Stool 400 Other: Voiding Method Indwelling Catheter Indwelling Catheter # Voids 2 1 # Bowel Movements 1 - Exam Abdomen: Soft, nondistended, nontender much improved exam - Labs CBC & Chem 7: 01/05/18 06:36 01/05/18 06:36 Labs: Abnormal Lab Results - Last 24 Hours (Table) 01/06/18 01/06/18 01/06/18 Range/Units 11:33 13:19 17:12 POC Glucose (mg/dL) 218 H 208 H 231 H (75-99) mg/dL 01/06/18 01/06/18 01/06/18 Range/Units 18:36 21:14 23:03 POC Glucose (mg/dL) 231 H 292 H 168 H (75-99) mg/dL 01/07/18 01/07/18 01/07/18 Range/Units 01:08 03:40 05:00 POC Glucose (mg/dL) 208 H 255 H 170 H (75-99) mg/dL 01/07/18 01/07/18 Range/Units 06:51 09:03 POC Glucose (mg/dL) 184 H 217 H (75-99) mg/dL Microbiology - Last 24 Hours (Table) 12/31/17 14:43 Blood Culture - Final Blood No Growth after 144 hours Assessment and Plan (1) Constipation Narrative/Plan: Will start GoLYTELY today as a cathartic. No immediate plans for endoscopy. Current Visit: Yes Status: Acute Code(s): K59.00 - CONSTIPATION, UNSPECIFIED SNOMED Code(s): 77869696
[2018-01-07 11:39] LABS: Glucose,Whole Blood 209 mg/dL (75-99)
--- NOTE | 2018-01-07 12:44 | P.PN ---
Subjective Progress Note Date: 01/07/18 This is a 52-year-old female patient, a poor historian with known history of COPD and addition to diabetes mellitus type 2, hypertension and hyperlipidemia and schizophrenia, who came into the hospital because of shortness of breath. The patient has been followed up by visiting physicians. She is mentally impaired and she is a poor historian. Her shortness of breath dates back to around 2 days ago and she was having these cough without any significant sputum production. There was also reported increased bronchospasm and wheezing and she was getting more short of breath and tired. She was also having some increased constipation and abdominal distention. On admission, chest x-ray was done and showed bilaterally no opacities most consistent with atelectasis although early developing pneumonia in the right lower lobe and the right middle lobe could not be excluded. The patient was started on antibiotics. The patient was started on IV Solu-Medrol. The patient was also started on IV fluids knowing that she had a component of lactic acidosis with initial lactic acid level of 4.4. Note that her lactic acid level dropped down to 1.8. Nevertheless earlier this point the patient became progressively more short of breath and a chest x-ray was done and it showed interval development of moderate degree of interstitial edema which is probably related to fluid overload as the patient was receiving IV fluids in regards to her lactic acidosis. Flat film of the abdomen was also done that showed nonobstructive bowel gas pattern and there was fairly moderate amount of colonic fecal stasis. I saw this patient on the medical floor. She was in 100 % nonrebreather facemask. I decide to move this patient to the intensive care unit for more monitoring. She was given a dose of Lasix following which she had adequate urine output and she was getting less short of breath. She denied having any chest pain. Her white cell count is not elevated at 6.8. Hemoccult was stable at 10.6. Rest of the electrodes are all within normal including her renal function tests. She had developed some steroid-induced hyperglycemia related to systemic steroids and the patient was started on insulin drip for blood sugar control. In terms of antibiotic coverage, the patient is on a combination of Rocephin and Zithromax. The patient was also seen by Dr. strange. She was given milk of magnesia regarding her constipation. She'll be monitored clinically. We'll consider CAT scan of the abdomen and pelvis if she continues to have abdominal distention. On 01/02/2018 the patient is less short of breath compared to yesterday. She was weaned down to 5 L of oxygen by nasal cannula. She made excellent urine output with diuretics yesterday and the patient shows improvement in the volume status on today's chest x-ray. The patient is a negative fluid balance. The patient is not having any chest pain. She is still congested and she has a cough and some limited wheezing. Abdomen is still distended. The patient undertook a Fleet enema yesterday and the patient also received milk of magnesia without success in terms of her bowel activity. No abdominal pain. Abdomen is slightly distended still. No fever. No chills. No hypotension. No other complaints otherwise for now. White cell count is at 12.5. The patient has a normal renal function. On today's evaluation of 01/03/2018 the patient is seeming to have less shortness of breath. She is on 5 L of oxygen by nasal cannula. She is bronchospastic. She has a congested cough. No significant sputum production. Abdomen is less distended. The patient was placed on a combination of the test and the patient was able to produce a bowel movement. No fever or chills. She is on a combination of albuterol and Atrovent about treatments around the clock in addition to IV Solu-Medrol that was Down to 40 mg every 12 hours. The patient is on insulin drip for blood sugar control for now. She has normal blood work. No significant leukocytosis. Renal function remains stable. She is producing adequate amount of urine output. On 01/04/2018, the patient is doing slow progress and improvement in her acute COPD exacerbation. She has bronchus spastic and wheezy however she still in need of IV Solu-Medrol and for that reason this will be continued and the patient will be kept also on IV heparin for blood sugar control. No chest pain. Most of the sputum production. No pleurisy or hemoptysis. Abdomen is again less distended. On today's evaluation, her white count is at 10.7. Rest of the electrodes are all within normal limits. The patient is on the one of the breast units [id number]. The patient is on empiric antibiotic coverage with a combination of Rocephin and Zithromax. The patient is on Solu- Medrol 40 mg every 12 hours. The patient is also being managed for CHF with a combination of woo inhibitors, diuretics including Aldactone. She is also on beta blockers in the form of Coreg. On 01/05/2018, the patient is resting comfortably in bed. She remains on IV Solu-Medrol. She remains on nitroglycerin drip for blood sugar control. Recovery is slow. She has a congested cough. Overall shortness of breath is improved and the patient is not having any chest pain. No nausea or vomiting. No abdominal pain. No abdominal distention. CHF is well optimized for now. No altered mentation. She is tolerating her diet. No other significant events overnight. On 01/06/2018, seeing this patient for a follow-up. She is resting comfortably in bed. Her pulmonary status improved even and the patient last bronchus spastic and wheezy compared to yesterday. Her speech is improved and the patient has less interruption in her speech by coughing or any other pulmonary symptoms. He remains on IV Solu Medrol 43 g every 12 hours. She remains on bronchodilators including DuoNeb neb last treatment [id number]. She is also on Pulmicort Respules. No other complaints otherwise for now. On today's evaluation, the patient is resting comfortably in bed. No complaints. IV Solu Medrol is at 40 g every 12 hours. The patient is on oral Omnicef. No signs of heart failure. No altered mentation. J no other new complaints otherwise for now. Objective - Vital Signs Vital signs: Vital Signs Temp 97.3 F L 01/07/18 05:34 Pulse 88 01/07/18 12:08 Resp 16 01/07/18 08:45 BP 106/69 01/07/18 05:34 Pulse Ox 92 L 01/07/18 05:34 Intake & Output 01/06/18 01/07/18 01/07/18 18:59 06:59 18:59 Intake Total 29.024 524.899 16.133 Output Total 1250 850 Balance -1220.976 -325.101 16.133 Weight 69.853 kg 69.853 kg Intake: Intake, IV Titration 29.024 44.899 16.133 Amount Insulin Regular 100 unit 29.024 44.899 16.133 In Sodium Chloride 0.9% 100 ml @ Per Protocol IV .Q0M [facility] Rx#:[id number] Oral 480 Output: Urine 850 850 Stool 400 Other: Voiding Method Indwelling Catheter Indwelling Catheter Indwelling Catheter # Voids 2 1 # Bowel Movements 1 - Exam Gen. appearance the patient is a [id number] degree of respiratory distress , currently on 4 L of oxygen by nasal cannula Head exam was generally normal. There was no scleral icterus or corneal arcus. Mucous membranes were moist. Neck was supple and without jugular venous distension, thyromegaly, or carotid bruits. Carotids were easily palpable bilaterally. There was no adenopathy. Lungs sounds are diminished and there is diffuse expiratory wheezes throughout the lung jimenez bilaterally and prolongation of expiratory phase of breathing, overall bronchospasm wheezing has improved compared to yesterday Cardiac exam revealed the PMI to be normally situated and sized. The rhythm was regular and no extrasystoles were noted during several minutes of auscultation. The first and second heart sounds were normal and physiologic splitting of the second heart sound was noted. There were no murmurs, rubs, clicks, or gallops. Abdomen is less distended. There is no direct tenderness rebound tensile guarding at this point. Bowel sounds are hypoactive. Organs cannot be accurately palpated. Examination of the extremities revealed easily palpable radial, femoral and pedal pulses. There was no cyanosis, clubbing or edema. Examination of the skin revealed no evidence of significant rashes, suspicious appearing nevi or other concerning lesions. - Labs CBC & Chem 7: 01/05/18 06:36 01/05/18 06:36 Labs: Abnormal Lab Results - Last 24 Hours (Table) 01/06/18 01/06/18 01/06/18 Range/Units 13:19 17:12 18:36 POC Glucose (mg/dL) 208 H 231 H 231 H (75-99) mg/dL 01/06/18 01/06/18 01/07/18 Range/Units 21:14 23:03 01:08 POC Glucose (mg/dL) 292 H 168 H 208 H (75-99) mg/dL 01/07/18 01/07/18 01/07/18 Range/Units 03:40 05:00 06:51 POC Glucose (mg/dL) 255 H 170 H 184 H (75-99) mg/dL 01/07/18 01/07/18 Range/Units 09:03 11:37 POC Glucose (mg/dL) 217 H 209 H (75-99) mg/dL Microbiology - Last 24 Hours (Table) 12/31/17 14:43 Blood Culture - Final Blood No Growth after 144 hours Assessment and Plan Plan: Assessment 1 acute COPD exacerbation with suspected right lower lobe/middle lobe pneumonia. The patient's COPD is improving and the chest x-ray from 01/04/2018 showed improvement in the right lung pulmonary infiltrates and there are some diffuse interstitial markings without evidence of any acute consolidation or pneumonia. 2 acute shortness of breath secondary to above. The shortness of breath is improving. 3 CHF with an ejection fraction of 30-35% with underlying segmental wall motion abnormality rule out underlying coronary artery disease. The patient is currently on a combination of Coreg, lisinopril and Aldactone 4 abdominal distention, possibly related to fecal stasis/constipation, the patient received laxative and she is improving 5 diabetes mellitus type 2 with steroid-induced hyperglycemia currently on insulin drip for blood sugar control 6 hypertension 7 hyperlipidemia 8 acid reflux 9 schizophrenia 10 [facility] home resident Plan Switch this patient to oral prednisone as of tomorrow. Continue Omnicef. Discharge planning is in progress. IV fluids to KVO. Ambulate in the hallway. Discharge in a.m.
[2018-01-07 12:59] LABS: Glucose,Whole Blood 238 mg/dL (75-99)
[2018-01-07 15:06] LABS: Glucose,Whole Blood 208 mg/dL (75-99)
[2018-01-07 17:19] LABS: Glucose,Whole Blood 226 mg/dL (75-99)
[2018-01-07] MEDS: INSULIN REGULAR 100 UNIT in SODIUM CHLORIDE 0.9% 100 ML IV SCH (17:21)
[2018-01-07] MEDS: LORATADINE 10 MG TAB PO SCH (17:44)
[2018-01-07] MEDS: TROSPIUM CHLORIDE 20 MG TABLET PO SCH (17:44)
[2018-01-07] MEDS: LISINOPRIL 10 MG TAB PO SCH (17:44)
[2018-01-07 18:54] LABS: Glucose,Whole Blood 243 mg/dL (75-99)
[2018-01-07 20:56] LABS: Glucose,Whole Blood 221 mg/dL (75-99)
--- NOTE | 2018-01-07 21:13 | PN ---
PROGRESS NOTE DATE OF SERVICE: 01/07/2018 PRESENTING COMPLAINT: Short of breath. INTERVAL HISTORY: Patient admitted with pneumonia and fluid overload. Cough is much improved. Also had severe constipation and some ileus. The patient had some bowel movements yesterday. Today Dr. Boykin has given her GoLYTELY. Breathing is getting better. REVIEW OF SYSTEMS: Done for constitutional, cardiovascular, GI, pulmonary, relevant findings as above. The patient's abdomen is a bit distended. No nausea or vomiting. CURRENT MEDICATIONS: Include insulin drip, IV Solu-Medrol 40 q.12h, GoLYTELY. EXAMINATION: VITAL SIGNS: Temperature 98.5, pulse 80, respiratory 18, blood pressure 120/75, pulse ox 98% on 10 L. GENERAL APPEARANCE: Sitting up tired-appearing. EYES: Pupils equal. Conjunctivae normal. HEENT: External appearance of nose and ears normal. Oral cavity normal. NECK: JVD not raised. Mass not palpable. RESPIRATORY: Effort increased. LUNGS: Decreased breath sounds. Prolonged expiration. CARDIOVASCULAR: First and second sounds normal. No edema. ABDOMEN: Distended. Bowel sounds are sluggish. PSYCHIATRY: Awake, answering simple questions. INVESTIGATIONS: Accu-Cheks are noted. ASSESSMENT: 1. Right lobe pneumonia, suspect gram-negative organism with clinical improvement. 2. Acute congestive heart failure exacerbation from systolic dysfunction, EF 30 to 35%, now euvolemic. 3. Acute hypoxic respiratory failure, patient on nasal cannula. 4. Diabetes mellitus type 2 on oral hypoglycemic, uncontrolled with hyperglycemia from steroids. Remains on insulin drip. 5. Gastroesophageal reflux disease. 6. Hyperlipidemia. 7. Essential hypertension. 8. Chronic urinary stress incontinence. 9. Severe mental impairment. 10.Severe constipation with some response to Lasix. Abdomen is again distended. Patient getting GoLYTELY. 11.Acute chronic obstructive pulmonary disease exacerbation in a nonsmoker, slow to respond. 12.Acute hypoxic respiratory failure. The patient is on high-flow oxygen currently. PLAN: We will get a chest x-ray and we will also get abdominal x-ray. Keep the patient on IV steroids. Follow up with Pulmonary and surgery. MMODL / IJN: [id number] /
--- NOTE | 2018-01-07 21:21 | XR ---
EXAMINATION TYPE: XR chest 2V DATE OF EXAM: 01/07/2018 COMPARISON: 01/04/2018 HISTORY: 52-year-old female follow-up CHF TECHNIQUE: Frontal and lateral views FINDINGS: Low lung volumes. Heart borderline enlarged. Diffuse interstitial prominence. Small pleural effusions , greater on the left with adjacent opacity. IMPRESSION: Hypoventilatory changes and mild pulmonary vascular congestion. There are small left greater than rig ht pleural effusions with adjacent atelectasis and/or consolidation, increased from prior.
--- NOTE | 2018-01-07 21:22 | XR ---
EXAMINATION TYPE: XR abdomen 2V DATE OF EXAM: 01/07/2018 CLINICAL DATA: 52-year-old female with follow-up for ileus, [facility] COMPARISON: 01/05/2018 FINDINGS: No evidence for free intraperitoneal air. Moderate to large stool burden redemonstrated with air extending distally to the rectum. No dilated s mall bowel loops seen. No air-fluid levels. Bowel content partially obscures the renal shadows. IMPRESSION: 1. Continued constipation with moderate to large stool burden. 2. Overall nonobstructive bowel gas pattern.
[2018-01-07] MEDS: cloZAPine 100 MG TAB PO SCH (21:32)
[2018-01-07] MEDS: ATORVASTATIN 20 MG TAB PO SCH (21:32)
[2018-01-07] MEDS: SENNOSIDES 8.6 MG TAB PO SCH (21:33)
[2018-01-07 22:55] LABS: Glucose,Whole Blood 199 mg/dL (75-99)
[2018-01-08 01:17] LABS: Glucose,Whole Blood 169 mg/dL (75-99)
[2018-01-08 03:20] LABS: Glucose,Whole Blood 209 mg/dL (75-99)
[2018-01-08 03:25] LABS: Glucose,Whole Blood 211 mg/dL (75-99)
[2018-01-08 05:37] LABS: Glucose,Whole Blood 172 mg/dL (75-99)
[2018-01-08 06:59] LABS: Basophils % (A) 0 %; Eosinophils % (A) 0 %; HCT 39.6 % (34.0-46.0); HGB 12.1 gm/dL (11.4-16.0); Lymphocytes # (A) 1.4 k/uL (1.0-4.8); Lymphocytes % (A) 13 %; MCH 26.5 pg (25.0-35.0); MCHC 30.5 g/dL (31.0-37.0); MCV 86.9 fL (80.0-100.0); Mean Platelet Volume 6.9; Monocytes # (A) 0.5 k/uL (0-1.0); Monocytes % (A) 5 %; Neutrophils # (A) 8.9 k/uL (1.3-7.7); Neutrophils % (A) 82 %; Platelet Count 307 k/uL (150-450); RBC 4.56 m/uL (3.80-5.40); RDW 13.7 % (11.5-15.5); WBC 10.9 k/uL (3.8-10.6)
[2018-01-08 07:07] LABS: Calcium 9.4 mg/dL (8.4-10.2); Potassium 4.7 mmol/L (3.5-5.1)
[2018-01-08 07:25] LABS: Glucose,Whole Blood 175 mg/dL (75-99)
[2018-01-08] MEDS: BUDESONIDE 1 MG/2 ML NEBU INHALATION SCH ×2 (07:39→19:10)
[2018-01-08] MEDS: IPRATROPIUM-ALBUTEROL 3 ML NEB INHALATION SCH ×4 (07:39→19:10)
[2018-01-08] MEDS: LACTULOSE 20 GM/30 ML CUP PO SCH ×2 (08:32→20:46)
[2018-01-08] MEDS: INSULIN ASPART 100 UNIT/ML 1 ML 10 ML VIAL SQ SCH ×3 (08:32→17:42)
[2018-01-08] MEDS: CEFDINIR 300 MG CAP PO SCH ×2 (08:33→20:45)
[2018-01-08] MEDS: FENOFIBRATE 160 MG TAB PO SCH (08:33)
[2018-01-08] MEDS: CHOLECALCIFEROL 1,000 UNIT TAB PO SCH (08:33)
[2018-01-08] MEDS: PANTOPRAZOLE 40 MG TABLET PO SCH (08:33)
[2018-01-08] MEDS: cloZAPine 25 MG TAB PO SCH (08:33)
[2018-01-08] MEDS: metFORMIN 500 MG TAB PO SCH ×2 (08:33→17:42)
[2018-01-08] MEDS: CARVEDILOL 12.5 MG TAB PO SCH ×2 (08:33→17:42)
[2018-01-08] MEDS: ASPIRIN 81 MG PO SCH (08:33)
[2018-01-08] MEDS: ALLOPURINOL 100 MG TAB PO SCH ×2 (08:33→20:44)
[2018-01-08] MEDS: methylPREDNISolone SOD SUCCI 40 MG/ML 1 ML VIAL IV SCH (08:33)
[2018-01-08] MEDS: CITALOPRAM HYDROBROMIDE 20 MG TAB PO SCH (08:34)
[2018-01-08] MEDS: SPIRONOLACTONE 25 MG TAB PO SCH (08:34)
[2018-01-08] MEDS: POTASSIUM CHLORIDE ER 10 MEQ TAB.ER.PRT PO SCH (08:34)
[2018-01-08 08:48] LABS: Glucose,Whole Blood 327 mg/dL (75-99)
--- NOTE | 2018-01-08 11:47 | P.PN ---
Subjective Progress Note Date: 01/08/18 Principal diagnosis: Acute COPD exacerbation with suspected right lower lobe middle lobe pneumonia This is a 52-year-old female patient, a poor historian with known history of COPD and addition to diabetes mellitus type 2, hypertension and hyperlipidemia and schizophrenia, who came into the hospital because of shortness of breath. The patient has been followed up by visiting physicians. She is mentally impaired and she is a poor historian. Her shortness of breath dates back to around 2 days ago and she was having these cough without any significant sputum production. There was also reported increased bronchospasm and wheezing and she was getting more short of breath and tired. She was also having some increased constipation and abdominal distention. On admission, chest x-ray was done and showed bilaterally no opacities most consistent with atelectasis although early developing pneumonia in the right lower lobe and the right middle lobe could not be excluded. The patient was started on antibiotics. The patient was started on IV Solu-Medrol. The patient was also started on IV fluids knowing that she had a component of lactic acidosis with initial lactic acid level of 4.4. Note that her lactic acid level dropped down to 1.8. Nevertheless earlier this point the patient became progressively more short of breath and a chest x-ray was done and it showed interval development of moderate degree of interstitial edema which is probably related to fluid overload as the patient was receiving IV fluids in regards to her lactic acidosis. Flat film of the abdomen was also done that showed nonobstructive bowel gas pattern and there was fairly moderate amount of colonic fecal stasis. I saw this patient on the medical floor. She was in 100 % nonrebreather facemask. I decide to move this patient to the intensive care unit for more monitoring. She was given a dose of Lasix following which she had adequate urine output and she was getting less short of breath. She denied having any chest pain. Her white cell count is not elevated at 6.8. Hemoccult was stable at 10.6. Rest of the electrodes are all within normal including her renal function tests. She had developed some steroid-induced hyperglycemia related to systemic steroids and the patient was started on insulin drip for blood sugar control. In terms of antibiotic coverage, the patient is on a combination of Rocephin and Zithromax. The patient was also seen by Dr. strange. She was given milk of magnesia regarding her constipation. She'll be monitored clinically. We'll consider CAT scan of the abdomen and pelvis if she continues to have abdominal distention. On 01/02/2018 the patient is less short of breath compared to yesterday. She was weaned down to 5 L of oxygen by nasal cannula. She made excellent urine output with diuretics yesterday and the patient shows improvement in the volume status on today's chest x-ray. The patient is a negative fluid balance. The patient is not having any chest pain. She is still congested and she has a cough and some limited wheezing. Abdomen is still distended. The patient undertook a Fleet enema yesterday and the patient also received milk of magnesia without success in terms of her bowel activity. No abdominal pain. Abdomen is slightly distended still. No fever. No chills. No hypotension. No other complaints otherwise for now. White cell count is at 12.5. The patient has a normal renal function. On today's evaluation of 01/03/2018 the patient is seeming to have less shortness of breath. She is on 5 L of oxygen by nasal cannula. She is bronchospastic. She has a congested cough. No significant sputum production. Abdomen is less distended. The patient was placed on a combination of the test and the patient was able to produce a bowel movement. No fever or chills. She is on a combination of albuterol and Atrovent about treatments around the clock in addition to IV Solu-Medrol that was Down to 40 mg every 12 hours. The patient is on insulin drip for blood sugar control for now. She has normal blood work. No significant leukocytosis. Renal function remains stable. She is producing adequate amount of urine output. On 01/04/2018, the patient is doing slow progress and improvement in her acute COPD exacerbation. She has bronchus spastic and wheezy however she still in need of IV Solu-Medrol and for that reason this will be continued and the patient will be kept also on IV heparin for blood sugar control. No chest pain. Most of the sputum production. No pleurisy or hemoptysis. Abdomen is again less distended. On today's evaluation, her white count is at 10.7. Rest of the electrodes are all within normal limits. The patient is on the one of the breast units [id number]. The patient is on empiric antibiotic coverage with a combination of Rocephin and Zithromax. The patient is on Solu- Medrol 40 mg every 12 hours. The patient is also being managed for CHF with a combination of woo inhibitors, diuretics including Aldactone. She is also on beta blockers in the form of Coreg. On 01/05/2018, the patient is resting comfortably in bed. She remains on IV Solu-Medrol. She remains on nitroglycerin drip for blood sugar control. Recovery is slow. She has a congested cough. Overall shortness of breath is improved and the patient is not having any chest pain. No nausea or vomiting. No abdominal pain. No abdominal distention. CHF is well optimized for now. No altered mentation. She is tolerating her diet. No other significant events overnight. On 01/06/2018, seeing this patient for a follow-up. She is resting comfortably in bed. Her pulmonary status improved even and the patient last bronchus spastic and wheezy compared to yesterday. Her speech is improved and the patient has less interruption in her speech by coughing or any other pulmonary symptoms. He remains on IV Solu Medrol 43 g every 12 hours. She remains on bronchodilators including DuoNeb neb last treatment [id number]. She is also on Pulmicort Respules. No other complaints otherwise for now. On today's evaluation, the patient is resting comfortably in bed. No complaints. IV Solu Medrol is at 40 g every 12 hours. The patient is on oral Omnicef. No signs of heart failure. No altered mentation. J no other new complaints otherwise for now. On 01/08/2018 patient seen in follow-up on medical surgical floor. Resting comfortably in bed, denies acute distress. Lung sounds are positive for some scattered wheezes. Patient is having ongoing issues with constipation. Abdomen is soft, nontender, abdominal x-ray from 01/07/2018 shows continue constipation with moderate to large stool burden, but no evidence of obstruction. Today's chest x-ray has been reviewed, shows hypoventilatory lungs , and mild pulmonary vascular congestion, small left greater than right pleural effusion with adjacent atelectasis. Patient remains on high flow nasal cannula , at 10 L/m, and her pulse ox is 92%, patient is afebrile, hemodynamically stable. Urine and blood cultures remain negative, no significant phlegm production. She remains on IV Solu-Medrol at 40 mg every 12 hours, on oral Omnicef, and nebulized bronchodilators, patient remains on insulin drip for hyperglycemia, is currently infusing at 9 ML per hour. Objective - Vital Signs Vital signs: Vital Signs Temp 97.9 F 01/08/18 05:00 Pulse 86 01/08/18 11:24 Resp 16 01/08/18 08:33 BP 130/80 01/08/18 05:00 Pulse Ox 92 L 01/08/18 07:41 Intake & Output 01/07/18 01/08/18 01/08/18 18:59 06:59 18:59 Intake Total 744.750 697.600 9.800 Balance 744.750 697.600 9.800 Weight 69.853 kg Intake: Intake, IV Titration 104.750 157.600 9.800 Amount Insulin Regular 100 unit 34.750 37.600 9.800 In Sodium Chloride 0.9% 100 ml @ Per Protocol IV .Q0M JOSEP Rx#:[id number] Sodium Chloride 0.9% 1, 70 120 000 ml @ 10 mls/hr IV . Q24H JOSEP Rx#:[id number] Oral 640 540 Other: Voiding Method Indwelling Catheter Indwelling Catheter Indwelling Catheter # Voids 5 # Bowel Movements 4 - Exam Gen. appearance the patient is a [id number] degree of respiratory distress , currently on 4 L of oxygen by nasal cannula Head exam was generally normal. There was no scleral icterus or corneal arcus. Mucous membranes were moist. Neck was supple and without jugular venous distension, thyromegaly, or carotid bruits. Carotids were easily palpable bilaterally. There was no adenopathy. Lungs sounds are diminished and there is diffuse expiratory wheezes throughout the lung jimenez bilaterally and prolongation of expiratory phase of breathing, overall bronchospasm wheezing has improved compared to yesterday Cardiac exam revealed the PMI to be normally situated and sized. The rhythm was regular and no extrasystoles were noted during several minutes of auscultation. The first and second heart sounds were normal and physiologic splitting of the second heart sound was noted. There were no murmurs, rubs, clicks, or gallops. Abdomen is less distended. There is no direct tenderness rebound tensile guarding at this point. Bowel sounds are hypoactive. Organs cannot be accurately palpated. Examination of the extremities revealed easily palpable radial, femoral and pedal pulses. There was no cyanosis, clubbing or edema. Examination of the skin revealed no evidence of significant rashes, suspicious appearing nevi or other concerning lesions. - Labs CBC & Chem 7: 01/08/18 06:38 01/08/18 06:38 Labs: Abnormal Lab Results - Last 24 Hours (Table) 01/07/18 01/07/18 01/07/18 Range/Units 11:37 12:57 15:05 WBC (3.8-10.6) k/uL MCHC (31.0-37.0) g/dL Neutrophils # (1.3-7.7) k/uL Carbon Dioxide (22-30) mmol/L BUN (7-17) mg/dL Glucose (74-99) mg/dL POC Glucose (mg/dL) 209 H 238 H 208 H (75-99) mg/dL 01/07/18 01/07/18 01/07/18 Range/Units 17:18 18:52 20:54 WBC (3.8-10.6) k/uL MCHC (31.0-37.0) g/dL Neutrophils # (1.3-7.7) k/uL Carbon Dioxide (22-30) mmol/L BUN (7-17) mg/dL Glucose (74-99) mg/dL POC Glucose (mg/dL) 226 H 243 H 221 H (75-99) mg/dL 01/07/18 01/08/18 01/08/18 Range/Units 22:54 00:56 03:00 WBC (3.8-10.6) k/uL MCHC (31.0-37.0) g/dL Neutrophils # (1.3-7.7) k/uL Carbon Dioxide (22-30) mmol/L BUN (7-17) mg/dL Glucose (74-99) mg/dL POC Glucose (mg/dL) 199 H 169 H 209 H (75-99) mg/dL 01/08/18 01/08/18 01/08/18 Range/Units 03:23 05:36 06:38 WBC 10.9 H (3.8-10.6) k/uL MCHC 30.5 L (31.0-37.0) g/dL Neutrophils # 8.9 H (1.3-7.7) k/uL Carbon Dioxide (22-30) mmol/L BUN (7-17) mg/dL Glucose (74-99) mg/dL POC Glucose (mg/dL) 211 H 172 H (75-99) mg/dL 01/08/18 01/08/18 01/08/18 Range/Units 06:38 07:23 08:46 WBC (3.8-10.6) k/uL MCHC (31.0-37.0) g/dL Neutrophils # (1.3-7.7) k/uL Carbon Dioxide 37 H (22-30) mmol/L BUN 29 H (7-17) mg/dL Glucose 187 H (74-99) mg/dL POC Glucose (mg/dL) 175 H 327 H (75-99) mg/dL Assessment and Plan Plan: Assessment: 1 acute COPD exacerbation with suspected right lower lobe/middle lobe pneumonia. The patient's COPD is improving and the chest x-ray from 01/04/2018 showed improvement in the right lung pulmonary infiltrates and there are some diffuse interstitial markings without evidence of any acute consolidation or pneumonia. 2 acute shortness of breath secondary to above. The shortness of breath is improving. 3 CHF with an ejection fraction of 30-35% with underlying segmental wall motion abnormality rule out underlying coronary artery disease. The patient is currently on a combination of Coreg, lisinopril and Aldactone 4 abdominal distention, possibly related to fecal stasis/constipation, the patient received laxative and she is improving 5 diabetes mellitus type 2 with steroid-induced hyperglycemia currently on insulin drip for blood sugar control 6 hypertension 7 hyperlipidemia 8 acid reflux 9 schizophrenia 10 [facility] home resident Plan We'll switch IV Solu-Medrol to oral prednisone. Continue nebulized bronchodilators, complete oral course of antibiotics, increase activity as tolerated, increase activity as tolerated, encourage sitting up in the chair, deep breathing and coughing, and FiO2. Chest x-ray shows hypoventilatory lungs , and mild pulmonary vascular congestion, small left greater than the right pleural effusions with adjacent atelectasis. Increased from previous exams, will give a dose of Lasix. I performed a history & physical examination of the patient and discussed their management with my nurse practitioner, Joyce Vargas. I reviewed the nurse practitioner's note and agree with the documented findings and plan of care. Lung sounds are positive for diffuse wheezes throughout the lung jimenez. The findings and the impression was discussed with the patient. I attest to the documentation by the nurse practitioner. Time with Patient: Less than 30
[2018-01-08 11:51] LABS: Glucose,Whole Blood 178 mg/dL (75-99)
[2018-01-08] MEDS: LOVAZA PO SCH ×2 (12:17→20:47)
[2018-01-08] MEDS: FUROSEMIDE 10 MG/ML 4 ML VIAL IV STA ×2 (12:31→12:38)
[2018-01-08 14:29] LABS: Glucose,Whole Blood 241 mg/dL (75-99)
--- NOTE | 2018-01-08 14:46 | P.PN ---
Subjective Progress Note Date: 01/08/18 Principal diagnosis: Abdominal pain Patient apparently drank most of the 2 L of GoLYTELY yesterday. Per the nursing staff she had 3 moderate sized bowel movements. Denies pain currently. She is up in a chair. Objective - Vital Signs Vital signs: Vital Signs Temp 97.9 F 01/08/18 05:00 Pulse 88 01/08/18 11:36 Resp 16 01/08/18 08:33 BP 130/80 01/08/18 05:00 Pulse Ox 92 L 01/08/18 07:41 Intake & Output 01/07/18 01/08/18 01/08/18 18:59 06:59 18:59 Intake Total 744.750 697.600 29.925 Balance 744.750 697.600 29.925 Weight 69.853 kg Intake: Intake, IV Titration 104.750 157.600 29.925 Amount Insulin Regular 100 unit 34.750 37.600 29.925 In Sodium Chloride 0.9% 100 ml @ Per Protocol IV .Q0M JOSEP Rx#:[id number] Sodium Chloride 0.9% 1, 70 120 000 ml @ 10 mls/hr IV . Q24H JOSEP Rx#:[id number] Oral 640 540 Other: Voiding Method Indwelling Catheter Indwelling Catheter Indwelling Catheter # Voids 5 # Bowel Movements 4 - Exam Abdomen: Soft, mild distention, nontender - Labs CBC & Chem 7: 01/08/18 06:38 01/08/18 06:38 Labs: Abnormal Lab Results - Last 24 Hours (Table) 01/07/18 01/07/18 01/07/18 Range/Units 15:05 17:18 18:52 WBC (3.8-10.6) k/uL MCHC (31.0-37.0) g/dL Neutrophils # (1.3-7.7) k/uL Carbon Dioxide (22-30) mmol/L BUN (7-17) mg/dL Glucose (74-99) mg/dL POC Glucose (mg/dL) 208 H 226 H 243 H (75-99) mg/dL 01/07/18 01/07/18 01/08/18 Range/Units 20:54 22:54 00:56 WBC (3.8-10.6) k/uL MCHC (31.0-37.0) g/dL Neutrophils # (1.3-7.7) k/uL Carbon Dioxide (22-30) mmol/L BUN (7-17) mg/dL Glucose (74-99) mg/dL POC Glucose (mg/dL) 221 H 199 H 169 H (75-99) mg/dL 01/08/18 01/08/18 01/08/18 Range/Units 03:00 03:23 05:36 WBC (3.8-10.6) k/uL MCHC (31.0-37.0) g/dL Neutrophils # (1.3-7.7) k/uL Carbon Dioxide (22-30) mmol/L BUN (7-17) mg/dL Glucose (74-99) mg/dL POC Glucose (mg/dL) 209 H 211 H 172 H (75-99) mg/dL 01/08/18 01/08/18 01/08/18 Range/Units 06:38 06:38 07:23 WBC 10.9 H (3.8-10.6) k/uL MCHC 30.5 L (31.0-37.0) g/dL Neutrophils # 8.9 H (1.3-7.7) k/uL Carbon Dioxide 37 H (22-30) mmol/L BUN 29 H (7-17) mg/dL Glucose 187 H (74-99) mg/dL POC Glucose (mg/dL) 175 H (75-99) mg/dL 01/08/18 01/08/18 01/08/18 Range/Units 08:46 11:50 14:26 WBC (3.8-10.6) k/uL MCHC (31.0-37.0) g/dL Neutrophils # (1.3-7.7) k/uL Carbon Dioxide (22-30) mmol/L BUN (7-17) mg/dL Glucose (74-99) mg/dL POC Glucose (mg/dL) 327 H 178 H 241 H (75-99) mg/dL Assessment and Plan (1) Constipation Narrative/Plan: Patient with ongoing constipation despite GoLYTELY yesterday. We'll repeat abdominal x-rays tomorrow. If stool burden persists will order unprepped contrast study. Current Visit: Yes Status: Acute Code(s): K59.00 - CONSTIPATION, UNSPECIFIED SNOMED Code(s): 33449312
[2018-01-08 16:24] LABS: Glucose,Whole Blood 320 mg/dL (75-99)
[2018-01-08] MEDS: TROSPIUM CHLORIDE 20 MG TABLET PO SCH (17:42)
[2018-01-08] MEDS: LISINOPRIL 10 MG TAB PO SCH (17:42)
[2018-01-08 18:29] LABS: Glucose,Whole Blood 240 mg/dL (75-99)
[2018-01-08 20:30] LABS: Glucose,Whole Blood 236 mg/dL (75-99)
[2018-01-08] MEDS: cloZAPine 100 MG TAB PO SCH (20:45)
[2018-01-08] MEDS: ATORVASTATIN 20 MG TAB PO SCH (20:45)
[2018-01-08] MEDS: SENNOSIDES 8.6 MG TAB PO SCH (20:46)
--- NOTE | 2018-01-08 20:55 | CT ---
EXAMINATION TYPE: CT angio chest with intravenous contrast and with 3-D reconstruction renderings DATE OF EXAM: 01/08/2018 5:22 PM COMPARISON: 02/24/2017 HISTORY: SOB, R/O PE CT DLP: 298.4 mGycm Automated exposure control for dose reduction was used. CONTRAST: CTA scan of the thorax is performed with IV Contrast, patient injected with 50 mL of Isovue 370, pulmonary embolism protocol. 3-D reconstructions. FINDINGS: LUNGS: There is complete atelectasis of the left lower lobe, etiology unclear. Concurrent left lower lobe probably pneumonia can be clinically considered. The lungs are otherwise well-expanded and clear bilaterally. PLEURAL SPACES: There is no pleural effusion or pneumothorax seen. AIRWAYS: The tracheobronchial tree is patent. MEDIASTINUM: There is satisfactory enhancement of the pulmonary artery and its branches, there is no CT evidence for pulmonary embolism. There are no greater than 1 cm hilar or mediastinal lymph nodes. There is mild-moderate cardiomegaly with panchamber enlargement. No pericardial effusion. OTHER: No additional significant abnormality is seen. IMPRESSION: 1. NEGATIVE FOR PULMONARY EMBOLISM. 2. COMPLETE LEFT LOWER LOBE ATELECTASIS. FOLLOW-UP IN 9 WEEKS IS RECOMMENDED TO PROVE PLEAT RESOLUTIO N. 3. MILD-MODERATE CARDIOMEGALY.
[2018-01-08 22:31] LABS: Glucose,Whole Blood 146 mg/dL (75-99)
[2018-01-08] MEDS: INSULIN REGULAR 100 UNIT in SODIUM CHLORIDE 0.9% 100 ML IV SCH (22:32)
[2018-01-08] MEDS: SODIUM CHLORIDE 0.9% 1,000 ML IV SCH (22:34)
--- NOTE | 2018-01-09 00:29 | PN ---
PROGRESS NOTE DATE OF SERVICE: 01/08/2018. PRESENTING COMPLAINT: Tired. INTERVAL HISTORY: Patient presented with pneumonia, fluid overload, and severe constipation. Breathing is better. Had bowel movements yesterday. Tolerating some diet. No nausea or vomiting. REVIEW OF SYSTEMS: Done for constitutional, cardiovascular, GI, pulmonary; relevant findings as above. Abdomen is less distended today. CURRENT MEDICATIONS: Reviewed, that include insulin drip. PHYSICAL EXAMINATION: Temperature 97.9, pulse 83, respirations 16, blood pressure 130/80, pulse ox 91% on 10 L. GENERAL APPEARANCE: Sitting up, tired-appearing. EYES: Pupils equal. Conjunctivae normal. HEENT: External nose and ears normal. Oral cavity normal. NECK: JVD not raised. Mass not palpable. Respiratory effort increased. LUNGS: Decreased breath sounds. Prolonged expiration. CARDIOVASCULAR: 1st and 2nd sounds normal. No edema. ABDOMEN: Slightly less distended. Bowel sounds present. Liver and spleen not palpable. No tenderness. PSYCHIATRY: Awake, answering questions. INVESTIGATIONS: White count 10.9, potassium 4.7, BUN 29, creatinine 0.86. Chest CTA negative for PE. Left lower lobe atelectasis. Abdominal x-ray from yesterday shows moderate to large stool burden. ASSESSMENT: 1. Right lobe pneumonia, suspect gram-negative organism, with clinical improvement. 2. Acute congestive heart failure exacerbation from systolic dysfunction, ejection fraction 30% to 35%, now euvolemic. 3. Acute hypoxic respiratory failure. Patient on nasal cannula. 4. Possible left lower lobe atelectasis, could be from mucus plug. 5. Diabetes mellitus type 2 on oral hypoglycemic, uncontrolled from hyperglycemia from steroids. Remains on insulin drip. 6. Gastroesophageal reflux disease. 7. Hyperlipidemia. 8. Essential hypertension. 9. Chronic stress incontinence. 10.Chronic mental impairment. 11.Severe constipation with some response to laxatives. 12.Acute chronic obstructive pulmonary disease exacerbation in a nonsmoker. 13.Acute hypoxic respiratory failure, patient on high-flow oxygen. PLAN: Patient will probably need a bronchoscopy to see there is a mucus plug. Care was discussed with the patient. The patient will also be switched over to oral prednisone and hopefully we can get her off the Lasix. MMODL / IJN: [id number] /
[2018-01-09 00:31] LABS: Glucose,Whole Blood 147 mg/dL (75-99)
[2018-01-09 02:31] LABS: Glucose,Whole Blood 155 mg/dL (75-99)
[2018-01-09 04:33] LABS: Glucose,Whole Blood 149 mg/dL (75-99)
[2018-01-09 06:30] LABS: Glucose,Whole Blood 120 mg/dL (75-99)
[2018-01-09 06:51] LABS: Glucose,Whole Blood 127 mg/dL (75-99)
[2018-01-09] MEDS: IPRATROPIUM-ALBUTEROL 3 ML NEB INHALATION SCH ×4 (07:31→19:54)
[2018-01-09] MEDS: BUDESONIDE 1 MG/2 ML NEBU INHALATION SCH ×2 (07:31→19:54)
[2018-01-09 07:40] LABS: Glucose,Whole Blood 124 mg/dL (75-99)
[2018-01-09 08:00] LABS: Anion Gap 7 mmol/L; Blood Urea Nitrogen 30 mg/dL (7-17); Calcium 9.2 mg/dL (8.4-10.2); Carbon Dioxide 33 mmol/L (22-30); Chloride 99 mmol/L (98-107); Glucose 121 mg/dL (74-99); Potassium 4.7 mmol/L (3.5-5.1); Sodium 139 mmol/L (137-145)
[2018-01-09] MEDS ORDERED: INSULIN NPH/REG INSULIN 70/30 300 UNIT/3 ML VIAL SQ ONE (08:08)
[2018-01-09] MEDS: SPIRONOLACTONE 25 MG TAB PO SCH (08:18)
[2018-01-09] MEDS: CEFDINIR 300 MG CAP PO SCH ×2 (08:18→20:44)
[2018-01-09] MEDS: LACTULOSE 20 GM/30 ML CUP PO SCH ×2 (08:18→20:44)
[2018-01-09] MEDS: predniSONE 20 MG TAB PO SCH (08:18)
[2018-01-09] MEDS: CHOLECALCIFEROL 1,000 UNIT TAB PO SCH (08:18)
[2018-01-09] MEDS: ASPIRIN 81 MG PO SCH (08:19)
[2018-01-09] MEDS: CARVEDILOL 12.5 MG TAB PO SCH ×2 (08:19→17:54)
[2018-01-09] MEDS: ALLOPURINOL 100 MG TAB PO SCH ×2 (08:19→20:44)
[2018-01-09] MEDS: PANTOPRAZOLE 40 MG TABLET PO SCH (08:19)
[2018-01-09] MEDS: CITALOPRAM HYDROBROMIDE 20 MG TAB PO SCH (08:19)
[2018-01-09] MEDS: POTASSIUM CHLORIDE ER 10 MEQ TAB.ER.PRT PO SCH (08:19)
[2018-01-09] MEDS: cloZAPine 25 MG TAB PO SCH (08:19)
[2018-01-09] MEDS: FENOFIBRATE 160 MG TAB PO SCH (08:19)
[2018-01-09] MEDS: LOVAZA PO SCH ×2 (08:21→20:47)
--- NOTE | 2018-01-09 09:38 | P.PN ---
Subjective Progress Note Date: 01/09/18 Principal diagnosis: Acute COPD exacerbation with suspected right lower lobe middle lobe pneumonia This is a 52-year-old female patient, a poor historian with known history of COPD and addition to diabetes mellitus type 2, hypertension and hyperlipidemia and schizophrenia, who came into the hospital because of shortness of breath. The patient has been followed up by visiting physicians. She is mentally impaired and she is a poor historian. Her shortness of breath dates back to around 2 days ago and she was having these cough without any significant sputum production. There was also reported increased bronchospasm and wheezing and she was getting more short of breath and tired. She was also having some increased constipation and abdominal distention. On admission, chest x-ray was done and showed bilaterally no opacities most consistent with atelectasis although early developing pneumonia in the right lower lobe and the right middle lobe could not be excluded. The patient was started on antibiotics. The patient was started on IV Solu-Medrol. The patient was also started on IV fluids knowing that she had a component of lactic acidosis with initial lactic acid level of 4.4. Note that her lactic acid level dropped down to 1.8. Nevertheless earlier this point the patient became progressively more short of breath and a chest x-ray was done and it showed interval development of moderate degree of interstitial edema which is probably related to fluid overload as the patient was receiving IV fluids in regards to her lactic acidosis. Flat film of the abdomen was also done that showed nonobstructive bowel gas pattern and there was fairly moderate amount of colonic fecal stasis. I saw this patient on the medical floor. She was in 100 % nonrebreather facemask. I decide to move this patient to the intensive care unit for more monitoring. She was given a dose of Lasix following which she had adequate urine output and she was getting less short of breath. She denied having any chest pain. Her white cell count is not elevated at 6.8. Hemoccult was stable at 10.6. Rest of the electrodes are all within normal including her renal function tests. She had developed some steroid-induced hyperglycemia related to systemic steroids and the patient was started on insulin drip for blood sugar control. In terms of antibiotic coverage, the patient is on a combination of Rocephin and Zithromax. The patient was also seen by Dr. strange. She was given milk of magnesia regarding her constipation. She'll be monitored clinically. We'll consider CAT scan of the abdomen and pelvis if she continues to have abdominal distention. On 01/02/2018 the patient is less short of breath compared to yesterday. She was weaned down to 5 L of oxygen by nasal cannula. She made excellent urine output with diuretics yesterday and the patient shows improvement in the volume status on today's chest x-ray. The patient is a negative fluid balance. The patient is not having any chest pain. She is still congested and she has a cough and some limited wheezing. Abdomen is still distended. The patient undertook a Fleet enema yesterday and the patient also received milk of magnesia without success in terms of her bowel activity. No abdominal pain. Abdomen is slightly distended still. No fever. No chills. No hypotension. No other complaints otherwise for now. White cell count is at 12.5. The patient has a normal renal function. On today's evaluation of 01/03/2018 the patient is seeming to have less shortness of breath. She is on 5 L of oxygen by nasal cannula. She is bronchospastic. She has a congested cough. No significant sputum production. Abdomen is less distended. The patient was placed on a combination of the test and the patient was able to produce a bowel movement. No fever or chills. She is on a combination of albuterol and Atrovent about treatments around the clock in addition to IV Solu-Medrol that was Down to 40 mg every 12 hours. The patient is on insulin drip for blood sugar control for now. She has normal blood work. No significant leukocytosis. Renal function remains stable. She is producing adequate amount of urine output. On 01/04/2018, the patient is doing slow progress and improvement in her acute COPD exacerbation. She has bronchus spastic and wheezy however she still in need of IV Solu-Medrol and for that reason this will be continued and the patient will be kept also on IV heparin for blood sugar control. No chest pain. Most of the sputum production. No pleurisy or hemoptysis. Abdomen is again less distended. On today's evaluation, her white count is at 10.7. Rest of the electrodes are all within normal limits. The patient is on the one of the breast units [id number]. The patient is on empiric antibiotic coverage with a combination of Rocephin and Zithromax. The patient is on Solu- Medrol 40 mg every 12 hours. The patient is also being managed for CHF with a combination of woo inhibitors, diuretics including Aldactone. She is also on beta blockers in the form of Coreg. On 01/05/2018, the patient is resting comfortably in bed. She remains on IV Solu-Medrol. She remains on nitroglycerin drip for blood sugar control. Recovery is slow. She has a congested cough. Overall shortness of breath is improved and the patient is not having any chest pain. No nausea or vomiting. No abdominal pain. No abdominal distention. CHF is well optimized for now. No altered mentation. She is tolerating her diet. No other significant events overnight. On 01/06/2018, seeing this patient for a follow-up. She is resting comfortably in bed. Her pulmonary status improved even and the patient last bronchus spastic and wheezy compared to yesterday. Her speech is improved and the patient has less interruption in her speech by coughing or any other pulmonary symptoms. He remains on IV Solu Medrol 43 g every 12 hours. She remains on bronchodilators including DuoNeb neb last treatment [id number]. She is also on Pulmicort Respules. No other complaints otherwise for now. On today's evaluation, the patient is resting comfortably in bed. No complaints. IV Solu Medrol is at 40 g every 12 hours. The patient is on oral Omnicef. No signs of heart failure. No altered mentation. J no other new complaints otherwise for now. On 01/08/2018 patient seen in follow-up on medical surgical floor. Resting comfortably in bed, denies acute distress. Lung sounds are positive for some scattered wheezes. Patient is having ongoing issues with constipation. Abdomen is soft, nontender, abdominal x-ray from 01/07/2018 shows continue constipation with moderate to large stool burden, but no evidence of obstruction. Today's chest x-ray has been reviewed, shows hypoventilatory lungs , and mild pulmonary vascular congestion, small left greater than right pleural effusion with adjacent atelectasis. Patient remains on high flow nasal cannula , at 10 L/m, and her pulse ox is 92%, patient is afebrile, hemodynamically stable. Urine and blood cultures remain negative, no significant phlegm production. She remains on IV Solu-Medrol at 40 mg every 12 hours, on oral Omnicef, and nebulized bronchodilators, patient remains on insulin drip for hyperglycemia, is currently infusing at 9 ML per hour. On 01/09/2018 patient seen in follow-up on medical surgical floor. She remains on high flow nasal cannula, on 10 L per nasal cannula her pulse ox is ranging from 82-92%. Patient remains afebrile, hemodynamically stable, denies any worsening shortness of breath. Patient is sitting up in the chair this morning , she was reportedly very wheezy and tight on this morning's exam, improved with bronchodilators. Patient needs aggressive pulmonary toileting, incentive spirometry, she is only able to achieve 250 ML on her IS today. CT angiogram was completed yesterday, and was negative for pulmonary embolism, it showed complete left lower lobe atelectasis and mild to moderate cardiomegaly. Blood and urine cultures remain negative. Has occasional cough with production of clear sputum. She has been mostly on bedrest, staff reports patient is stable on her feet, and is able to ambulate, we will increase patient's activity, and encourage ambulation, deep breathing and coughing. Patient's abdomen is nontender, she starting to pass large amounts of gas, did have a bowel movement today, patient took 2 L of GoLYTELY yesterday. Surgery is following regarding ongoing issues with constipation. Objective - Vital Signs Vital signs: Vital Signs Temp 97.3 F L 01/09/18 08:28 Pulse 81 01/09/18 08:28 Resp 18 01/09/18 08:28 BP 116/74 01/09/18 08:28 Pulse Ox 92 L 01/09/18 08:28 Intake & Output 01/08/18 01/09/18 01/09/18 18:59 06:59 18:59 Intake Total 125.058 380.067 Output Total 240 Balance 125.058 140.067 Intake: Intake, IV Titration 125.058 140.067 Amount Insulin Regular 100 unit 55.058 20.067 In Sodium Chloride 0.9% 100 ml @ Per Protocol IV .Q0M [facility] Rx#:[id number] Sodium Chloride 0.9% 1, 70 120 000 ml @ 10 mls/hr IV . Q24H [facility] Rx#:[id number] Oral 240 Output: Urine 240 Other: Voiding Method Indwelling Catheter Diaper Incontinent # Voids 1 # Bowel Movements 1 - Exam Gen. appearance the patient is a [id number] degree of respiratory distress , currently on 10 L of oxygen by nasal cannula Head exam was generally normal. There was no scleral icterus or corneal arcus. Mucous membranes were moist. Neck was supple and without jugular venous distension, thyromegaly, or carotid bruits. Carotids were easily palpable bilaterally. There was no adenopathy. Lungs sounds are diminished, faint few wheezes on forced exhale maneuver, much improved compared to prior exams. Cardiac exam revealed the PMI to be normally situated and sized. The rhythm was regular and no extrasystoles were noted during several minutes of auscultation. The first and second heart sounds were normal and physiologic splitting of the second heart sound was noted. There were no murmurs, rubs, clicks, or gallops. Abdomen is less distended. There is no direct tenderness rebound tensile guarding at this point. Bowel sounds are hypoactive. Organs cannot be accurately palpated. Examination of the extremities revealed easily palpable radial, femoral and pedal pulses. There was no cyanosis, clubbing or edema. Examination of the skin revealed no evidence of significant rashes, suspicious appearing nevi or other concerning lesions. - Labs CBC & Chem 7: 01/08/18 06:38 01/09/18 07:06 Labs: Abnormal Lab Results - Last 24 Hours (Table) 01/08/18 01/08/18 01/08/18 Range/Units 11:50 14:26 16:23 Carbon Dioxide (22-30) mmol/L BUN (7-17) mg/dL Glucose (74-99) mg/dL POC Glucose (mg/dL) 178 H 241 H 320 H (75-99) mg/dL 01/08/18 01/08/18 01/08/18 Range/Units 18:27 20:29 22:30 Carbon Dioxide (22-30) mmol/L BUN (7-17) mg/dL Glucose (74-99) mg/dL POC Glucose (mg/dL) 240 H 236 H 146 H (75-99) mg/dL 01/09/18 01/09/18 01/09/18 Range/Units 00:30 02:29 04:32 Carbon Dioxide (22-30) mmol/L BUN (7-17) mg/dL Glucose (74-99) mg/dL POC Glucose (mg/dL) 147 H 155 H 149 H (75-99) mg/dL 01/09/18 01/09/18 01/09/18 Range/Units 06:18 06:31 07:06 Carbon Dioxide 33 H (22-30) mmol/L BUN 30 H (7-17) mg/dL Glucose 121 H (74-99) mg/dL POC Glucose (mg/dL) 120 H 127 H (75-99) mg/dL 01/09/18 Range/Units 07:30 Carbon Dioxide (22-30) mmol/L BUN (7-17) mg/dL Glucose (74-99) mg/dL POC Glucose (mg/dL) 124 H (75-99) mg/dL Assessment and Plan Plan: Assessment: 1 acute COPD exacerbation with suspected right lower lobe/middle lobe pneumonia. The patient's COPD is improving and the chest x-ray from 01/04/2018 showed improvement in the right lung pulmonary infiltrates and there are some diffuse interstitial markings without evidence of any acute consolidation or pneumonia. On 01/09/2018 patient is persistently hypoxemic, and requiring 10 L per high flow nasal cannula, and her pulse ox is ranging from 82-92%. CT angiogram was completed, and showed no evidence of pulmonary embolism, but complete left lower lobe atelectasis. There has been a resolution of the right lower lobe/ middle lobe infiltrate previously noted on chest x-rays 2 acute shortness of breath secondary to above. The shortness of breath is improving. 3 CHF with an ejection fraction of 30-35% with underlying segmental wall motion abnormality rule out underlying coronary artery disease. The patient is currently on a combination of Coreg, lisinopril and Aldactone 4 abdominal distention, possibly related to fecal stasis/constipation, the patient received laxative and she is improving 5 diabetes mellitus type 2 with steroid-induced hyperglycemia currently on insulin drip for blood sugar control 6 hypertension 7 hyperlipidemia 8 acid reflux 9 schizophrenia 10 [facility] home resident Plan CT angios was reviewed, no pulmonary embolism, but complete left lower lobe atelectasis. Encourage patient to sit up in the chair, and ambulate, deep breathing and coughing, incentive spirometry. Not significantly bronchospastic on today's exam, continue oral prednisone, continue nebulized bronchodilators. No fever, no chills, occasional cough with production of clear sputum. Continue to follow I performed a history & physical examination of the patient and discussed their management with my nurse practitioner, Joyce Vargas. I reviewed the nurse practitioner's note and agree with the documented findings and plan of care. Lung sounds are diminished. The findings and the impression was discussed with the patient. I attest to the documentation by the nurse practitioner. Time with Patient: Less than 30
[2018-01-09 10:29] LABS: Glucose,Whole Blood 238 mg/dL (75-99)
--- NOTE | 2018-01-09 11:07 | XR ---
EXAMINATION TYPE: XR abdomen 2V DATE OF EXAM: 01/09/2018 CLINICAL DATA: 52-year-old female with constipation, [facility] COMPARISON: 01/07/2018 FINDINGS: Lung bases are clear. No evidence for free intraperitoneal air. No dilated small bowel or air-fluid levels. Scattered air and stool seen throughout the colon extendi ng distally into the rectum. There is moderate stool burden extending to the mid descending colon. Bowel content largely obscures the renal shadows. Cholecystectomy clip. IMPRESSION: 1. Moderate stool extending to the mid descending colon. 2. No evidence of bowel obstruction or free intraperitoneal air.
[2018-01-09 11:51] LABS: Glucose,Whole Blood 238 mg/dL (75-99)
[2018-01-09] MEDS: metFORMIN 500 MG TAB PO SCH ×2 (12:09→17:54)
[2018-01-09] MEDS: INSULIN ASPART 100 UNIT/ML 1 ML 10 ML VIAL SQ SCH (12:09)
[2018-01-09 17:12] LABS: Glucose,Whole Blood 237 mg/dL (75-99)
--- NOTE | 2018-01-09 17:38 | P.PN ---
Subjective Progress Note Date: 01/09/18 Principal diagnosis: Abdominal pain Patient was passing flatus and had an additional small bowel movement. X-rays still show constipation although improved. Denies pain. Objective - Vital Signs Vital signs: Vital Signs Temp 97.4 F L 01/09/18 14:55 Pulse 86 01/09/18 16:00 Resp 16 01/09/18 14:55 BP 121/73 01/09/18 14:55 Pulse Ox 93 L 01/09/18 15:47 Intake & Output 01/08/18 01/09/18 01/09/18 18:59 06:59 18:59 Intake Total 125.058 380.067 70 Output Total 240 Balance 125.058 140.067 70 Intake: Intake, IV Titration 125.058 140.067 70 Amount Insulin Regular 100 unit 55.058 20.067 In Sodium Chloride 0.9% 100 ml @ Per Protocol IV .Q0M [facility] Rx#:[id number] Sodium Chloride 0.9% 1, 70 120 70 000 ml @ 10 mls/hr IV . Q24H [facility] Rx#:[id number] Oral 240 Output: Urine 240 Other: Voiding Method Indwelling Catheter Diaper Diaper Incontinent Incontinent # Voids 1 # Bowel Movements 1 - Exam Abdomen: Soft, mild distention, mild tenderness - Labs CBC & Chem 7: 01/08/18 06:38 01/09/18 07:06 Labs: Abnormal Lab Results - Last 24 Hours (Table) 01/08/18 01/08/18 01/08/18 Range/Units 18:27 20:29 22:30 Carbon Dioxide (22-30) mmol/L BUN (7-17) mg/dL Glucose (74-99) mg/dL POC Glucose (mg/dL) 240 H 236 H 146 H (75-99) mg/dL 01/09/18 01/09/18 01/09/18 Range/Units 00:30 02:29 04:32 Carbon Dioxide (22-30) mmol/L BUN (7-17) mg/dL Glucose (74-99) mg/dL POC Glucose (mg/dL) 147 H 155 H 149 H (75-99) mg/dL 01/09/18 01/09/18 01/09/18 Range/Units 06:18 06:31 07:06 Carbon Dioxide 33 H (22-30) mmol/L BUN 30 H (7-17) mg/dL Glucose 121 H (74-99) mg/dL POC Glucose (mg/dL) 120 H 127 H (75-99) mg/dL 01/09/18 01/09/18 01/09/18 Range/Units 07:30 10:28 11:49 Carbon Dioxide (22-30) mmol/L BUN (7-17) mg/dL Glucose (74-99) mg/dL POC Glucose (mg/dL) 124 H 238 H 238 H (75-99) mg/dL 01/09/18 Range/Units 17:10 Carbon Dioxide (22-30) mmol/L BUN (7-17) mg/dL Glucose (74-99) mg/dL POC Glucose (mg/dL) 237 H (75-99) mg/dL Assessment and Plan (1) Constipation Narrative/Plan: Patient still not evacuating as well as I would expect despite all the cathartics including GoLYTELY. X-rays still show degree of constipation. We' ll order unprepped Gastrografin enema to rule out distal colonic obstruction. Current Visit: Yes Status: Acute Code(s): K59.00 - CONSTIPATION, UNSPECIFIED SNOMED Code(s): 68092451
[2018-01-09] MEDS: TROSPIUM CHLORIDE 20 MG TABLET PO SCH (17:54)
[2018-01-09] MEDS: LISINOPRIL 10 MG TAB PO SCH (17:54)
[2018-01-09] MEDS: SENNOSIDES 8.6 MG TAB PO SCH (20:44)
[2018-01-09] MEDS: cloZAPine 100 MG TAB PO SCH (20:44)
[2018-01-09] MEDS: ATORVASTATIN 20 MG TAB PO SCH (20:44)
[2018-01-09] MEDS: SODIUM CHLORIDE 0.9% 1,000 ML IV SCH (20:48)
[2018-01-09 20:53] LABS: Glucose,Whole Blood 263 mg/dL (75-99)
[2018-01-09] MEDS: INSULIN DETEMIR 100 UNIT/ML 10 ML VIAL SQ SCH (21:11)
--- NOTE | 2018-01-10 05:18 | PN ---
PROGRESS NOTE DATE OF SERVICE: 01/09/2018 PRESENTING COMPLAINT: Tired. INTERVAL HISTORY: Patient presented with pneumonia, fluid overload, severe constipation and COPD exacerbation. Breathing is much improved. She has been having bowel movements, but stool had been found on the x-ray. Dr. Boykin has ordered a Gastrografin enema. The patient otherwise tolerating a diet. No nausea or vomiting. REVIEW OF SYSTEMS: Review of systems done for constitutional, cardiovascular, GI, pulmonary; relevant findings as above. MEDICATIONS: Current medications are reviewed that include p.o. prednisone, IV insulin was discontinued this morning. PHYSICAL EXAMINATION: On examination, temperature 97.4, pulse 87, respirations 16, blood pressure 121/73 pulse ox 93% on nasal cannula. GENERAL APPEARANCE: Sitting up, awake. EYES: Pupils equal. Conjunctivae normal. HENT: External appearance of nose and ears normal. Oral cavity normal. NECK: JVD not raised. Mass not palpable. RESPIRATORY: Effort increased. LUNGS: Decreased breath sounds. Improved wheezing. CARDIOVASCULAR: First and second sounds normal. No edema. ABDOMEN: Distended, soft. Bowel sounds are present. PSYCHIATRY: Awake, answering simple questions. INVESTIGATIONS: Accu-Cheks are noted. Potassium 4.7, BUN 30, creatinine 0.77. ASSESSMENT: 1. Right lower lobe pneumonia suspect gram-negative organism with clinical improvement. 2. Acute congestive heart failure exacerbation from systolic dysfunction, ejection fraction 30% to 35%, now euvolemic. 3. Acute hypoxic respiratory failure. The patient has been on nasal cannula. 4. Right lower lobe atelectasis, could be from mucus plug. 5. Diabetes mellitus type 2, on oral hypoglycemic, uncontrolled from hyperglycemia from steroids. The patient now taken off the insulin drip. 6. Gastroesophageal reflux disease. 7. Hyperlipidemia. 8. Essential hypertension. 9. Chronic urinary stress incontinence. 10.Chronic mental impairment. 11.Severe constipation with some response to laxatives. 12.Acute chronic obstructive pulmonary disease exacerbation in a nonsmoker. 13.Acute hypoxic respiratory failure. Oxygen requirement coming down. PLAN: Continue current medication and treatment plan. I ordered 70/30 insulin this morning, 1 dose. Patient will be switched to Lantus this evening. MMODL / IJN: [id number] /
[2018-01-10] MEDS: BUDESONIDE 1 MG/2 ML NEBU INHALATION SCH ×2 (06:59→19:36)
[2018-01-10] MEDS: IPRATROPIUM-ALBUTEROL 3 ML NEB INHALATION SCH ×4 (06:59→19:38)
[2018-01-10 07:17] LABS: Glucose,Whole Blood 70 mg/dL (75-99)
[2018-01-10 08:03] LABS: Anion Gap 7 mmol/L; Blood Urea Nitrogen 28 mg/dL (7-17); Calcium 9.4 mg/dL (8.4-10.2); Carbon Dioxide 33 mmol/L (22-30); Chloride 100 mmol/L (98-107); Glucose 64 mg/dL (74-99); Potassium 4.4 mmol/L (3.5-5.1); Sodium 140 mmol/L (137-145)
--- NOTE | 2018-01-10 10:25 | P.PN ---
Subjective Progress Note Date: 01/10/18 Principal diagnosis: Acute COPD exacerbation with suspected right lower lobe middle lobe pneumonia This is a 52-year-old female patient, a poor historian with known history of COPD and addition to diabetes mellitus type 2, hypertension and hyperlipidemia and schizophrenia, who came into the hospital because of shortness of breath. The patient has been followed up by visiting physicians. She is mentally impaired and she is a poor historian. Her shortness of breath dates back to around 2 days ago and she was having these cough without any significant sputum production. There was also reported increased bronchospasm and wheezing and she was getting more short of breath and tired. She was also having some increased constipation and abdominal distention. On admission, chest x-ray was done and showed bilaterally no opacities most consistent with atelectasis although early developing pneumonia in the right lower lobe and the right middle lobe could not be excluded. The patient was started on antibiotics. The patient was started on IV Solu-Medrol. The patient was also started on IV fluids knowing that she had a component of lactic acidosis with initial lactic acid level of 4.4. Note that her lactic acid level dropped down to 1.8. Nevertheless earlier this point the patient became progressively more short of breath and a chest x-ray was done and it showed interval development of moderate degree of interstitial edema which is probably related to fluid overload as the patient was receiving IV fluids in regards to her lactic acidosis. Flat film of the abdomen was also done that showed nonobstructive bowel gas pattern and there was fairly moderate amount of colonic fecal stasis. I saw this patient on the medical floor. She was in 100 % nonrebreather facemask. I decide to move this patient to the intensive care unit for more monitoring. She was given a dose of Lasix following which she had adequate urine output and she was getting less short of breath. She denied having any chest pain. Her white cell count is not elevated at 6.8. Hemoccult was stable at 10.6. Rest of the electrodes are all within normal including her renal function tests. She had developed some steroid-induced hyperglycemia related to systemic steroids and the patient was started on insulin drip for blood sugar control. In terms of antibiotic coverage, the patient is on a combination of Rocephin and Zithromax. The patient was also seen by Dr. strange. She was given milk of magnesia regarding her constipation. She'll be monitored clinically. We'll consider CAT scan of the abdomen and pelvis if she continues to have abdominal distention. On 01/02/2018 the patient is less short of breath compared to yesterday. She was weaned down to 5 L of oxygen by nasal cannula. She made excellent urine output with diuretics yesterday and the patient shows improvement in the volume status on today's chest x-ray. The patient is a negative fluid balance. The patient is not having any chest pain. She is still congested and she has a cough and some limited wheezing. Abdomen is still distended. The patient undertook a Fleet enema yesterday and the patient also received milk of magnesia without success in terms of her bowel activity. No abdominal pain. Abdomen is slightly distended still. No fever. No chills. No hypotension. No other complaints otherwise for now. White cell count is at 12.5. The patient has a normal renal function. On today's evaluation of 01/03/2018 the patient is seeming to have less shortness of breath. She is on 5 L of oxygen by nasal cannula. She is bronchospastic. She has a congested cough. No significant sputum production. Abdomen is less distended. The patient was placed on a combination of the test and the patient was able to produce a bowel movement. No fever or chills. She is on a combination of albuterol and Atrovent about treatments around the clock in addition to IV Solu-Medrol that was Down to 40 mg every 12 hours. The patient is on insulin drip for blood sugar control for now. She has normal blood work. No significant leukocytosis. Renal function remains stable. She is producing adequate amount of urine output. On 01/04/2018, the patient is doing slow progress and improvement in her acute COPD exacerbation. She has bronchus spastic and wheezy however she still in need of IV Solu-Medrol and for that reason this will be continued and the patient will be kept also on IV heparin for blood sugar control. No chest pain. Most of the sputum production. No pleurisy or hemoptysis. Abdomen is again less distended. On today's evaluation, her white count is at 10.7. Rest of the electrodes are all within normal limits. The patient is on the one of the breast units [id number]. The patient is on empiric antibiotic coverage with a combination of Rocephin and Zithromax. The patient is on Solu- Medrol 40 mg every 12 hours. The patient is also being managed for CHF with a combination of woo inhibitors, diuretics including Aldactone. She is also on beta blockers in the form of Coreg. On 01/05/2018, the patient is resting comfortably in bed. She remains on IV Solu-Medrol. She remains on nitroglycerin drip for blood sugar control. Recovery is slow. She has a congested cough. Overall shortness of breath is improved and the patient is not having any chest pain. No nausea or vomiting. No abdominal pain. No abdominal distention. CHF is well optimized for now. No altered mentation. She is tolerating her diet. No other significant events overnight. On 01/06/2018, seeing this patient for a follow-up. She is resting comfortably in bed. Her pulmonary status improved even and the patient last bronchus spastic and wheezy compared to yesterday. Her speech is improved and the patient has less interruption in her speech by coughing or any other pulmonary symptoms. He remains on IV Solu Medrol 43 g every 12 hours. She remains on bronchodilators including DuoNeb neb last treatment [id number]. She is also on Pulmicort Respules. No other complaints otherwise for now. On today's evaluation, the patient is resting comfortably in bed. No complaints. IV Solu Medrol is at 40 g every 12 hours. The patient is on oral Omnicef. No signs of heart failure. No altered mentation. J no other new complaints otherwise for now. On 01/08/2018 patient seen in follow-up on medical surgical floor. Resting comfortably in bed, denies acute distress. Lung sounds are positive for some scattered wheezes. Patient is having ongoing issues with constipation. Abdomen is soft, nontender, abdominal x-ray from 01/07/2018 shows continue constipation with moderate to large stool burden, but no evidence of obstruction. Today's chest x-ray has been reviewed, shows hypoventilatory lungs , and mild pulmonary vascular congestion, small left greater than right pleural effusion with adjacent atelectasis. Patient remains on high flow nasal cannula , at 10 L/m, and her pulse ox is 92%, patient is afebrile, hemodynamically stable. Urine and blood cultures remain negative, no significant phlegm production. She remains on IV Solu-Medrol at 40 mg every 12 hours, on oral Omnicef, and nebulized bronchodilators, patient remains on insulin drip for hyperglycemia, is currently infusing at 9 ML per hour. On 01/09/2018 patient seen in follow-up on medical surgical floor. She remains on high flow nasal cannula, on 10 L per nasal cannula her pulse ox is ranging from 82-92%. Patient remains afebrile, hemodynamically stable, denies any worsening shortness of breath. Patient is sitting up in the chair this morning , she was reportedly very wheezy and tight on this morning's exam, improved with bronchodilators. Patient needs aggressive pulmonary toileting, incentive spirometry, she is only able to achieve 250 ML on her IS today. CT angiogram was completed yesterday, and was negative for pulmonary embolism, it showed complete left lower lobe atelectasis and mild to moderate cardiomegaly. Blood and urine cultures remain negative. Has occasional cough with production of clear sputum. She has been mostly on bedrest, staff reports patient is stable on her feet, and is able to ambulate, we will increase patient's activity, and encourage ambulation, deep breathing and coughing. Patient's abdomen is nontender, she starting to pass large amounts of gas, did have a bowel movement today, patient took 2 L of GoLYTELY yesterday. Surgery is following regarding ongoing issues with constipation. On 01/10/2018 patient seen in follow-up on medical surgical floor. She had just returned from the radiology department where she had a barium enema today for fecal stasis. From pulmonary standpoint she remains stable, FiO2 has been weaned down to 4 L per nasal cannula, and her pulse ox is 92%, she is afebrile, vitals are stable. Today's BMP was reviewed, CBC was not done. Sodium is 140, potassium is 4.4, CO2 33, BUN is 28, creatinine 0.74. Denies any worsening dyspnea, has occasional cough with production of clear sputum. Remains on oral prednisone, and nebulized bronchodilators. Lung sounds are diminished, patient still has a congested cough, but is not producing much sputum today. No fever, no chills. She is pulling 500 mL of her incentive spirometer today Objective - Vital Signs Vital signs: Vital Signs Temp 98.1 F 01/10/18 06:02 Pulse 86 01/10/18 07:12 Resp 20 01/10/18 06:02 BP 115/58 01/10/18 06:02 Pulse Ox 92 L 01/10/18 06:02 Intake & Output 01/09/18 01/10/18 01/10/18 18:59 06:59 18:59 Intake Total 70 120 Output Total 200 Balance 70 -80 Intake: Intake, IV Titration 70 Amount Sodium Chloride 0.9% 1, 70 000 ml @ 10 mls/hr IV . Q24H [facility] Rx#:[id number] Oral 120 Output: Stool 200 Other: Voiding Method Diaper Diaper Incontinent Incontinent # Voids 4 3 # Bowel Movements 1 1 - Exam Gen. appearance the patient is a [id number] degree of respiratory distress , currently on 10 L of oxygen by nasal cannula Head exam was generally normal. There was no scleral icterus or corneal arcus. Mucous membranes were moist. Neck was supple and without jugular venous distension, thyromegaly, or carotid bruits. Carotids were easily palpable bilaterally. There was no adenopathy. Lungs sounds are diminished, faint few wheezes on forced exhale maneuver, continues to improve Cardiac exam revealed the PMI to be normally situated and sized. The rhythm was regular and no extrasystoles were noted during several minutes of auscultation. The first and second heart sounds were normal and physiologic splitting of the second heart sound was noted. There were no murmurs, rubs, clicks, or gallops. Abdomen is less distended. There is no direct tenderness rebound tensile guarding at this point. Bowel sounds are hypoactive. Organs cannot be accurately palpated. Examination of the extremities revealed easily palpable radial, femoral and pedal pulses. There was no cyanosis, clubbing or edema. Examination of the skin revealed no evidence of significant rashes, suspicious appearing nevi or other concerning lesions. - Labs CBC & Chem 7: 01/08/18 06:38 01/10/18 07:21 Labs: Abnormal Lab Results - Last 24 Hours (Table) 01/09/18 01/09/18 01/09/18 Range/Units 10:28 11:49 17:10 Carbon Dioxide (22-30) mmol/L BUN (7-17) mg/dL Glucose (74-99) mg/dL POC Glucose (mg/dL) 238 H 238 H 237 H (75-99) mg/dL 01/09/18 01/10/18 01/10/18 Range/Units 20:51 07:08 07:21 Carbon Dioxide 33 H (22-30) mmol/L BUN 28 H (7-17) mg/dL Glucose 64 L (74-99) mg/dL POC Glucose (mg/dL) 263 H 70 L (75-99) mg/dL Assessment and Plan Plan: Assessment: 1 acute COPD exacerbation with suspected right lower lobe/middle lobe pneumonia. The patient's COPD is improving and the chest x-ray from 01/04/2018 showed improvement in the right lung pulmonary infiltrates and there are some diffuse interstitial markings without evidence of any acute consolidation or pneumonia. On 01/09/2018 patient is persistently hypoxemic, and requiring 10 L per high flow nasal cannula, and her pulse ox is ranging from 82-92%. CT angiogram was completed, and showed no evidence of pulmonary embolism, but complete left lower lobe atelectasis. There has been a resolution of the right lower lobe/ middle lobe infiltrate previously noted on chest x-rays On 01/10/2018 patient's FiO2 is down to 4 L per nasal cannula, with pulse ox of 92%, continue encouraging deep breathing and coughing, continue encouraging incentive spirometer use. No fever, no chills, vital signs are stable. Patient is going down for barium enema today for ongoing fecal stasis. 2 acute shortness of breath secondary to above. The shortness of breath is improving. 3 CHF with an ejection fraction of 30-35% with underlying segmental wall motion abnormality rule out underlying coronary artery disease. The patient is currently on a combination of Coreg, lisinopril and Aldactone 4 abdominal distention, possibly related to fecal stasis/constipation, the patient received laxative and she is improving 5 diabetes mellitus type 2 with steroid-induced hyperglycemia currently on insulin drip for blood sugar control 6 hypertension 7 hyperlipidemia 8 acid reflux 9 schizophrenia 10 [facility] home resident Plan Continue weaning FiO2, continue encouraging deep breathing and coughing, and spirometer use, encourage ambulation. Continue oral prednisone, continue nebulized bronchodilators. I performed a history & physical examination of the patient and discussed their management with my nurse practitioner, Joyce Vargas. I reviewed the nurse practitioner's note and agree with the documented findings and plan of care. Lung sounds are diminished. The findings and the impression was discussed with the patient. I attest to the documentation by the nurse practitioner. Time with Patient: Less than 30
--- NOTE | 2018-01-10 10:26 | FL ---
EXAMINATION TYPE: FL barium enema DATE OF EXAM: 01/10/2018 COMPARISON: Abdominal x-ray from yesterday. CT abdomen October 25, 2017. HISTORY: Pain rule out obstruction TECHNIQUE: A single contrast enema study is performed using diluted Omnipaque 350 and diluted Isovue -300. A total of 1 minute 44 seconds of fluoroscopic time was utilized during procedure. 12 spot imag es were saved during procedure during retrograde filling. FINDINGS: Program Director/Morning Show Host view of the abdomen shows overall non-obstructive bowel gas pattern. There is persis tent moderate mid fecal stasis involving transverse colon. Cholecystectomy clip is redemonstrated. Li mited study performed due to nonstandard prep. Catheter is inserted. Balloon is inflated. There is successful retrograde filling up to level of hepa tic flexure without obvious constricting mass. Abundance of fecal debris is noted. Further attempts t o pass contrast were unsuccessful in reaching cecum. Post procedure overhead images however show succ essful filling through the cecum without obvious constricting mass. IMPRESSION: Successful filling to cecum without obvious obstructing or constricting mass. Overall mo derate colonic fecal stasis. Limited study due to nonprep.
[2018-01-10 11:30] LABS: Glucose,Whole Blood 96 mg/dL (75-99)
[2018-01-10] MEDS: PANTOPRAZOLE 40 MG TABLET PO SCH (11:42)
[2018-01-10] MEDS: CARVEDILOL 12.5 MG TAB PO SCH ×2 (11:42→19:02)
[2018-01-10] MEDS: CEFDINIR 300 MG CAP PO SCH ×2 (11:43→20:08)
[2018-01-10] MEDS: ALLOPURINOL 100 MG TAB PO SCH ×2 (11:43→20:08)
[2018-01-10] MEDS: CHOLECALCIFEROL 1,000 UNIT TAB PO SCH (11:43)
[2018-01-10] MEDS: ASPIRIN 81 MG PO SCH (11:43)
[2018-01-10] MEDS: FENOFIBRATE 160 MG TAB PO SCH (11:44)
[2018-01-10] MEDS: cloZAPine 25 MG TAB PO SCH (11:44)
[2018-01-10] MEDS: CITALOPRAM HYDROBROMIDE 20 MG TAB PO SCH (11:44)
[2018-01-10] MEDS: LACTULOSE 20 GM/30 ML CUP PO SCH ×2 (11:46→20:08)
[2018-01-10] MEDS: predniSONE 20 MG TAB PO SCH (11:47)
[2018-01-10] MEDS: POTASSIUM CHLORIDE ER 10 MEQ TAB.ER.PRT PO SCH (11:48)
[2018-01-10] MEDS: SPIRONOLACTONE 25 MG TAB PO SCH (11:48)
[2018-01-10] MEDS: LOVAZA PO SCH ×2 (11:48→20:09)
--- NOTE | 2018-01-10 14:06 | P.PN ---
<Prabha Mancini M - Last Filed: 01/10/18 14:07> Subjective Progress Note Date: 01/10/18 52-year-old female sitting up in a chair just returned from having follow- through barium enema. Nursing reports patient has had several loose stools. The report indicates successful filling to the cecum without obvious obstruction or constricting mass moderate colonic Fecal stasis patient states that the abdominal pain is gone now denies shortness of breath dizziness lightheadedness reportedly tolerating a diet with no nausea no vomiting Objective - Vital Signs Vital signs: Vital Signs Temp 98.1 F 01/10/18 06:02 Pulse 88 01/10/18 11:05 Resp 20 01/10/18 06:02 BP 115/58 01/10/18 06:02 Pulse Ox 92 L 01/10/18 06:02 Intake & Output 01/09/18 01/10/18 01/10/18 18:59 06:59 18:59 Intake Total 70 120 Output Total 200 Balance 70 -80 Intake: Intake, IV Titration 70 Amount Sodium Chloride 0.9% 1, 70 000 ml @ 10 mls/hr IV . Q24H [facility] Rx#:[id number] Oral 120 Output: Stool 200 Other: Voiding Method Diaper Diaper Diaper Incontinent Incontinent Incontinent # Voids 4 3 1 # Bowel Movements 1 1 - Exam Physical exam Abdomen soft no facial grimacing with palpitation to the abdominal wall active bowel tones nursing reports patient has been incontinent urine had 1 bowel movement mild tenderness nondistended - Labs CBC & Chem 7: 01/08/18 06:38 01/10/18 07:21 Labs: Abnormal Lab Results - Last 24 Hours (Table) 01/09/18 01/09/18 01/10/18 Range/Units 17:10 20:51 07:08 Carbon Dioxide (22-30) mmol/L BUN (7-17) mg/dL Glucose (74-99) mg/dL POC Glucose (mg/dL) 237 H 263 H 70 L (75-99) mg/dL 01/10/18 Range/Units 07:21 Carbon Dioxide 33 H (22-30) mmol/L BUN 28 H (7-17) mg/dL Glucose 64 L (74-99) mg/dL POC Glucose (mg/dL) (75-99) mg/dL Assessment and Plan Assessment: Impression Constipation present on admission plan Continue with lactulose 30 g twice a day Continue Senokot as ordered Will follow with you The above impression and plan of care have been discussed and directed by signing physician. Prabha Mancini nurse practitioner acting as scribe for signing physician. <Eliazar Boykin - Last Filed: 01/11/18 14:48> Objective - Vital Signs Vital signs: Vital Signs Temp 98.0 F 01/11/18 05:00 Pulse 92 01/11/18 11:13 Resp 16 01/11/18 05:00 BP 119/72 01/11/18 05:00 Pulse Ox 92 L 01/11/18 09:12 Intake & Output 01/10/18 01/11/18 01/11/18 18:59 06:59 18:59 Intake Total 480 360 Balance 480 360 Weight 69.853 kg 69.853 kg Intake: Oral 480 360 Other: Voiding Method Diaper Diaper Toilet Incontinent Incontinent Diaper Incontinent # Voids 1 1 # Bowel Movements 1 - Labs CBC & Chem 7: 01/08/18 06:38 01/11/18 07:08 Labs: Abnormal Lab Results - Last 24 Hours (Table) 01/10/18 01/10/18 01/11/18 Range/Units 17:09 20:25 07:02 Sodium (137-145) mmol/L Carbon Dioxide (22-30) mmol/L BUN (7-17) mg/dL Glucose (74-99) mg/dL POC Glucose (mg/dL) 169 H 296 H 161 H (75-99) mg/dL 01/11/18 01/11/18 Range/Units 07:08 11:37 Sodium 136 L (137-145) mmol/L Carbon Dioxide 33 H (22-30) mmol/L BUN 23 H (7-17) mg/dL Glucose 131 H (74-99) mg/dL POC Glucose (mg/dL) 163 H (75-99) mg/dL Assessment and Plan Assessment: As above. Await barium enema (1) Constipation Current Visit: Yes Status: Acute Code(s): K59.00 - CONSTIPATION, UNSPECIFIED SNOMED Code(s): 98937092
[2018-01-10 15:22] VITALS: RESP 16
[2018-01-10 17:10] LABS: Glucose,Whole Blood 169 mg/dL (75-99)
[2018-01-10] MEDS: LISINOPRIL 10 MG TAB PO SCH (19:01)
[2018-01-10] MEDS: TROSPIUM CHLORIDE 20 MG TABLET PO SCH (19:02)
[2018-01-10] MEDS: metFORMIN 500 MG TAB PO SCH (19:02)
[2018-01-10] MEDS: cloZAPine 100 MG TAB PO SCH (20:07)
[2018-01-10] MEDS: ATORVASTATIN 20 MG TAB PO SCH (20:08)
[2018-01-10] MEDS: SENNOSIDES 8.6 MG TAB PO SCH (20:08)
[2018-01-10] MEDS: SODIUM CHLORIDE 0.9% 1,000 ML IV SCH (20:09)
[2018-01-10 20:39] LABS: Glucose,Whole Blood 296 mg/dL (75-99)
[2018-01-10] MEDS: INSULIN DETEMIR 100 UNIT/ML 10 ML VIAL SQ SCH (21:10)
--- NOTE | 2018-01-10 22:22 | PN ---
PROGRESS NOTE DATE OF SERVICE: 01/10/2018 PRESENTING COMPLAINT: Tired. INTERVAL HISTORY: This patient presented with pneumonia, fluid overload, severe constipation, COPD exacerbation. Breathing is much better, is down to about 2L. Has been having bowel movements. Abdomen is more soft. The patient is sitting up, tolerating a diet. Did have a Gastrografin enema that showed stool in the colon. REVIEW OF SYSTEMS: Done for constitutional, cardiovascular, GI, pulmonary; relevant findings above. CURRENT MEDICATIONS: Reviewed, include: 1. DuoNeb. 2. Omnicef. 3. Oral prednisone. EXAMINATION: Temperature 98.1, pulse 54, respirations 16, blood pressure 104/67, pulse ox 95% on 4L. GENERAL APPEARANCE: Sitting up, less tired. EYES: Pupils equal. Conjunctivae normal. HEENT: External nose and ears normal. Oral cavity normal. NECK: JVD not raised. Mass not palpable. RESPIRATORY: Effort normal. LUNGS: Decreased breath sounds. Improved air entry. CARDIOVASCULAR: First and second sounds normal. No edema. ABDOMEN: Soft, nontender. Bowel sounds are present. PSYCHIATRY: Awake, answering questions. INVESTIGATIONS: Potassium 4.4, BUN 28, creatinine 0.74. ASSESSMENT: 1. Right lobe pneumonia suspect gram-negative organism with clinical improvement. 2. Acute congestive heart failure exacerbation from systolic dysfunction, ejection fraction 30%-35%, euvolemic. 3. Acute hypoxic respiratory failure. The patient's oxygen requirement is down to 2L- 3L. 4. Right lower lobe atelectasis, could be from mucous plug, improved clinically. 5. Diabetes mellitus type 2 on oral hypoglycemic, uncontrolled from hyperglycemia from steroids. The patient is now on oral prednisone. 6. Gastroesophageal reflux disease. 7. Hyperlipidemia. 8. Essential hypertension. 9. Chronic urinary stress incontinence. 10.Chronic mental impairment. 11.Severe constipation with good response to laxatives. 12.Acute chronic obstructive pulmonary disease exacerbation in a nonsmoker. 13.Acute hypoxic respiratory failure, currently on 2L-4L of oxygen. PLAN: We will taper her oxygen more. The patient is started back on the Lantus. Cut back on prednisone to 30 mg. Follow. MMODL / IJN: [id number] /
[2018-01-11 07:03] LABS: Glucose,Whole Blood 161 mg/dL (75-99)
[2018-01-11 07:55] LABS: Anion Gap 5 mmol/L; Blood Urea Nitrogen 23 mg/dL (7-17); Calcium 9.4 mg/dL (8.4-10.2); Carbon Dioxide 33 mmol/L (22-30); Chloride 98 mmol/L (98-107); Glucose 131 mg/dL (74-99); Potassium 4.4 mmol/L (3.5-5.1); Sodium 136 mmol/L (137-145)
[2018-01-11] MEDS: BUDESONIDE 1 MG/2 ML NEBU INHALATION SCH (08:10)
[2018-01-11] MEDS: IPRATROPIUM-ALBUTEROL 3 ML NEB INHALATION SCH ×3 (08:10→15:47)
[2018-01-11] MEDS: LOVAZA PO SCH (08:22)
[2018-01-11] MEDS: SPIRONOLACTONE 25 MG TAB PO SCH (08:23)
[2018-01-11] MEDS: CITALOPRAM HYDROBROMIDE 20 MG TAB PO SCH (08:23)
[2018-01-11] MEDS: FENOFIBRATE 160 MG TAB PO SCH (08:24)
[2018-01-11] MEDS: CARVEDILOL 12.5 MG TAB PO SCH ×2 (08:24→17:41)
[2018-01-11] MEDS: LACTULOSE 20 GM/30 ML CUP PO SCH (08:24)
[2018-01-11] MEDS: CEFDINIR 300 MG CAP PO SCH (08:24)
[2018-01-11] MEDS: ALLOPURINOL 100 MG TAB PO SCH (08:24)
[2018-01-11] MEDS: ASPIRIN 81 MG PO SCH (08:24)
[2018-01-11] MEDS: PANTOPRAZOLE 40 MG TABLET PO SCH (08:24)
[2018-01-11] MEDS: CHOLECALCIFEROL 1,000 UNIT TAB PO SCH (08:24)
[2018-01-11] MEDS: POTASSIUM CHLORIDE ER 10 MEQ TAB.ER.PRT PO SCH (08:24)
[2018-01-11] MEDS ORDERED: predniSONE 10 MG TAB PO SCH (09:00)
--- NOTE | 2018-01-11 09:16 | CDI ---
Last Revision, May 2017 Documentation Clarification Form Date: 01/11/18 From: Marbella Ellison RN Admit Date: 12/31/2017 3:36:00 PM Patient Name: Naye Santos Visit Number: [id number] ATTENTION: The Clinical Documentation Specialists (CDI) and [facility] Coding Staff appreciate your assistance in clarifying documentation. Please respond to the clarification below the line at the bottom and electronically sign. The CDI & [facility] Coding staff will review the response and follow-up if needed. Please note: Queries are made part of the Legal Health Record. If you have any questions, please contact the author of this message via ITS. Dr. Ranjeet Osei MD, Asthma is documented in the patient history in the consult 01/02 and PN 01/03. Pulmonary does not state Asthma in their consult. Patient history/risk factors: HTN, hyperlipidemia, home 02 at night, schizophrenia, x smoker Clinical Indicators: Pt. presented with shortness of breath and pneumonia Radiology: CXR 01/04, Impression, chronic changes, possible bronchitis or asthma Vital Signs: T 99.3, P 92, R 18, 113/73, 91% RA H&P Respiratory exam. States pt has wheezing, increased effort with decreased sounds and crackles. Treatment: Breathing treatments Medication: Duobeb, Pulmicort, Prednisone Consults: Pulmonary, Cardiology In your professional opinion, can you please further specify the following, if known? Asthma ruled in Asthma ruled out Acute Exacerbation Status asthmaticus Chronic obstructive bronchitis Other, please specify Unable to determine Severity: Mild intermittent Mild persistent Moderate persistent Severe persistent Other, please specify Unable to determine Form or Type: Cough variant Childhood Extrinsic allergic Idiosyncratic Intrinsic nonallergic Late-onset Mixed Other, please specify Unable to determine Please continue to document in your progress notes, under the line below and/or in the discharge summary in order to capture severity of illness and risk of mortality. Include clinical findings that support your diagnosis. no asthma MTDD
[2018-01-11 11:38] LABS: Glucose,Whole Blood 163 mg/dL (75-99)
--- NOTE | 2018-01-11 14:26 | P.PN ---
Subjective Progress Note Date: 01/11/18 Principal diagnosis: Acute COPD exacerbation with suspected right lower lobe middle lobe pneumonia This is a 52-year-old female patient, a poor historian with known history of COPD and addition to diabetes mellitus type 2, hypertension and hyperlipidemia and schizophrenia, who came into the hospital because of shortness of breath. The patient has been followed up by visiting physicians. She is mentally impaired and she is a poor historian. Her shortness of breath dates back to around 2 days ago and she was having these cough without any significant sputum production. There was also reported increased bronchospasm and wheezing and she was getting more short of breath and tired. She was also having some increased constipation and abdominal distention. On admission, chest x-ray was done and showed bilaterally no opacities most consistent with atelectasis although early developing pneumonia in the right lower lobe and the right middle lobe could not be excluded. The patient was started on antibiotics. The patient was started on IV Solu-Medrol. The patient was also started on IV fluids knowing that she had a component of lactic acidosis with initial lactic acid level of 4.4. Note that her lactic acid level dropped down to 1.8. Nevertheless earlier this point the patient became progressively more short of breath and a chest x-ray was done and it showed interval development of moderate degree of interstitial edema which is probably related to fluid overload as the patient was receiving IV fluids in regards to her lactic acidosis. Flat film of the abdomen was also done that showed nonobstructive bowel gas pattern and there was fairly moderate amount of colonic fecal stasis. I saw this patient on the medical floor. She was in 100 % nonrebreather facemask. I decide to move this patient to the intensive care unit for more monitoring. She was given a dose of Lasix following which she had adequate urine output and she was getting less short of breath. She denied having any chest pain. Her white cell count is not elevated at 6.8. Hemoccult was stable at 10.6. Rest of the electrodes are all within normal including her renal function tests. She had developed some steroid-induced hyperglycemia related to systemic steroids and the patient was started on insulin drip for blood sugar control. In terms of antibiotic coverage, the patient is on a combination of Rocephin and Zithromax. The patient was also seen by Dr. strange. She was given milk of magnesia regarding her constipation. She'll be monitored clinically. We'll consider CAT scan of the abdomen and pelvis if she continues to have abdominal distention. On 01/02/2018 the patient is less short of breath compared to yesterday. She was weaned down to 5 L of oxygen by nasal cannula. She made excellent urine output with diuretics yesterday and the patient shows improvement in the volume status on today's chest x-ray. The patient is a negative fluid balance. The patient is not having any chest pain. She is still congested and she has a cough and some limited wheezing. Abdomen is still distended. The patient undertook a Fleet enema yesterday and the patient also received milk of magnesia without success in terms of her bowel activity. No abdominal pain. Abdomen is slightly distended still. No fever. No chills. No hypotension. No other complaints otherwise for now. White cell count is at 12.5. The patient has a normal renal function. On today's evaluation of 01/03/2018 the patient is seeming to have less shortness of breath. She is on 5 L of oxygen by nasal cannula. She is bronchospastic. She has a congested cough. No significant sputum production. Abdomen is less distended. The patient was placed on a combination of the test and the patient was able to produce a bowel movement. No fever or chills. She is on a combination of albuterol and Atrovent about treatments around the clock in addition to IV Solu-Medrol that was Down to 40 mg every 12 hours. The patient is on insulin drip for blood sugar control for now. She has normal blood work. No significant leukocytosis. Renal function remains stable. She is producing adequate amount of urine output. On 01/04/2018, the patient is doing slow progress and improvement in her acute COPD exacerbation. She has bronchus spastic and wheezy however she still in need of IV Solu-Medrol and for that reason this will be continued and the patient will be kept also on IV heparin for blood sugar control. No chest pain. Most of the sputum production. No pleurisy or hemoptysis. Abdomen is again less distended. On today's evaluation, her white count is at 10.7. Rest of the electrodes are all within normal limits. The patient is on the one of the breast units [id number]. The patient is on empiric antibiotic coverage with a combination of Rocephin and Zithromax. The patient is on Solu- Medrol 40 mg every 12 hours. The patient is also being managed for CHF with a combination of woo inhibitors, diuretics including Aldactone. She is also on beta blockers in the form of Coreg. On 01/05/2018, the patient is resting comfortably in bed. She remains on IV Solu-Medrol. She remains on nitroglycerin drip for blood sugar control. Recovery is slow. She has a congested cough. Overall shortness of breath is improved and the patient is not having any chest pain. No nausea or vomiting. No abdominal pain. No abdominal distention. CHF is well optimized for now. No altered mentation. She is tolerating her diet. No other significant events overnight. On 01/06/2018, seeing this patient for a follow-up. She is resting comfortably in bed. Her pulmonary status improved even and the patient last bronchus spastic and wheezy compared to yesterday. Her speech is improved and the patient has less interruption in her speech by coughing or any other pulmonary symptoms. He remains on IV Solu Medrol 43 g every 12 hours. She remains on bronchodilators including DuoNeb neb last treatment [id number]. She is also on Pulmicort Respules. No other complaints otherwise for now. On today's evaluation, the patient is resting comfortably in bed. No complaints. IV Solu Medrol is at 40 g every 12 hours. The patient is on oral Omnicef. No signs of heart failure. No altered mentation. J no other new complaints otherwise for now. On 01/08/2018 patient seen in follow-up on medical surgical floor. Resting comfortably in bed, denies acute distress. Lung sounds are positive for some scattered wheezes. Patient is having ongoing issues with constipation. Abdomen is soft, nontender, abdominal x-ray from 01/07/2018 shows continue constipation with moderate to large stool burden, but no evidence of obstruction. Today's chest x-ray has been reviewed, shows hypoventilatory lungs , and mild pulmonary vascular congestion, small left greater than right pleural effusion with adjacent atelectasis. Patient remains on high flow nasal cannula , at 10 L/m, and her pulse ox is 92%, patient is afebrile, hemodynamically stable. Urine and blood cultures remain negative, no significant phlegm production. She remains on IV Solu-Medrol at 40 mg every 12 hours, on oral Omnicef, and nebulized bronchodilators, patient remains on insulin drip for hyperglycemia, is currently infusing at 9 ML per hour. On 01/09/2018 patient seen in follow-up on medical surgical floor. She remains on high flow nasal cannula, on 10 L per nasal cannula her pulse ox is ranging from 82-92%. Patient remains afebrile, hemodynamically stable, denies any worsening shortness of breath. Patient is sitting up in the chair this morning , she was reportedly very wheezy and tight on this morning's exam, improved with bronchodilators. Patient needs aggressive pulmonary toileting, incentive spirometry, she is only able to achieve 250 ML on her IS today. CT angiogram was completed yesterday, and was negative for pulmonary embolism, it showed complete left lower lobe atelectasis and mild to moderate cardiomegaly. Blood and urine cultures remain negative. Has occasional cough with production of clear sputum. She has been mostly on bedrest, staff reports patient is stable on her feet, and is able to ambulate, we will increase patient's activity, and encourage ambulation, deep breathing and coughing. Patient's abdomen is nontender, she starting to pass large amounts of gas, did have a bowel movement today, patient took 2 L of GoLYTELY yesterday. Surgery is following regarding ongoing issues with constipation. On 01/10/2018 patient seen in follow-up on medical surgical floor. She had just returned from the radiology department where she had a barium enema today for fecal stasis. From pulmonary standpoint she remains stable, FiO2 has been weaned down to 4 L per nasal cannula, and her pulse ox is 92%, she is afebrile, vitals are stable. Today's BMP was reviewed, CBC was not done. Sodium is 140, potassium is 4.4, CO2 33, BUN is 28, creatinine 0.74. Denies any worsening dyspnea, has occasional cough with production of clear sputum. Remains on oral prednisone, and nebulized bronchodilators. Lung sounds are diminished, patient still has a congested cough, but is not producing much sputum today. No fever, no chills. She is pulling 500 mL of her incentive spirometer today. On 01/11/2018 patient seen in follow-up. Patient is ambulating in the hallway, room air pulse ox is 92%, patient denies any respiratory complaints, denies any dyspnea, lung sounds clear, diminished at the bases, no chest congestion, no fever or chills, patient still has some residual abdominal distention, but she has been passing bowel movements and passing gas. Patient's oral prednisone has been decreased to 30 mg daily, today's labs were reviewed, no CBC, BMP shows sodium 136, potassium is 4.4, CO2 33, BUN is 23 and creatinine 0.76. Objective - Vital Signs Vital signs: Vital Signs Temp 98.0 F 01/11/18 05:00 Pulse 92 01/11/18 11:13 Resp 16 01/11/18 05:00 BP 119/72 01/11/18 05:00 Pulse Ox 92 L 01/11/18 09:12 Intake & Output 01/10/18 01/11/18 01/11/18 18:59 06:59 18:59 Intake Total 480 360 Balance 480 360 Weight 69.853 kg 69.853 kg Intake: Oral 480 360 Other: Voiding Method Diaper Diaper Toilet Incontinent Incontinent Diaper Incontinent # Voids 1 1 # Bowel Movements 1 - Exam Gen. appearance the patient is a [id number] degree of respiratory distress Head exam was generally normal. There was no scleral icterus or corneal arcus. Mucous membranes were moist. Neck was supple and without jugular venous distension, thyromegaly, or carotid bruits. Carotids were easily palpable bilaterally. There was no adenopathy. Lungs sounds are diminished, no wheezing, no rhonchi, no rales. Cardiac exam revealed the PMI to be normally situated and sized. The rhythm was regular and no extrasystoles were noted during several minutes of auscultation. The first and second heart sounds were normal and physiologic splitting of the second heart sound was noted. There were no murmurs, rubs, clicks, or gallops. Abdomen is less distended. There is no direct tenderness rebound tensile guarding at this point. Bowel sounds are hypoactive. Organs cannot be accurately palpated. Examination of the extremities revealed easily palpable radial, femoral and pedal pulses. There was no cyanosis, clubbing or edema. Examination of the skin revealed no evidence of significant rashes, suspicious appearing nevi or other concerning lesions. - Labs CBC & Chem 7: 01/08/18 06:38 01/11/18 07:08 Labs: Abnormal Lab Results - Last 24 Hours (Table) 01/10/18 01/10/18 01/11/18 Range/Units 17:09 20:25 07:02 Sodium (137-145) mmol/L Carbon Dioxide (22-30) mmol/L BUN (7-17) mg/dL Glucose (74-99) mg/dL POC Glucose (mg/dL) 169 H 296 H 161 H (75-99) mg/dL 01/11/18 01/11/18 Range/Units 07:08 11:37 Sodium 136 L (137-145) mmol/L Carbon Dioxide 33 H (22-30) mmol/L BUN 23 H (7-17) mg/dL Glucose 131 H (74-99) mg/dL POC Glucose (mg/dL) 163 H (75-99) mg/dL Assessment and Plan Plan: Assessment: 1 acute COPD exacerbation with suspected right lower lobe/middle lobe pneumonia. The patient's COPD is improving and the chest x-ray from 01/04/2018 showed improvement in the right lung pulmonary infiltrates and there are some diffuse interstitial markings without evidence of any acute consolidation or pneumonia. On 01/09/2018 patient is persistently hypoxemic, and requiring 10 L per high flow nasal cannula, and her pulse ox is ranging from 82-92%. CT angiogram was completed, and showed no evidence of pulmonary embolism, but complete left lower lobe atelectasis. There has been a resolution of the right lower lobe/ middle lobe infiltrate previously noted on chest x-rays On 01/10/2018 patient's FiO2 is down to 4 L per nasal cannula, with pulse ox of 92%, continue encouraging deep breathing and coughing, continue encouraging incentive spirometer use. No fever, no chills, vital signs are stable. Patient is going down for barium enema today for ongoing fecal stasis. On 01/11/2018 patient seen in follow-up, she is currently on room air, no distress, no respiratory complaints, lung sounds are clear, diminished at the bases, patient is tolerating ambulation. Vital Signs are stable, 2 acute shortness of breath secondary to above. The shortness of breath is improving. 3 CHF with an ejection fraction of 30-35% with underlying segmental wall motion abnormality rule out underlying coronary artery disease. The patient is currently on a combination of Coreg, lisinopril and Aldactone 4 abdominal distention, possibly related to fecal stasis/constipation, the patient received laxative and she is improving 5 diabetes mellitus type 2 with steroid-induced hyperglycemia currently on insulin drip for blood sugar control 6 hypertension 7 hyperlipidemia 8 acid reflux [address] [facility] home resident Plan Continue weaning FiO2, continue encouraging deep breathing and coughing, and spirometer use, encourage ambulation. Continue oral prednisone, continue nebulized bronchodilators. Patient is stable, and cleared for discharge home today from pulmonary standpoint. I performed a history & physical examination of the patient and discussed their management with my nurse practitioner, Joyce Vargas. I reviewed the nurse practitioner's note and agree with the documented findings and plan of care. Lung sounds are diminished. The findings and the impression was discussed with the patient. I attest to the documentation by the nurse practitioner. Time with Patient: Less than 30
--- NOTE | 2018-01-11 14:48 | P.PN ---
Subjective Progress Note Date: 01/11/18 Principal diagnosis: Abdominal pain Patient doing well today. Unprepped contrast enema yesterday showed no evidence of obstruction. The patient has continued to have further bowel activity. Denies pain. Objective - Vital Signs Vital signs: Vital Signs Temp 98.0 F 01/11/18 05:00 Pulse 92 01/11/18 11:13 Resp 16 01/11/18 05:00 BP 119/72 01/11/18 05:00 Pulse Ox 92 L 01/11/18 09:12 Intake & Output 01/10/18 01/11/18 01/11/18 18:59 06:59 18:59 Intake Total 480 360 Balance 480 360 Weight 69.853 kg 69.853 kg Intake: Oral 480 360 Other: Voiding Method Diaper Diaper Toilet Incontinent Incontinent Diaper Incontinent # Voids 1 1 # Bowel Movements 1 - Exam Abdomen: Soft, nondistended, nontender - Labs CBC & Chem 7: 01/08/18 06:38 01/11/18 07:08 Labs: Abnormal Lab Results - Last 24 Hours (Table) 01/10/18 01/10/18 01/11/18 Range/Units 17:09 20:25 07:02 Sodium (137-145) mmol/L Carbon Dioxide (22-30) mmol/L BUN (7-17) mg/dL Glucose (74-99) mg/dL POC Glucose (mg/dL) 169 H 296 H 161 H (75-99) mg/dL 01/11/18 01/11/18 Range/Units 07:08 11:37 Sodium 136 L (137-145) mmol/L Carbon Dioxide 33 H (22-30) mmol/L BUN 23 H (7-17) mg/dL Glucose 131 H (74-99) mg/dL POC Glucose (mg/dL) 163 H (75-99) mg/dL Assessment and Plan (1) Constipation Narrative/Plan: Agree with plans for discharge. Continue stool softeners post discharge. Follow-up with myself as needed. Current Visit: Yes Status: Acute Code(s): K59.00 - CONSTIPATION, UNSPECIFIED SNOMED Code(s): 72332101
[2018-01-11 16:06] VITALS: BP 117/78; PULSE 95; TEMP 98.1
[2018-01-11 16:52] LABS: Glucose,Whole Blood 278 mg/dL (75-99)
[2018-01-11] MEDS: metFORMIN 500 MG TAB PO SCH (17:41)
[2018-01-11] MEDS: LISINOPRIL 10 MG TAB PO SCH (17:41)
[2018-01-11] MEDS: TROSPIUM CHLORIDE 20 MG TABLET PO SCH (17:41)
--- NOTE | 2018-01-11 23:26 | DS ---
DISCHARGE SUMMARY DATE OF ADMISSION: 12/31/2017. DATE OF DISCHARGE: 01/11/2018. . FINAL DIAGNOSES: 1. Right lobe pneumonia, suspect gram-negative organism, present on admission. 2. Acute congestive heart failure exacerbation from systolic dysfunction, ejection fraction 30% to 35%. 3. Acute hypoxic respiratory failure due to congestive heart failure and pneumonia, present on admission. 4. Diabetes mellitus type 2 on oral hypoglycemics, uncontrolled from hyperglycemia from steroids. 5. Gastroesophageal reflux disease. 6. Hyperlipidemia. 7. Essential hypertension. 8. Chronic urinary stress incontinence. 9. Chronic mental impairment. 10.Severe constipation with good response to laxatives. 11.Acute chronic obstructive pulmonary disease exacerbation in a nonsmoker. 12.Acute hypoxic respiratory failure as above. HOSPITAL COURSE: This patient who is slightly mentally slow, presented with pneumonia, acute respiratory failure which did require BiPAP and congestive heart failure exacerbation. Ejection fraction 30% to 35%. By the time of discharge patient greatly improved his pulse ox on room air. Up and about. The patient required several rounds of laxatives. Did also get a barium enema and was making good stool. By the time of discharge was tolerating a diet. A 2D echo showed EF of 30% to 35% with wall motion abnormalities. The patient was cleared by Cardiology and Pulmonary to go home CONSULTATIONS: Dr. Celestin and colleagues from Pulmonary, Dr. Dolan. PHYSICAL EXAMINATION: Temperature 98.1, pulse 95, respirations 16, blood pressure 107/78, pulse ox 100% on room air. Lungs fair entry. Abdomen soft, nontender. Psych awake, answering simple questions. DISCHARGE MEDICATIONS: 1. Zestril 10 mg with supper. 2. Prilosec 20 mg with breakfast. 3. VESIcare 5 mg with supper. 4. Aspirin 81 mg a day. 5. Vitamin D3, 2000 units a day. 6. Lovaza 1 capsule p.o. b.i.d. 7. Glucophage XL 1000 mg with supper. 8. Allopurinol 100 mg b.i.d. 9. Lipitor 20 mg at bedtime. 10.Pulmicort 0.25 b.i.d. 11.Celexa 40 mg a day. 12.Lofibra 160 mg a day. 13.Levemir 65 units subcu at bedtime. 14.DuoNeb q.i.d. 15.Senna 8.6 at bedtime. 16.Clozaril 25 mg in the morning, 200 mg at night, 25 mg p.o. b.i.d. 17.Omnicef 300 mg b.i.d. 6 capsules. 18.Metamucil 6 grams p.o. b.i.d. 19.Aldactone 25 mg a day. 20.Prednisone 30 mg for 2 days, 20 mg for 2 days, 10 mg for 2 days, then stop. FOLLOWUP: 1. Follow up with Dr. Dolan in 2 weeks. 2. Follow up with Dr. Ham in 3 days. DISPOSITION: [facility]. Discharge planning more than 35 minutes. MMODL / IJN: [id number] /
== END 2018-01-11 19:25 | disposition home or self-care (01) | DRG 177 ==
LOC: EC 14:17 → 4MS4W 15:36 → 6ICU 01-01 10:31 → 5MS5E 01-02 20:52
PROVIDERS: ADMIT Hospitalist; ATTEND Hospitalist
PROC: 5A09357 Assistance with Respiratory Ventilation, Less than 24 Consecutive Hours, Continuous Positive Airway Pressure (ICD-10-PCS; principal; 2017-12-31)
DX: J15.6 Pneumonia due to other Gram-negative bacteria (principal); J96.01 Acute respiratory failure with hypoxia; I50.23 Acute on chronic systolic (congestive) heart failure; E87.2 Acidosis; I42.9 Cardiomyopathy, unspecified; J44.0 Chronic obstructive pulmonary disease with (acute) lower respiratory infection; J44.1 Chronic obstructive pulmonary disease with (acute) exacerbation; J98.11 Atelectasis; K56.7 Ileus, unspecified; Z87.891 Personal history of nicotine dependence; E11.65 Type 2 diabetes mellitus with hyperglycemia; E78.5 Hyperlipidemia, unspecified; F20.9 Schizophrenia, unspecified; F39 Unspecified mood [affective] disorder; H54.7 Unspecified visual loss; I11.0 Hypertensive heart disease with heart failure; I44.7 Left bundle-branch block, unspecified; K21.9 Gastro-esophageal reflux disease without esophagitis; T38.0X5A Adverse effect of glucocorticoids and synthetic analogues, initial encounter; N39.46 Mixed incontinence; Z79.4 Long term (current) use of insulin; Z79.82 Long term (current) use of aspirin; Z79.899 Other long term (current) drug therapy; F79 Unspecified intellectual disabilities; Z79.51 Long term (current) use of inhaled steroids; Z87.01 Personal history of pneumonia (recurrent); K59.00 Constipation, unspecified; Z88.1 Allergy status to other antibiotic agents; Z88.8 Allergy status to other drugs, medicaments and biological substances
CPT/HCPCS: 36415; 71045; 71046; 71275; 74019; 74270; 80048; 80053; 81003; 82550; 82553; 83036; 83605; 83735; 83880; 84100; 84132; 84484; 85025; 85027; 85610; 85730; 87040; 87086; 93005; 93306; 94640; 94760; 96374; 96375; 99285